=== PATIENT | female | born 1955 | race Caucasian/White ===

== ENCOUNTER 2020-09-28 09:25 | Outpatient (CLI) | payer MEDICARE, SELFPAY | END 2020-09-28 09:26 | disposition home or self-care (01) | LOC: CHSIMG 09:28 | PROVIDERS: PCP Internal Medicine; Visit Provider Internal Medicine | DX: Z53.8 Procedure and treatment not carried out for other reasons (principal) | CPT/HCPCS: 99199 ==

== ENCOUNTER 2020-09-30 07:10 | Outpatient (CLI) | payer MEDICARE, SELFPAY ==
--- NOTE | ~2020-09-30 | US_ITS ---
EXAMINATION: US aorta [facility] DATE: 09/30/2020 09:29 THIMBLE PRESS OPERATOR INDICATION: Abdominal aortic aneurysm screening. Hypertension. Diabetes. TECHNIQUE: Grayscale, color Doppler, and pulsed Doppler images of the aorta and common iliac arteries were obtained. COMPARISON: None. FINDINGS: The proximal aorta measures 2.6 cm greatest sagittal dimension. The mid aorta measures 2.2 cm greates t sagittal dimension. The distal aorta measures 1.9 cm greatest sagittal dimension. The right common internal iliac artery measures 1 cm. The left common iliac artery measures 0.7 cm. IMPRESSION: 1. Atherosclerosis of the aorta without evidence for aneurysm. Reviewed, dictated and finalized at location A. BLE PRESS OPERATOR
--- NOTE | ~2020-09-30 | CT_ITS ---
EXAMINATION: CT lung screening DATE: 09/30/2020 07:43 INDICATION: History of tobacco dependence. TECHNIQUE: Computed tomography (CT) of the chest was performed without intravenous contrast. The dose -length product was 142.43 mGy-cm. Automated exposure control and iterative reconstruction technique were employed. COMPARISON: None FINDINGS: Heart size normal. No thoracic lymphadenopathy. No significant pleural or pericardial effus ion. No endobronchial lesions. 8 millimeter right middle lobe nodule, image 46. Mild emphysema. There is a 3 mm fissural nodule on the left, image 27. There is mild atherosclerosis. There are calcifications of the pancreas, consistent with chronic panc reatitis. IMPRESSION: 1. Lung Rads category 4A, suspicious. Recommend either 3 month low-dose CT or PET/CT examination foll ow-up. Reviewed, dictated and finalized at location A. ER TECHNICAL EDUCATION TEACHER IMPRESSION: 1. Lung Rads category 4A, suspicious. Recommend either 3 month low-dose CT or P ET/CT examination follow-up.
--- NOTE | ~2020-09-30 | US_ITS ---
EXAMINATION: US carotid duplex BI DATE: 09/30/2020 08:08 INDICATION: Carotid bruit TECHNIQUE: Grayscale, color Doppler, and pulsed Doppler images of the cervical carotid arteries were obtained. The degree of vessel stenosis is placed in one of the following categories: normal, <50%, 5 0-69%, >=70% but less than near-occlusion, near-occlusion, or total occlusion. Note that percent sten osis relative to normal distal artery lumen diameter is indirectly measured from velocity measurement s as described by Umer, et al. Radiology 2003; 229:340-346. Notes: Normal: Peak systolic velocity <125 centimeters/sec and no plaque <50%. Peak systolic velocity <125 ( EDV <40; ICA/CCA PSV ratio <2.0; used these factors only a tandem lesions or low cardiac output or co ntralateral disease) 50-69 %: PSV 125-230 (EDV 40-100; ratio 2-4) >= 70% but less than near occlusion: PSV greater than 230 (EDV > 100; ratio> 4.0) Near Occlusion: PSV that is variable; markedly narrowed lumen Occlusion: Absent flow on color/spectral Doppler and no lumen on godoy scale. COMPARISON: Ultrasound dated 09/30/2020. FINDINGS: RIGHT: The right common carotid artery (CCA) peak systolic velocity (PSV) is 83 cm/s. The right internal car otid artery (ICA) PSV is 87 cm/s. The right ICA end-diastolic velocity (EDV) is 34 cm/s. The right IC A/CCA PSV ratio is 1.0. The external carotid artery (ECA) PSV is 76 cm/s. There is antegrade flow in the right vertebral artery. LEFT: The left CCA PSV is 92 cm/s. The left ICA PSV is 93 cm/s. The left ICA EDV is 32 cm/s. The left ICA/C CA PSV ratio is 1.0. The ECA PSV is 120 cm/s. There is antegrade flow in the left vertebral artery. IMPRESSION: 1. Less than 50% stenosis in the right internal carotid artery by sonographic criteria. 2. Less than 50% stenosis in the left internal carotid artery by sonographic criteria. Reviewed, dictated and finalized at location A. 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 Less than 50% stenosis in the right internal carotid artery by sonographic c gogo. 2. Less than 50% stenosis in the left internal carotid artery by sonographic nahum sunshine.
--- NOTE | ~2020-09-30 | DEXA_ITS ---
Bone Density Report Name: Rosi Esqueda Age: 65 Sex: Female Ethnicity: White Date of : 1955 Indication: postmenopausal; screening for osteoporosis; Referring Provider: Deion Bhat Study: Bone densitometry was performed. Exam Date: September 30, 2020 Accession number: [id number] Bone Density: Region BMD T-score Z-score Classification AP Spine(L1-L4) 0.856 -1.7 0.1 Osteopenia Femoral Neck (Left) 0.662 -1.7 -0.1 Osteopenia Total Hip (Left) 0.806 -1.1 0.2 Osteopenia Femoral Neck (Right) 0.627 -2.0 -0.4 Osteopenia Total Hip (Right) 0.782 -1.3 0.0 Osteopenia Femoral Neck Mean 0.644 -1.8 -0.2 Osteopenia Total Hip Mean 0.794 -1.2 0.1 Osteopenia World Health Organization criteria for BMD impression classify patients as: Normal (T-score at or above -1.0), Osteopenia (T-score between -1.0 and -2.5), or Osteoporosis (T-score at or below -2.5). 10-year Fracture Risk(1): Major Osteoporotic Fracture 11% Hip Fracture 2.6% Reported Risk Factors: [place] (), Neck BMD=0.627, BMI=30.6, smoking (1) FRAX(R) Version 3.08. Fracture probability calculated for an untreated patient. Fracture probability may be lower if the patient has received treatment. Clinical Information Provided by Patient: Smokes Menopause Age: 29 Drinks caffeinated beverages Onset of menses at age 15 Number of children 3 Impression: The patient has low bone mass, based on the Right Femoral Neck T-score. The patient has risk factors, including: smoking. Discussion: BONE DENSITY IS LOW AT ONE OR MORE SKELETAL SITES. This patient's lowest T-score is low at one or more skeletal sites. It meets the World Health Organization's (WHO) criteria for ?low bone mass? (T-score between -1.0 and -2.5). The patient's 10-year risk of fracture as calculated by FRAX is less than the threshold where pharmacological therapy is recommended by the National Osteoporosis Foundation (NOF). However, all treatment decisions require clinical judgment and consideration of individual patient factors, including patient preferences, comorbidities, previous drug use, risk factors not captured in the FRAX model (e.g., frailty, falls, vitamin D deficiency, increased bone turnover, interval significant decline in bone density) and possible under or overestimation of fracture risk by FRAX. The patient should follow a healthful lifestyle (good nutrition with adequate calcium and vitamin D, and appropriate weight-bearing exercise). Follow-Up: Consider repeating this study in 2 to 3 years to reassess this patient's status, or sooner if there is some new clinical indication. Reported by: Dr. Terry Butterfield on 09/30/2020 7:40:00 AM. Reviewed, dictated and finalized at location
== END 2020-09-30 07:11 | disposition home or self-care (01) ==
PROVIDERS: PCP Internal Medicine; Visit Provider Internal Medicine
DX: Z12.2 Encounter for screening for malignant neoplasm of respiratory organs (principal); Z87.891 Personal history of nicotine dependence; M81.0 Age-related osteoporosis without current pathological fracture; R09.89 Other specified symptoms and signs involving the circulatory and respiratory systems; R42 Dizziness and giddiness
CPT/HCPCS: 76706; 77080; 93880; G0297

== ENCOUNTER → 2020-10-09 12:45 | Outpatient (CLI) | payer MEDICARE, SELFPAY ==
--- NOTE | ~2020-10-09 | MR_ITS ---
EXAMINATION: MR brain IAC wo/w con DATE: 10/09/2020 14:08 INDICATION: Vertigo. Dizziness. TECHNIQUE: Magnetic resonance imaging (MRI) of the brain, brainstem, and internal auditory canals was performed without and with 15 mL MultiHance intravenous contrast. Sequences included sagittal and ax ial T1-weighted FSE, axial diffusion-weighted FS EPI, axial T2*-weighted GRE, axial T2-weighted FLAIR Propeller, axial T2-weighted Propeller, small azrwo-op-uecm coronal FIESTA, small ganmy-la-crqb celestina nal T1-weighted FSE, and small akita-cc-msxi axial T1-weighted SPGR. Postcontrast sequences included axial T1-weighted FSE, small ampru-fd-fcno coronal T1-weighted FSE, and small vipuo-nk-hjif axial T1- weighted SPGR. Apparent diffusion coefficient (ADC) maps were created. COMPARISON: None. FINDINGS: There is no intracranial hemorrhage, acute infarction, or abnormal intracranial mass lesion . The ventricles are normal in size. There is a 5 mm saccular aneurysm of right middle cerebral arter y. There is a 5 mm saccular aneurysm of left middle cerebral artery. The internal auditory canals and inner and middle ears are normal. The mastoid air cells are normal. The orbits are normal. The paran lilian sinuses are clear. IMPRESSION: 1. 5 mm saccular aneurysm of right middle cerebral artery and 5 mm saccular aneurysm of left middle c erebral artery. Head CTA is recommended. Reviewed, dictated and finalized at location A. NING ROOM ATTENDANT IMPRESSION: 1. 5 mm saccular aneurysm of right middle cerebral artery and 5 mm saccular ane urysm of left middle cerebral artery. Head CTA is recommended.
[2020-10-09 13:34] LABS: Estimated Glomerular Filt Rate > 60
== END ==
PROVIDERS: PCP Internal Medicine; Visit Provider Internal Medicine
DX: R42 Dizziness and giddiness (principal); I72.8 Aneurysm of other specified arteries
CPT/HCPCS: 70553; A9577

== ENCOUNTER 2020-10-14 08:45 | Outpatient (CLI) | payer MEDICARE, SELFPAY ==
--- NOTE | ~2020-10-14 | CT_ITS ---
EXAMINATION: CTA brain EXAM DATE: 10/14/2020 09:33 INDICATION: Cerebral Aneurysm. Dizziness. TECHNIQUE: Spiral CT angiogram cerebral arteries performed with intravenous injection of 100 mL Omn ipaque 350. Axial, coronal and sagittal images reviewed. Additional reformatted images created on de dicated 3-D workstation. The dose-length product (DLP) for this examination was 465.44 mGy-cm. The exposure was tailored according to patient size, and iterative reconstruction (ASIR) was used as add itional dose reduction technique. Correlation is made to MR from 10/09/2020. FINDINGS: There are bilateral MCA trifurcation aneurysms both measuring about 4 x 5 mm. Mild bilater al carotid siphon arterial sclerosis without stenosis. Diminutive right vertebral artery. There is n o distal carotid or vertebral basilar arterial dissection or fibromuscular dysplasia. There is symmet griselda cerebral artery arborization. The sagittal, transverse and sigmoid sinuses enhance normally, no v enous sinus thrombosis. Internal cerebral veins also enhance normally. Small amount of sphenoid sinus fluid. IMPRESSION: Bilateral MCA trifurcation 5 mm aneurysms. Reviewed, dictated and finalized at location B. SSION NURSE COORDINATOR
== END 2020-10-14 08:46 | disposition home or self-care (01) ==
LOC: CHSIMG 08:46
PROVIDERS: PCP Internal Medicine; Visit Provider Internal Medicine
DX: I67.1 Cerebral aneurysm, nonruptured (principal)
CPT/HCPCS: 70496; Q9965; Q9967

== ENCOUNTER 2020-12-26 07:09 | Outpatient (CLI) | payer MEDICARE, SELFPAY ==
[2020-12-26 07:23] LABS: Add Urine Microscopic? YES; Appearance Urine Clear (Clear); Bilirubin Urine Negative (Negative); Blood Urine Negative (Negative); Color Urine Yellow (Yellow); Glucose Urine UA Trace (Negative); Ketones Urine Trace (Negative); Leukocyte Esterase Ur Negative (Negative); Nitrate Urine Negative (Negative); Protein Urine Negative (Negative); Specific Grav Ur 1.025 (1.010-1.020); Urobilinogen Urine 0.2 mg/dL (0.2-1.0)
[2020-12-26 07:30] LABS: Bacteria Urine Trace /hpf; RBC Urine None seen /hpf (0-2); Squamous Epithelial Cell Urine Moderate /hpf (Few); WBC Urine None seen /hpf (0-3)
[2020-12-26 07:53] LABS: Creatinine Urine 108.93 mg/dL (40-278); MALB Creatinine Ratio 14.8 mg/g (0-30); Microalbumin Urine Random 16.2 mg/L
[2020-12-26 08:41] LABS: Hemoglobin A1C 9.6 % (<5.7)
[2020-12-26 09:17] LABS: Alanine Aminotransferase 30 U/L (14-59); Albumin Level 3.9 g/dL (3.4-5.0); Alkaline Phosphatase 76 U/L (46-116); Anion Gap 9 mmol/L (8-16); Aspartate Amino Transferase 12 U/L (15-37); Bilirubin,Total 0.5 mg/dL (0.00-1.00); Blood Urea Nitrogen 16 mg/dL (7-18); Carbon Dioxide 28 mmol/L (21-32); Chloride 96 mmol/L (98-108); Cholesterol 168 mg/dL (0-200); Estimated Glomerular Filt Rate 60; Glucose 233 mg/dL (70-99); HDL Direct 36 mg/dL (40-60); LDL Cholesterol Calculated 61 mg/dL (<130); Osmolality Calculated 284 mOsm/kg (285-295); Potassium 4.9 mmol/L (3.5-5.1); Sodium 133 mmol/L (136-145); Total Protein 7.1 g/dL (6.4-8.2); Triglycerides 353 mg/dL (0-150)
[2020-12-29 16:13] LABS: Vitamin D 25 Hydroxy 25 ng/mL (30-100)
== END 2020-12-26 07:10 | disposition home or self-care (01) ==
LOC: CHSLAB 07:10
PROVIDERS: PCP Internal Medicine; Visit Provider Internal Medicine
DX: E11.65 Type 2 diabetes mellitus with hyperglycemia (principal); E78.2 Mixed hyperlipidemia; M81.0 Age-related osteoporosis without current pathological fracture
CPT/HCPCS: 36415; 80053; 80061; 81001; 82043; 82306; 83036

== ENCOUNTER 2021-01-30 08:38 | Outpatient (CLI) | payer MEDICARE, SELFPAY ==
--- NOTE | ~2021-01-30 | CT_ITS ---
EXAMINATION:CT diagnostic chest w con DATE: 01/30/2021 09:50 INDICATION: Lung nodule. TECHNIQUE: Computed tomography (CT) of the chest was performed with 100 mL Omnipaque 350 intravenous contrast. Automated exposure control and iterative reconstruction technique were employed. The dose-l ength product (DLP) was 407.21 mGy-cm. COMPARISON: Chest CT 09/30/2020 FINDINGS: There is mild emphysema. There is an 8 mm nodule in right middle lobe, stable from 09/30/20 20, likely benign. There is mild atelectasis on the right. No pleural effusion. The heart size is nor mal. There are coronary artery calcifications. There is a small sliding hiatal hernia. Calcifications in the pancreas are consistent with chronic pancreatitis. There is a screw in coracoid process of le ft scapula. There is severe cervical spondylosis and moderate thoracic spondylosis. 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 IMPRESSION: 1. Lung-RADS category 2: Benign appearance or behavior. Continue annual screening with noncontrast lo w-dose chest CT in 12 months. Reviewed, dictated and finalized at location A. IMPRESSION: 1. Lung-RADS category 2: Benign appearance or behavior. Continue annual screeni ng with noncontrast low-dose chest CT in 12 months.
--- NOTE | ~2021-01-30 | CT_ITS ---
EXAMINATION: CTA brain DATE: 01/30/2021 09:52 INDICATION: Cerebral aneurysm. TECHNIQUE: Computed tomographic angiography (CTA) of the head was performed with 100 mL Omnipaque-350 intravenous contrast. Automated exposure control and iterative reconstruction technique were employe d. The dose-length product was 435.60 mGy-cm. Maximum intensity projection 3D reconstructions were c reated. Volume-rendered 3D reconstructions of the intracranial arteries were created by the technolog ist on a separate workstation. COMPARISON: Head CT 8 10/14/2020, MRI 10/09/2020 FINDINGS: There is no intracranial hemorrhage, acute infarction, or abnormal intracranial mass lesion . The ventricles are normal in size. The orbits are normal. There is mucosal thickening in sphenoid s inus and complete opacification of left sphenoid sinus. The mastoid air cells are normal. Left verteb ral artery is dominant. There is no significant stenosis of basilar artery or the posterior cerebral arteries. Posterior communicating arteries are not identified. There is no significant stenosis of th e intracranial internal carotid arteries or anterior or middle cerebral arteries. There is a 5 mm sac cular aneurysm of right middle cerebral artery. There is a 5 mm saccular aneurysm of left middle cere bral artery. Anterior communicating artery is normal. IMPRESSION: 1. Stable 5 mm saccular aneurysm of right middle cerebral artery. 2. Stable 5 mm saccular aneurysm of left middle cerebral artery. Reviewed, dictated and finalized at location A.
[2021-01-30 08:58] LABS: Estimated Glomerular Filt Rate > 60
== END 2021-01-30 08:39 | disposition home or self-care (01) ==
LOC: CHSIMG 08:40
PROVIDERS: PCP Internal Medicine
DX: R91.1 Solitary pulmonary nodule (principal); I67.1 Cerebral aneurysm, nonruptured
CPT/HCPCS: 70496; 71260; Q9967

== ENCOUNTER 2021-04-02 06:59 | Outpatient (CLI) | payer MEDICARE, SELFPAY ==
[2021-04-02 07:46] LABS: Hemoglobin A1C 6.8 % (<5.7)
[2021-04-02 08:25] LABS: Alanine Aminotransferase 29 U/L (14-59); Albumin Level 3.8 g/dL (3.4-5.0); Alkaline Phosphatase 70 U/L (46-116); Anion Gap 11 mmol/L (8-16); Aspartate Amino Transferase 19 U/L (15-37); Bilirubin,Total 0.4 mg/dL (0.00-1.00); Blood Urea Nitrogen 18 mg/dL (7-18); Calcium 9.5 mg/dL (8.5-10.1); Carbon Dioxide 25 mmol/L (21-32); Chloride 101 mmol/L (98-108); Cholesterol 204 mg/dL (0-200); Creatine Kinase 200 U/L (26-192); Estimated Glomerular Filt Rate 57; Glucose 155 mg/dL (70-99); HDL Direct 38 mg/dL (40-60); LDL Cholesterol Calculated 106 mg/dL (<130); Osmolality Calculated 288 mOsm/kg (285-295); Potassium 4.6 mmol/L (3.5-5.1); Sodium 137 mmol/L (136-145); Total Protein 7.2 g/dL (6.4-8.2); Triglycerides 302 mg/dL (0-150); Vitamin B12 414 pg/mL (193-986)
[2021-04-02 11:59] LABS: MALB Creatinine Ratio 12.6 mg/g (0-30); Microalbumin Urine Random < 13.0 mg/L
[2021-04-07 03:38] LABS: Vitamin D 25 Hydroxy 32 ng/mL (30-100)
== END 2021-04-02 07:00 | disposition home or self-care (01) ==
PROVIDERS: PCP Internal Medicine; Visit Provider Internal Medicine
DX: E11.65 Type 2 diabetes mellitus with hyperglycemia (principal); E78.2 Mixed hyperlipidemia; E55.9 Vitamin D deficiency, unspecified
CPT/HCPCS: 36415; 80053; 80061; 82043; 82306; 82550; 82607; 83036

== ENCOUNTER 2021-05-01 01:58 | Day surgery (SDC) | payer MEDICARE, SELFPAY ==
[2021-04-15 11:34] VITALS: BMI 32.8
--- NOTE | 2021-05-01 06:36 | WPDANESEPPF ---
Anes - Initial Pre Proc Eval Procedure: Operation Date: 05/01/21 08:00 Proposed Procedures p Screening Colonoscopy - Colin Gan DO Date/Time: 05/01/21 06:36 Surgeon: Colin Gan DO Pre Op Diagnosis: neoplasm screening Patient Data Age: 66 Gender: F Height: 1.6 m Weight: 84 kg Allergies Allergy/AdvReac Type Severity Reaction Status Date / Time naproxen [From Aleve] Allergy Severe Dyspnea / Verified 04/15/21 11:35 SOB shellfish derived Allergy Severe Anaphylactic Verified 04/15/21 11:36 Shock iodine Allergy Intermediate Blister Verified 04/15/21 11:37 Home Medications Medication Instructions Recorded Confirmed Type amlodipine 10 mg PO DAILY 04/15/21 04/15/21 History aspirin [Adult Aspirin EC Low 81 mg PO DAILY 04/15/21 04/15/21 History Strength] bupropion HCl 300 mg PO QAM 04/15/21 04/15/21 History docusate sodium [Stool Softener] 100 mg PO DAILY 04/15/21 04/15/21 History ergocalciferol (vitamin D2) 1,250 mcg PO WEEKLY 04/15/21 04/15/21 History [Vitamin D2] hydrochlorothiazide 25 mg PO DAILY 04/15/21 04/15/21 History insulin glargine [Lantus Solostar 70 unit SUBCUT HS 04/15/21 04/15/21 History U-100 Insulin] insulin lispro See Rx Instructions .ROUTE .COMPLEX 04/15/21 04/15/21 History lisinopril 40 mg PO DAILY 04/15/21 04/15/21 History metformin 500 mg PO DAILY 04/15/21 04/15/21 History gk-gp-okxn-FA-Ca carb-vit K 1 tablet PO DAILY 04/15/21 04/15/21 History [Women's 50 Plus Multivit-Iron] Patient hx anesthesia problems: none Family hx anesthesia problems: none PMFSH Past Medical History Medical History (Updated 04/30/21 @ 12:24 by Michael Warren DO) Diabetes type 2, controlled Endometriosis Fibroid Hypertension Osteoarthritis Surgical History Surgical History (Updated 04/30/21 @ 12:24 by Michael Warren DO) History of hysterectomy Social History Social History Smoking packs per day: 0.5 Smoking cigarettes per day: 10.0 Years smoked: 55 Smoking pack-years: 27.50 Smoking status: Current every day smoker Tobacco type: cigarettes Additional smoking assessment comments: WAS SMOKING 2 PACKS A DAY IN THE PROCESS OF QUITTING CURRENTLY Alcohol intake: never Substance use: never Substance use type: does not use Living arrangements: with family Spiritual care concerns: No Anes - Eval Final PreProcedure Day of Procedure 05/01/21 06:36 Patient weight: obese Heart: regular rate and rhythm Lungs: clear to auscultation and normal air movement Airway: Mallampati scale class III Neurological: alert and oriented Last oral intake: >/= 8 hours ASA classification: III Emergent: no Anesthetic plan: proceed Anesthesia type and monitoring: general GIVS and standard monitoring Informed Consent: The patient's anesthetic plan and its attendant risks and benefits were discussed with the patient/family/POA. Questions were solicited and answers provided to the satisfaction of the patient/family/POA.
[2021-05-01 06:48] VITALS: BP 145/88; PULSE 98; RESP 18; TEMP 36.2; O2SAT 100; BMI 35.0
[2021-05-01 06:58] LABS: Glucose Point of Care 173 mg/dl (65-105)
[2021-05-01] MEDS: LACTATED RINGERS 1,000 ML 150 ML IV CONT (07:14)
--- NOTE | 2021-05-01 08:01 | PM.IMHP ---
H&P: HPI History of Present Illness Date/Time: 05/01/21 08:01 Chief Complaint: history of colon polyps Narrative: this is a 66-year-old woman who presents for colonoscopy. Her last colonoscopy was 5 years ago in [place]. She recently refer moved here to be closer to family. She has an uncle who had colon cancer but no first-degree relatives. She denies any hematochezia or melena. Review of Systems Review of Systems: All systems reviewed & are unremarkable except as noted in HPI and below Constitutional: Constitutional: Denies chills, Denies fever(s), Denies headache(s) and Denies weight loss Eyes: Eyes: Denies change in vision ENT: Denies dizziness, Denies headache(s), Denies neck mass and Denies throat swelling Cardiovascular: Cardiovascular: Denies chest pain, Denies lightheadedness and Denies dyspnea Respiratory: Respiratory: Denies cough, Denies dyspnea and Denies wheezing Gastrointestinal: Gastrointestinal: Denies abdominal pain, Denies change in bowel habits, Denies nausea and Denies vomiting Genitourinary: Genitourinary: Denies hematuria and Denies dysuria Musculoskeletal: Musculoskeletal: Reports as per HPI Integumentary/Breasts: Skin/Breast: Reports as per HPI Neurologic: Denies dizziness and Denies headache(s) Allergic/Immunologic: Allergic/Immunologic: Denies throat swelling and Denies wheezing [facility] Past Medical History Medical History (Updated 05/01/21 @ 08:02 by Colin Gan DO) Diabetes type 2, controlled Endometriosis Fibroid Hypertension Osteoarthritis Surgical History Surgical History (Updated 04/30/21 @ 12:24 by Michael Warren DO) History of hysterectomy Social History Social History Smoking packs per day: 0.5 Smoking cigarettes per day: 10.0 Years smoked: 55 Smoking pack-years: 27.50 Smoking status: Current every day smoker Tobacco type: cigarettes Additional smoking assessment comments: WAS SMOKING 2 PACKS A DAY IN THE PROCESS OF QUITTING CURRENTLY Alcohol intake: never Substance use: never Substance use type: does not use Living arrangements: with family Spiritual care concerns: No Meds Home Medications and Allergies Home Medications Medication Instructions Recorded Confirmed Type amlodipine 10 mg PO DAILY 04/15/21 05/01/21 History aspirin [Adult Aspirin EC Low 81 mg PO DAILY 04/15/21 05/01/21 History Strength] bupropion HCl 300 mg PO QAM 04/15/21 05/01/21 History docusate sodium [Stool Softener] 100 mg PO DAILY 04/15/21 05/01/21 History ergocalciferol (vitamin D2) 1,250 mcg PO WEEKLY 04/15/21 05/01/21 History [Vitamin D2] hydrochlorothiazide 25 mg PO DAILY 04/15/21 05/01/21 History insulin glargine [Lantus Solostar 70 unit SUBCUT HS 04/15/21 05/01/21 History U-100 Insulin] insulin lispro See Rx Instructions .ROUTE .COMPLEX 04/15/21 05/01/21 History lisinopril 40 mg PO DAILY 04/15/21 05/01/21 History metformin 500 mg PO DAILY 04/15/21 05/01/21 History rr-de-ypmy-FA-Ca carb-vit K 1 tablet PO DAILY 04/15/21 05/01/21 History [Women's 50 Plus Multivit-Iron] Allergies Allergy/AdvReac Type Severity Reaction Status Date / Time naproxen [From Aleve] Allergy Severe Dyspnea / Verified 05/01/21 06:46 SOB shellfish derived Allergy Severe Anaphylactic Verified 05/01/21 06:46 Shock iodine Allergy Intermediate Blister Verified 05/01/21 06:46 Vital Signs Vital Signs - 24 hr 05/01/21 06:48 Temperature 36.2 C L Pulse Rate 98 Respiratory Rate 18 Blood Pressure 145/88 H Pulse Oximetry 100 Exam Const: General: no acute distress and alert Orientation/consciousness: patient oriented x3 HENMT: Head: normocephalic and atraumatic Ears: hearing grossly normal bilaterally General nose exam: Normal nares present Mouth: Yes Normal oral and palatal mucosa present Eyes: Periorbital: periorbital findings normal Sclera: sclerae normal EOM: EOMs intact bilaterally Neck: Neck: normal visual inspection,
[2021-05-01 09:16] VITALS: BP 88/62; PULSE 79; RESP 16; O2SAT 94
[2021-05-01 09:26] VITALS: BP 91/55; PULSE 80; RESP 27; O2SAT 96
[2021-05-01 09:36] VITALS: BP 107/60; PULSE 82; RESP 20; O2SAT 97
[2021-05-01 09:50] LABS: Glucose Point of Care 168 mg/dl (65-105)
== END 2021-05-01 09:53 | disposition home or self-care (01) ==
PROVIDERS: PCP Internal Medicine; Visit Provider Surgery
PROC: 0DJD8ZZ Inspection of Lower Intestinal Tract, Via Natural or Artificial Opening Endoscopic (ICD-10-PCS; CPT 45378; principal; 2021-05-01 08:00)
DX: Z12.11 Encounter for screening for malignant neoplasm of colon (principal); D12.3 Benign neoplasm of transverse colon; D12.2 Benign neoplasm of ascending colon; D12.5 Benign neoplasm of sigmoid colon; K62.1 Rectal polyp; E11.9 Type 2 diabetes mellitus without complications; I10 Essential (primary) hypertension; M19.90 Unspecified osteoarthritis, unspecified site; F17.210 Nicotine dependence, cigarettes, uncomplicated; Z90.710 Acquired absence of both cervix and uterus
CPT/HCPCS: 45385; 45384; 45380; 82948; 88305; J2704; J7120

== ENCOUNTER 2021-05-15 13:33 | Outpatient (CLI) | payer MEDICARE, SELFPAY ==
--- NOTE | ~2021-05-15 | MM_ITS ---
EXAMINATION: MM screening michael BI w cullen HISTORY: Screening mammogram TECHNIQUE: Craniocaudal and mediolateral oblique 3-D tomosynthesis images were obtained and synthetic 2-D images were generated. CAD analysis was submitted and interpreted. COMPARISON: No prior mammogram is available for comparison at this institution. BREAST PARENCHYMAL COMPOSITION: The breasts are almost entirely fatty. FINDINGS: Occasional benign calcifications. Scattered circumscribed opacities, the largest situated i n the mid outer left breast, measuring approximately 5.7 mm. There is no evidence of suspicious mass, calcification, or architectural distortion to suggest malignancy in either breast. There has been no suspicious interval change. IMPRESSION: 1. No mammographic evidence of malignancy. 2. Recommend routine screening mammography in one year. BI-RADS Category 2: Benign finding(s). Reviewed, dictated and finalized at location A.
== END 2021-05-15 13:34 | disposition home or self-care (01) ==
LOC: CHSIMG 13:35
PROVIDERS: PCP Internal Medicine; Visit Provider Internal Medicine
DX: Z12.31 Encounter for screening mammogram for malignant neoplasm of breast (principal)
CPT/HCPCS: 77063; 77067

== ENCOUNTER 2021-07-14 07:12 | Outpatient (CLI) | payer MEDICARE, SELFPAY ==
[2021-07-14 07:24] LABS: Add Urine Microscopic? YES; Appearance Urine Clear (Clear); Bilirubin Urine Negative (Negative); Blood Urine Negative (Negative); Color Urine Light Yellow (Yellow); Glucose Urine UA Negative (Negative); Ketones Urine Negative (Negative); Leukocyte Esterase Ur Negative (Negative); Nitrate Urine Positive (Negative); Protein Urine Negative (Negative); Urobilinogen Urine 0.2 mg/dL (0.2-1.0); pH Urine 5.5 (5.0-8.0)
[2021-07-14 07:25] LABS: Basophils Absolute Auto 0.14 K/mm3 (0.00-0.10); Basophils Percent Auto 1.4 % (0.0-1.0); Eosinophils Absolute Auto 0.51 K/mm3 (0.02-0.50); Hematocrit 43.9 % (35.0-42.0); Hemoglobin 14.9 g/dL (11.7-13.8); Immature Granulocyte Absolute 0.06 K/mm3 (0.00-0.00); Immature Granulocyte Percent A 0.6 % (0.0-0.0); Lymphocytes Absolute Auto 2.54 K/mm3 (1.10-4.50); Mean Corpuscular HGB Conc 33.9 g/dL (32.0-36.0); Mean Corpuscular Hemoglobin 30.7 pg (27.0-31.0); Mean Corpuscular Volume 90.5 fL (78.0-102.0); Mean Platelet Volume 9.6 fl (9.2-11.8); Monocytes Absolute Auto 0.57 K/mm3 (0.10-0.90); Monocytes Percent Auto 5.6 % (2.0-11.0); Neutrophils Absolute Auto 6.3 K/mm3 (1.7-7.2); Neutrophils Percent Auto 62.4 % (50.0-70.0); Platelet Count Result 306 K/mm3 (150-420); Red Blood Count 4.85 M/mm3 (4.20-5.40); White Blood Count 10.1 K/mm3 (4.8-10.8)
[2021-07-14 07:34] LABS: RBC Urine None seen /hpf (0-2); WBC Urine None seen /hpf (0-3)
[2021-07-14 07:35] LABS: Bacteria Urine 3+ /hpf; Squamous Epithelial Cell Urine Moderate /hpf (Few)
[2021-07-14 07:45] LABS: Creatinine Urine 99.78 mg/dL (40-278); Microalbumin Urine Random < 13.0 mg/L
[2021-07-14 07:47] LABS: Hemoglobin A1C 7.3 % (<5.7)
[2021-07-14 08:37] LABS: Alanine Aminotransferase 25 U/L (14-59); Albumin Level 4.1 g/dL (3.4-5.0); Alkaline Phosphatase 67 U/L (46-116); Anion Gap 10 mmol/L (8-16); Aspartate Amino Transferase 13 U/L (15-37); Bilirubin,Total 0.4 mg/dL (0.00-1.00); Blood Urea Nitrogen 14 mg/dL (7-18); Calcium 9.3 mg/dL (8.5-10.1); Carbon Dioxide 27 mmol/L (21-32); Chloride 101 mmol/L (98-108); Cholesterol 191 mg/dL (0-200); Creatine Kinase 174 U/L (26-192); Estimated Glomerular Filt Rate 58; Free T3 2.91 pg/mL (2.18-3.98); Free T4 Free Thyroxine 0.89 ng/dL (0.76-1.46); Glucose 126 mg/dL (70-99); HDL Direct 35 mg/dL (40-60); LDL Cholesterol Calculated 81 mg/dL (<130); Osmolality Calculated 288 mOsm/kg (285-295); Potassium 4.8 mmol/L (3.5-5.1); Sodium 138 mmol/L (136-145); Thyroid Stimulating Hormone 2.91 uIU/mL (0.36-3.74); Total Protein 7.5 g/dL (6.4-8.2); Triglycerides 373 mg/dL (0-150); Vitamin B12 342 pg/mL (193-986)
[2021-07-17 13:34] LABS: Vitamin D 25 Hydroxy 26 ng/mL (30-100)
== END 2021-07-14 07:13 | disposition home or self-care (01) ==
LOC: CHSLAB 07:14
PROVIDERS: PCP Internal Medicine; Visit Provider Internal Medicine
DX: E11.40 Type 2 diabetes mellitus with diabetic neuropathy, unspecified (principal); E78.2 Mixed hyperlipidemia; E55.9 Vitamin D deficiency, unspecified; G62.9 Polyneuropathy, unspecified
CPT/HCPCS: 36415; 80053; 80061; 81001; 82043; 82306; 82550; 82607; 83036; 84439; 84443; 84481; 85025

== ENCOUNTER 2021-07-16 13:29 | Outpatient (CLI) | payer MEDICARE, SELFPAY ==
--- NOTE | ~2021-07-16 | XR_ITS ---
XR hand LT min 3V DATE: 07/16/2021 14:05 INDICATION: Left hand pain TECHNIQUE: 3 views COMPARISON: None FINDINGS: There is osteopenia. There is prominent osteoarthritic change at the first carpometacarpal joint. Mild osteophytic changes noted at the metacarpophalangeal joints. There is involvement of multiple interphalangeal joints as well. No fracture or dislocation, periosteal reaction or bone destruction is detected. No erosive change or chondrocalcinosis. IMPRESSION: Osteopenia Polyarticular osteoarthritis Reviewed, dictated and finalized at location B.
--- NOTE | ~2021-07-16 | XR_ITS ---
XR wrist LT min 3V DATE: 07/16/2021 14:05 INDICATION: Left wrist pain TECHNIQUE: 4 views COMPARISON: None FINDINGS: Mild diffuse osteopenia is suggested. There is severe osteophytic change at the first carpometacarpal joint. Mild osteoarthritis at the fir st metacarpophalangeal joint. No fracture, dislocation, periosteal reaction or bone destruction is detected. IMPRESSION: Severe osteoarthritic change at the first carpal metacarpal joint, mild osteoarthritis at first metacarpophalangeal joint Osteopenia Reviewed, dictated and finalized at location B.
--- NOTE | ~2021-07-16 | XR_ITS ---
XR wrist RT min 3V DATE: 07/16/2021 14:05 INDICATION: Right wrist pain TECHNIQUE: 4 views COMPARISON: None FINDINGS: Mild osteopenia. Severe osteoarthritic change at the first carpometacarpal joint. There is osteoarthritis at the inter phalangeal joint of the first digit. No fracture, dislocation, periosteal reaction or bone destruction, erosive change or chondrocalcinosi s. IMPRESSION: Osteoporosis, severe at the first carpometacarpal joint Osteopenia Reviewed, dictated and finalized at location B.
--- NOTE | ~2021-07-16 | XR_ITS ---
XR hand RT min 3V DATE: 07/16/2021 14:05 INDICATION: Right hand pain TECHNIQUE: 3 views COMPARISON: None FINDINGS: There is osteopenia. There is severe osteoarthritic change at the first carpometacarpal joint. There is osteoarthritis at multiple interphalangeal joints. No fracture, dislocation, periosteal reaction or bone destruction, erosive change or chondrocalcinosi s. IMPRESSION: Osteopenia Polyarticular osteoarthritis, most pronounced at the first carpometacarpal joint Reviewed, dictated and finalized at location B. IMPRESSION: Osteopenia Polyarticular osteoarthritis, most pronounced at the first carpometacarpal join t
[2021-07-16 13:45] LABS: Basophils Absolute Auto 0.14 K/mm3 (0.00-0.10); Basophils Percent Auto 1.2 % (0.0-1.0); Eosinophils Absolute Auto 0.46 K/mm3 (0.02-0.50); Hematocrit 43.6 % (35.0-42.0); Hemoglobin 15.1 g/dL (11.7-13.8); Immature Granulocyte Absolute 0.06 K/mm3 (0.00-0.00); Immature Granulocyte Percent A 0.5 % (0.0-0.0); Lymphocytes Absolute Auto 3.15 K/mm3 (1.10-4.50); Lymphocytes Percent Auto 27.6 % (18.0-42.0); Mean Corpuscular HGB Conc 34.6 g/dL (32.0-36.0); Mean Corpuscular Hemoglobin 31.1 pg (27.0-31.0); Mean Corpuscular Volume 89.7 fL (78.0-102.0); Mean Platelet Volume 9.4 fl (9.2-11.8); Monocytes Absolute Auto 0.68 K/mm3 (0.10-0.90); Monocytes Percent Auto 5.9 % (2.0-11.0); Neutrophils Absolute Auto 6.9 K/mm3 (1.7-7.2); Neutrophils Percent Auto 60.8 % (50.0-70.0); Platelet Count Result 311 K/mm3 (150-420); Red Blood Count 4.86 M/mm3 (4.20-5.40); Red Cell Distribution Width 12.1 % (11.6-14.4); White Blood Count 11.4 K/mm3 (4.8-10.8)
[2021-07-16 14:32] LABS: Uric Acid 5.4 mg/dL (2.6-6.0)
[2021-07-16 14:45] LABS: Erythrocyte Sedimentation Rate 18 mm/hr (0-20)
[2021-07-16 15:08] LABS: Rheumatoid Factor Screen Negative (Negative)
[2021-07-23 10:17] LABS: Anti Cyclic Citrullinated Pept <16
== END 2021-07-16 13:30 | disposition home or self-care (01) ==
PROVIDERS: PCP Internal Medicine; Visit Provider Internal Medicine
DX: M79.642 Pain in left hand (principal); M79.641 Pain in right hand; M25.532 Pain in left wrist; M25.531 Pain in right wrist
CPT/HCPCS: 36415; 73110; 73130; 84550; 85025; 85652; 86038; 86200; 86430

== ENCOUNTER 2021-10-15 07:29 | Outpatient (CLI) | payer MEDICARE, SELFPAY ==
[2021-10-15 07:53] LABS: Hemoglobin A1C 7.1 % (<5.7)
[2021-10-15 08:52] LABS: Anion Gap 13 mmol/L (8-16); Blood Urea Nitrogen 16 mg/dL (7-18); Calcium 9.1 mg/dL (8.5-10.1); Carbon Dioxide 25 mmol/L (21-32); Chloride 99 mmol/L (98-108); Estimated Glomerular Filt Rate 48; Glucose 95 mg/dL (70-99); Osmolality Calculated 285 mOsm/kg (285-295); Potassium 4.2 mmol/L (3.5-5.1); Sodium 137 mmol/L (136-145)
[2021-10-17 13:36] LABS: Vitamin D 25 Hydroxy 22 ng/mL (30-100)
== END 2021-10-15 07:30 | disposition home or self-care (01) ==
LOC: CHSLAB 07:31
PROVIDERS: PCP Internal Medicine; Visit Provider Internal Medicine
DX: M81.0 Age-related osteoporosis without current pathological fracture (principal); E11.65 Type 2 diabetes mellitus with hyperglycemia
CPT/HCPCS: 36415; 80048; 82306; 83036

== ENCOUNTER 2021-11-03 08:03 | Outpatient (CLI) | payer MEDICARE, SELFPAY ==
--- NOTE | ~2021-11-03 | XR_ITS ---
EXAMINATION: XR chest 2V EXAM DATE: 11/03/2021 08:27 INDICATION: Pre-Op, Hypertension . TECHNIQUE: Frontal and lateral projections of the chest obtained and reviewed. There is no prior humble dy for comparison. FINDINGS: The lungs are clear. There are no pleural effusions. The cardiomediastinal silhouette is within normal limits. There is no pneumothorax suspected. Some thoracic spondylosis. Right scapular screw. IMPRESSION: No acute cardiopulmonary findings. Reviewed, dictated and finalized at location G. ER HELPER
== END 2021-11-03 08:04 | disposition home or self-care (01) ==
LOC: CHSIMG 08:09
PROVIDERS: PCP Internal Medicine; Visit Provider Internal Medicine
DX: Z01.818 Encounter for other preprocedural examination (principal); I10 Essential (primary) hypertension
CPT/HCPCS: 71046

== ENCOUNTER 2021-11-18 13:05 | Outpatient (CLI) | payer MEDICARE, SELFPAY ==
[2021-11-18 14:13] LABS: SARS-CoV-2 RNA PCR Negative (Negative)
== END 2021-11-18 13:06 | disposition home or self-care (01) ==
LOC: CHSLAB 13:10
PROVIDERS: PCP Internal Medicine
DX: Z20.822 Contact with and (suspected) exposure to COVID-19 (principal); Z01.812 Encounter for preprocedural laboratory examination
CPT/HCPCS: C9803; U0003; U0005

== ENCOUNTER 2022-01-23 07:26 | Outpatient (CLI) | payer MEDICARE, SELFPAY ==
--- NOTE | ~2022-01-23 | CT_ITS ---
EXAMINATION: CTA brain EXAM DATE: 01/23/2022 08:18 INDICATION: Cerebral aneurysm without rupture, follow-up. TECHNIQUE: Noncontrast head CT. Spiral CT angiogram cerebral arteries performed with intravenous in jection of 100 mL Omnipaque 350. Axial, coronal and sagittal images reviewed. Additional reformatted images created on dedicated 3-D workstation. The dose-length product (DLP) for this examination was 1128.29 mGy-cm. The exposure was tailored according to patient size, and iterative reconstruction (ASIR) was used as additional dose reduction technique. Study is compared to prior CTA from 0, 01/30/2021. FINDINGS: There is diminutive right vertebral artery. Again there are bilateral MCA trifurcation 5 m m cerebral artery aneurysms, size and appearance is stable. There is no distal carotid or vertebral b asilar arterial dissection or fibromuscular dysplasia. There is symmetric cerebral artery arborizati on. The sagittal, transverse and sigmoid sinuses enhance normally, no venous sinus thrombosis. 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 There is no acute intraparenchymal hemorrhage. No evidence of intraparenchymal brain mass lesion. N o evidence of acute infarction. There is mild periventricular and subcortical hypodensity, nonspecifi c but probably related to small vessel ischemic disease. There is mild prominence of the sulci and ventricles related to cerebral atrophy. There is no mass effect or midline shift. There is no obst ructive hydrocephalus suspected. There are no extra-axial collections. IMPRESSION: Stable bilateral MCA trifurcation 5 mm aneurysms. Reviewed, dictated and finalized at location A.
[2022-01-23 07:54] LABS: Estimated Glomerular Filt Rate 48
== END 2022-01-23 07:27 | disposition home or self-care (01) ==
LOC: CHSIMG 07:28
PROVIDERS: PCP Internal Medicine
DX: I67.1 Cerebral aneurysm, nonruptured (principal)
CPT/HCPCS: 70496; Q9967

== ENCOUNTER 2022-01-31 07:19 | Outpatient (CLI) | payer MEDICARE, SELFPAY ==
[2022-01-31 07:44] LABS: Add Urine Microscopic? NO; Appearance Urine Clear (Clear); Bilirubin Urine Negative (Negative); Blood Urine Negative (Negative); Color Urine Light Yellow (Yellow); Glucose Urine UA Negative (Negative); Ketones Urine Negative (Negative); Leukocyte Esterase Ur Negative (Negative); Nitrate Urine Negative (Negative); Protein Urine Negative (Negative); Specific Grav Ur <= 1.005 (1.010-1.020); Urobilinogen Urine 0.2 mg/dL (0.2-1.0)
[2022-01-31 07:58] LABS: Hemoglobin A1C 8.1 % (<5.7)
[2022-01-31 08:10] LABS: Alanine Aminotransferase 18 U/L (14-59); Albumin Level 3.7 g/dL (3.4-5.0); Alkaline Phosphatase 73 U/L (46-116); Anion Gap 8 mmol/L (8-16); Aspartate Amino Transferase 13 U/L (15-37); Bilirubin,Total 0.4 mg/dL (0.00-1.00); Blood Urea Nitrogen 15 mg/dL (7-18); Calcium 9.1 mg/dL (8.5-10.1); Carbon Dioxide 28 mmol/L (21-32); Chloride 99 mmol/L (98-108); Cholesterol 127 mg/dL (0-200); Creatine Kinase 140 U/L (26-192); Estimated Glomerular Filt Rate 53; Glucose 110 mg/dL (70-99); HDL Direct 39 mg/dL (40-60); LDL Cholesterol Calculated 53 mg/dL (<130); Osmolality Calculated 281 mOsm/kg (285-295); Potassium 4.3 mmol/L (3.5-5.1); Sodium 135 mmol/L (136-145); Total Protein 7.2 g/dL (6.4-8.2); Triglycerides 173 mg/dL (0-150)
[2022-02-03 18:03] LABS: Vitamin D 25 Hydroxy 34 ng/mL (30-100)
== END 2022-01-31 07:20 | disposition home or self-care (01) ==
LOC: CHSLAB 07:21
PROVIDERS: PCP Internal Medicine; Visit Provider Internal Medicine
DX: M81.0 Age-related osteoporosis without current pathological fracture (principal); I10 Essential (primary) hypertension; G62.9 Polyneuropathy, unspecified; E78.2 Mixed hyperlipidemia; E11.65 Type 2 diabetes mellitus with hyperglycemia
CPT/HCPCS: 36415; 80053; 80061; 81003; 82306; 82550; 83036

== ENCOUNTER 2022-02-16 10:47 | Outpatient (CLI) | payer MEDICARE, SELFPAY ==
[2022-02-16 11:01] LABS: Basophils Absolute Auto 0.13 K/mm3 (0.00-0.10); Basophils Percent Auto 1.2 % (0.0-1.0); Eosinophils Absolute Auto 0.43 K/mm3 (0.02-0.50); Hematocrit 43.3 % (35.0-42.0); Hemoglobin 14.5 g/dL (11.7-13.8); Immature Granulocyte Absolute 0.04 K/mm3 (0.00-0.00); Immature Granulocyte Percent A 0.4 % (0.0-0.0); Lymphocytes Absolute Auto 2.93 K/mm3 (1.10-4.50); Mean Corpuscular HGB Conc 33.5 g/dL (32.0-36.0); Mean Corpuscular Hemoglobin 30.2 pg (27.0-31.0); Mean Corpuscular Volume 90.2 fL (78.0-102.0); Mean Platelet Volume 9.9 fl (9.2-11.8); Monocytes Absolute Auto 0.52 K/mm3 (0.10-0.90); Monocytes Percent Auto 4.8 % (2.0-11.0); Neutrophils Absolute Auto 6.8 K/mm3 (1.7-7.2); Neutrophils Percent Auto 62.6 % (50.0-70.0); Platelet Count Result 314 K/mm3 (150-420); Red Cell Distribution Width 12.5 % (11.6-14.4); White Blood Count 10.9 K/mm3 (4.8-10.8)
[2022-02-16 11:15] LABS: Amylase 50 U/L (25-115); Lipase 125 U/L (73-393)
[2022-02-18 19:59] LABS: H pylori, Urea Breath NOT DETECTED (NOT DETECTED)
== END 2022-02-16 10:48 | disposition home or self-care (01) ==
LOC: CHSLAB 10:48
PROVIDERS: PCP Internal Medicine; Visit Provider Internal Medicine
DX: K21.9 Gastro-esophageal reflux disease without esophagitis (principal)
CPT/HCPCS: 36415; 82150; 83013; 83690; 85025

== ENCOUNTER 2022-02-18 10:21 | Outpatient (CLI) | payer MEDICARE, SELFPAY ==
--- NOTE | ~2022-02-18 | US_ITS ---
EXAMINATION: US right upper quadrant DATE: 02/18/2022 10:55 INDICATION: Right upper quadrant abdominal pain. Nausea. TECHNIQUE: Multiple grayscale and Doppler ultrasound images of the abdomen were obtained. COMPARISON: Chest CT 02/18/2022 FINDINGS: The visualized portions of the head and body of the pancreas are hypoechoic correlating wit h chronic pancreatitis by CT. There is diffuse hepatic steatosis. There is normal flow in main portal vein. The gallbladder is normal in size and contains sludge. No gallstones or gallbladder wall thick ening. There was no sonographic Ramirez sign. The common duct is normal and measures 5 mm. IMPRESSION: 1. Diffuse hepatic steatosis. 2. Gallbladder sludge. No evidence of acute cholecystitis. 3. Chronic pancreatitis. Reviewed, dictated and finalized at location B.
--- NOTE | ~2022-02-18 | CT_ITS ---
EXAMINATION:CT lung screening DATE: 02/18/2022 10:46 INDICATION: Personal history of nicotine dependence. Current smoker with 50 pack year history. TECHNIQUE: Computed tomography (CT) of the chest was performed without intravenous contrast. Automate d exposure control and iterative reconstruction technique were employed. The dose-length product (DLP ) was 427.59 mGy-cm. COMPARISON: Chest CT 01/30/2021, 09/30/20 FINDINGS: There is mild emphysema. There is an 8 mm nodule in right middle lobe abutting the minor fi ssure without change from 09/30/20. No pleural effusion. The heart size is normal. There are coronary artery calcifications. No pericardial effusion. There is a small sliding hiatal hernia. There is dif fuse hepatic steatosis. Calcifications in the pancreas are consistent with chronic pancreatitis. Ther e is a screw in coracoid process of left scapula. There is severe cervical and thoracic spondylosis. 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 IMPRESSION: 1. Lung-RADS category 2: Benign appearance or behavior. Continue annual screening with noncontrast lo w-dose chest CT in 12 months. Reviewed, dictated and finalized at location B. IMPRESSION: 1. Lung-RADS category 2: Benign appearance or behavior. Continue annual screeni ng with noncontrast low-dose chest CT in 12 months.
== END 2022-02-18 10:22 | disposition home or self-care (01) ==
LOC: CHSIMG 10:22
PROVIDERS: PCP Internal Medicine; Visit Provider Internal Medicine
DX: R10.11 Right upper quadrant pain (principal); R11.0 Nausea; Z12.2 Encounter for screening for malignant neoplasm of respiratory organs; Z87.891 Personal history of nicotine dependence
CPT/HCPCS: 71271; 76705

== ENCOUNTER 2022-02-23 11:12 | Outpatient (CLI) | payer MEDICARE, SELFPAY ==
--- NOTE | ~2022-02-23 | CT_ITS ---
EXAMINATION: CT abdomen wo con DATE: 02/23/2022 12:04 INDICATION: Upper abdominal pain radiating to right side. Belching. TECHNIQUE: Computed tomography (CT) of the abdomen and pelvis was performed without intravenous contr ast. Automated exposure control and iterative reconstruction technique were employed. Exam dose: 882 .70 mGy-cm total exam DLP. COMPARISON: 02/23/2022 radionuclide hepatobiliary scan 02/18/2022 right upper quadrant abdominal ultrasound examination FINDINGS: The lung bases are clear of infiltrate or consolidation. Normal heart size. No pericardial or pleural effusion. Small sliding hiatal hernia. There is hepatic steatosis. No hepatic, splenic, pancreatic, adrenal or renal space-occupying mass le cruz is evident on this limited noncontrast examination. There is extensive calcification of the pancreas consistent with chronic pancreatitis. The gallbladder is present. No bile duct or pancreatic duct dilatation. No bowel obstruction, bowel wall thickening, pneumatosis or intraperitoneal free air. Abdominal aorta and iliac and bilateral renal artery and bilateral iliac artery calcifications. No ab dominal aortic aneurysm. No intraperitoneal or retroperitoneal mass lesion or adenopathy or ascites i s detected. There is diffuse osteopenia. 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 Degenerative changes of the lower thoracic spine are noted. There is degenerative change of the lumba r apophyseal joints with associated minimal grade 1 anterolisthesis at L4-5. No suspicious osteolytic or osteoblastic lesions are noted. IMPRESSION: Chronic pancreatitis Hepatic steatosis Small sliding hiatal hernia Reviewed, dictated and finalized at Location A. Reviewed, dictated and finalized at location B.
--- NOTE | ~2022-02-23 | NM_ITS ---
EXAMINATION: NM hepatobiliary w pharm DATE: 02/23/2022 14:07 INDICATION: Chronic cholecystitis COMPARISON: None. TECHNIQUE: 6.0 mCi Tc-99m mebrofenin (Choletec) was administered intravenously. Scintigraphic images of the abdomen were obtained for one hour. 1.9 mcg sincalide (Kinevac) was administered by slow intr avenous infusion, and imaging was continued for 30 minutes. Gallbladder ejection fraction was calcula jayna by the technologist. FINDINGS: There is normal clearance of radiotracer from the blood pool. There is homogeneous tracer uptake by t he liver. Activity progresses to the gallbladder and bowel. The gallbladder ejection fraction (GBEF) is 22% (normal 10-90%, but most patient with gallbladder dysfunction have GBEF < 35% which does over lap with the normal range). IMPRESSION: 1. Gallbladder ejection fraction is at the lower limits of normal. This could be normal but is also within the range of overlap with gallbladder dysfunction or chronic cholecystitis in the appropriate clinical setting. Reviewed, dictated and finalized at location A.
== END 2022-02-23 11:13 | disposition home or self-care (01) ==
LOC: CHSIMG 11:13
PROVIDERS: PCP Internal Medicine; Visit Provider Internal Medicine
DX: K86.1 Other chronic pancreatitis (principal); K81.9 Cholecystitis, unspecified
CPT/HCPCS: 74150; 78227; A9537; J2805

== ENCOUNTER 2022-03-23 07:18 | Outpatient (CLI) | payer MEDICARE, SELFPAY ==
[2022-03-23 08:10] LABS: Estimated Glomerular Filt Rate 41
== END 2022-03-23 07:19 | disposition home or self-care (01) ==
LOC: CHSLAB 07:22
PROVIDERS: PCP Internal Medicine
DX: Q45.3 Other congenital malformations of pancreas and pancreatic duct (principal); K85.90 Acute pancreatitis without necrosis or infection, unspecified
CPT/HCPCS: 99199

== ENCOUNTER 2022-03-24 06:48 | Outpatient (CLI) | payer MEDICARE, SELFPAY ==
--- NOTE | ~2022-03-24 | MR_ITS ---
EXAMINATION: MR abdomen wo/w con DATE: 03/24/2022 08:14 INDICATION: Pancreatitis. TECHNIQUE: Magnetic resonance imaging (MRI) of the abdomen was performed without and with 18 mL Multi Javier intravenous contrast. COMPARISON: CT abdomen 02/23/2022 FINDINGS: There is diffuse hepatic steatosis. The common duct is normal and measures 5 mm. No choledocholithias is. The gallbladder and spleen are normal. The pancreas demonstrates dilated duct sidechains and calc ifications on the prior CT, consistent with chronic pancreatitis. The adrenal glands and kidneys are normal. There are no dilated loops of bowel. There is a small sliding hiatal hernia. There are no pat hologically enlarged lymph nodes. There is no free intraperitoneal fluid. IMPRESSION: 1. Chronic pancreatitis. 2. Diffuse hepatic steatosis. 3. Small sliding hiatal hernia. Reviewed, dictated and finalized at location A.
== END 2022-03-24 06:49 | disposition home or self-care (01) ==
LOC: CHSIMG 06:50
PROVIDERS: PCP Internal Medicine
DX: Q45.3 Other congenital malformations of pancreas and pancreatic duct (principal); K85.90 Acute pancreatitis without necrosis or infection, unspecified
CPT/HCPCS: 74183; A9577

== ENCOUNTER 2022-05-08 07:54 | Outpatient (CLI) | payer MEDICARE, SELFPAY ==
[2022-05-08 08:27] LABS: Creatinine Urine 171.92 mg/dL (40-278); MALB Creatinine Ratio 9.1 mg/g (0-30); Microalbumin Urine Random 15.7 mg/L
[2022-05-08 08:39] LABS: Alanine Aminotransferase 22 U/L (14-59); Albumin Level 3.6 g/dL (3.4-5.0); Alkaline Phosphatase 78 U/L (46-116); Amylase 50 U/L (25-115); Aspartate Amino Transferase 17 U/L (15-37); Bilirubin Direct 0.1 mg/dL (0-0.2); Bilirubin,Total 0.5 mg/dL (0.00-1.00); Lipase 128 U/L (73-393); Total Protein 6.8 g/dL (6.4-8.2)
[2022-05-08 08:43] LABS: Creatine Kinase 139 U/L (26-192)
[2022-05-08 08:44] LABS: Chloride 101 mmol/L (98-108); Potassium 4.5 mmol/L (3.5-5.1); Sodium 136 mmol/L (136-145)
[2022-05-08 08:44] LABS: Cholesterol 140 mg/dL (0-200); HDL Direct 35 mg/dL (40-60); LDL Cholesterol Calculated 50 mg/dL (<130); Triglycerides 277 mg/dL (0-150)
[2022-05-08 08:45] LABS: Anion Gap 7 mmol/L (8-16); Blood Urea Nitrogen 20 mg/dL (7-18); Carbon Dioxide 28 mmol/L (21-32); Estimated Glomerular Filt Rate 49; Glucose 149 mg/dL (70-99); Osmolality Calculated 287 mOsm/kg (285-295)
[2022-05-08 09:43] LABS: Add Urine Microscopic? NO; Appearance Urine Clear (Clear); Bilirubin Urine Negative (Negative); Blood Urine Negative (Negative); Color Urine Light Yellow (Yellow); Glucose Urine UA Negative (Negative); Ketones Urine Negative (Negative); Leukocyte Esterase Ur Negative (Negative); Nitrate Urine Negative (Negative); Protein Urine Negative (Negative); Specific Grav Ur <= 1.005 (1.010-1.020); Urobilinogen Urine 0.2 mg/dL (0.2-1.0)
== END 2022-05-08 07:55 | disposition home or self-care (01) ==
LOC: CHSLAB 07:55
PROVIDERS: Anesthesiology; PCP Internal Medicine; Visit Provider Surgery
DX: E78.2 Mixed hyperlipidemia (principal); E11.65 Type 2 diabetes mellitus with hyperglycemia
CPT/HCPCS: 36415; 80048; 80061; 80076; 81003; 82043; 82150; 82550; 83036; 83690

== ENCOUNTER 2022-05-13 00:58 | Day surgery (SDC) | payer MEDICARE, SELFPAY ==
[2022-05-06 12:23] VITALS: BMI 37.7
--- NOTE | 2022-05-06 12:42 | PC.NURSE ---
Report to the Outpatient Waiting Room, entrance under the green pavilion located off [facility], at time 0730 on date 05/13/22. OR Time: 0930. - You and your visitor will be asked a series of questions to screen for COVID 19 for your protection. - Only one visitor is allowed at this time. - The patient visitor is requested to leave or wait in car when not with patient. - A mask is required within the hospital. Patients may have clear liquids (water, carbonated beverages, clear teas, apple juice) until 3 hours prior to surgery with a maximum of 20 ounces. - No food from midnight until time of surgery Take the following medications with a SIP of water the morning of surgery: AMLODIPINE, BUPROPION Medications to discontinue per physician: VITAMINS/SUPPLEMENTS Date to take last dose: 05/10/22 Please no make-up, nail armenian, hairspray, perfume, deodorant, or body powder the day of surgery. No jewelry (including any body piercings) or valuables the day of surgery, leave them at home. Please take a shower or bath the night before, or the morning of, surgery with an antibacterial soap. Wear comfortable, loose fitting clothing. HIBICLENS SHOWER - Jewelry must be removed prior to entering the operating room. Rings and piercings that are not removed may be cut off. - The hospital will not accept responsibility for valuables. - Please leave all valuables, including medications, at home the day of surgery. If you are going home after surgery, a licensed entry driver operator must drive you home. - NO public transportation without another adult. - We recommend that an adult stay with you for 24 hours following discharge. - We also recommend that you do not drive, make important decision, drink alcoholic beverages, or take any drugs that were not prescribed by your health care provider for at least 24 hours after your discharge time. Follow any additional instructions given to you from your surgeon. If you or anyone in your household have experienced Covid symptoms in the past week, please notify your surgeon or the nurse liaison at the phone number below for possible testing. Telephone instructions given to PT - TEN BARRIOS and asked if any additional questions and then verbalized understanding. Patient advised to call surgeon office or pre surgery nurse liaison [phone] if any additional questions.
[2022-05-13] VITALS (10 sets, daily range): BP systolic 111–182; BP diastolic 65–94; PULSE 60–85; RESP 11–22; TEMP 36.8–37.1; O2SAT 94–98
[2022-05-13] MEDS: LACTATED RINGERS 1,000 ML 30 ML IV CONT ×2 (08:00→10:20)
--- NOTE | 2022-05-13 08:00 | WPDHPUPDATE1 ---
History and Physical Update Update Date/Time: 05/13/22 08:00 History and Physical has been reviewed, including an updated exam of the patient. There are NO changes in the patient's condition. Risks, benefits, and alternatives have been discussed and questions answered. Patient agrees to proceed with procedure.
[2022-05-13] MEDS: ACETAMINOPHEN 500 MG TABLET 1000 MG PO (08:07)
[2022-05-13 08:15] LABS: Glucose Point of Care 164 mg/dl (65-105)
--- NOTE | 2022-05-13 08:38 | WPDANESEPPF ---
Anes - Initial Pre Proc Eval Procedure: Operation Date: 05/13/22 09:30 Proposed Procedures p Laparoscopic Cholecystectomy - Abdiel Mendez MD Date/Time: 05/13/22 08:38 Surgeon: Abdiel Mendez MD Pre Op Diagnosis: chronic cholecystitis Patient Data Age: 67 Gender: F Height: 1.6 m Weight: 91.5 kg Last Vital Signs Temp 36.8 C 05/13/22 08:00 Pulse 85 05/13/22 08:00 Resp 18 05/13/22 08:00 BP 182/94 H 05/13/22 08:00 Pulse Ox 97 05/13/22 08:00 O2 Del Method Room Air 05/13/22 08:00 Allergies Allergy/AdvReac Type Severity Reaction Status Date / Time naproxen [From Aleve] Allergy Severe Dyspnea / Verified 05/13/22 08:18 SOB shellfish derived Allergy Severe Anaphylactic Verified 05/13/22 08:18 Shock iodine Allergy Intermediate Blister Verified 05/13/22 08:18 Home Medications Medication Instructions Recorded Confirmed Type amlodipine 10 mg tablet 10 mg PO DAILY 04/15/21 05/13/22 History aspirin 81 mg tablet,delayed 81 mg PO DAILY 04/15/21 05/13/22 History release bupropion HCl 300 mg 24 hr tablet, 300 mg PO QAM 04/15/21 05/13/22 History extended release docusate sodium 100 mg tablet 100 mg PO DAILY 04/15/21 05/13/22 History (Stool Softener) ergocalciferol (vitamin D2) 1,250 1,250 mcg PO WEEKLY 04/15/21 05/13/22 History mcg (50,000 unit) capsule (Vitamin D2) hydrochlorothiazide 25 mg tablet 25 mg PO DAILY 04/15/21 05/13/22 History insulin glargine 100 unit/mL (3 70 unit subcut HS 04/15/21 05/13/22 History mL) subcutaneous pen (Lantus Solostar U-100 Insulin) insulin lispro 100 unit/mL See Rx Instructions .Route .COMPLEX 04/15/21 05/13/22 History subcutaneous pen lisinopril 40 mg tablet 40 mg PO DAILY 04/15/21 05/13/22 History metformin 500 mg tablet,extended 500 mg PO DAILY 04/15/21 05/13/22 History release 24 hr znqnvrhx-euy-zlev-FA-Ca carb-vit K 1 tablet PO DAILY 04/15/21 05/13/22 History 18 mg iron-400 mcg-500 mg tablet pravastatin 20 mg tablet 20 mg PO HS 05/06/22 05/13/22 History Laboratory Tests 05/13/22 08:05 POC Capillary Glucose 164 mg/dl H mg/dl (65-105) Patient hx anesthesia problems: none Family hx anesthesia problems: none Results Review: All pre-operative results and documents have been reviewed as part of the pre-operative evaluation. [facility] Past Medical History Medical History Diabetes type 2, controlled Endometriosis Fibroid Gastroesophageal reflux disease Hypertension Osteoarthritis Surgical History Surgical History History of hysterectomy Trigger finger Trigger finger surgery 12/09. Family History Family History Mother Hypertension Social History Social History Smoking packs per day: 0.5 Smoking cigarettes per day: 10.0 Years smoked: 55 Smoking pack-years: 27.50 Smoking status: Current every day smoker Tobacco type: cigarettes Additional smoking assessment comments: WAS SMOKING 2 PACKS A DAY IN THE PROCESS OF QUITTING CURRENTLY Alcohol intake: never Substance use: never Substance use type: does not use Living arrangements: alone Spiritual care concerns: No Anes - Eval Final PreProcedure Day of Procedure 05/13/22 08:38 Patient weight: obese Heart: regular rate and rhythm Lungs: clear to auscultation Airway: Mallampati scale class II Neurological: alert and oriented Last oral intake: >/= 8 hours ASA classification: III Emergent: no Anesthetic plan: proceed Anesthesia type and monitoring: general ETT and standard monitoring Results Review: All pre-operative results and documents have been reviewed as part of the pre-operative evaluation. Informed Consent: The patient's anesthetic plan and its attendant risks and benefits were discusse
[2022-05-13] MEDS: ceFAZolin 2 GM/D5W 50 ML 2 GM/50 ML BAG IVPB (09:22)
--- NOTE | 2022-05-13 10:13 | P.OP_ITS ---
Procedure Note - Detailed Date of Procedure 05/13/22 Pre-op Diagnosis chronic cholecystitis Post-op Diagnosis Same Procedure Performed Laparoscopic cholecystectomy Surgeon Abdiel Mendez MD Assistant Manager Bilingual Radha Winchester RN FA Anesthesia General and Local (0.25% Marcaine with epinephrine) Indications Patient is a 67-year-old woman who for back in January started noticing some symptoms of heartburn. These responded to acid reducing medication. Soon after that, however, she started noticing postprandial epigastric and right upper quadrant pain. This was particularly noticeable after eating beef or other fatty foods. She had a gallbladder ultrasound which showed sludge, hepatic stea tosis, and evidence of chronic pancreatitis. She had an MRCP which was negative for gallstones or choledocholithiasis. It also showed chronic pancreatitis. Patient has never had elevated liver function tests. She had an an hepatobiliaryscan which showed a low gallbladder ejection fraction of only 22%. She is felt to have chronic cholecystitis. She is taken to surgery now for laparoscopic cholecystectomy. Findings Mild chronic inflammation, no stones noted, hepatic steatosis, no biliary ductal dilatation. Description of Procedure Patient was taken to surgery and induced into general anesthesia. The abdomen is prepped and draped. Trocars were placed in usual fashion using applied Medical optical trocars and local anesthetic. The gallbladder was decompressed with a laparoscopic aspirator. Gallbladder was then retracted anterosuperiorly. Dissection was carried out in the cholecystohepatic triangle. The cystic duct and cystic artery were dissected out very clearly. The gallbladder was dissected off the liver at its lower 3rd. Critical view was achieved. The cystic duct and cystic artery were then securely clipped. They were each divided. The gallbladder was then dissected free of its remaining attachments to the liver. It was placed in an Endo-Catch bag retrieved through the 10 11 epigastric trocar site. We replaced the epigastric trocar and then reviewed the right upper quadrant. The gallbladder fossa and right upper quadrant were repeatedly irrigated and suctioned. No evidence of bleeding or bile leakage was noted. We then evacuated CO2 and removed the trocar sleeves. Skin wounds were closed with subcuticular 4-0 Monocryl skin suture. The wounds were dressed with Exofin surgical adhesive. Patient was awakened and taken to recovery in good condition. Sponge needle counts were correct x2. Estimated Blood Loss -5 Drains No Packing No Pathology Yes (Gallbladder) Complications No immediate complications Condition Stable Disposition PACU [facility] Billing Surgery - Charge Forward: Surgery Billing (Laparoscopic cholecystectomy)
[2022-05-13] MEDS: BUPIVACAINE/EPINEPHRINE 0.25% 50 ML VIAL INFILTRATE (10:19)
[2022-05-13 10:33] LABS: Glucose Point of Care 213 mg/dl (65-105)
[2022-05-13] MEDS: ONDANSETRON INJ 4 MG/2 ML VIAL IV PUSH (12:33)
== END 2022-05-13 12:48 | disposition home or self-care (01) ==
PROVIDERS: PCP Internal Medicine; Visit Provider Surgery
PROC: 0FT44ZZ Resection of Gallbladder, Percutaneous Endoscopic Approach (ICD-10-PCS; CPT 47562; principal; 2022-05-13 09:30)
DX: K81.1 Chronic cholecystitis (principal); E11.9 Type 2 diabetes mellitus without complications; I10 Essential (primary) hypertension; K21.9 Gastro-esophageal reflux disease without esophagitis; M19.90 Unspecified osteoarthritis, unspecified site; F17.210 Nicotine dependence, cigarettes, uncomplicated; E66.9 Obesity, unspecified; Z68.35 Body mass index [BMI] 35.0-35.9, adult; Z79.82 Long term (current) use of aspirin; Z79.4 Long term (current) use of insulin; Z79.84 Long term (current) use of oral hypoglycemic drugs
CPT/HCPCS: 47562; 36415; 82948; 86850; 86900; 86901; 88304; A9270; C1713; J0330; J0690; J2250; J2405; J2704; J2710; J3010; J7120

== ENCOUNTER 2022-06-01 07:19 | Outpatient (CLI) | payer MEDICARE, SELFPAY ==
--- NOTE | ~2022-06-01 | MM_ITS ---
EXAMINATION: MM screening michael BI w cullen HISTORY: Screening mammogram TECHNIQUE: Craniocaudal and mediolateral oblique 3-D tomosynthesis images were obtained and synthetic 2-D images were generated. CAD analysis was submitted and interpreted. COMPARISON: No prior mammogram is available for comparison at this institution. BREAST PARENCHYMAL COMPOSITION: There are scattered areas of fibroglandular density. FINDINGS: There is a 7.5 mm circumscribed mass in the outer mid left breast at mid depth. Diagnostic left mammogram and left breast ultrasound examination are recommended. Occasional benign calcifications are noted. Is no evidence of suspicious mass, calcification, or architectural distortion to suggest malignancy i n either breast. There has been no suspicious interval change. IMPRESSION: 1. 7.5 mm circumscribed mass, outer mid left breast at mid depth 2. Diagnostic left mammogram and left breast ultrasound examination are recommended BI-RADS Category 0: Incomplete: Needs additional imaging evaluation. Reviewed, dictated and finalized at location A. IMPRESSION: 1. 7.5 mm circumscribed mass, outer mid left breast at mid depth 2. Diagnostic left mammogram and left breast ultrasound examination are recomme nded BI-RADS Category 0: Incomplete: Needs additional imaging evaluation.
== END 2022-06-01 07:20 | disposition home or self-care (01) ==
LOC: CHSIMG 07:21
PROVIDERS: PCP Internal Medicine; Visit Provider Internal Medicine
DX: Z12.31 Encounter for screening mammogram for malignant neoplasm of breast (principal)
CPT/HCPCS: 77063; 77067

== ENCOUNTER 2022-06-09 09:31 | Outpatient (CLI) | payer MEDICARE, SELFPAY ==
--- NOTE | ~2022-06-09 | MMUS_ITS ---
EXAMINATION: MM diagnostic michael LT w cullen, US breast LT limited HISTORY: Follow-up left breast masses TECHNIQUE: Additional 3-D tomosynthesis images of the left breast were performed and synthetic 2-D im ages were generated. CAD analysis was submitted and interpreted. High resolution Limited left breast ultrasound was performed. COMPARISON: 05/15/2021 BREAST PARENCHYMAL COMPOSITION: Breast composed of scattered areas of fibroglandular density FINDINGS: MAMMOGRAPHIC FINDINGS: There is enlarging masses in the mid outer aspect of the left breast, the smaller of which is anterio r measuring approximately 6 mm in the larger posteriorly measuring 9 mm. No significant posterior fea tures or internal vascularity. ULTRASOUND: Limited left breast ultrasound: At 3:00, 7 cm from the nipple there is an oval hypoechoic mass with e ffaced fatty hilum measuring 9 mm maximum dimension. This could represent a pathologic lymph node. At 4:00, 2 cm from the nipple there is an irregular shaped hypoechoic mass with antiparallel configurat ion measuring 5 mm maximum dimension. IMPRESSION: 1. Abnormal masses of the left breast located at 4:00, 2 cm from the nipple and 3:00, 7 cm from the n ipple. 2. Ultrasound-guided biopsy of these masses recommended. BI-RADS category 4, suspicious findings. Reviewed, dictated and finalized at location A. IMPRESSION: 1. Abnormal masses of the left breast located at 4:00, 2 cm from the nipple and 3:00, 7 cm from the nipple. 2. Ultrasound-guided biopsy of these masses recommended. BI-RADS category 4, suspicious findings.
== END 2022-06-09 09:32 | disposition home or self-care (01) ==
LOC: CHSIMG 09:34
PROVIDERS: PCP Internal Medicine; Visit Provider Internal Medicine
DX: R92.8 Other abnormal and inconclusive findings on diagnostic imaging of breast (principal)
CPT/HCPCS: 76642; 77061; 77065; G0279

== ENCOUNTER 2022-06-29 11:23 | Outpatient (CLI) | payer MEDICARE, SELFPAY ==
--- NOTE | ~2022-06-29 | MMUS_ITS ---
EXAMINATION: US GUIDED NEEDLE BIOPSY DATE: 06/29/2022 14:56 CDT INDICATION: Left breast 3:00 and 4:00 sonographic masses TECHNIQUE AND FINDINGS: The risks and potential benefits of the procedure were discussed with the patient, and written inform ed consent was obtained. Timeout procedure was performed. After sterile preparation of the left breas t, 1% lidocaine was utilized for local anesthesia. A 14G spring-loaded biopsy gun needle was advanced to the edge of the region of interest at 4:00 and then subsequently at 3:00 from a lateral approach utilizing sonographic guidance. A total of 2 tissu e core samples were obtained through the 4:00 lesion and 4 tissue core samples through the 3:00 lesio n. An Inrad tissue marker clip was then placed at each biopsy site. Hemostasis was achieved. A steri le bandage was applied. The patient tolerated procedure well and there was no evidence of immediate complication. The binu t was given verbal instructions prior to departing from the department. A two view mammogram was perf ormed to document tissue marker clip placement. The tissue samples were submitted to surgical patholo gy for histologic analysis. IMPRESSION: 1. Successful ultrasound guided biopsy of left 3:00 and 4:00 lesions with biopsy marker placement. P lease refer to pathology report for histologic analysis. Reviewed, dictated and finalized at Location A. Reviewed, dictated and finalized at location A. IMPRESSION: 1. Successful ultrasound guided biopsy of left 3:00 and 4:00 lesions with biop sy marker placement. Please refer to pathology report for histologic analysis.
== END 2022-06-29 11:24 | disposition home or self-care (01) ==
PROVIDERS: PCP Internal Medicine; Visit Provider Internal Medicine
DX: R92.8 Other abnormal and inconclusive findings on diagnostic imaging of breast (principal)
CPT/HCPCS: 19083; 88305; 88342; A4648

== ENCOUNTER 2022-07-01 06:01 | Day surgery (SDC) | payer MEDICARE, SELFPAY ==
[2022-05-19 10:25] VITALS: BMI 37.8
[2022-06-15 10:23] VITALS: BMI 38.2
[2022-07-01 06:20] VITALS: BP 169/55; PULSE 80; RESP 18; TEMP 36.7; O2SAT 99
[2022-07-01] MEDS: LACTATED RINGERS 1,000 ML 150 ML IV CONT ×2 (06:20→08:58)
[2022-07-01 06:39] LABS: Glucose Point of Care 218 mg/dl (65-105)
--- NOTE | 2022-07-01 07:29 | WPDANESEPPF ---
Anes - Initial Pre Proc Eval Procedure: Operation Date: 07/01/22 07:30 Proposed Procedures p Screening Colonoscopy - Colin Gan DO Date/Time: 07/01/22 07:29 Surgeon: Colin Gan DO Pre Op Diagnosis: History of Colon Polyps Patient Data Age: 67 Gender: F Height: 1.6 m Weight: 98.7 kg Allergies Allergy/AdvReac Type Severity Reaction Status Date / Time naproxen [From Aleve] Allergy Severe Dyspnea / Verified 06/15/22 10:06 SOB shellfish derived Allergy Severe Anaphylactic Verified 06/15/22 10:06 Shock iodine Allergy Intermediate Blister Verified 06/15/22 10:06 Home Medications Medication Instructions Recorded Confirmed Type amlodipine 10 mg tablet 10 mg PO DAILY 04/15/21 07/01/22 History aspirin 81 mg tablet,delayed 81 mg PO DAILY 04/15/21 07/01/22 History release bupropion HCl 300 mg 24 hr tablet, 300 mg PO QAM 04/15/21 07/01/22 History extended release ergocalciferol (vitamin D2) 1,250 1,250 mcg PO WEEKLY 04/15/21 07/01/22 History mcg (50,000 unit) capsule (Vitamin D2) hydrochlorothiazide 25 mg tablet 25 mg PO DAILY 04/15/21 07/01/22 History insulin glargine 100 unit/mL (3 70 unit subcut HS 04/15/21 07/01/22 History mL) subcutaneous pen (Lantus Solostar U-100 Insulin) insulin lispro 100 unit/mL See Rx Instructions .Route .COMPLEX 04/15/21 07/01/22 History subcutaneous pen lisinopril 40 mg tablet 40 mg PO DAILY 04/15/21 07/01/22 History metformin 500 mg tablet,extended 500 mg PO DAILY 04/15/21 07/01/22 History release 24 hr jvrktpiu-jgp-ayrz-FA-Ca carb-vit K 1 tablet PO DAILY 04/15/21 07/01/22 History 18 mg iron-400 mcg-500 mg tablet pravastatin 20 mg tablet 20 mg PO HS 05/06/22 07/01/22 History psyllium 1 tbsp PO DAILY 06/15/22 07/01/22 History Laboratory Tests 07/01/22 06:36 POC Capillary Glucose 218 mg/dl H mg/dl (65-105) Patient hx anesthesia problems: post op nausea/vomiting Family hx anesthesia problems: none Results Review: All pre-operative results and documents have been reviewed as part of the pre-operative evaluation. [facility] Past Medical History Medical History CAD (coronary artery disease) Diabetes type 2, controlled Endometriosis Fibroid Gastroesophageal reflux disease Hypertension Osteoarthritis Surgical History Surgical History History of hysterectomy Hx laparoscopic cholecystectomy 05/13/22 Trigger finger Trigger finger surgery 12/09. Family History Family History Mother Hypertension Social History Social History Smoking packs per day: 0.5 Smoking cigarettes per day: 10.0 Years smoked: 55 Smoking pack-years: 27.50 Smoking status: Current every day smoker Tobacco type: cigarettes Additional smoking assessment comments: WAS SMOKING 2 PACKS A DAY IN THE PROCESS OF QUITTING CURRENTLY Alcohol intake: never Substance use: never Substance use type: does not use Living arrangements: alone Spiritual care concerns: No Anes - Eval Final PreProcedure Day of Procedure 07/01/22 07:29 Patient weight: obese Heart: regular rate and rhythm Lungs: decreased breath sounds Airway: Mallampati scale class II Neurological: alert and oriented Last oral intake: >/= 8 hours ASA classification: III Emergent: no Anesthetic plan: proceed Anesthesia type and monitoring: general GIVS and standard monitoring Results Review: All pre-operative results and documents have been reviewed as part of the pre-operative evaluation. Informed Consent: The patient's anesthetic plan and its attendant risks and benefits were discussed with the patient/family/POA. Questions were solicited and answers provided to the satisfaction of the patient/family/POA.
--- NOTE | 2022-07-01 07:34 | PM.IMHP ---
H&P: HPI History of Present Illness Date/Time: 07/01/22 07:34 Chief Complaint: History of colon polyps Narrative: this is a 67-year-old woman who presents for colonoscopy. She just had a colonoscopy 1 year ago and she had many polyps at that time. She reports no hematochezia or melena. She does have some family history colon cancer but no first-degree relatives. Review of Systems Review of Systems: All systems reviewed & are unremarkable except as noted in HPI and below Constitutional: Constitutional: Denies chills, Denies fever(s), Denies headache(s) and Denies weight loss Eyes: Eyes: Denies change in vision ENT: Denies dizziness, Denies headache(s), Denies neck mass and Denies throat swelling Cardiovascular: Cardiovascular: Denies chest pain, Denies lightheadedness and Denies dyspnea Respiratory: Respiratory: Denies cough, Denies dyspnea and Denies wheezing Gastrointestinal: Gastrointestinal: Denies abdominal pain, Denies change in bowel habits, Denies nausea and Denies vomiting Genitourinary: Genitourinary: Denies hematuria and Denies dysuria Musculoskeletal: Musculoskeletal: Reports as per HPI Integumentary/Breasts: Skin/Breast: Reports as per HPI Neurologic: Denies dizziness and Denies headache(s) Allergic/Immunologic: Allergic/Immunologic: Denies throat swelling and Denies wheezing PMFSH Past Medical History Medical History CAD (coronary artery disease) Diabetes type 2, controlled Endometriosis Fibroid Gastroesophageal reflux disease Hypertension Osteoarthritis Surgical History Surgical History History of hysterectomy Hx laparoscopic cholecystectomy 05/13/22 Trigger finger Trigger finger surgery 12/09. Family History Family History Mother Hypertension Social History Social History Smoking packs per day: 0.5 Smoking cigarettes per day: 10.0 Years smoked: 55 Smoking pack-years: 27.50 Smoking status: Current every day smoker Tobacco type: cigarettes Additional smoking assessment comments: WAS SMOKING 2 PACKS A DAY IN THE PROCESS OF QUITTING CURRENTLY Alcohol intake: never Substance use: never Substance use type: does not use Living arrangements: alone Spiritual care concerns: No Meds Home Medications and Allergies Home Medications Medication Instructions Recorded Confirmed Type amlodipine 10 mg tablet 10 mg PO DAILY 04/15/21 07/01/22 History aspirin 81 mg tablet,delayed 81 mg PO DAILY 04/15/21 07/01/22 History release bupropion HCl 300 mg 24 hr tablet, 300 mg PO QAM 04/15/21 07/01/22 History extended release ergocalciferol (vitamin D2) 1,250 1,250 mcg PO WEEKLY 04/15/21 07/01/22 History mcg (50,000 unit) capsule (Vitamin D2) hydrochlorothiazide 25 mg tablet 25 mg PO DAILY 04/15/21 07/01/22 History insulin glargine 100 unit/mL (3 70 unit subcut HS 04/15/21 07/01/22 History mL) subcutaneous pen (Lantus Solostar U-100 Insulin) insulin lispro 100 unit/mL See Rx Instructions .Route .COMPLEX 04/15/21 07/01/22 History subcutaneous pen lisinopril 40 mg tablet 40 mg PO DAILY 04/15/21 07/01/22 History metformin 500 mg tablet,extended 500 mg PO DAILY 04/15/21 07/01/22 History release 24 hr xtlfwfvw-jne-bnzk-FA-Ca carb-vit K 1 tablet PO DAILY 04/15/21 07/01/22 History 18 mg iron-400 mcg-500 mg tablet pravastatin 20 mg tablet 20 mg PO HS 05/06/22 07/01/22 History psyllium 1 tbsp PO DAILY 06/15/22 07/01/22 History Allergies Allergy/AdvReac Type Severity Reaction Status Date / Time naproxen [From Aleve] Allergy Severe Dyspnea / Verified 06/15/22 10:06 SOB shellfish derived Allergy Severe Anaphylactic Verified 06/15/22 10:06 Shock iodine Allergy Intermediate Blister Verified 06/15/22 10:06
[2022-07-01 08:30] VITALS: BP 115/63; PULSE 70; RESP 16; O2SAT 91
[2022-07-01 08:40] VITALS: BP 129/75; PULSE 68; RESP 16; O2SAT 94
[2022-07-01 08:50] VITALS: BP 132/76; PULSE 68; O2SAT 95
--- NOTE | 2022-07-01 09:00 | WPDANESPN ---
Anes - Prog Note Post-Op Date/Time: 07/01/22 09:00 Cardiovascular status: normal Respiratory status: normal Airway patency: baseline Mental status: baseline Post-Op hydration status: normal Vital Signs: Last Vital Signs Temp 36.7 C 07/01/22 06:20 Pulse 68 07/01/22 08:50 Resp 16 07/01/22 08:40 BP 132/76 07/01/22 08:50 Pulse Ox 95 07/01/22 08:50 O2 Del Method Room Air 07/01/22 08:50 Pain Score (VAS): 0 I/O: Intake & Output 06/30/22 07/01/22 07/01/22 23:59 07:59 15:59 Intake Total 500 Balance 500 07/01/22 06:36 POC Capillary Glucose 218 H Patient Feedback: Patient satisfied with anesthetic care.
== END 2022-07-01 09:01 | disposition home or self-care (01) ==
PROVIDERS: PCP Internal Medicine; Visit Provider Surgery
PROC: 0DJD8ZZ Inspection of Lower Intestinal Tract, Via Natural or Artificial Opening Endoscopic (ICD-10-PCS; CPT 45378; principal; 2022-07-01 07:30)
DX: Z86.010 Personal history of colon polyps (principal)
CPT/HCPCS: 45380

== ENCOUNTER 2022-07-01 13:00 | Outpatient (NON) | payer MEDICARE, SELFPAY | END 2022-07-01 13:01 | disposition home or self-care (01) | LOC: ANHLAB 07-02 08:19 | PROVIDERS: PCP Internal Medicine; Visit Provider Surgery | DX: K63.5 Polyp of colon (principal); D12.3 Benign neoplasm of transverse colon | CPT/HCPCS: 88305 ==

== ENCOUNTER 2022-09-01 10:01 | Outpatient (CLI) | payer MEDICARE, SELFPAY ==
[2022-09-01 10:17] LABS: Eosinophils Absolute Auto 0.43 K/mm3 (0.02-0.50); Eosinophils Percent Auto 4.2 % (1.0-6.0); Hematocrit 44.6 % (35.0-42.0); Hemoglobin 15.1 g/dL (11.7-13.8); Immature Granulocyte Absolute 0.04 K/mm3 (0.00-0.00); Immature Granulocyte Percent A 0.4 % (0.0-0.0); Lymphocytes Absolute Auto 2.45 K/mm3 (1.10-4.50); Lymphocytes Percent Auto 24.2 % (18.0-42.0); Mean Corpuscular HGB Conc 33.9 g/dL (32.0-36.0); Mean Corpuscular Hemoglobin 30.8 pg (27.0-31.0); Monocytes Absolute Auto 0.53 K/mm3 (0.10-0.90); Monocytes Percent Auto 5.2 % (2.0-11.0); Neutrophils Absolute Auto 6.6 K/mm3 (1.7-7.2); Platelet Count Result 239 K/mm3 (150-420); Red Cell Distribution Width 12.1 % (11.6-14.4); White Blood Count 10.1 K/mm3 (4.8-10.8)
[2022-09-01 10:29] LABS: Appearance Urine Clear (Clear); Bilirubin Urine Negative (Negative); Blood Urine Negative (Negative); Glucose Urine UA Negative (Negative); Ketones Urine Negative (Negative); Leukocyte Esterase Ur Negative (Negative); Nitrate Urine Negative (Negative); Protein Urine Negative (Negative); Urobilinogen Urine 0.2 mg/dL (0.2-1.0)
[2022-09-01 10:30] LABS: Add Urine Microscopic? NO; Color Urine Light Yellow (Yellow)
[2022-09-01 10:38] LABS: Hemoglobin A1C 7.2 % (<5.7)
[2022-09-01 11:11] LABS: Alanine Aminotransferase 24 U/L (14-59); Albumin Level 3.8 g/dL (3.4-5.0); Alkaline Phosphatase 97 U/L (46-116); Anion Gap 9 mmol/L (8-16); Aspartate Amino Transferase 18 U/L (15-37); Bilirubin,Total 0.6 mg/dL (0.00-1.00); Blood Urea Nitrogen 13 mg/dL (7-18); Calcium 8.8 mg/dL (8.5-10.1); Carbon Dioxide 26 mmol/L (21-32); Chloride 102 mmol/L (98-108); Cholesterol 171 mg/dL (0-200); Creatine Kinase 165 U/L (26-192); Estimated Glomerular Filt Rate 56; Free T4 Free Thyroxine 0.93 ng/dL (0.76-1.46); Glucose 151 mg/dL (70-99); HDL Direct 37 mg/dL (40-60); LDL Cholesterol Calculated 86 mg/dL (<130); Osmolality Calculated 287 mOsm/kg (285-295); Potassium 4.6 mmol/L (3.5-5.1); Sodium 137 mmol/L (136-145); Thyroid Stimulating Hormone 2.85 uIU/mL (0.36-3.74); Total Protein 7.4 g/dL (6.4-8.2); Triglycerides 238 mg/dL (0-150); Vitamin B12 685 pg/mL (193-986)
[2022-09-03 17:41] LABS: Vitamin D 25 Hydroxy 24 ng/mL (30-100)
== END 2022-09-01 10:02 | disposition home or self-care (01) ==
LOC: CHSLAB 10:03
PROVIDERS: PCP Internal Medicine; Visit Provider Internal Medicine
DX: G62.9 Polyneuropathy, unspecified (principal); E11.40 Type 2 diabetes mellitus with diabetic neuropathy, unspecified; E55.9 Vitamin D deficiency, unspecified
CPT/HCPCS: 36415; 80053; 80061; 81003; 82306; 82550; 82607; 83036; 84439; 84443; 85025

== ENCOUNTER 2022-12-26 08:23 | Outpatient (CLI) | payer MEDICARE, SELFPAY ==
[2022-12-26 08:43] LABS: Appearance Urine Clear (Clear); Basophils Absolute Auto 0.12 K/mm3 (0.00-0.10); Basophils Percent Auto 1.2 % (0.0-1.0); Bilirubin Urine Negative (Negative); Blood Urine Negative (Negative); Color Urine Light Yellow (Yellow); Eosinophils Absolute Auto 0.48 K/mm3 (0.02-0.50); Eosinophils Percent Auto 4.8 % (1.0-6.0); Glucose Urine UA Negative (Negative); Hematocrit 43.9 % (35.0-42.0); Hemoglobin 14.8 g/dL (11.7-13.8); Immature Granulocyte Absolute 0.04 K/mm3 (0.00-0.00); Immature Granulocyte Percent A 0.4 % (0.0-0.0); Ketones Urine Negative (Negative); Leukocyte Esterase Ur Negative (Negative); Lymphocytes Absolute Auto 3.06 K/mm3 (1.10-4.50); Lymphocytes Percent Auto 30.8 % (18.0-42.0); Mean Corpuscular HGB Conc 33.7 g/dL (32.0-36.0); Mean Corpuscular Hemoglobin 29.9 pg (27.0-31.0); Mean Corpuscular Volume 88.7 fL (78.0-102.0); Mean Platelet Volume 10.4 fl (9.2-11.8); Monocytes Absolute Auto 0.53 K/mm3 (0.10-0.90); Monocytes Percent Auto 5.3 % (2.0-11.0); Neutrophils Absolute Auto 5.7 K/mm3 (1.7-7.2); Neutrophils Percent Auto 57.5 % (50.0-70.0); Nitrate Urine Negative (Negative); Platelet Count Result 254 K/mm3 (150-420); Protein Urine Negative (Negative); Red Blood Count 4.95 M/mm3 (4.20-5.40); Red Cell Distribution Width 12.3 % (11.6-14.4); Specific Grav Ur 1.025 (1.010-1.020); Urobilinogen Urine 0.2 mg/dL (0.2-1.0); White Blood Count 9.9 K/mm3 (4.8-10.8)
[2022-12-26 08:53] LABS: Hemoglobin A1C 7.4 % (<5.7)
[2022-12-26 08:55] LABS: Add Urine Microscopic? NO
[2022-12-26 08:57] LABS: Alanine Aminotransferase 28 U/L (14-59); Albumin Level 3.7 g/dL (3.4-5.0); Alkaline Phosphatase 122 U/L (46-116); Anion Gap 6 mmol/L (8-16); Aspartate Amino Transferase 20 U/L (15-37); Bilirubin,Total 0.5 mg/dL (0.00-1.00); Blood Urea Nitrogen 12 mg/dL (7-18); Calcium 6.3 mg/dL (8.5-10.1); Carbon Dioxide 30 mmol/L (21-32); Chloride 102 mmol/L (98-108); Cholesterol 166 mg/dL (0-200); Creatine Kinase 134 U/L (26-192); Estimated Glomerular Filt Rate > 60; Glucose 142 mg/dL (70-99); HDL Direct 36 mg/dL (40-60); LDL Cholesterol Calculated 77 mg/dL (<130); Osmolality Calculated 287 mOsm/kg (285-295); Potassium 4.2 mmol/L (3.5-5.1); Sodium 138 mmol/L (136-145); Total Protein 7.4 g/dL (6.4-8.2); Triglycerides 263 mg/dL (0-150)
[2022-12-26 08:58] LABS: Creatinine Urine 108.03 mg/dL (40-278)
[2022-12-26 09:12] LABS: MALB Creatinine Ratio 123.4 mg/g (0-30); Microalbumin Urine Random 133.4 mg/L
== END 2022-12-26 08:24 | disposition home or self-care (01) ==
LOC: CHSLAB 08:26
PROVIDERS: PCP Internal Medicine; Visit Provider Internal Medicine
DX: G62.9 Polyneuropathy, unspecified (principal); I10 Essential (primary) hypertension; E11.40 Type 2 diabetes mellitus with diabetic neuropathy, unspecified; K86.1 Other chronic pancreatitis; E78.1 Pure hyperglyceridemia
CPT/HCPCS: 36415; 80053; 80061; 81003; 82043; 82550; 83036; 85025

== ENCOUNTER 2023-03-23 10:13 | Outpatient (CLI) | payer MEDICARE, SELFPAY ==
[2023-03-23 11:02] LABS: Anion Gap 10 mmol/L (8-16); Blood Urea Nitrogen 20 mg/dL (7-18); Calcium 8.8 mg/dL (8.5-10.1); Carbon Dioxide 26 mmol/L (21-32); Chloride 100 mmol/L (98-108); Estimated Glomerular Filt Rate 53; Glucose 233 mg/dL (70-99); Osmolality Calculated 291 mOsm/kg (285-295); Potassium 4.8 mmol/L (3.5-5.1); Sodium 136 mmol/L (136-145)
== END 2023-03-23 10:14 | disposition home or self-care (01) ==
LOC: CHSLAB 10:14
PROVIDERS: PCP Internal Medicine; Visit Provider Anesthesiology
DX: Z01.818 Encounter for other preprocedural examination (principal); E11.9 Type 2 diabetes mellitus without complications
CPT/HCPCS: 36415; 80048

== ENCOUNTER 2023-03-30 07:05 | Outpatient (CLI) | payer MEDICARE, SELFPAY ==
[2023-03-30 07:48] LABS: Hemoglobin A1C 7.3 % (<5.7)
[2023-03-30 08:29] LABS: Anion Gap 8 mmol/L (8-16); Blood Urea Nitrogen 15 mg/dL (7-18); Calcium 8.9 mg/dL (8.5-10.1); Carbon Dioxide 27 mmol/L (21-32); Chloride 100 mmol/L (98-108); Estimated Glomerular Filt Rate > 60; Glucose 158 mg/dL (70-99); Osmolality Calculated 283 mOsm/kg (285-295); Potassium 4.5 mmol/L (3.5-5.1); Sodium 135 mmol/L (136-145)
== END 2023-03-30 07:06 | disposition home or self-care (01) ==
LOC: CHSLAB 07:07
PROVIDERS: PCP Internal Medicine; Visit Provider Internal Medicine
DX: E11.65 Type 2 diabetes mellitus with hyperglycemia (principal)
CPT/HCPCS: 36415; 80048; 83036

== ENCOUNTER 2023-05-20 01:10 | Day surgery (SDC) | payer MEDICARE, SELFPAY ==
--- NOTE | 2023-03-22 09:59 | PC.NURSE ---
Report to the Outpatient Waiting Room, entrance under the green pavilion located off [facility], at time _0600 on date __04/01/23 . Planned Procedure Time: ___30 . Time changes happen often and if your time is changed the preop area will call you the afternoon before. - You and your visitor will be asked to self-screen and do not enter if you have any COVID symptoms. - A mask is optional within the hospital at this time. Patients may have clear liquids (water, carbonated beverages, clear teas, apple juice) until 3 hours prior to surgery with a maximum of 20 ounces. - No food from midnight until time of surgery - Infants may have breast milk until 4 hours before surgery, infant formula 6 hours prior to surgery. - Children will be allowed to drink immediately following surgery. If applicable, please bring a bottle or sippy cup to assist with drinking. Juice, water, soda, and popsicles are readily available. For infants on formula, please bring formula the day of surgery. Pacifiers are allowed. Take the following medications with a SIP of water the morning of surgery: _AMLODIPINE,BUPROPION DO NOT STOP ANY OF YOUR OTHER PRESCRIPTION MEDICATIONS PRIOR TO SURGERY ?EXCEPT THE FOLLOWING Medications to discontinue per physician ___ALL _VITAMINS/SUPPLEMENTS 3 DAYS PRE OP.LAST DOSE 03/29/23 Please no make-up, nail slovenian, hairspray, perfume, deodorant, or body powder the day of surgery. No jewelry (including any body piercings) or valuables the day of surgery, leave them at home. Please take a shower or bath the night before, or the morning of, surgery with an antibacterial soap. Wear comfortable, loose fitting clothing. Children are encouraged to wear pajamas. - Jewelry must be removed prior to entering the operating room. Rings and piercings that are not removed may be cut off. - The hospital will not accept responsibility for valuables. - Please leave all valuables, including medications, at home the day of surgery. If you are going home after surgery, a licensed wheelchair driver must drive you home. - NO public transportation without another adult if you receive anesthesia. - We recommend that an adult stay with you for 24 hours following discharge. - We also recommend that you do not drive, make important decision, drink alcoholic beverages, or take any drugs that were not prescribed by your health care provider for at least 24 hours after your discharge time. For Pediatric surgeries, we recommend two adults accompany the child home. Follow any additional instructions given to you from your surgeon. If you or anyone in your household have experienced Covid symptoms in the past week, please notify your surgeon or the nurse liaison at the phone number below for possible testing. Telephone instructions given to __PATIENT and asked if any additional questions and then verbalized understanding. Patient advised to call surgeon office or pre surgery nurse liaison [phone] if any additional questions.
[2023-03-22 10:07] VITALS: BMI 35.4
--- NOTE | 2023-05-14 09:24 | PC.NURSE ---
Report to the Outpatient Waiting Room, entrance under the green pavilion located off [facility], at time __0600 on date __05/20/23 . Planned Procedure Time: __0730 . Time changes happen often and if your time is changed the preop area will call you the afternoon before. - You and your visitor will be asked to self-screen and do not enter if you have any COVID symptoms. - A mask is optional within the hospital at this time. Patients may have clear liquids (water, carbonated beverages, clear teas, apple juice) until 3 hours prior to surgery with a maximum of 20 ounces. - No food from midnight until time of surgery - Infants may have breast milk until 4 hours before surgery, formula 6 hours prior to surgery. - Children will be allowed to drink immediately following surgery. If applicable, please bring a bottle or sippy cup to assist with drinking. Juice, water, soda, and popsicles are readily available. For infants on formula, please bring formula the day of surgery. Pacifiers are allowed. Take the following medications with a SIP of water the morning of surgery: __AMLODIPINE,BUPROPION DO NOT STOP ANY OF YOUR OTHER PRESCRIPTION MEDICATIONS PRIOR TO SURGERY ?EXCEPT THE FOLLOWING Medications to discontinue per physician ____ALL VITAMINS/SUPPLEMENTS 3 DAYS PRE OP.LAST DOSE 05/16/23 Please no make-up, nail nigerien, hairspray, perfume, deodorant, or body powder the day of surgery. No jewelry (including any body piercings) or valuables the day of surgery, leave them at home. Please take a shower or bath the night before, or the morning of, surgery with an antibacterial soap. Wear comfortable, loose fitting clothing. Children are encouraged to wear pajamas. - Jewelry must be removed prior to entering the operating room. Rings and piercings that are not removed may be cut off. - The hospital will not accept responsibility for valuables. - Please leave all valuables, including medications, at home the day of surgery. If you are going home after surgery, a licensed charter bus driver must drive you home. - NO public transportation without another adult if you receive anesthesia. - We recommend that an adult stay with you for 24 hours following discharge. - We also recommend that you do not drive, make important decision, drink alcoholic beverages, or take any drugs that were not prescribed by your health care provider for at least 24 hours after your discharge time. For Pediatric surgeries, we recommend two adults accompany the child home. Follow any additional instructions given to you from your surgeon. If you or anyone in your household have experienced Covid symptoms in the past week, please notify your surgeon or the nurse liaison at the phone number below for possible testing. Telephone instructions given to __PATIENT and asked if any additional questions and then verbalized understanding. Patient advised to call surgeon office or pre surgery nurse liaison [phone] if any additional questions.
--- NOTE | 2023-05-14 09:30 | PC.NURSE ---
PT STATES NO CHANGE IN HEALTH HX SINCE LAST INTERVIEW ON 03/22/23
--- NOTE | 2023-05-19 12:40 | WPDANESEPPF ---
Anes - Initial Pre Proc Eval Procedure: Operation Date: 05/20/23 07:30 Proposed Procedures p Excision of Basal Cell Carcinoma Right Upper Lip with Frozen Section, Possible Local Tissue Transfer - Colby Tilley MD Date/Time: 05/19/23 12:40 Surgeon: Colby Tilley MD Pre Op Diagnosis: BCCA right upper lip Patient Data Age: 68 Gender: F Height: 1.6 m Weight: 90.75 kg Allergies Allergy/AdvReac Type Severity Reaction Status Date / Time naproxen [From Aleve] Allergy Severe Dyspnea / Verified 05/20/23 06:10 SOB shellfish derived Allergy Severe Anaphylactic Verified 05/20/23 06:10 Shock iodine Allergy Intermediate Blister Verified 05/20/23 06:10 Home Medications Medication Instructions Recorded Confirmed Type amlodipine 10 mg tablet 10 mg PO DAILY 04/15/21 05/14/23 History aspirin 81 mg tablet,delayed 81 mg PO DAILY 04/15/21 05/14/23 History release bupropion HCl 300 mg 24 hr tablet, 300 mg PO QAM 04/15/21 05/14/23 History extended release ergocalciferol (vitamin D2) 1,250 1,250 mcg PO WEEKLY 04/15/21 05/20/23 History mcg (50,000 unit) capsule (Vitamin D2) hydrochlorothiazide 25 mg tablet 25 mg PO DAILY 04/15/21 05/14/23 History insulin glargine 100 unit/mL (3 50 unit subcut HS 04/15/21 05/14/23 History mL) subcutaneous pen (Lantus Solostar U-100 Insulin) insulin lispro 100 unit/mL See Rx Instructions .Route .COMPLEX 04/15/21 05/14/23 History subcutaneous pen lisinopril 40 mg tablet 40 mg PO DAILY 04/15/21 05/14/23 History metformin 500 mg tablet,extended 500 mg PO DAILY 04/15/21 05/14/23 History release 24 hr pywqcstu-pxj-ovpc-FA-Ca carb-vit K 1 tablet PO DAILY 04/15/21 05/20/23 History 18 mg iron-400 mcg-500 mg tablet pravastatin 20 mg tablet 20 mg PO HS 05/06/22 05/14/23 History psyllium 1 tbsp PO DAILY 06/15/22 05/14/23 History semaglutide 0.25 mg or 0.5 mg (2 0.5 mg subcut WEEKLY DIABETIC 05/14/23 05/14/23 History mg/3 mL) subcutaneous pen injector (Ozempic) Patient hx anesthesia problems: post op nausea/vomiting Family hx anesthesia problems: none Results Review: All pre-operative results and documents have been reviewed as part of the pre-operative evaluation. [facility] Past Medical History Medical History (Updated 05/19/23 @ 12:41 by Michael Warren DO) CAD (coronary artery disease) Diabetes type 2, controlled Endometriosis Fibroid Gastroesophageal reflux disease Hypertension Osteoarthritis PONV (postoperative nausea and vomiting) Surgical History Surgical History History of hysterectomy Hx laparoscopic cholecystectomy 05/13/22 Trigger finger Trigger finger surgery 12/09. Family History Family History Mother Hypertension Social History Social History Smoking packs per day: 0.5 Smoking cigarettes per day: 10.0 Years smoked: 55 Smoking pack-years: 27.50 Smoking status: Current every day smoker Tobacco type: cigarettes Additional smoking assessment comments: WAS SMOKING 2 PACKS A DAY IN THE PROCESS OF QUITTING CURRENTLY Alcohol intake: never Substance use: never Substance use type: does not use Living arrangements: alone Spiritual care concerns: No Anes - Eval Final PreProcedure Day of Procedure 05/19/23 12:40 Patient weight: obese Heart: regular rate and rhythm Lungs: clear to auscultation Airway: Mallampati scale class III Neurological: alert and oriented Last oral intake: >/= 8 hours ASA classification: III Emergent: no Anesthetic plan: proceed Anesthesia type and monitoring: general GIVS and LMA and standard monitoring Results Review: All pre-operative results and documents have been reviewed as part of the pre-operative evaluation. Informed Consent: The patient's anesthetic plan and its attendant risks and
[2023-05-20 06:00] VITALS: BMI 37.3
[2023-05-20] MEDS: LACTATED RINGERS 1,000 ML 30 ML IV CONT (06:25)
[2023-05-20 06:33] LABS: Glucose Point of Care 114 mg/dl (65-105)
[2023-05-20 06:35] VITALS: BP 134/99; PULSE 78; RESP 16; TEMP 36.8; O2SAT 97
--- NOTE | 2023-05-20 07:11 | WPDHPUPDATE1 ---
History and Physical Update Update Date/Time: 05/20/23 07:11 History and Physical has been reviewed, including an updated exam of the patient. There are NO changes in the patient's condition. Risks, benefits, and alternatives have been discussed and questions answered. Patient agrees to proceed with procedure.
[2023-05-20] MEDS: LIDO 1%/EPINEPHRINE 1:100,000 20 ML VIAL 4 ML INFILTRATE (07:56)
[2023-05-20 09:00] VITALS: BP 96/60; PULSE 85; RESP 16; O2SAT 97
[2023-05-20 09:14] LABS: Glucose Point of Care 135 mg/dl (65-105)
[2023-05-20 09:30] VITALS: BP 137/64; PULSE 71; RESP 16; O2SAT 97
[2023-05-20 09:50] VITALS: BP 141/62; PULSE 68; RESP 16; O2SAT 94
--- NOTE | 2023-05-20 11:23 | W.PM.PROC2 ---
Procedure Note - Detailed Date of Procedure 05/20/23 Pre-op Diagnosis BCCA right upper lip Post-op Diagnosis Same Procedure Performed The mm by 16 mm excision of basal cell carcinoma of the right upper cutaneous lip with frozen section and complex repair 3 cm Surgeon Colby Tilley MD Anesthesia MAC Indications Biopsied Description of Procedure The site on the right upper lip where there was a pink scar running vertically was marked with the patient's consent. She was taken to the operating room where she was placed supine on the operating table. She was given IV sedation with LMA. The face was prepped and draped usual fashion. A time-out was held confirmed. The biopsy site was carefully outlined with a pen for excision and the orientation of skin creases. This area was widely infiltrated with 1% lidocaine with epinephrine. The full-thickness skin ellipse was taken and the most superior aspect marked with a suture for orientation to the pathologist. Frozen section was done that confirmed confirmed basal cell carcinoma and margins were free. The wound was closed with extensive undermining laterally in excess of 1 cm and 5-8 mm medially both ends. No muscle was cut. The wound was closed with intradermal 5-0 Vicryl to approximate the margins from both sides. The skin was closed with running 6 0 nylon. A 1 cm standing cone was removed across the white roll and onto the vermilion to reduce bulging. The white roll was carefully aligned and interrupted sutures were placed on the vermilion. Bacitracin ointment was applied to the sutures. The patient was discharged from the operating room stable condition. She has instructions in wound care and follow-up. Estimated Blood Loss -1.0 Drains No Packing No Pathology Yes Complications No immediate complications Condition Stable Disposition No change
== END 2023-05-20 10:09 | disposition home or self-care (01) ==
PROVIDERS: PCP Internal Medicine; Visit Provider Plastic Surgery
PROC: (CPT 11642; principal; 2023-05-20 07:30)
DX: C44.01 Basal cell carcinoma of skin of lip (principal); I25.10 Atherosclerotic heart disease of native coronary artery without angina pectoris; E11.9 Type 2 diabetes mellitus without complications; K21.9 Gastro-esophageal reflux disease without esophagitis; I10 Essential (primary) hypertension; F17.210 Nicotine dependence, cigarettes, uncomplicated; E66.9 Obesity, unspecified; Z68.37 Body mass index [BMI] 37.0-37.9, adult; Z79.82 Long term (current) use of aspirin; Z79.84 Long term (current) use of oral hypoglycemic drugs; Z79.4 Long term (current) use of insulin
CPT/HCPCS: 11642; 13152; 82948; 88305; 88331; A9270; J1100; J2250; J2405; J2704; J3010; J7120

== ENCOUNTER 2023-07-27 07:08 | Outpatient (CLI) | payer MEDICARE, SELFPAY ==
[2023-07-27 07:26] LABS: Appearance Urine Clear (Clear); Basophils Absolute Auto 0.13 K/mm3 (0.00-0.10); Basophils Percent Auto 1.3 % (0.0-1.0); Bilirubin Urine Negative (Negative); Blood Urine Negative (Negative); Color Urine Yellow (Yellow); Eosinophils Absolute Auto 0.42 K/mm3 (0.02-0.50); Eosinophils Percent Auto 4.1 % (1.0-6.0); Glucose Urine UA Negative (Negative); Hematocrit 49.8 % (35.0-42.0); Hemoglobin 16.2 g/dL (11.7-13.8); Immature Granulocyte Absolute 0.03 K/mm3 (0.00-0.00); Immature Granulocyte Percent A 0.3 % (0.0-0.0); Ketones Urine Negative (Negative); Leukocyte Esterase Ur Negative LEU/UL (Negative); Lymphocytes Absolute Auto 2.36 K/mm3 (1.10-4.50); Lymphocytes Percent Auto 22.9 % (18.0-42.0); Mean Corpuscular HGB Conc 32.5 g/dL (32.0-36.0); Mean Corpuscular Volume 89.2 fL (78.0-102.0); Monocytes Absolute Auto 0.54 K/mm3 (0.10-0.90); Monocytes Percent Auto 5.2 % (2.0-11.0); Neutrophils Absolute Auto 6.8 K/mm3 (1.7-7.2); Neutrophils Percent Auto 66.2 % (50.0-70.0); Nitrate Urine Negative (Negative); Platelet Count Result 304 K/mm3 (150-420); Protein Urine Negative (Negative); Red Blood Count 5.58 M/mm3 (4.20-5.40); Red Cell Distribution Width 12.1 % (11.6-14.4); Specific Grav Ur 1.025 (1.010-1.020); White Blood Count 10.3 K/mm3 (4.8-10.8)
[2023-07-27 07:29] LABS: Add Urine Microscopic? NO
[2023-07-27 07:31] LABS: Creatinine Urine 146.33 mg/dL (40-278); MALB Creatinine Ratio 47.2 mg/g (0-30); Microalbumin Urine Random 69.2 mg/L
[2023-07-27 07:33] LABS: Hemoglobin A1C 6.3 % (<5.7)
[2023-07-27 08:18] LABS: Alanine Aminotransferase 22 U/L (14-59); Albumin Level 3.7 g/dL (3.4-5.0); Alkaline Phosphatase 100 U/L (46-116); Amylase 59 U/L (25-115); Anion Gap 10 mmol/L (8-16); Aspartate Amino Transferase 15 U/L (15-37); Bilirubin,Total 0.4 mg/dL (0.00-1.00); Blood Urea Nitrogen 19 mg/dL (7-18); Calcium 9.7 mg/dL (8.5-10.1); Carbon Dioxide 25 mmol/L (21-32); Chloride 97 mmol/L (98-108); Cholesterol 105 mg/dL (0-200); Creatine Kinase 74 U/L (26-192); Estimated Glomerular Filt Rate 51; Glucose 137 mg/dL (70-99); HDL Direct 32 mg/dL (40-60); LDL Cholesterol Calculated 34 mg/dL (<130); Lipase 77 U/L (16-77); Osmolality Calculated 278 mOsm/kg (285-295); Potassium 4.6 mmol/L (3.5-5.1); Sodium 132 mmol/L (136-145); Total Protein 7.3 g/dL (6.4-8.2); Triglycerides 193 mg/dL (0-150)
[2023-07-29 12:19] LABS: Vitamin D 25 Hydroxy 26 ng/mL (30-100)
== END 2023-07-27 07:09 | disposition home or self-care (01) ==
LOC: CHSLAB 07:11
PROVIDERS: PCP Internal Medicine; Visit Provider Internal Medicine
DX: E11.65 Type 2 diabetes mellitus with hyperglycemia (principal); E78.2 Mixed hyperlipidemia; N39.0 Urinary tract infection, site not specified; E55.9 Vitamin D deficiency, unspecified; K86.1 Other chronic pancreatitis
CPT/HCPCS: 36415; 80053; 80061; 81003; 82043; 82150; 82306; 82550; 83036; 83690; 85025

== ENCOUNTER 2023-09-01 10:07 | Outpatient (CLI) | payer MEDICARE, SELFPAY ==
--- NOTE | ~2023-09-01 | MM_ITS ---
EXAMINATION: MM screening [facility] BI w cullen HISTORY: Screening mammogram, family history of breast cancer in her sister. TECHNIQUE: Craniocaudal and mediolateral oblique 3-D tomosynthesis images were obtained and synthetic 2-D images were generated. CAD analysis was submitted and interpreted. COMPARISON: 06/09/2022, 06/01/2022, 05/15/2021 BREAST PARENCHYMAL COMPOSITION: There are scattered areas of fibroglandular density. FINDINGS: There is interval biopsy change in the left breast. A mass in the skin of the right axilla may reflect a sebaceous cyst. No suspicious mass, calcification, or architectural distortion are iden tified in either breast to suggest malignancy. There has been no suspicious interval change. IMPRESSION: 1. No mammographic evidence of malignancy. 2. Recommend routine screening mammography in one year. BI-RADS Category 2: Benign finding(s). Reviewed, dictated and finalized at location A. ER
--- NOTE | ~2023-09-01 | CT_ITS ---
CT Scan of the Chest without Contrast: Clinical Indication: Lung cancer screening, current smoker Technique: Contiguous sections were acquired throughout the chest without intravenous contrast. Dose reduction technique was used on this scan by utilizing automated exposure control and iterative recon struction technique. The dose-length product (DLP) was 199.10 mGy-cm. COMPARISON: 02/18/2022 Findings: There is no evidence of any significant mediastinal, hilar or axillary lymphadenopathy. The mediastin al soft tissues appear normal. There is no evidence of pleural or pericardial effusion. Stable 8 mm lobulated right middle lobe perihilar nodule (axial image 48). Images through the upper abdomen reveal no abnormalities. Impression: Lung RADS 2: Benign appearance. 12 month follow-up screening CT advised. Reviewed, dictated and finalized at [facility]. [employer] Impression: Lung RADS 2: Benign appearance. 12 month follow-up screening CT advised.
--- NOTE | ~2023-09-01 | DEXA_ITS ---
Bone Density Report Name: TEN BARRIOS Age: 68 Sex: Female Ethnicity: White Date of : 1955 Indication: postmenopausal; screening for osteoporosis; parental hip fracture; hysterectomy; Referring Provider: Deion Bhat Study: Bone densitometry was performed. Exam Date: September 01, 2023 Accession number: [id number] Bone Density: Region BMD T-score Z-score Classification AP Spine(L1-L4) 0.914 -1.2 0.9 Osteopenia Femoral Neck (Left) 0.712 -1.2 0.5 Osteopenia Total Hip (Left) 0.825 -1.0 0.5 Normal Femoral Neck (Right) 0.657 -1.7 0.0 Osteopenia Total Hip (Right) 0.762 -1.5 0.0 Osteopenia Femoral Neck Mean 0.685 -1.5 0.3 Osteopenia Total Hip Mean 0.793 -1.2 0.3 Osteopenia World Health Organization criteria for BMD impression classify patients as: Normal (T-score at or above -1.0), Osteopenia (T-score between -1.0 and -2.5), or Osteoporosis (T-score at or below -2.5). 10-year Fracture Risk(1): Major Osteoporotic Fracture 16% Hip Fracture 4.8% Reported Risk Factors: [place] (), Neck BMD=0.657, BMI=35.8, parental fracture, smoking (1) FRAX(R) Version 3.08. Fracture probability calculated for an untreated patient. Fracture probability may be lower if the patient has received treatment. Clinical Information Provided by Patient: Parent has had a hip fracture Smokes Has used the following medications: Vitamin D Has the following medical conditions: Hysterectomy Patient maximum height was 63 Menopause Age: 29 No regular weight bearing exercise Drinks caffeinated beverages Onset of menses at age 15 Number of children 3 Impression: The patient has low bone mass, based on the Right Femoral Neck T-score. The patient has risk factors, including: parental hip fracture, smoking. Discussion: BONE DENSITY IS LOW AT ONE OR MORE SKELETAL SITES. This patient's lowest T-score is low at one or more skeletal sites. It meets the World Health Organization's (WHO) criteria for ?low bone mass? (T-score between -1.0 and -2.5). The patient's 10-year risk of fracture as calculated by FRAX is less than the threshold where pharmacological therapy is recommended by the National Osteoporosis Foundation (NOF). However, all treatment decisions require clinical judgment and consideration of individual patient factors, including patient preferences, comorbidities, previous drug use, risk factors not captured in the FRAX model (e.g., frailty, falls, vitamin D deficiency, increased bone turnover, interval significant decline in bone density) and possible under or overestimation of fracture risk by FRAX. The patient should follow a healthful lifestyle (good nutrition with adequate calcium and vitamin D, and appropriate weight-bearing exercise). Follow-Up: Consider repeating this study in 2 to 3 years to reassess this patient's status, or sooner if there is
== END 2023-09-01 10:08 | disposition home or self-care (01) ==
LOC: CHSIMG 10:08
PROVIDERS: PCP Internal Medicine; Visit Provider Internal Medicine
DX: Z12.31 Encounter for screening mammogram for malignant neoplasm of breast (principal); Z78.0 Asymptomatic menopausal state; Z12.2 Encounter for screening for malignant neoplasm of respiratory organs; Z87.891 Personal history of nicotine dependence; M85.89 Other specified disorders of bone density and structure, multiple sites
CPT/HCPCS: 71271; 77063; 77067; 77080

== ENCOUNTER 2023-09-13 10:13 | Outpatient (CLI) | payer MEDICARE, SELFPAY ==
--- NOTE | ~2023-09-13 | XR_ITS ---
EXAMINATION: XR chest 2V DATE: 09/13/2023 10:36 INDICATION: Dyspnea. Cough. Wheezing. TECHNIQUE: Frontal and lateral views of the chest were obtained. COMPARISON: Chest 2 views 09/13/22, chest CT 09/01/2023 FINDINGS: There is no pneumonia, pleural effusion, or pneumothorax. The heart size is normal. There i s a screw in left scapula. Surgical clips in the right upper quadrant are likely from cholecystectomy . IMPRESSION: 1. No acute cardiopulmonary disease. Reviewed, dictated and finalized at location A. 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
[2023-09-13 10:34] LABS: Basophils Absolute Auto 0.07 K/mm3 (0.00-0.10); Basophils Percent Auto 0.6 % (0.0-1.0); Eosinophils Absolute Auto 0.38 K/mm3 (0.02-0.50); Eosinophils Percent Auto 3.5 % (1.0-6.0); Hematocrit 45.1 % (35.0-42.0); Hemoglobin 15.5 g/dL (11.7-13.8); Immature Granulocyte Absolute 0.04 K/mm3 (0.00-0.00); Immature Granulocyte Percent A 0.4 % (0.0-0.0); Lymphocytes Absolute Auto 2.43 K/mm3 (1.10-4.50); Lymphocytes Percent Auto 22.2 % (18.0-42.0); Mean Corpuscular HGB Conc 34.4 g/dL (32.0-36.0); Mean Corpuscular Hemoglobin 30.5 pg (27.0-31.0); Mean Corpuscular Volume 88.8 fL (78.0-102.0); Mean Platelet Volume 9.5 fl (9.2-11.8); Monocytes Absolute Auto 0.47 K/mm3 (0.10-0.90); Monocytes Percent Auto 4.3 % (2.0-11.0); Neutrophils Absolute Auto 7.6 K/mm3 (1.7-7.2); Platelet Count Result 314 K/mm3 (150-420); Red Blood Count 5.08 M/mm3 (4.20-5.40); Red Cell Distribution Width 12.3 % (11.6-14.4); White Blood Count 10.9 K/mm3 (4.8-10.8)
[2023-09-13 10:43] LABS: D Dimer 0.46 mg/L (0.19-0.50)
[2023-09-13 10:54] LABS: Alanine Aminotransferase 21 U/L (14-59); Albumin Level 3.3 g/dL (3.4-5.0); Alkaline Phosphatase 91 U/L (46-116); Anion Gap 8 mmol/L (8-16); Aspartate Amino Transferase 17 U/L (15-37); Bilirubin,Total 0.4 mg/dL (0.00-1.00); Blood Urea Nitrogen 12 mg/dL (7-18); Calcium 9.1 mg/dL (8.5-10.1); Carbon Dioxide 28 mmol/L (21-32); Chloride 99 mmol/L (98-108); Estimated Glomerular Filt Rate 57; Glucose 135 mg/dL (70-99); NT Pro B Type Natriuretic Pept 197 pg/mL (0-125); Osmolality Calculated 281 mOsm/kg (285-295); Potassium 4.3 mmol/L (3.5-5.1); Sodium 135 mmol/L (136-145); Total Protein 7.7 g/dL (6.4-8.2)
== END 2023-09-13 10:14 | disposition home or self-care (01) ==
LOC: CHSLAB 10:15
PROVIDERS: PCP Internal Medicine; Visit Provider Internal Medicine
DX: R06.00 Dyspnea, unspecified (principal); R05.9 Cough, unspecified
CPT/HCPCS: 36415; 71046; 80053; 83880; 85025; 85380

== ENCOUNTER 2023-09-28 09:23 | Outpatient (CLI) | payer MEDICARE, SELFPAY ==
[2023-09-28] MEDS: ZOLEDRONIC ACID 5 MG/100 ML 100 ML 400 MG IVPB (09:43)
[2023-09-28 10:02] VITALS: BP 121/76; PULSE 78; RESP 14; TEMP 36.5; O2SAT 98; BMI 34.7
--- NOTE | 2023-09-28 10:04 | PC.NURSE ---
Patient here for IV Reclast infusion. Education given. All concerns voiced answered. IV Reclast administered. SEE MAR. Tolerated well. Safe exit of hospital per self/ambulatory.
== END 2023-09-28 09:24 | disposition home or self-care (01) ==
LOC: CHSTREATRM 09:25
PROVIDERS: PCP Internal Medicine; Visit Provider Internal Medicine
DX: M81.0 Age-related osteoporosis without current pathological fracture (principal)
CPT/HCPCS: 96374; J3489

== ENCOUNTER 2023-11-13 07:18 | Outpatient (CLI) | payer MEDICARE, SELFPAY ==
[2023-11-13 07:48] LABS: Appearance Urine Clear (Clear); Bilirubin Urine Negative (Negative); Blood Urine Negative (Negative); Color Urine Light Yellow (Yellow); Glucose Urine UA Negative (Negative); Ketones Urine Negative (Negative); Leukocyte Esterase Ur Negative (Negative); Nitrate Urine Negative (Negative); Protein Urine Trace (Negative); Specific Grav Ur 1.015 (1.010-1.020); Urobilinogen Urine 0.2 mg/dL (0.2-1.0)
[2023-11-13 07:55] LABS: Hemoglobin A1C 5.4 % (<5.7)
[2023-11-13 08:02] LABS: Anion Gap 10 mmol/L (8-16); Blood Urea Nitrogen 12 mg/dL (7-18); Calcium 8.9 mg/dL (8.5-10.1); Carbon Dioxide 27 mmol/L (21-32); Chloride 102 mmol/L (98-108); Estimated Glomerular Filt Rate > 60; Glucose 78 mg/dL (70-99); Osmolality Calculated 286 mOsm/kg (285-295); Potassium 3.9 mmol/L (3.5-5.1); Sodium 139 mmol/L (136-145)
[2023-11-13 08:12] LABS: Add Urine Microscopic? YES; Bacteria Urine Trace /hpf; RBC Urine None seen /hpf (0-2); Squamous Epithelial Cell Urine Few /hpf (Few); WBC Urine None seen /hpf (0-3)
== END 2023-11-13 07:19 | disposition home or self-care (01) ==
PROVIDERS: PCP Internal Medicine; Visit Provider Internal Medicine
DX: E11.65 Type 2 diabetes mellitus with hyperglycemia (principal); I10 Essential (primary) hypertension
CPT/HCPCS: 36415; 80048; 81001; 83036

== ENCOUNTER 2024-03-03 07:01 | Outpatient (CLI) | payer MEDICARE, SELFPAY ==
[2024-03-03 07:23] LABS: Basophils Absolute Auto 0.16 K/mm3 (0.00-0.10); Basophils Percent Auto 1.3 % (0.0-1.0); Eosinophils Absolute Auto 0.54 K/mm3 (0.02-0.50); Eosinophils Percent Auto 4.5 % (1.0-6.0); Hematocrit 45.3 % (35.0-42.0); Immature Granulocyte Absolute 0.07 K/mm3 (0.00-0.00); Immature Granulocyte Percent A 0.6 % (0.0-0.0); Lymphocytes Absolute Auto 2.72 K/mm3 (1.10-4.50); Lymphocytes Percent Auto 22.4 % (18.0-42.0); Mean Corpuscular HGB Conc 33.1 g/dL (32-36); Mean Corpuscular Hemoglobin 30.3 pg (27.0-31.0); Mean Corpuscular Volume 91.5 fL (78.0-102.0); Monocytes Absolute Auto 0.61 K/mm3 (0.10-0.90); Neutrophils Absolute Auto 8.03 K/mm3 (1.70-7.20); Neutrophils Percent Auto 66.2 % (50.0-70.0); Platelet Count Result 254 K/mm3 (150-420); Red Blood Count 4.95 M/mm3 (4.20-5.40); Red Cell Distribution Width 12.8 % (11.6-14.4); White Blood Count 12.1 K/mm3 (4.8-10.8)
[2024-03-03 07:34] LABS: Hemoglobin A1C 5.6 % (<5.7)
[2024-03-03 08:32] LABS: Alanine Aminotransferase 23 U/L (14-59); Albumin Level 3.7 g/dL (3.4-5.0); Alkaline Phosphatase 51 U/L (46-116); Anion Gap 5 mmol/L (4-12); Aspartate Amino Transferase 17 U/L (15-37); Bilirubin,Total 0.6 mg/dL (0.00-1.00); Blood Urea Nitrogen 22 mg/dL (7-18); Calcium 9.1 mg/dL (8.5-10.1); Carbon Dioxide 31 mmol/L (21-32); Chloride 98 mmol/L (98-108); Cholesterol 114 mg/dL (0-200); Creatine Kinase 77 U/L (26-192); Estimated Glomerular Filt Rate 45; Free T3 2.67 pg/mL (2.18-3.98); Free T4 Free Thyroxine 0.91 ng/dL (0.76-1.46); Glucose 108 mg/dL (70-99); HDL Direct 36 mg/dL (40-60); LDL Cholesterol Calculated 32 mg/dL (<130); Osmolality Calculated 282 mOsm/kg (285-295); Potassium 4.8 mmol/L (3.5-5.1); Sodium 134 mmol/L (136-145); Thyroid Stimulating Hormone 3.31 uIU/mL (0.36-3.74); Triglycerides 231 mg/dL (0-150)
[2024-03-03 10:07] LABS: Appearance Urine Clear (Clear); Bilirubin Urine Negative (Negative); Blood Urine Negative (Negative); Color Urine Yellow (Yellow); Glucose Urine UA Negative (Negative); Ketones Urine Negative (Negative); Leukocyte Esterase Ur Negative (Negative); Nitrate Urine Positive (Negative); Protein Urine Negative (Negative); Specific Grav Ur 1.025 (1.010-1.020); Urobilinogen Urine 0.2 mg/dL (0.2-1.0)
[2024-03-03 10:11] LABS: Add Urine Microscopic? YES; RBC Urine None seen /hpf (0-2); Squamous Epithelial Cell Urine Moderate /hpf (Few); WBC Urine 0-3 /hpf (0-3)
[2024-03-03 10:12] LABS: Bacteria Urine 3+ /hpf
== END 2024-03-03 07:02 | disposition home or self-care (01) ==
LOC: CHSLAB 07:03
PROVIDERS: PCP Internal Medicine; Visit Provider Internal Medicine
DX: I10 Essential (primary) hypertension (principal); E11.65 Type 2 diabetes mellitus with hyperglycemia; E78.1 Pure hyperglyceridemia; K86.1 Other chronic pancreatitis
CPT/HCPCS: 36415; 80053; 80061; 81001; 82550; 83036; 84439; 84443; 84481; 85025

== ENCOUNTER 2024-03-29 10:21 | Outpatient (CLI) | payer MEDICARE, SELFPAY ==
--- NOTE | ~2024-03-29 | XR_ITS ---
Lumbosacral Spine: AP and lateral views Clinical History: Pain Findings: The normal lordotic curve is maintained. No fracture or subluxation seen. There is mild deg enerative disc change throughout the lumbar spine. There is advanced facet arthropathy from L3 throug h S1. The sacroiliac joints are normally outlined. Impression: Moderate degenerative spondylosis, as above, especially the lower lumbar spine. Reviewed, dictated and finalized at location M. Impression: Moderate degenerative spondylosis, as above, especially the lower lumbar spine.
== END 2024-03-29 10:22 | disposition home or self-care (01) ==
LOC: CHSIMG 10:22
PROVIDERS: PCP Internal Medicine; Visit Provider Internal Medicine
DX: M54.50 Low back pain, unspecified (principal); M43.06 Spondylolysis, lumbar region
CPT/HCPCS: 72100

== ENCOUNTER 2024-04-15 06:48 | Outpatient (CLI) | payer MEDICARE, SELFPAY ==
--- NOTE | ~2024-04-15 | MR_ITS ---
EXAMINATION: MR lumbar spine wo con DATE: 04/15/2024 07:46 INDICATION: Low back pain. Lumbar central canal stenosis. TECHNIQUE: Magnetic resonance imaging (MRI) of the lumbar spine was performed without intravenous con trast. Sequences included sagittal T2-weighted FSE, sagittal T2-weighted FS FSE, sagittal T1-weighted FSE, and axial T2-weighted FSE. COMPARISON: None FINDINGS: Alignment is normal. Vertebral body heights are normal. Moderate disc height loss with associated fib rofatty degenerative endplate changes anteriorly at T11-T12. Marrow signal is otherwise normal. Mild disc height loss at L3-L4, L4-L5 and L5-S1. Annular fissure at L3-L4. The conus medullaris terminates at T12-L1. There is normal signal in the caudal spinal cord. Paravertebral soft tissues are unremark able. The following disc levels are specifically discussed: T12-L1: Disc is mildly bulging. There is severe bilateral facet joint osteoarthritis. There is no alicia ral foraminal stenosis. There is mild central canal stenosis. L1-L2: Disc is mildly bulging. There is mild bilateral facet joint osteoarthritis. There is no neural foraminal stenosis. There is mild central canal stenosis. L2-L3: Disc is mildly bulging. There is mild bilateral facet joint osteoarthritis. There is mild bila teral neural foraminal stenosis. There is mild central canal stenosis. L3-L4: Moderate diffuse disc bulge. There is hypertrophy of the ligamentum flavum. There is moderate bilateral facet joint osteoarthritis. There is mild left and mild to moderate right neural foraminal stenosis. There is mild to moderate central canal stenosis with mild narrowing of the left and right lateral recesses. L4-L5: Disc is bulging. There is very left and moderate right facet joint osteoarthritis. There is mi ld bilateral neural foraminal stenosis. There is mild central canal stenosis. L5-S1: Disc is mildly bulging. There is severe bilateral facet joint osteoarthritis. There is mild ri ght and mild to moderate left neural foraminal stenosis. There is no central canal stenosis. IMPRESSION: 1. Mild lumbar spondylosis. Reviewed, dictated and finalized at location A. IMPRESSION: 1. Mild lumbar spondylosis.
== END 2024-04-15 06:49 | disposition home or self-care (01) ==
PROVIDERS: PCP Internal Medicine; Visit Provider Internal Medicine
DX: M48.061 Spinal stenosis, lumbar region without neurogenic claudication (principal); M43.06 Spondylolysis, lumbar region
CPT/HCPCS: 72148

== ENCOUNTER 2024-05-08 10:37 | Outpatient (CLI) | payer MEDICARE, SELFPAY ==
[2024-05-08 13:19] LABS: Anion Gap 7 mmol/L (4-12); Blood Urea Nitrogen 16 mg/dL (7-18); Carbon Dioxide 27 mmol/L (21-32); Chloride 102 mmol/L (98-108); Estimated Glomerular Filt Rate 49; Osmolality Calculated 279 mOsm/kg (285-295); Potassium 4.3 mmol/L (3.5-5.1); Sodium 136 mmol/L (136-145)
[2024-05-08 13:21] LABS: Glucose 33 mg/dL (70-99)
== END 2024-05-08 10:38 | disposition home or self-care (01) ==
LOC: CHSLAB 10:39
PROVIDERS: PCP Internal Medicine; Visit Provider Internal Medicine
DX: I10 Essential (primary) hypertension (principal)
CPT/HCPCS: 36415; 80048

== ENCOUNTER 2024-05-16 15:00 | Outpatient (RCR) | payer MEDICARE, SELFPAY ==
--- NOTE | 2024-05-16 15:58 | OPREHPOC ---
Outpatient Therapy Plan of Care This is a Multidisciplinary Plan of Care that may contain components documented by all disciplines (PT, OT, and ST.) PT Problem 1 PT Problem #1 Knowledge Deficit PT Goal 1 Goal 1. independent and compliant with HEP Target Visit 6 PT Problem 2 PT Problem #2 Pain PT Goal 1 Goal 1. decrease pain at worst to 4/10 or less in the lower back Target Visit 12 PT Problem 3 PT Problem #3 Impaired Strength PT Goal 1 Goal 1. improve core strength to 4/5 or better 2. improve bilateral hip strength to 4+/5 or better 3. improve bilateral knee strength to 5/5 4. improve bilateral ankle strength to 5/5 Target Visit 12 PT Problem 4 PT Problem #4 Impaired Functional Mobil PT Goal 1 Goal 1. oswestry to display 50% or less functional deficits 2. patient to ambulate 1200ft or more in 6 minute walk test without AD 3. patient to sleep through the night 4 days a week or better Target Visit 12
--- NOTE | 2024-05-16 15:58 | PTOPEVAL1 ---
Assessment and note entered by JT File, PT Evaluation Information Assessment Status Evaluation Diagnosis low back pain, lumbar spondylosis, spinal stenosis of lumbar ICD-10 Condition Codes (PT) M54.16 Other ICD-10 Condition Codes ( M47.816; M48.061: M54.59 PT) Onset 05/11/24 Subjective Information patient reports her back is getting worse. she reports she is woken up 3-4 times a night due to her pain. she reports she has numbness down the legs and pain in the back and legs. she reports she has been having symptoms for 2 years or more, but it has been getting worse recently. she reports she has had MRI of the lumbar spine. she reports she was put on gabapentin for her numbness and tingling. she reports she has numbness in the hands all the time. she reports she has been ruled out for carpal tunnel. she reports she has difficulty sitting in a chair and leaning back. she reports she now limited to 20 minutes or so of walking as opposed to walking 40+ minutes before. Reported Pain Level Pain Score 4: Self Report Assessment PT Clinical Summary mrs. ulrich is a 69 yo woman who presents to skilled PT services for evaluation and treatment of lower back pain. she presents with signs and symptoms consistent with lumbar DDD. she presents with decreased rom, weak core strength, weak hips and LE's, pain, and decreased functional activity performance. continued skilled PT is indicated to improve her objective/functional deficits and progress towards an improved functional activity performance/quality of life. Plan of Care Interventions Electrical Stimulation,Hot Pack/Cold Pack,Manual Therapy,Neuro Re-education,Patient/Caregiver Educati,Therapeutic Activities,Therapeutic Exercise PT Services Indicated Yes Treatment Frequency and 3x weekly for 12 visits Duration These treatments will address the objective and functional deficits as defined above. The patient will be advanced safely and appropriately in order for the patient to progress towards his/her prior level of function. Additional exercises will be introduced and as well as a comprehensive home exercise program upon discharge, if needed, ?to ensure carryover of functional gains achieved in the clinic. This treatment plan has been reviewed and agreement upon by the patient.
--- NOTE | 2024-06-07 10:46 | OPREHPOC ---
Outpatient Therapy Plan of Care This is a Multidisciplinary Plan of Care that may contain components documented by all disciplines (PT, OT, and ST.) PT Problem 1 PT Problem #1 Knowledge Deficit PT Goal 1 Goal / Goal Update 1. independent and compliant with HEP Target Visit 6 Progress Met PT Problem 2 PT Problem #2 Pain PT Goal 1 Goal / Goal Update 1. decrease pain at worst to 4/10 or less in the lower back Target Visit 12 Progress Met PT Problem 3 PT Problem #3 Impaired Strength PT Goal 1 Goal / Goal Update 1. improve core strength to 4/5 or better 2. improve bilateral hip strength to 4+/5 or better 3. improve bilateral knee strength to 5/5. met 4. improve bilateral ankle strength to 5/5 Target Visit 12 Progress Partially Met PT Problem 4 PT Problem #4 Impaired Functional Mobil PT Goal 1 Goal / Goal Update 1. oswestry to display 50% or less functional deficits. met 2. patient to ambulate 1200ft or more in 6 minute walk test without AD. met 3. patient to sleep through the night 4 days a week or better Target Visit 12 Progress Partially Met
--- NOTE | 2024-06-07 10:46 | PTOPPROGNS ---
Assessment and note entered by JT File, PT Evaluation Information Assessment Status Progress Diagnosis low back pain, lumbar spondylosis, spinal stenosis of lumbar ICD-10 Condition Codes (PT) M54.16 Other ICD-10 Condition Codes ( M47.816; M48.061: M54.59 PT) Onset 05/11/24 Subjective Information patient reports she feels good today. she reports she has improved, and has been doing better since starting PT. she reports she has some back pain that creeps up with increased activities/exercises at times. Assessment PT Clinical Summary mrs. ulrich presents to skilled PT for her 10th skilled PT visit. she presents today with low pain in the lower back. she has progressed in performance of ambulation, strength, and functional activity endurance. she completes 1200ft ambulation during 6 minute walk test today. patient still lacks full achievement of goals for skilled PT, and would benefit from continued skilled PT services to address her remaining objective/functional deficits Plan of Care Interventions Electrical Stimulation,Hot Pack/Cold Pack,Manual Therapy,Neuro Re-education,Patient/Caregiver Educati,Therapeutic Activities,Therapeutic Exercise PT Services Indicated Yes Treatment Frequency and continue skilled PT per initial POC Duration These treatments will address the objective and functional deficits as defined above. The patient will be advanced safely and appropriately in order for the patient to progress towards his/her prior level of function. Additional exercises will be introduced and as well as a comprehensive home exercise program upon discharge, if needed, ?to ensure carryover of functional gains achieved in the clinic. This treatment plan has been reviewed and agreement upon by the patient.
--- NOTE | 2024-06-13 08:01 | PTOPREEVAL ---
Assessment and note entered by Yvonne Hampton DPT Evaluation Information Assessment Status Progress Diagnosis low back pain, lumbar spondylosis, spinal stenosis of lumbar ICD-10 Condition Codes (PT) M54.16 Other ICD-10 Condition Codes ( M47.816; M48.061: M54.59 PT) Onset 05/11/24 Subjective Information Patient reports that she is feeling great . She reports she is sleeping through the night 4 nights a week. She reports she is able to sit for longer periods of time but hard surfaces do increase pain. She was able to take a long trip in the car and did not have pain. She reports she was able to grocery shop and was only sore for 1 day after instead of 3-4 days as before. She reports she is compliant with HEP. Reported Pain Level Pain Score 3: Self Report Pain Score 0: Self Report Assessment PT Clinical Summary mrs. ulrich presents to skilled PT for her 12th skilled PT visit. she presents today with low pain in the lower back but reports that frequency and radiation has decreased. she has progressed in performance of ambulation, strength, and functional activity endurance. she scores improvement on Oswestry Back Index indicating improved function and has also been able to sleep through the night 4 nights of the week. patient still lacks full achievement of goals for skilled PT, and would benefit from continued skilled PT services to address her remaining objective/ functional deficits. Plan of Care Interventions Electrical Stimulation,Hot Pack/Cold Pack,Manual Therapy,Neuro Re-education,Patient/Caregiver Educati,Therapeutic Activities,Therapeutic Exercise PT Services Indicated Yes Treatment Frequency and 1x weekly for 2 visits Duration These treatments will address the objective and functional deficits as defined above. The patient will be advanced safely and appropriately in order for the patient to progress towards his/her prior level of function. Additional exercises will be introduced and as well as a comprehensive home exercise program upon discharge, if needed, ?to ensure carryover of functional gains achieved in the clinic. This treatment plan has been reviewed and agreement upon by the patient.
--- NOTE | 2024-07-05 07:42 | OPREHPOC ---
Outpatient Therapy Plan of Care This is a Multidisciplinary Plan of Care that may contain components documented by all disciplines (PT, OT, and ST.) PT Problem 1 PT Problem #1 Knowledge Deficit PT Goal 1 Goal / Goal Update 1. independent and compliant with HEP Target Visit 6 Progress Met PT Problem 2 PT Problem #2 Pain PT Goal 1 Goal / Goal Update 1. decrease pain at worst to 4/10 or less in the lower back Target Visit 12 Progress Met PT Problem 3 PT Problem #3 Impaired Strength PT Goal 1 Goal / Goal Update 1. improve core strength to 4/5 or better. met 2. improve bilateral hip strength to 4+/5 or better. met 3. improve bilateral knee strength to 5/5. met 4. improve bilateral ankle strength to 5/5. met Target Visit 14 Progress Met PT Problem 4 PT Problem #4 Impaired Functional Mobil PT Goal 1 Goal / Goal Update 1. oswestry to display 50% or less functional deficits. met 2. patient to ambulate 1200ft or more in 6 minute walk test without AD. met 3. patient to sleep through the night 4 days a week or better. met Target Visit 14 Progress Met
--- NOTE | 2024-07-05 07:43 | PTOPDC ---
Assessment and note entered by JT File, PT Evaluation Information Assessment Status Discharge Diagnosis low back pain, lumbar spondylosis, spinal stenosis of lumbar ICD-10 Condition Codes (PT) M54.16 Other ICD-10 Condition Codes ( M47.816; M48.061: M54.59 PT) Onset 05/11/24 Subjective Information Patient reports that she feels much better. she reports she is sleeping through the night, has no pain, and is able to do all her walking and grocery shopping. she reports she is even mowing her lawn now, something she has not done in years. Reported Pain Level Pain Score 0: Self Report Assessment PT Clinical Summary mrs. ulrich presents to skilled PT for her 14th skilled PT visit today. she has returned to all prior activities without pain, is sleeping through the nights, and has even been able to return to mowing her lawn. she has met all goals for skilled PT today, and will DC to and independent [facility]. Plan of Care PT Services Indicated Yes
== END 2024-07-05 08:42 | disposition home or self-care (01) ==
LOC: CHSPT 15:00
PROVIDERS: Visit Provider Nurse Practitioner Family
DX: M54.16 Radiculopathy, lumbar region (principal); M47.816 Spondylosis without myelopathy or radiculopathy, lumbar region; M48.061 Spinal stenosis, lumbar region without neurogenic claudication; M54.59 Other low back pain
CPT/HCPCS: 97014; 97110; 97112; 97161; 97530; G0283

== ENCOUNTER 2024-05-29 15:01 | Outpatient (CLI) | payer MEDICARE, SELFPAY ==
--- NOTE | ~2024-05-29 | XR_ITS ---
2 VIEWS STERNUM Ordering provider: Deion Bhat MD History: . L clavicle KNOT PROXIMAL TO JOINT . Comparison: None. FINDINGS: BONES: No sternal fracture. JOINTS: Sternoclavicular joints is well maintained without dislocation. SOFT TISSUES: Normal. IMPRESSION: No acute osseous abnormality. Reviewed, dictated and finalized at location A.
== END 2024-05-29 15:02 | disposition home or self-care (01) ==
LOC: CHSIMG 15:03
PROVIDERS: PCP Internal Medicine; Visit Provider Internal Medicine
DX: M25.512 Pain in left shoulder (principal)
CPT/HCPCS: 71130

== ENCOUNTER 2024-09-26 07:20 | Outpatient (CLI) | payer MEDICARE, SELFPAY ==
[2024-09-26 08:04] LABS: Basophils Absolute Auto 0.16 K/mm3 (0.00-0.10); Basophils Percent Auto 1.5 % (0.0-1.0); Eosinophils Percent Auto 5.6 % (1.0-6.0); Hematocrit 43.6 % (35.0-42.0); Hemoglobin 14.8 g/dL (11.7-13.8); Immature Granulocyte Absolute 0.03 K/mm3 (0.00-0.00); Immature Granulocyte Percent A 0.3 % (0.0-0.0); Lymphocytes Absolute Auto 3.09 K/mm3 (1.10-4.50); Lymphocytes Percent Auto 28.6 % (18.0-42.0); Mean Corpuscular HGB Conc 33.9 g/dL (32-36); Mean Corpuscular Hemoglobin 30.6 pg (27.0-31.0); Mean Corpuscular Volume 90.3 fL (78.0-102.0); Mean Platelet Volume 9.8 fl (9.2-11.8); Monocytes Absolute Auto 0.58 K/mm3 (0.10-0.90); Monocytes Percent Auto 5.4 % (2.0-11.0); Neutrophils Absolute Auto 6.35 K/mm3 (1.70-7.20); Neutrophils Percent Auto 58.6 % (50.0-70.0); Platelet Count Result 229 K/mm3 (150-420); Red Blood Count 4.83 M/mm3 (4.20-5.40); Red Cell Distribution Width 12.4 % (11.6-14.4); White Blood Count 10.8 K/mm3 (4.8-10.8)
[2024-09-26 08:31] LABS: Hemoglobin A1C 5.2 % (<5.7); MALB Creatinine Ratio 9.6 mg/g (0-30); Microalbumin Urine Random < 13.0 mg/L
[2024-09-26 08:51] LABS: Alanine Aminotransferase 18 U/L (14-59); Albumin Level 3.6 g/dL (3.4-5.0); Alkaline Phosphatase 66 U/L (46-116); Anion Gap 8 mmol/L (4-12); Aspartate Amino Transferase < 10 U/L (15-37); Bilirubin,Total 0.4 mg/dL (0.00-1.00); Blood Urea Nitrogen 26 mg/dL (7-18); Calcium 9.1 mg/dL (8.5-10.1); Carbon Dioxide 27 mmol/L (21-32); Chloride 100 mmol/L (98-108); Cholesterol 120 mg/dL (0-200); Creatine Kinase 57 U/L (26-192); Estimated Glomerular Filt Rate 51; Glucose 78 mg/dL (70-99); HDL Direct 40 mg/dL (40-60); LDL Cholesterol Calculated 51 mg/dL (<130); Osmolality Calculated 283 mOsm/kg (285-295); Potassium 4.4 mmol/L (3.5-5.1); Sodium 135 mmol/L (136-145); Total Protein 6.7 g/dL (6.4-8.2); Triglycerides 147 mg/dL (0-150)
== END 2024-09-26 07:21 | disposition home or self-care (01) ==
PROVIDERS: PCP Internal Medicine; Visit Provider Internal Medicine
DX: E11.40 Type 2 diabetes mellitus with diabetic neuropathy, unspecified (principal); I10 Essential (primary) hypertension; M81.0 Age-related osteoporosis without current pathological fracture; E55.9 Vitamin D deficiency, unspecified; N39.0 Urinary tract infection, site not specified
CPT/HCPCS: 36415; 80053; 80061; 82043; 82550; 83036; 85025

== ENCOUNTER 2024-09-28 09:56 | Outpatient (CLI) | payer MEDICARE, SELFPAY ==
[2024-09-28 10:11] LABS: Hematocrit 46.6 % (35.0-42.0); Hemoglobin 15.8 g/dL (11.7-13.8); Mean Corpuscular HGB Conc 33.9 g/dL (32-36); Mean Corpuscular Hemoglobin 30.1 pg (27.0-31.0); Mean Corpuscular Volume 88.8 fL (78.0-102.0); Platelet Count Result 243 K/mm3 (150-420); Red Blood Count 5.25 M/mm3 (4.20-5.40); Red Cell Distribution Width 12.1 % (11.6-14.4); White Blood Count 10.5 K/mm3 (4.8-10.8)
== END 2024-09-28 09:57 | disposition home or self-care (01) ==
LOC: CHSLAB 09:58
PROVIDERS: PCP Internal Medicine; Visit Provider Internal Medicine
DX: J02.9 Acute pharyngitis, unspecified (principal)
CPT/HCPCS: 36415; 85027

== ENCOUNTER 2024-10-02 14:00 | Outpatient (CLI) | payer MEDICARE, SELFPAY ==
[2024-10-02 14:12] LABS: Basophils Absolute Auto 0.15 K/mm3 (0.00-0.10); Basophils Percent Auto 1.2 % (0.0-1.0); Eosinophils Absolute Auto 0.26 K/mm3 (0.02-0.50); Eosinophils Percent Auto 2.1 % (1.0-6.0); Hemoglobin 15.3 g/dL (11.7-13.8); Immature Granulocyte Absolute 0.05 K/mm3 (0.00-0.00); Immature Granulocyte Percent A 0.4 % (0.0-0.0); Lymphocytes Absolute Auto 4.13 K/mm3 (1.10-4.50); Lymphocytes Percent Auto 33.9 % (18.0-42.0); Mean Corpuscular Hemoglobin 30.2 pg (27.0-31.0); Mean Corpuscular Volume 88.8 fL (78.0-102.0); Mean Platelet Volume 10.1 fl (9.2-11.8); Monocytes Absolute Auto 0.73 K/mm3 (0.10-0.90); Neutrophils Absolute Auto 6.85 K/mm3 (1.70-7.20); Neutrophils Percent Auto 56.4 % (50.0-70.0); Platelet Count Result 245 K/mm3 (150-420); Red Blood Count 5.07 M/mm3 (4.20-5.40); Red Cell Distribution Width 12.1 % (11.6-14.4); White Blood Count 12.2 K/mm3 (4.8-10.8)
[2024-10-02 14:57] LABS: Anion Gap 9 mmol/L (4-12); Blood Urea Nitrogen 31 mg/dL (7-18); Calcium 9.3 mg/dL (8.5-10.1); Carbon Dioxide 28 mmol/L (21-32); Chloride 101 mmol/L (98-108); Estimated Glomerular Filt Rate 42; Glucose 94 mg/dL (70-99); Osmolality Calculated 292 mOsm/kg (285-295); Potassium 4.2 mmol/L (3.5-5.1); Sodium 138 mmol/L (136-145)
== END 2024-10-02 14:01 | disposition home or self-care (01) ==
LOC: CHSLAB 14:02
PROVIDERS: PCP Internal Medicine; Visit Provider Nurse Practitioner Family
DX: R59.0 Localized enlarged lymph nodes (principal); J02.9 Acute pharyngitis, unspecified
CPT/HCPCS: 36415; 80048; 80053; 85025

== ENCOUNTER 2024-10-03 07:33 | Outpatient (CLI) | payer MEDICARE, SELFPAY ==
--- NOTE | ~2024-10-03 | CT_ITS ---
CT scan of the Neck Technique: 2.5 mm axial scans were obtained through the neck after intravenous administration of 75 c c Omnipaque 350. Coronal and sagittal reconstructions of the neck were obtained. Dose reduction techn ique was used on this scan by utilizing automated exposure control and iterative reconstruction techn ique. The dose-length product (DLP) was 619.97 mGy-cm. Clinical History: Lymphadenopathy, sore throat Findings: There is no evidence of any significant cervical lymphadenopathy. Several small, nonenlarged jugulo- digastric and posterior cervical lymph nodes are noted bilaterally. Parapharyngeal spaces appear norm al bilaterally. Suspected left parotid mass superficially measuring up to approximately [address] Right parotid gland and submandibular glands bilaterally are unremarkable. Parapharyngeal fat pr eserved bilaterally. The pharyngeal mucosal spaces appear normal. No soft tissue masses are seen in the neck. The thyroid gland appears normal. Images of the lung apices reveal 9 mm right upper lobe nodule (seri es 4 image 102).. Impression: Suspected 2 cm mass in the superficial portion of the left parotid gland. MR recommended to further a ssess and confirm. 9 mm right upper lobe pulmonary nodule. This is stable as compared to prior CT dated 09/01/2023. 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 MR re commended to further assess and confirm. 9 mm right upper lobe pulmonary nodule. This is stable as compared to prior CT dated 09/01/2023.
== END 2024-10-03 07:34 | disposition home or self-care (01) ==
PROVIDERS: PCP Internal Medicine; Visit Provider Nurse Practitioner Family
DX: R91.1 Solitary pulmonary nodule (principal); R59.0 Localized enlarged lymph nodes
CPT/HCPCS: 70491; Q9967

== ENCOUNTER 2024-10-09 07:02 | Outpatient (CLI) | payer MEDICARE, SELFPAY ==
[2024-10-09 07:15] LABS: Hematocrit 43.2 % (35.0-42.0); Hemoglobin 14.9 g/dL (11.7-13.8); Mean Corpuscular HGB Conc 34.5 g/dL (32-36); Mean Corpuscular Hemoglobin 30.7 pg (27.0-31.0); Mean Corpuscular Volume 88.9 fL (78.0-102.0); Mean Platelet Volume 9.7 fl (9.2-11.8); Platelet Count Result 220 K/mm3 (150-420); Red Blood Count 4.86 M/mm3 (4.20-5.40); Red Cell Distribution Width 12.2 % (11.6-14.4); White Blood Count 10.7 K/mm3 (4.8-10.8)
[2024-10-09 07:51] LABS: Anion Gap 9 mmol/L (4-12); Blood Urea Nitrogen 15 mg/dL (7-18); Carbon Dioxide 28 mmol/L (21-32); Chloride 99 mmol/L (98-108); Estimated Glomerular Filt Rate 57; Glucose 142 mg/dL (70-99); Osmolality Calculated 284 mOsm/kg (285-295); Potassium 4.3 mmol/L (3.5-5.1); Sodium 136 mmol/L (136-145)
== END 2024-10-09 07:03 | disposition home or self-care (01) ==
LOC: CHSLAB 07:04
PROVIDERS: PCP Internal Medicine; Visit Provider Nurse Practitioner Family
DX: K11.8 Other diseases of salivary glands (principal); E11.9 Type 2 diabetes mellitus without complications; I10 Essential (primary) hypertension
CPT/HCPCS: 36415; 80048; 85027

== ENCOUNTER 2024-10-24 08:00 | Outpatient (CLI) | payer MEDICARE, SELFPAY ==
--- NOTE | ~2024-10-24 | MM_ITS ---
EXAMINATION: MM screening [facility] BI w [facility]ullen HISTORY: Screening TECHNIQUE: Craniocaudal and mediolateral oblique 3-D tomosynthesis images were obtained and synthetic 2-D images were generated. CAD analysis was submitted and interpreted. COMPARISON: Comparison to multiple prior studies sequentially, with oldest reviewed study dated 05/15. BREAST PARENCHYMAL COMPOSITION: Not dense: There are scattered areas of fibroglandular density. FINDINGS: No new masses, calcifications or architectural distortion. There is no evidence of suspicio us mass, calcification, or architectural distortion to suggest malignancy in either breast. There has been no suspicious interval change. IMPRESSION: 1. No mammographic evidence of malignancy. 2. Recommend routine screening mammography in one year. BI-RADS Category 1: Negative Reviewed, dictated and finalized at location B. IN COMPANION
--- OUTSIDE RECORDS SUMMARY | 2024-10-30 18:57 | XMS_ITS | Encounter Summary ---
Author Organization [facility] Address [facility] [place] [facility] 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 Gender Identity Not on file Sexual Orientation Not on file documented as of this encounter Plan of Treatment Upcoming Encounters Date Type Department Care Team (Late st Contact Info) Description 08/10/2025 10:00 AM CDT Office Visit [facility] [place] [address] Zofia Sanford MD [address] [place] [address] documented as of this encounter Visit Diagnoses Not on filedocumented in this encounter Care Teams Meat Curer Relationship Specialty Start Date End Date Deion Bhat MD [address] [place] [id number] PCP - General INTERNAL MEDICINE 10/30/20 Zofia Sanford MD [address] [place] [address] Consulting Physician CARDIOVASCULAR DISEASE 02/10/24 documented as of this encounter
--- OUTSIDE RECORDS SUMMARY | 2024-10-30 18:57 | XMS_ITS | Encounter Summary ---
Author Organization [facility] Address [facility] [place] [address] [place] [address] Care Team Providers Care City Councilman Name Role Phone Deion Bhat MD Primary Care Provider [phone] Pretty Gomez APRN REFERENCE ASSISTANT-C Unavailable [phone] Reason for Visit * Auth/Cert (Routine) Specialty Diagnoses / Procedures Referred By Lou dixon Referred To Contact Diagnoses H25.9 Procedures REMV CATARACT EXTRACAP,INSERT LENS EXTRACTION CATARACT right EYE WITH LENS IMPLANT Referral ID Status Reason Start Date Expiration Date Visits Re quested Visits Authorized [id number] 1 1 Encounter Details Date Type Department Care Team (Latest Contact Info) Description 03/03/2023 6:40 AM CDT - 03/03/2023 9:25 AM CDT Hospital Encounter [place] [address] Alison Pickens MD [address] [place] [address] Discharge Disposition: Home or Self Care (Routine Discharge) Social History Tobacco Use Types Packs/Day Years Used Date Smoking Tobacco: Every Day Cigarettes Smokeless Tobacco: Never Tobacco Cessation:Ready to Q uit: Yes; Counseling Given: Yes Alcohol Use Standard Drinks/Week Comments Not Currently 0 (1 standard drink = 0.6 oz pur e alcohol) Comments Unknown Sex and Gender Information Value Date Recorded Sex Assigned at Not on file 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 No / Unsure 03/03/2023 6:39 AM CDT documented as of this encounter Last Filed Vital Signs Vital Sign Reading Time Taken Comments Blood Pressure 178/97 03/03/2023 9:12 AM CDT Pulse 69 03/03/2023 9:12 AM CDT Temperature 36.2 ??C (97.2 ??F) 03/03/2023 9:12 AM CD T Respiratory Rate 18 03/03/2023 9:12 AM CDT Oxygen Saturation 99% 03/03/2023 9:12 AM CDT Inhaled Oxygen Concentration - - Weight 97.1 kg (214 lb) 02/25/2023 12:21 PM CDT Height 160 cm (5' 3 ) 02/25/2023 12:21 PM CDT Body Mass Index 37.91 02/25/2023 12:21 PM CDT documented in this encounter Discharge Instructions * Attachments The following attachments cannot be sent through Care Everywhere. * Cataracts Discharge Instructions (Lebanese) * Moderate Sedation in Adults Discharge Instructions (Lebanese) documented in this encounter Medications at Time of Discharge aspirin 81 MG chewable tablet Chew 1 tablet (81 mg total) by mouth daily. B-D ULTRAFINE III SHORT PEN 31G X 8 MM Misc USE TO INJECT INSULIN 5 TIMES A DAY E11.65 02/04/2023 Blood Glucose Monitoring Suppl (ONE TOUCH ULTRA 2) w/Device Kit 10/26/2020 buPROPion XL 300 MG 24 hr tablet Take 1 tablet (300 mg total) by mouth every morning. 10/08/2020 Ergocalciferol (VITAMIN D2 OR) Take 50,000 Units by mouth weekly. gabapentin 100 MG capsule Take 1 capsule (100 mg total) by mouth 3 (three) times daily. hydroCHLOROthia zide 25 MG tablet Take 1 tablet (25 mg total) by mouth every morning. insulin lispro, 1 Unit Dial, 100 UNIT/ML injection (PEN) Inject into the skin see administration instructions. 15 units at breakfast, 25 units at lunch, 30 units at dinner, and 5 units with snacks 01/02/2021 LANTUS SOLOSTAR 100 UNIT/ML injection (PEN) Inject 60 Units into the skin nightly. 12/31/2020 lisinopril 40 MG tablet Take 0.5 tablets (20 mg total) by mouth 2 (two) times daily. 11/27/2020 metoprolol succinate ER (TOPROL-XL) 50 MG 24 hr tablet Take 1 tablet (50 mg total) by mouth daily. 12/13/2022 ONETOUCH ULTRA test strip 10/25/2020 pantoprazole EC (PROTONIX) 40 MG tablet Take 1 tablet (40 mg total) by mouth daily. pravastatin 20 MG tablet Take 1 tablet (20 mg total) by mouth nightly at bedtime. 30 tablet 11 12/18/2021 metFORMIN ER 500 MG 24 hr tablet Take 1 tablet (500 mg total) by mouth daily with breakfast. 10/08/2020 3 documented as of this encounter H&P Notes * Alison Pickens MD - 03/03/2023 8:05 AM CDT HISTORY AND PHYSICAL INTERVAL NOTE: I have reviewed Rosi Daniels Dheeraj History & Physical which was performed within the past 30 days. After examining Rosi Esqueda, no change has occurred in the patient's condition since the H&P was completed. Informed Consent Discussion: Potential benefits, risks, and side effects of the patient's procedure/surgery; the likelihood of the patient achieving his or her goals; and any potential problems that might occur during recuperation were discussed with the patient/family/personal paper sales representative. Reasonable alternatives to the patient's proposed procedure/surgery including benefits, risks, and side effects related to the alternatives and the risks related to not receiving the proposed care were also discussed with the patient/family/personal paper sales representative. Questions were answered and the patient/family/personal paper sales representative verbalized understanding and desires to proceed. documented in this encounter OR Notes * Brief Op Note - Alison Pickens MD - 03/03/2023 8:43 AM CDT Patient: Rosi Esqueda [id number] Preoperative Diagnosis: Visually significant cataract Postoperative Diagnosis: Visually significant cataract Procedure: Cataract Extraction with Intraocular Lens Placement, RIGHT Eye Surgeon: Alison Pickens MD Track Template Maker: none Anesthesia: Monitor Anesthesia Care Implant: Implant Name Type Inv. Item Serial No. Oil Well Cable Tool Operator Lot No. [id number] No. Used Action [employer] Lens [id number] Right 1 Implanted Specimen: none Estimated Blood Loss: minimal Procedure in detail: Please see full operative note for details. Disposition: Patient was taken to the recovery in stable condition. Alison Pickens MD 03/03/2023 8:43 AM documented in this encounter Plan of Treatment Upcoming Encounters Date Type Department Care Team (Late st Contact Info) Description 08/10/2025 10:00 AM CDT Office Visit [facility] [place] [phone] Zofia Sanford MD [address] [place] [phone] documented as of this encounter Procedures Procedure Name Priority Date/Time Associated Diagnosis Comments REMV CATARACT EXTRACAP,INSERT LENS 03/03/2023 8:19 AM CDT H25.9 Case Notes Pt is a diabetic and request early case. documented in this encounter Visit Diagnoses Not on filedocumented in this encounter Administered Medications Inactive Administered Medications - up to 3 most recent administrations Medication Order MAR Action Action Date Dose Rate Site acetaZOLAMIDE ER (DIAMOX) 12 hr capsule 500 mg 500 mg, Oral, Every 12 hours scheduled (2 times per day), 1 dose, First dose on Wed03/03/23 at 0915, Swallow capsule whole or it may be opened and the contents sprinkled on applesauce., Post-Op Given 03/03/2023 9:08 AM CDT 500 mg acetaZOLAMIDE ER (DIAMOX) 500 MG 12 hr capsule 1 dose, Starting on Wed03/03/23 at 0907, Until Wed03/03/23 at 0908, Created by cabinet override Swallow capsule whole or it may be opened and the contents sprinkled on applesauce. lactated ringers infusion at 10 mL/hr, Intravenous, Continuous, Starting on Wed03/03/23 at 0700, Until Wed03/03/23 at 1127, Pre-Op Restarted 03/03/2023 8:41 AM CDT Continued by Anesthesia 03/03/2023 8:25 AM CDT 10 mL/hr New Bag 03/03/2023 7:30 AM CDT 10 mL/hr lactated ringers infusion at 10 mL/hr, Intravenous, Continuous, Starting on Wed03/03/23 at 0700, Until Wed03/03/23 at 1127, Infuse at TKO rate, Pre-Op moxifloxacin (VIGAMOX) 0.5 % ophthalmic solution 1 drop 1 drop, Right Eye, Every 10 min, 2 doses, First dose on Wed03/03/23 at 0700, Last dose on Wed03/03/23 at 0710, Instill in operative eye, Pre-Op Given 03/03/2023 7:29 AM CDT 1 drop Given 03/03/2023 7:09 AM CDT 1 drop moxifloxacin (VIGAMOX) 0.5 % ophthalmic solution 1 dose, Starting on Wed03/03/23 at 0710, Until Wed03/03/23 at 0709, Created by cabinet override phenylephrine (MYDFRIN) 2.5 % ophthalmic solution 1 drop 1 drop, Right Eye, Every 10 min, 2 doses, First dose on Wed03/03/23 at 0700, Last dose on Wed03/03/23 at 0710, Instill in operative eye, Pre-Op Given 03/03/2023 7:29 AM CDT 1 drop Given 03/03/2023 7:09 AM CDT 1 drop phenylephrine (MYDFRIN) 2.5 % ophthalmic solution 1 dose, Starting on Wed03/03/23 at 0710, Until Wed03/03/23 at 0709, Created by cabinet override proparacaine (ALCAINE) 0.5 % ophthalmic solution 1 drop 1 drop, Right Eye, Every 10 min, 2 doses, First dose on Wed03/03/23 at 0700, Last dose on Wed03/03/23 at 0710, In operative eye, Pre-Op Given 03/03/2023 7:28 AM CDT 1 drop Given 03/03/2023 7:09 AM CDT 1 drop proparacaine (ALCAINE) 0.5 % ophthalmic solution 1 dose, Starting on Wed03/03/23 at 0710, Until Wed03/03/23 at 0709, Created by cabinet override tropicamide (MYDRIACYL) 1 % ophthalmic solution 1 drop 1 drop, Right Eye, Every 10 min, 2 doses, First dose on Wed03/03/23 at 0700, Last dose on Wed03/03/23 at 0710, Instill in operative eye, Pre-Op Given 03/03/2023 7:29 AM CDT 1 drop Given 03/03/2023 7:09 AM CDT 1 drop tropicamide (MYDRIACYL) 1 % ophthalmic solution 1 dose, Starting on Wed03/03/23 at 0710, Until Wed03/03/23 at 0709, Created by cabinet override documented in this encounter Active and Recently Administered Medications Times are shown in CDT. Scheduled Medication Order 03/01/2023 03/02/2023 03/03/2023 acetaZOLAMIDE ER (DIAMOX) 12 hr capsule 500 mg (COMPLETED) 500 mg, Oral, Every 12 hours scheduled (2 times per day), 1 dose, First dose on Wed03/03/23 at 0915, Swallow capsule whole or it may be opened and the contents sprinkled on applesauce., Post-Op 907 (Given - Provid er: Luisana Smith RN) moxifloxacin (VIGAMOX) 0.5 % ophthalmic solution 1 drop (COMPLETED) 1 drop, Right Eye, Every 10 min, 2 doses, First dose on Wed03/03/23 at 0700, Last dose on Wed03/03/23 at 0710, Instill in operative eye, Pre-Op 708 (Given - Provid er: Salma Rowe RN)728 (Given - Provider: Salma Rowe RN) phenylephrine (MYDFRIN) 2.5 % ophthalmic solution 1 drop (COMPLETED) 1 drop, Right Eye, Every 10 min, 2 doses, First dose on Wed03/03/23 at 0700, Last dose on Wed03/03/23 at 0710, Instill in operative eye, Pre-Op 0709 (Given - Provid er: Salma Rowe RN)0729 (Given - Provider: Salma Rowe RN) proparacaine (ALCAINE) 0.5 % ophthalmic solution 1 drop (COMPLETED) 1 drop, Right Eye, Every 10 min, 2 doses, First dose on Wed03/03/23 at 0700, Last dose on Wed03/03/23 at 0710, In operative eye, Pre-Op 0709 (Given - Provid er: Salma Rowe RN)0728 (Given - Provider: Salma Rowe RN) tropicamide (MYDRIACYL) 1 % ophthalmic solution 1 drop (COMPLETED) 1 drop, Right Eye, Every 10 min, 2 doses, First dose on Wed03/03/23 at 0700, Last dose on Wed03/03/23 at 0710, Instill in operative eye, Pre-Op 07 (Given - Provid er: Salma Rowe RN)0729 (Given - Provider: Salma Rowe RN) Continuous Medication Order 03/01/2023 03/02/2023 03/03/2023 lactated ringers infusion at 10 mL/hr, Intravenous, Continuous, Starting on Wed03/03/23 at 0700, Until Wed03/03/23 at 1127, Pre-Op 0730 (New Bag - Prov ider: Salma Rowe RN)0825 (Continued by Anesthesia - Provider: Fabby Jack CRNA)0840 (Paused - Provider: Fabby Jack CRNA - Comment: Switch to gravity)0841 (Restarted - Provider: Fabby Jack CRNA)0905 (Infusion Stop Time - Provider: Luisana Smith RN) lactated ringers infusion at 10 mL/hr, Intravenous, Continuous, Starting on Wed03/03/23 at 0700, Until Wed03/03/23 at 1127, Infuse at TKO rate, Pre-Op 0700 (Canceled Entry - Provider: Automatic Discharge Provider - Comment: Automatically canceled at discontinue of medication order) PRN Medication Order 03/01/2023 03/02/2023 03/03/2023 lidocaine (PF) (XYLOCAINE) 1 % injection (CANCELED) As needed, Starting on Wed03/03/23 at 0841, Until Wed03/03/23 at 0844, Intra-Op 0841 (Given - Provid er: Alison Pickens MD) tetracaine 0.5 % ophthalmic solution (CANCELED) As needed, Starting on Wed03/03/23 at 0832, Until Wed03/03/23 at 0844, Intra-Op 0832 (Given - Provid er: Cydney Cabrera RN) documented in this encounter Care Teams City Councilman Relationship Specialty Start Date End Date Deion Bhat MD [address] [place] [address] PCP - General INTERNAL MEDICINE 10/30/20 Pretty Gomez APRN, REFERENCE ASSISTANT-C [address] [facility] [address] [phone] NURSE PRACTITIONER 10/30/21 02/09/24 documented as of this encounter
--- OUTSIDE RECORDS SUMMARY | 2024-10-30 18:57 | XMS_ITS | Encounter Summary ---
Author Organization [facility] Address [facility] [place] [address] [place] [address] Care Team Providers Care Maintenance Of Way Supervisor Name Role Phone Deion Bhat MD Primary Care Provider Pretty Gomez APRN, TELEVISION NEWS REPORTER-C Unavailable Encounter Details Date Type Department Care Team (Latest Contact Info) Description 07/14/2023 Travel Social History Tobacco Use Types Packs/Day Years Used Date Smoking Tobacco: Every Day Cigarettes Smokeless Tobacco: Never Alcohol Use Standard Drinks/Week Comments Not Currently 0 (1 standard drink = 0.6 oz pur e alcohol) Comments Unknown Sex and Gender Information Value Date Recorded Sex Assigned at Not on file Legal Sex Female 3:48 PM VP COMPLIANCE Gender Identity Not on file Sexual Orientation Not on file documented as of this encounter Plan of Treatment Upcoming Encounters Date Type Department Care Team (Late st Contact Info) Description 08/10/2025 10:00 AM CDT Office Visit [facility] [place] [address] Zofia Sanford MD [address] [place] [address] documented as of this encounter Visit Diagnoses Not on filedocumented in this encounter Care Teams Maintenance Of Way Supervisor Relationship Specialty Start Date End Date Deion Bhat MD [address] [place] [phone] PCP - General INTERNAL MEDICINE 10/30/20 Pretty Gomez APRN, TELEVISION NEWS REPORTER-C [address] [phone] NURSE PRACTITIONER 10/30/21 02/09/24 documented as of this encounter
--- OUTSIDE RECORDS SUMMARY | 2024-10-30 18:57 | XMS_ITS | Encounter Summary ---
Author Organization [facility] Address [facility] [place] [address] [place] [address] Care Team Providers Care Secretarial Teacher Name Role Phone Deion Bhat MD Primary Care Provider [phone] Pretty Gomez APRN TUBE CLEANER-C Unavailable Reason for Visit * Auth/Cert (Routine) Specialty Diagnoses / Procedures Referred By Lou dixon Referred To Contact Diagnoses H25.9 Procedures REMV CATARACT EXTRACAP,INSERT LENS EXTRACTION CATARACT right EYE WITH LENS IMPLANT Referral ID Status Reason Start Date Expiration Date Visits Re quested Visits Authorized [id number] 1 1 Encounter Details Date Type Department Care Team (Late st Contact Info) Description 03/03/2023 8:25 AM CDT Anesthesia Event [facility] [address] [place] [address] [place] [address] Edilson Weiss MD [address] [place] [address], [address] [place] [address] Fabby Jack CRNA [address] [place] [phone] (Work) Anesthesia Record Procedure Summary Procedure Name Responsible Anesthesiologist Anesthesia Start Time Anesthesia Stop Time EXTRACTION CATARACT right EYE WITH LENS IMPLANT (Right: Eye) Edilson Weiss MD 03/03/23 0825 03/03/23 0847 Events Date Time Event Comment 03/03/2023 0818 0818 AN Anesthesia Prepped 0825 An Start Patient ID and consent checked and patient reassessed. 0825 An Start Data 0829 Nasal Cannula Applied 0829 AN Immediate Reassess The pa tient was reevaluated immediately before sedation or regional anesthesia. 0829 Anesthesia Ready 0843 an stop data 0847 Post Anesthetic Care Handoff I completed my handoff to the receiving nurse during which we: 1. Identified the patient 2. Identified the responsible provider 3. Reviewed the pertinent medical history 4. Discussed the surgical course 5. Reviewed intra-op anesthesia management and issues during anesthesia 6. Set expectations for post-procedure period 7. Allowed opportunity for questions and acknowledgement of understanding. 0847 An Stop Meds Name Total midazolam 2 mg/2 mL injection 2 mg ketamine 50 mg/mL injection 15 mg lactated ringers infusion 200 mL * Agents Name O2 Ancillary O2 * Blood No blood administrations on file. Lines, Drains, and Airways Type Details Placement Removal Peripheral IV Placement Date: 03/03/23; Placement Time: 725; Placed Outside of This Facility?: No; Size: 20 G; Orientation: Right; Location: Antecubital; Site Prep: Chlorhexidine; Local Anesthetic: None; Inserted By: JATINDER Hendrickson; Insertion attempts: 1; Ultrasound-guided Placement?: No; Patient Tolerance: Tolerated well; Removal Date: 03/03/23; Removal Time: 920; Removal Reason: Patient Discharged 03/03/23 0726 by Salma Rowe RN 03/03/23 0921 by Luisana Smith RN Surgical/Incision 03/03/23; 0843; Surgical Wound; Eye; Right; cleaned and dried, eye patch applied; 03/03/23; 1127 03/03/23 0843 by Caprice Weeks RN 03/03/23 1127 by Automatic Discharge Provider documented in this encounter Social History Tobacco Use Types Packs/Day Years Used Date Smoking Tobacco: Every Day Cigarettes Smokeless Tobacco: Never Alcohol Use Standard Drinks/Week Comments Not Currently 0 (1 standard drink = 0.6 oz pur e alcohol) Comments Unknown Sex and Gender Information Value Date Recorded Sex Assigned at Not on file 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 No / Unsure 03/03/2023 6:39 AM CDT documented as of this encounter OR Notes * Anesthesia Postprocedure Evaluation - Edilson Weiss MD - 03/03/2023 9:30 AM CDT Anesthesia Post-op Note Rosi Esqueda Procedure(s): EXTRACTION CATARACT right EYE WITH LENS IMPLANT (Right: Eye) Anesthesia type: MAC Vitals: 03/03/23911 BP: (!) 178/97 Vitals: 03/03/23911 Pulse: 69 Vitals: 03/03/23911 Resp: 18 Vitals: 03/03/23911 Temp: 36.2 ??C Vitals: 03/03/23911 SpO2: 99% Patient Location: Phase II/Outpatient Level of Consciousness: awake and alert Pain Management: adequate analgesia Airway Patency: patent Respiratory Status: acceptable Cardiovascular Status: acceptable Post-Op Nausea: none Postoperative Hydration: euvolemic Comments: Stable to d/c There were no known notable events for this encounter. * Anesthesia Preprocedure Evaluation - Edilson Weiss MD - 02/24/2023 2:03 PM CDT Anesthesia ROS/MED History Reviewed: Patient summary , Anesthesia history , Medications Pre-Anesthetic State: alert, awake and responds appropriately Pulmonary (+) smoker ROS comment: Smoke 1/2 ppd x 50 yr Cardiovascular Exercise tolerance:good (+) hypertension, (well controlled), CAD, hyperlipidemia ROS comment: No SOB No chest pain No PND/orthopnea Neuro/Psych Comments: Cerebral aneurysm GI/Hepatic/Renal Endo/Other (+) diabetes mellitus, (well controlled), (type 1), (sub Q insulin), (Using Oral hypoglycemic), obese Comments: Accucheck 81 GENERAL COMMENTS BMI 37. Left eye done 11/2022 Versed 2, ketamine 15 Gabapentin Insulin Lisinopril Metformin HX=HYSTERECTOMY SHOULDER SURGERYRECONST CLEFT PALATE,LENGTHENING TONSILLECTOMY AND ADENOIDECTOMYXA [facility] TR[facility] FINGER RELEASELAPAROSCOPIC CHOLECYSTECTOMYBIOPSY OF BREAST, NEEDLE CORE Physical Evaluation Airway Mallampati: II TM Distance: >3 FB Neck ROM: normal Dental (upper dentures), (lower dentures) Pulmonary Pulmonary exam normal Cardiovascular Cardiovascular exam normal Other findings: BMI 27.9 Anesthesia Plan ASA 3 Intravenous Induction Anesthesia type: MAC Informed Consent Anesthetic plan and risks discussed with patient of whom consent was obtained. . documented in this encounter Plan of Treatment Upcoming Encounters Date Type Department Care Team (Late st Contact Info) Description 08/10/2025 10:00 AM CDT Office Visit [facility] [place] [address] Zofia Sanford MD [address] [place] [address] documented as of this encounter Visit Diagnoses Not on filedocumented in this encounter Administered Medications Inactive Administered Medications - up to 3 most recent administrations Medication Order MAR Action Action Date Dose Rate Site ketamine (KETALAR) injection Intravenous, PRN, Starting on Wed03/03/23 at 0832, Until Wed03/03/23 at 0847, Anesthesia Intra-Op Given 03/03/2023 8:32 AM CDT 15 mg lactated ringers infusion at 10 mL/hr, Intravenous, Continuous, Starting on Wed03/03/23 at 0700, Until Wed03/03/23 at 1127, Pre-Op Restarted 03/03/2023 8:41 AM CDT Continued by Anesthesia 03/03/2023 8:25 AM CDT 10 mL/hr New Bag 03/03/2023 7:30 AM CDT 10 mL/hr midazolam (VERSED) injection Intravenous, PRN, Starting on 5/17/23 at 0829, Until Wed03/03/23 at 0847, Anesthesia Intra-Op Given 03/03/2023 8:29 AM CDT 2 mg documented in this encounter Care Teams Secretarial Teacher Relationship Specialty Start Date End Date Deion Bhat MD [address] [place] [phone] PCP - General INTERNAL MEDICINE 10/30/20 Pretty Gomez APRN, TUBE CLEANER-C [address] [facility] [address] [phone] NURSE PRACTITIONER 10/30/21 02/09/24 documented as of this encounter
--- OUTSIDE RECORDS SUMMARY | 2024-10-30 18:57 | XMS_ITS | Encounter Summary ---
Author Organization [facility] Address [facility]6 [facility] [place] [address] [place] [address] Care Team Providers Care Pastry Finisher Name Role Phone Deion Bhat MD Primary Care Provider [phone] Zofia Sanford MD Unavailable Reason for Visit * Reason Onset Date Comments Results 09/28/2024 Encounter Details Date Type Department Care Team (Late st Contact Info) Description 09/28/2024 Telephone [facility] [address] [place], [place] [address] Zofia Sanford MD [address] [place] [address] Results Social History Tobacco Use Types Packs/Day Years Used Date Smoking Tobacco: Every Day Cigarettes 1 50 Smokeless Tobacco: Never Alcohol Use Standard Drinks/Week Comments Not Currently 0 (1 standard drink = 0.6 oz pur e alcohol) Comments Unknown Sex and Gender Information Value Date Recorded Sex Assigned at Not on file Legal Sex Female 3:48 PM DARK ROOM ATTENDANT Gender Identity Not on file Sexual Orientation Not on file documented as of this encounter Progress Notes * Silvia Del Valle - 09/29/2024 9:30 AM CST Pt called back and scheduled her echo for 10/13/24 @ 3:30. ROOM ATTENDANT * Guillermo Farias LPN - 09/28/2024 1:48 PM CST LM for pt to return my call, MCT overall unremarkable, will need to reschedule her echo. ROOM ATTENDANT documented in this encounter Plan of Treatment Upcoming Encounters Date Type Department Care Team (Late st Contact Info) Description 08/10/2025 10:00 AM CDT Office Visit [facility] [place] [address] Zofia Sanford MD [address] [place], [place] [phone] documented as of this encounter Visit Diagnoses Not on filedocumented in this encounter Care Teams Pastry Finisher Relationship Specialty Start Date End Date Deion Bhat MD [address] [place] [address] PCP - General INTERNAL MEDICINE 10/30/20 Zofia Sanford MD [address] [place], [place] [phone] Consulting Physician CARDIOVASCULAR DISEASE 02/10/24 documented as of this encounter
--- OUTSIDE RECORDS SUMMARY | 2024-10-30 18:57 | XMS_ITS | Encounter Summary ---
Author Organization [facility] Address [facility] [place] [address] [place] [address] Care Team Providers Care Steam Shovel Operator Name Role Phone Deion Bhat MD Primary Care Provider [phone] Zofia Sanford MD Unavailable Encounter Details Date Type Department Care Team (Latest Contact Info) Description 07/28/2024 Travel Social History Tobacco Use Types Packs/Day Years Used Date Smoking Tobacco: Every Day Cigarettes 1 50 Smokeless Tobacco: Never Alcohol Use Standard Drinks/Week Comments Not Currently 0 (1 standard drink = 0.6 oz pur e alcohol) Comments Unknown Sex and Gender Information Value Date Recorded Sex Assigned at Not on file Legal Sex Female 3:48 PM COST ESTIMATOR Gender Identity Not on file Sexual Orientation Not on file documented as of this encounter Plan of Treatment Upcoming Encounters Date Type Department Care Team (Late st Contact Info) Description 08/10/2025 10:00 AM CDT Office Visit [facility] [place] [address] Zofia Sanford MD [address] [place] [address] documented as of this encounter Visit Diagnoses Not on filedocumented in this encounter Care Teams Steam Shovel Operator Relationship Specialty Start Date End Date Deion Bhat MD [address] [place] [phone] PCP - General INTERNAL MEDICINE 10/30/20 Zofia Sanfrod MD [address] [place] [address] Consulting Physician CARDIOVASCULAR DISEASE 02/10/24 documented as of this encounter
--- OUTSIDE RECORDS SUMMARY | 2024-10-30 18:57 | XMS_ITS | Encounter Summary ---
Author Organization [facility] Address [facility] [address] [place] [address] Care Team Providers Care Cotton [place]creage Measurer Name Role Phone Deion Bhat MD Primary Care Provider [phone] Pretty Gomez APRN BUNDLES HANGER-C Unavailable [phone] Reason for Visit * Reason Onset Date Comments Information 07/22/2023 Encounter Details Date Type Department Care Team (Late st Contact Info) Description 07/22/2023 [facility]phone [facility] [address] [place] [address] Colby Bhardwaj MD Information Social History Tobacco Use Types Packs/Day Years Used Date Smoking Tobacco: Every Day Cigarettes 1 50 Smokeless Tobacco: Never Alcohol Use Standard Drinks/Week Comments Not Currently 0 (1 standard drink = 0.6 oz pur e alcohol) Comments Unknown Sex and Gender Information Value Date Recorded Sex Assigned at Not on file 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 Bhardwaj: reviewed BP readings, change lisinopril to 20 mg twice a day. Phoned patient, given above instructions. She will take 1/2 tablet twice a day. Instructed to monitor BP and call in 1 week with readings. She will also call if needing a new prescription for lisinopril 20 mg twice a day (if unable to break 40 mg tablets) documented in this encounter Plan of Treatment Upcoming Encounters Date Type Department Care Team (Late st Contact Info) Description 08/10/2025 10:00 AM CDT Office Visit [facility] [place] [phone] Zofia Sanford MD [address] [place] [address] documented as of this encounter Visit Diagnoses Not on filedocumented in this encounter Care Teams [place] Acre[place] Measurer Relationship Specialty Start Date End Date Deion Bhat MD [address] [place] [phone] PCP - General INTERNAL MEDICINE 10/30/20 Pretty Gomez APRN, BUNDLES HANGER-C [address] [facility] [address] [place] [address] NURSE PRACTITIONER 10/30/21 02/09/24 documented as of this encounter
--- OUTSIDE RECORDS SUMMARY | 2024-10-30 18:57 | XMS_ITS | Encounter Summary ---
Author Organization [facility] Address [facility] [place] [address] [place] [address] Care Team Providers Care Hand Box Coverer Name Role Phone Deion Bhat MD Primary Care Provider Pretty Gomez APRN, BUFFET SERVER-C Unavailable Reason for Visit * Auth/Cert (Routine) Specialty Diagnoses / Procedures Referred By Lou dixon Referred To Contact Diagnoses H25.9 Procedures REMV CATARACT EXTRACAP,INSERT LENS EXTRACTION CATARACT right EYE WITH LENS IMPLANT Referral ID Status Reason Start Date Expiration Date Visits Re quested Visits Authorized [id number] 1 1 Encounter Details Date Type Department Care Team (Late st Contact Info) Description 03/03/2023 8:05 AM CDT - 03/03/2023 8:[address] [facility] [place] [address] Alison Pickens MD [address] [place] [address] EXTRACTION CATARACT right EYE WITH LENS IMPLANT Surgery Details Date/Time Status Location OR Service Patient Class Case Class Case Type Trauma Case? 03/03/2023 8:05 AM Posted [facility] OR OR 1 Ophthalmology Short Stay/Outpat ient Surgery No Panel 1 Procedure LRB Anes Op Region Wound Class Comments EXTRACTION CATARACT right EYE WITH LENS IMPLANT Right Monitor Anesthesia Care Eye Clean Surgeon Surgeon Role Service Panel Alison Pickens MD Primary Ophthalmology 1 Case Notes Pt is a diabetic and request early case. 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 No / Unsure 03/03/2023 6:39 AM CDT documented as of this encounter Last Filed Vital Signs Vital Sign Reading Time Taken Comments Blood Pressure 181/85 03/03/2023 7:19 AM CDT Pulse 71 03/03/2023 7:19 AM CDT Temperature 36.8 ??C (98.2 ??F) 03/03/2023 7:19 AM CD T Respiratory Rate 16 03/03/2023 7:19 AM CDT Oxygen Saturation 97% 03/03/2023 7:19 AM CDT Inhaled Oxygen Concentration - - Weight 97.1 kg (214 lb) 02/25/2023 12:21 PM CDT Height 160 cm (5' 3 ) 02/25/2023 12:21 PM CDT Body Mass Index 37.91 02/25/2023 12:21 PM CDT documented in this encounter Discharge Instructions * Attachments The following attachments cannot be sent through Care Everywhere. * Cataracts Discharge Instructions (Belizean) * Moderate Sedation in Adults Discharge Instructions (Belizean) documented in this encounter Medications at Time [...] PHYSICAL INTERVAL NOTE: I have reviewed Rosi Esqueda History & Physical which was performed within [...] during recuperation were discussed with the patient/family/personal client relations representative. Reasonable alternatives to the patient's proposed procedure/surgery including benefits, risks, and side effects related to the alternatives and the risks related to not receiving the proposed care were also discussed with the patient/family/personal client relations representative. Questions were answered and the patient/family/personal client relations representative verbalized understanding and desires to proceed. documented in this encounter OR Notes * Brief Op Note - Alison Pickens MD - 03/03/2023 8:43 AM CDT Patient: Rosi Esqueda [id number] Preoperative Diagnosis: Visually significant cataract Postoperative Diagnosis: Visually significant cataract Procedure: Cataract Extraction with Intraocular Lens Placement, RIGHT Eye Surgeon: Alison Pickesn MD Rolling Machine Operator Automatic: none Anesthesia: Monitor Anesthesia Care Implant: Implant Name Type Inv. Item Serial No. Lining Closer Lot No. LRB No. Used Action Tecnis Lens [id number] Right 1 Implanted Specimen: none Estimated Blood Loss: minimal Procedure in detail: Please see full operative note for details. Disposition: Patient was taken to the recovery in stable condition. Alison Pickens MD 03/03/2023 8:43 AM documented in this encounter Plan of Treatment Upcoming Encounters Date Type Department Care Team (Late st Contact Info) Description 08/10/2025 10:00 AM CDT Office Visit [facility] [place] [address] Zofia Sanford MD [address] [place] [id number] documented as of this encounter Procedures Procedure [...] at 1127, Infuse at TKO rate, Pre-Op lidocaine (PF) (XYLOCAINE) 1 % injection As needed, Starting on Wed03/03/23 at 0841, Until Wed03/03/23 at 0844, Intra-Op Given 03/03/2023 8:41 AM CDT 1 mL moxifloxacin (VIGAMOX) 0.5 % ophthalmic solution 1 [...] Wed03/03/23 at 0709, Created by cabinet override tetracaine 0.5 % ophthalmic solution As needed, Starting on Wed03/03/23 at 0832, Until Wed03/03/23 at 0844, Intra-Op Given 03/03/2023 8:32 AM CDT 2 drops tropicamide (MYDRIACYL) 1 % ophthalmic solution 1 [...] and the contents sprinkled on applesauce., Post-Op 0908 (Given - Provid er: Luisana Smith RN) moxifloxacin (VIGAMOX) 0.5 % ophthalmic solution 1 drop (COMPLETED) 1 drop, Right Eye, Every 10 min, 2 doses, First dose on Wed03/03/23 at 0700, Last dose on Wed03/03/23 at 0710, Instill in operative eye, Pre-Op 07 (Given - Provid er: Salma Rowe RN)07 (Given - Provider: Salma Rowe RN) phenylephrine [...] Wed03/03/23 at 0710, In operative eye, Pre-Op 07 (Given - Provid er: Salma Rowe RN)0728 (Given - Provider: Salma Rowe, AJTINDER) tropicamide (MYDRIACYL) 1 % ophthalmic solution 1 [...] RN) documented in this encounter Care Teams Hand Box Coverer Relationship Specialty Start Date End Date Deion Bhat MD [address] [place] [address] PCP - General INTERNAL MEDICINE 10/30/20 Pretty Gomez APRN, BUFFET SERVER-C [address] [phone] NURSE PRACTITIONER 10/30/21 02/09/24 documented as of this encounter
--- OUTSIDE RECORDS SUMMARY | 2024-10-30 18:57 | XMS_ITS | Encounter Summary ---
Author Organization [facility] Address [facility] [place] [address] [place] [address] Care Team Providers Care Four Roll Calender Operator Name Role Phone Deion Bhat MD Primary Care Provider [phone] Zofia Sanford MD Unavailable Reason for Referral * Imaging (Routine) - Closed Specialty Diagnoses / Procedures Referred By Lou dixon Referred To Contact RADIOLOGY Diagnoses Mass of left parotid gland Procedures MRI SOFT TISSUE NECK WWO CON MRI SOFT TISSUE NECK W CON Madeleine Parada NP [address] [place] [address] Phone: tel: fax: Referral ID Status Reason Start Date Expiration Date Visits Re quested Visits Authorized [id number] Closed 10/06/2024 10/06/2025 1 1 L CUPPING MACHINE OPERATOR Reason for Visit * Imaging (Routine) - Closed Specialty Diagnoses / Procedures Referred By Lou dixon Referred To Contact RADIOLOGY Diagnoses Mass of left parotid gland Procedures MRI SOFT TISSUE NECK WWO CON MRI SOFT TISSUE NECK W CON Madeleine Parada, WAREHOUSE COORDINATOR [address] [place] [address] Phone: tel: fax: Referral ID Status Reason Start Date Expiration Date Visits Re quested Visits Authorized [id number] Closed 10/06/2024 10/06/2025 1 1 Encounter Details Date Type Department Care Team (Late st Contact Info) Description 10/16/2024 6:45 AM JEWEL CUPPING MACHINE OPERATOR - 10/16/2024 11:59 PM JEWEL CUPPING MACHINE OPERATOR Hospital Encounter [facility] [address] [place] [address] Madeleine Parada, WAREHOUSE COORDINATOR [address] [place] [address] Discharge Disposition: Home or Self Care (Routine [...] on file Legal Sex Female 3:48 PM JEWEL CUPPING MACHINE OPERATOR Gender Identity Not on file Sexual Orientation Not on file documented as of this encounter Medications at Time of Discharge albuterol sulfate HFA 108 (90 Base) MCG/ACT inhaler INHALE 2 PUFFS (180 MCG) BY INHALATION ROUTE EVERY 6 HOURS. USE SPACER 03/31/2024 aspirin 81 MG chewable tablet Chew 1 [...] (25 mg total) by mouth every morning. INCRUSE ELLIPTA 62.5 MCG/ACT AEROSOL POWDER, BREATH ACTIVATED INHALE 1 PUFF (62.5 MCG) BY INHALATION ROUTE ONCE DAILY AT THE SAME TIME EACH DAY 03/31/2024 insulin lispro, 1 Unit Dial, 100 UNIT/ML [...] nightly at bedtime. 30 tablet 11 12/18/2021 Semaglutide (OZEMPIC, 2 MG/DOSE, SC) Inject 2 mg into the skin once a week. 04/19/2023 documented as of this encounter Plan of Treatment Upcoming Encounters Date Type Department Care Team (Late st Contact Info) Description 08/10/2025 10:00 AM CDT Office Visit [facility] [place] [address] Zofia Sanford MD [address] [place] [address] documented as of this encounter Procedures Procedure Name Priority Date/Time Associated Diagnosis Comments MRI SOFT TISSUE NECK WWO CON Routine 10/16/2024 8:05 AM JEWEL CUPPING MACHINE OPERATOR Mass of left parotid gland documented in this encounter Results * MRI SOFT TISSUE NECK WWO CON (10/16/2024 8:05 AM JEWEL CUPPING MACHINE OPERATOR) Anatomical Region Laterality Modality Neck Magnetic Resonan ce 10/17/2024 10:2 9 AM JEWEL CUPPING MACHINE OPERATOR Impressions 10/17/2024 10:39 AM JEWEL CUPPING MACHINE OPERATOR IMPRESSION: 1. Approximately 2.7 x 2.3 x 1.8 cm well-circumscribed, partially cystic, left parotid mass, as detailed above. Imaging appearance is nonspecific and could reflect both benign and malignant parotid neoplasms as well as parotid declan metastasis (reported history of skin cancer). Definitive diagnosis will likely require tissue sampling. Ordered By: MADELEINE PARADA Interpreted By: Trung Daigle MD, 10/17/2024 10:29 AM Narrative 10/17/2024 10:39 AM JEWEL CUPPING MACHINE OPERATOR [facility] [address] [place] [address] DATE: 10/16/2024 7:33 AM INDICATION: Left parotid mass. History of skin cancer. EXAMINATION: MRI neck soft tissues with and without contrast. TECHNIQUE: Multiplanar and multisequence MRI images of the neck soft tissues were obtained before and after uneventful intravenous administration of 13 mL Dotarem COMPARISON: None FINDINGS: There is a heterogeneously T2 hyperintense, partially cystic, well-circumscribed mass situated along the posterior aspect of the left parotid gland. It measures up to 2.3 x 1.8 cm in cross-section and up to 2.7 cm craniocaudal. The cystic components demonstrate peripheral/rim enhancement. There is a smaller solid/nodular focus of enhancement along the medial aspect of the lesion (coronal postcontrast image 16 of 22, series 17). The posterior aspect of the lesion encroaches upon the subjacent left sternocleidomastoid muscle, without definite involvement. No definite extension into the stylomastoid foramen. Otherwise there are few scattered small intraparotid lymph nodes evident bilaterally. The submandibular glands are unremarkable. The visualized portions of the oral cavity, nasopharynx, oropharynx, hypopharynx, and larynx are unremarkable. No suspicious cervical lymphadenopathy. Major neck vascular flow voids are grossly patent. Thyroid gland unremarkable. Partially imaged portions of the intracranial compartment reveal no definite acute findings. Mastoid air cells clear. Mucosal thickening noted in the paranasal sinuses, greatest in the sphenoid sinuses. Visualized orbits unremarkable. Multilevel degenerative changes noted in the spine. Procedure Note Trung Daigle MD - 10/17/[address] [place] [address] DATE: 10/16/2024 7:33 AM INDICATION: Left parotid mass. History of skin cancer. EXAMINATION: MRI neck soft tissues with and without contrast. TECHNIQUE: Multiplanar and multisequence MRI images of the neck softtissues were obtained before and after uneventful intravenousadministration of 13 mL Dotarem COMPARISON: None FINDINGS: There is a heterogeneously T2 hyperintense, partially cystic,well-circumscribed mass situated along the posterior aspect of the leftparotid gland. It measures up to 2.3 x 1.8 cm in cross-section and up to2.7 cm craniocaudal. The cystic components demonstrate peripheral/rimenhancement. There is a smaller solid/nodular focus of enhancement alongthe medial aspect of the lesion (coronal postcontrast image 16 of 22,series 17). The posterior aspect of the lesion encroaches upon thesubjacent left sternocleidomastoid muscle, without definite involvement.No definite extension into the stylomastoid foramen. Otherwise there are few scattered small intraparotid lymph nodes evidentbilaterally. The submandibular glands are unremarkable. The visualizedportions of the oral cavity, nasopharynx, oropharynx, hypopharynx, andlarynx are unremarkable. No suspicious cervical lymphadenopathy. Majorneck vascular flow voids are grossly patent. Thyroid gland unremarkable. Partially imaged portions of the intracranial compartment reveal nodefinite acute findings. Mastoid air cells clear. Mucosal thickening notedin the paranasal sinuses, greatest in the sphenoid sinuses. Visualizedorbits unremarkable. Multilevel degenerative changes noted in the spine. IMPRESSION: 1. Approximately 2.7 x 2.3 x 1.8 cm well-circumscribed, partially cystic,left parotid mass, as detailed above. Imaging appearance is nonspecificand could reflect both benign and malignant parotid neoplasms as well asparotid declan metastasis (reported history of skin cancer). Definitivediagnosis will likely require tissue sampling. Ordered By: MADELEINE PARADA Interpreted By: Trung Daigle MD, 10/17/2024 10:29 AM Madeleine Parada NP MRI Final Result documented in this encounter Visit Diagnoses Diagnosis Mass of left parotid gland documented in this encounter Administered Medications Inactive Administered Medications - up to 3 most recent administrations Medication Order MAR Action Action Date Dose Rate Site gadoterate meglumine (DOTAREM) 7.5 MMOL/15ML injection 13 mL 13 mL, Intravenous, IMG once as needed, Contrast, 1 dose, Starting on Wed10/16/24 at 0748, Until Wed10/16/24 at 0742 Given 10/16/2024 7:42 AM JEWEL CUPPING MACHINE OPERATOR 13 mLs documented in this encounter Care Teams Four Roll Calender Operator Relationship Specialty Start Date End Date Deion Bhat MD [address] [place] [phone] PCP - General INTERNAL MEDICINE 10/30/20 Zofia Sanford MD [address] [place] [address] Consulting Physician CARDIOVASCULAR DISEASE 02/10/24 documented as of this encounter
--- OUTSIDE RECORDS SUMMARY | 2024-10-30 18:57 | XMS_ITS | Encounter Summary ---
Author Organization [facility] Address [facility]ly [facility]. [place], [place] [address] [place] [address] Care Team Providers Care Inspector Ball Points Name Role Phone Deion hBat MD Primary Care Provider [phone] Zofia Sanford MD Unavailable Reason for Referral * Imaging (Routine) - Closed Specialty Diagnoses / Procedures Referred By Lou dixon Referred To Contact RADIOLOGY Diagnoses Heart palpitations Shortness of breath Procedures USE ECHOCARDIOGRAM Zofia Sanford MD [address] [place] [address] Phone: tel: fax: Referral ID Status Reason Start Date Expiration Date Visits Re quested Visits Authorized [id number] Closed 07/28/2024 08/28/2025 1 1 RER SCREEN MEASURER AND TRIMMER Reason for Visit * Imaging (Routine) - Closed Specialty Diagnoses / Procedures Referred By Lou dixon Referred To Contact RADIOLOGY Diagnoses Heart palpitations Shortness of breath Procedures USE ECHOCARDIOGRAM Zofia Sanford MD [address] [place] [address] Phone: tel: fax: Referral ID Status Reason Start Date Expiration Date Visits Re quested Visits Authorized [id number] Closed 07/28/2024 08/28/2025 1 1 Encounter Details Date Type Department Care Team (Latest Contact Info) Description 10/13/2024 3:08 PM SHEARER SCREEN MEASURER AND TRIMMER - 10/13/2024 11:59 PM SHEARER SCREEN MEASURER AND TRIMMER Hospital Encounter [facility] [address] [place] [address] Zofia Sanford MD [address] [place] [address] Discharge Disposition: Home or Self Care (Routine [...] on file Legal Sex Female 3:48 PM SHEARER SCREEN MEASURER AND TRIMMER Gender Identity Not on file Sexual Orientation [...] Description 08/10/2025 10:00 AM CDT Office Visit [facility] [place] [phone] Zofia Sanford MD [address] [place] [address] documented as of this encounter Procedures Procedure Name Priority Date/Time Associated Diagnosis Comments USE ECHOCARDIOGRAM Routine 10/13/2024 3: 46 PM SHEARER SCREEN MEASURER AND TRIMMER Heart palpitations Shortness of breath documented in this encounter Results * USE ECHOCARDIOGRAM (10/13/2024 3:46 PM SHEARER SCREEN MEASURER AND TRIMMER) Anatomical Region Laterality Modality Cardiac Ultrasound 10/13/2024 3:21 PM SHEARER SCREEN MEASURER AND TRIMMER Narrative 10/14/2024 6:00 PM SHEARER SCREEN MEASURER AND TRIMMER ?Echocardiography Report Pat.Name: ??Rosi Esqueda ?Pat.ID: ?[id number] ? St.Date: ?? 10/13/2024 ? Refer.MD: ??Outreach, [facility] Exam Time: 3:21:00 PM ?Study Type:OUTREACH ? Height: ?62 in ? Weight: ?150 lb ? BSA: ? 1.69 m2 ?Age: ??1955,69Y ? Sex: ? F ? Sonogrphr: Sf ? Pat. Stat.:Outpatient ? Reason for Study:Palpitations, Shortness of breath Procedures: Study performed at [place], [place] and interpreted by [facility]. 2D, M-mode, Doppler, Color Flow ++++++++++++++++++++++++++++++++++++ SUMMARY: ++++++++++++++++++++++++++++++++++++ The left ventricular size is normal. Estimated left ventricular ejection fraction is 55-60%. Mild concentric left ventricular hypertrophy. Left ventricular diastolic function is abnormal (grade 1 - impaired relaxation). The right ventricle size is normal. The right ventricular function is normal. There is trace tricuspid regurgitation. Unable to reliably quantitate pulmonary systolic pressure. No evidence of pericardial effusion. ++++++++++++++++++++++++++++++++++++ FINDINGS: ++++++++++++++++++++++++++++++++++++ LV: ? The left ventricular size is normal. The left ventricular ?systolic function is normal. Estimated left ventricular ?ejection fraction is 55-60%. Mild concentric left ?ventricular hypertrophy. The average E/e' is normal at <8. ?Left ventricular diastolic function is abnormal (grade 1 - ?impaired relaxation). RV: ? The right ventricle size is normal. The right ventricular ?function is normal. LA: ? Left atrial size is normal. RA: ? The right atrial size is normal. IAS: ?The atrial septum appears aneurysmal. SYL: ? No evidence of pericardial effusion. AO: ? Aorta is normal. PA: ? Unable to reliably quantitate pulmonary systolic pressure. SVn: ?Inferior vena cava is normal. AV: ? The aortic valve is trileaflet. There is no aortic stenosis. ?There is no evidence of aortic regurgitation. MV: ? The mitral valve is structurally normal. There is trace ?mitral regurgitation. PV: ? Pulmonic valve not well visualized. TV: ? The tricuspid valve appears structurally normal. There is ?trace tricuspid regurgitation. <Electronic Signature> 10/14/2024 06:00 PM Zofia Sanford M.D. Procedure Note Zofia Sanford MD - 10/14/2024 Echocardiography Report Pat.Name: Rosi Esqueda Pat.ID: [id number] .Date: 10/13/2024 Refer.MD: Eric, [facility] Exam Time: 3:21:00 PM Study Type:[facility] Height: 62 in Weight: 150 lb BSA: 1.69 m2 Age: 5 1955,69Y Sex: F Sonogrphr: Terry Salcedo. Stat.:Outpatient Reason for Study:Palpitations, Shortness of breath Procedures: Study performed at [place], [place] and interpreted by [facility]. 2D, M-mode, Doppler, Color Flow ++++++++++++++++++++++++++++++++++++ SUMMARY: ++++++++++++++++++++++++++++++++++++ The left ventricular size is normal. Estimated left ventricular ejection fraction is 55-60%. Mild concentric left ventricular hypertrophy. Left ventricular diastolic function is abnormal (grade 1 - impaired relaxation). The right ventricle size is normal. The right ventricular function is normal. There is trace tricuspid regurgitation. Unable to reliably quantitate pulmonary systolic pressure. No evidence of pericardial effusion. ++++++++++++++++++++++++++++++++++++ FINDINGS: ++++++++++++++++++++++++++++++++++++ LV: The left ventricular size is normal. The left ventricular systolic function is normal. Estimated left ventricular ejection fraction is 55-60%. Mild concentric left ventricular hypertrophy. The average E/e' is normal at <8. Left ventricular diastolic function is abnormal (grade 1 - impaired relaxation). RV: The right ventricle size is normal. The right ventricular function is normal. LA: Left atrial size is normal. RA: The right atrial size is normal. IAS: The atrial septum appears aneurysmal. SYL: No evidence of pericardial effusion. AO: Aorta is normal. PA: Unable to reliably quantitate pulmonary systolic pressure. SVn: Inferior vena cava is normal. AV: The aortic valve is trileaflet. There is no aortic stenosis. There is no evidence of aortic regurgitation. MV: The mitral valve is structurally normal. There is trace mitral regurgitation. PV: Pulmonic valve not well visualized. TV: The tricuspid valve appears structurally normal. There is trace tricuspid regurgitation. <Electronic Signature> 10/14/2024 06:00 PM Zofia Sanford M.D. Zofia Sanford MD ECHO Final Result documented in this encounter Visit Diagnoses Diagnosis Heart palpitations Palpitations Shortness of breath documented in this encounter Care Teams Inspector Ball Points Relationship Specialty Start Date End Date Deion Bhat MD [address] [place] [address] PCP - General INTERNAL MEDICINE 10/30/20 Zofia Sanford MD [address] [place] [address] Consulting Physician CARDIOVASCULAR DISEASE 02/10/24 documented as of this encounter
--- OUTSIDE RECORDS SUMMARY | 2024-10-30 18:57 | XMS_ITS | Encounter Summary ---
Author Organization [facility] Address [facility] [place] [address] [place] [address] Care Team Providers Care Home Visit Field Care Manager Name Role Phone Deion Bhat MD Primary Care Provider Pretty Gomez APRN PHONE MANAGER-C Unavailable Reason for Visit * Reason Onset Date Comments Information 07/22/2023 Encounter Details Date Type Department Care Team (Late st Contact Info) Description 07/22/2023 Telephone [facility] [address] [place] [address] Colby Bhardwaj MD Information Social History Tobacco Use Types Packs/Day Years Used Date Smoking Tobacco: Every Day Cigarettes 1 50 Smokeless Tobacco: Never Alcohol Use Standard Drinks/Week Comments Not Currently 0 (1 standard drink = 0.6 oz pur e alcohol) Comments Unknown Sex and Gender Information Value Date Recorded Sex Assigned at Not on file 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 Gender Identity Not on file Sexual Orientation Not on file documented as of this encounter Progress Notes * Courtney Vernon RN - 07/22/2023 1:30 PM CDT PATIENT PHONED TO REPORT BP READINGS: Seen in clinic on 07/14- BP was 142/86 9/28: 5 am: 147/75 6 pm: 148/82 929: 10 am: 137/79 7 pm: 135/82 930: 11 am: 174/90 6 pm: 166/84 101: 6 am: 115/75 3 pm: 128/76 102: 8 am: 128/94 1 pm: 151/87 103: 10 am: 128/74 6 pm: 122/80 Continues to take medications as prescribed which includes: Lisinopril 40 mg daily; metoprolol succinate 50 mg daily; HCTZ 25 mg daily (taken all in the am) documented in this encounter Plan of Treatment Upcoming Encounters Date Type Department Care Team (Late st Contact Info) Description 08/10/2025 10:00 AM CDT Office Visit [facility] [place] [phone] Zofia Sanford MD [address] [place] [address] documented as of this encounter Visit Diagnoses Not on filedocumented in this encounter Care Teams Home Visit Field Care Manager Relationship Specialty Start Date End Date Deion Bhat MD [address] [place] [phone] PCP - General INTERNAL MEDICINE 10/30/20 Pretty Gomez APRN, PHONE MANAGER-C [address] [facility] [address] [place] [address] NURSE PRACTITIONER 10/30/21 02/09/24 documented as of this encounter
--- OUTSIDE RECORDS SUMMARY | 2024-10-30 18:57 | XMS_ITS | Encounter Summary ---
Author Organization [facility] Address [facility] [facility] [place] [address] [place] [address] Care Team Providers Care Access Manager Name Role Phone Deion Bhat MD Primary Care Provider [phone] Zofia Gonzalez MD Unavailable Encounter Details Date Type Department Care Team (Latest Contact Info) Description 07/28/2024 9:36 AM CDT - 07/28/2024 11:59 PM CDT Hospital Encounter [facility] [address] [facility] 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 Gender Identity Not on file Sexual [...] Description 08/10/2025 10:00 AM CDT Office Visit [facility] [address] [place] [address] Zofia Gonzalez MD [address] [place] [address] documented as of this encounter Procedures Procedure Name Priority Date/Time Associated Diagnosis Comments ECG 12-LEAD Routine 07/28/2024 9:48 AM CDT Coronary artery calcification seen on CT scan documented in this encounter Results * ECG 12 lead (HOSPITAL PERFORMED ONLY) (07/28/2024 9:48 AM CDT) 07/28/2024 9:48 AM CDT Narrative [facility] - 07/28/2024 7:20 PM CDT ? [facility] ?[address] [place], [place] ??[address] ? Test Date: ?2024-07-28 Pat Name: ? TEN BARRIOS ?Department: ?? 3 ? Room: ? Gender: ? Female ? Home Care Physical Therapist: ?? : ?1955 ? Requested By: ZOFIA GONZALEZ Order Number: [id number] ? Charisse PABON: ?? Zofia Gonzalez ? Measurements Intervals ?[place] ? Rate: ? 74 ? P: ?55 IA: ? 192 ?QRS: ?50 QRSD: ? 151 ?T: ?78 QT: ? 420 ? QTc: ?467 ? Interpretive Statements SINUS RHYTHM RIGHT BUNDLE BRANCH BLOCK Procedure Note Zofia Gonzalez MD - 07/28/[address] [place] [address] Test Date: 2024-07-28 Pat Name: TEN BARRIOS Department: 3 Room: Gender: Female Home Care Physical Therapist: : 1955 Requested By: ZOFIA GONZALEZ Order Number: [id number] Reading MD: Zofia Gonzalez Measurements Intervals [place] Rate: 74 P: 55 IA: 192 QRS: 50 QRSD: 151 T: 78 QT: 420 QTc: 467 Interpretive Statements SINUS RHYTHM RIGHT BUNDLE BRANCH BLOCK us Zofia Gonzalez MD ECG ORDERABLES Final Result [facility] documented in this encounter Visit Diagnoses Diagnosis Coronary artery calcification seen on CT scan documented in this encounter Care Teams Access Manager Relationship Specialty Start Date End Date Deion Bhat MD [address] [place] [address] PCP - General INTERNAL MEDICINE 10/30/20 Zofia Gonzalez MD [address] [place] [address] Consulting Physician CARDIOVASCULAR DISEASE 02/10/24 documented as of this encounter
--- OUTSIDE RECORDS SUMMARY | 2024-10-30 18:57 | XMS_ITS | Clinical Summary ---
Author Organization [facility] Address [facility]ly [facility] [place] [address] [place] [address] Care Team Providers Care Body Shop Estimator Name Role Phone Deoin Bhat MD Primary Care Provider [phone] Mateusz Gonzalez MD Unavailable Allergies Active Allergy Reactions Criticality Noted Date Comments Naproxen Rash Low 11/04/2021 Trouble breathing and rash Iodine Hives 11/04/2021 Shellfish Allergy Rash Low 11/04/2021 Medications Blood Glucose Monitoring Suppl (ONE TOUCH ULTRA 2) w/Device Kit 1 Active buPROPion XL 300 MG 24 hr tablet Take 1 tablet (300 mg total) by mouth every morning. 0 Active ONETOUCH ULTRA test strip 1 Active LANTUS SOLOSTAR 100 UNIT/ML injection (PEN) Inject 60 Units into the skin nightly. 1 Active insulin lispro, 1 Unit Dial, 100 UNIT/ML injection (PEN) Inject into the skin see administration instructions. 15 units at breakfast, 25 units at lunch, 30 units at dinner, and 5 units with snacks 1 Active lisinopril 40 MG tablet Take 0.5 tablets (20 mg total) by mouth 2 (two) times daily. 1 Active gabapentin 100 MG capsule Take 1 capsule (100 mg total) by mouth 3 (three) times daily. Active aspirin 81 MG chewable tablet Chew 1 tablet (81 mg total) by mouth daily. Active Ergocalciferol (VITAMIN D2 OR) Take 50,000 Units by mouth weekly. Active hydroCHLOROthi azide 25 MG tablet Take 1 tablet (25 mg total) by mouth every morning. Active pravastatin 20 MG tablet Take 1 tablet (20 mg total) by mouth nightly at bedtime. 30 tablet 11 2 Active pantoprazole EC (PROTONIX) 40 MG tablet Take 1 tablet (40 mg total) by mouth daily. Active B-D ULTRAFINE III SHORT PEN 31G X 8 MM Misc USE TO INJECT INSULIN 5 TIMES A DAY E11.65 3 Active metoprolol succinate ER (TOPROL-XL) 50 MG 24 hr tablet Take 1 tablet (50 mg total) by mouth daily. 3 Active Semaglutide (OZEMPIC, 2 MG/DOSE, SC) Inject 2 mg into the skin once a week. 3 Active albuterol sulfate HFA 108 (90 Base) MCG/ACT inhaler INHALE 2 PUFFS (180 MCG) BY INHALATION ROUTE EVERY 6 HOURS. USE SPACER 4 Active INCRUSE ELLIPTA 62.5 MCG/ACT AEROSOL POWDER, BREATH ACTIVATED INHALE 1 PUFF (62.5 MCG) BY INHALATION ROUTE ONCE DAILY AT THE SAME TIME EACH DAY 4 Active Active Problems Problem Noted Date Diagnosed Date Other hyperlipidemia 12/13/2022 Family history of sudden 11/04/2021 Coronary artery calcification seen on CT scan Essential (primary) hypertension 11/04/2021 Smoker 11/04/2021 Right bundle branch block 11/04/2021 Resolved Problems Problem Noted Date Diagnosed Date Resolved Date Hypertriglyceridemia 11/04/2021 023 Encounters Date Type Department Care Team Description 10/24/2024 Cy Message Enc [facility] [address] [place] [address] [facility] Provider Results 10/16/2024 6:45 AM TAPING FOREMAN - 10/16/2024 11:59 PM [facility] Hospital Encounter [facility] [address] [place] [address] Christi Parada NP Discharge Disposition: Home or Self Care (Routine Discharge) 10/16/2024 Travel 10/13/2024 3:08 PM TAPING FOREMAN - 10/13/2024 11:59 PM TAPING FOREMAN Hospital Encounter [facility] [address] [place] [address] Mateusz Gonzalez MD Discharge Disposition: Home or Self Care (Routine Discharge) 10/13/2024 Travel 09/28/2024 Telephone [facility] [address] [place] [address] Mateusz Gonzalez MD Results 08/11/2024 11:00 AM CDT Telephone [facility] [address] [place] [address] Mateusz Gonzalez MD Holter Monitor from Last 3 Months Family History Medical History Relation Comments Heart Attack Brother Cancer Father Kidney Disease Father Diabetes Maternal Aunt No Known Problems Maternal Grandfather No Known Problems Maternal Grandmother No Known Problems Maternal Uncle Arthritis Mother Heart Attack Mother Heart Disease Mother Hypertension Mother No Known Problems Paternal Aunt No Known Problems Paternal Grandfather No Known Problems Paternal Grandmother No Known Problems Paternal Uncle No Known Problems Sister Relation Status Comments Brother Father Maternal Aunt Maternal Grandfather Maternal Grandmother Maternal Uncle Mother Paternal Aunt Paternal Grandfather Paternal Grandmother Paternal Uncle Sister Social History Tobacco Use Types Packs/Day Years Used Date Smoking Tobacco: Every Day Cigarettes 1 50 Smokeless Tobacco: Never Alcohol Use Standard Drinks/Week Comments Not Currently 0 (1 standard drink = 0.6 oz pur e alcohol) Comments Unknown Sex and Gender Information Value Date Recorded Sex Assigned at Not on file 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 Gender Identity Not on file Sexual Orientation Not on file Last Filed Vital Signs Vital Sign Reading Time Taken Comments Blood Pressure 129/76 07/28/2024 3:41 PM CDT Pulse 74 07/28/2024 3:41 PM CDT Temperature 36.2 ??C (97.2 ??F) 03/03/2023 9:12 AM CD T Respiratory Rate 14 07/28/2024 3:41 PM CDT Oxygen Saturation 99% 07/28/2024 3:41 PM CDT Inhaled Oxygen Concentration - - Weight 71.2 kg (157 lb) 07/28/2024 3:41 PM CDT Height 160 cm (5' 3 ) 07/28/2024 3:41 PM CDT Body Mass Index 27.81 07/28/2024 3:41 PM CDT Plan of Treatment Upcoming Encounters Date Type Department Care Team (Late st Contact Info) Description 08/10/2025 10:00 AM CDT Office Visit [facility] [place] [address] Mateusz Gonzalez MD [address] [place], [place] [id number] Health Maintenance Due Date Last Done Comments ASCVD Statin 1955 Colorectal Cancer Screening Colonoscopy (10 Years) 1955 Kidney Health Evaluation 1955 Diabetes: Retinopathy Eye Exam 02/16/1972 Hepatitis C 02/16/1972 DTaP, Tdap and Td Vaccines ( 1 - Tdap) 1973 Mammogram Screening 1994 Lung Cancer Screening 02/16/2004 Zoster Vaccines (1 of 2) 02/16/2004 RSV Immunization or 60+ Years (1 - Risk 60-74 years 1-dose series) 2014 Annual Medicare Wellness Visit 2019 Dexa Scan (General) 2019 Pneumococcal Vaccine: 65+ Years (2 of 2 - PCV) 09/24/2021 09/24/2020 Hemoglobin A1C 08/02/2022 01/31/2022, 10/15/2021 ASCVD LDL 01/31/2023 01/31/2022, 07/14/2021 Lipid Panel 01/31/2023 01/31/2022, 07/14/2021 COVID-19 Vaccine (4 - 2023-2 5 season) 2024 08/15/2021, 01/31/2021, 01/03/2021 Influenza Adult (#1) 2024 07/16/2021, 07/18/2020 Meningococcal Vaccine Aged Out No everett fortunato eligible based on patient's age to complete this topic RSV Immunizations Under 20 Months Aged Out No longer eligible b ased on patient's age to complete this topic Medical Devices Implanted Type Area Group Cio Device Identifier Shelf Expiration Date Model / Serial / Lot Cv Synergy Xd Pyiush Mid Rca Stent- 2 Implanted:Qty: 1 on 12/15/2021 by Morgan Coley MD Stent Coronary RCA [employer] 06/30/2023 [id number] / / [id number] Tecnis Simplicity Implanted:Qty: 1 on 12/02/2022 by Alison Pickens MD at [facility] Left: Eye LIT & LIT [id number] 07/20/2024 DCB00 / [id number] / Tecnis Lens Implanted:Qty: 1 on 03/03/2023 by Alison Pickens MD at [facility] Right: Eye 01/02/2026 DCB00 / [id number] / Procedures Procedure Name Priority Date/Time Associated Diagnosis Comments MRI SOFT TISSUE NECK WWO CON Routine 10/16/2024 8:05 AM TAPING FOREMAN Mass of left parotid gland USE ECHOCARDIOGRAM Routine 10/13/2024 3: 46 PM TAPING FOREMAN Heart palpitations Shortness of breath EVENT RECORDER (ECG) UP TO 30 DAYS COMPLETE Routine 09/19/2024 1:33 PM TAPING FOREMAN Heart palpitations LIPID PANEL Routine 01/31/2022 Coronary artery calcification seen on CT scan Mixed hyperlipidemia HEMOGLOBIN, GLYCOSYLATED Routine 01/31/2022 from Last 3 Months or Most Recently Relevant to Health Maintenance Results * MRI SOFT TISSUE NECK WWO CON (10/16/2024 8:05 AM TAPING FOREMAN) Anatomical Region Laterality Modality Neck Magnetic Resonan ce 10/17/2024 10:2 9 AM TAPING FOREMAN Impressions 10/17/2024 10:39 AM TAPING FOREMAN IMPRESSION: 1. Approximately 2.7 x 2.3 x 1.8 cm well-circumscribed, partially cystic, left parotid mass, as detailed above. Imaging appearance is nonspecific and could reflect both benign and malignant parotid neoplasms as well as parotid declan metastasis (reported history of skin cancer). Definitive diagnosis will likely require tissue sampling. Ordered By: CHRISTI PARADA Interpreted By: Trung Daigle MD, 10/17/2024 10:29 AM Narrative 10/17/2024 10:39 AM TAPING FOREMAN [facility] [address] [place] [address] DATE: 10/16/2024 7:33 AM INDICATION: Left parotid [...] Procedure Note Trung Daigle MD - 10/17/2024 [facility] [address] [place] [address] DATE: 10/16/2024 7:33 AM INDICATION: Left parotid [...] will likely require tissue sampling. Ordered By: CHRISTI PARADA Interpreted By: Trung Daigle MD, 10/17/2024 10:29 AM Christi Parada ROPE MAKER MRI Final Result * USE ECHOCARDIOGRAM (10/13/2024 3:46 PM TAPING FOREMAN) Anatomical Region Laterality Modality Cardiac Ultrasound 10/13/2024 3:21 PM TAPING FOREMAN Narrative 10/14/2024 6:00 PM TAPING FOREMAN ?Echocardiography Report Pat.Name: ??Rosi Esqueda ?Pat.ID: ?[id number] ? St.Date: ?? 10/13/2024 ? Refer.MD: ??Outreach, [facility] Exam Time: 3:21:00 PM ?Study Type:OUTREACH ? Height: ?62 in ? Weight: ?150 lb ? BSA: ? 1.69 m2 ?Age: ??1955,69Y ? Sex: ? F ? Sonogrphr: Sf ? Pat. Stat.:Outpatient ? Reason for Study:Palpitations, Shortness of breath Procedures: Study performed at [place], [place] and interpreted by [facility]. 2D, M-mode, Doppler, Color Flow [...] tricuspid regurgitation. <Electronic Signature> 10/14/2024 06:00 PM Mateusz Gonzalez M.D. Procedure Note Mateusz Gonzalez MD - 10/14/2024 Echocardiography Report Pat.Name: Rosi Esqueda Pat.ID: [id number] .Date: 10/13/2024 Refer.MD: Eric, [facility] Exam Time: 3:21:00 PM Study Type:[facility] Height: 62 in Weight: 150 lb BSA: 1.69 m2 Age: 5 1955,69Y Sex: F Sonogrphr: Sf Pat. Stat.:Outpatient Reason for Study:Palpitations, Shortness of breath Procedures: Study performed at [place], [place] and interpreted by [facility]. 2D, M-mode, Doppler, Color Flow [...] tricuspid regurgitation. <Electronic Signature> 10/14/2024 06:00 PM Mateusz Gonzalez M.D. Mateusz Gonzalez MD ECHO Final Result * CLINIC - OUTPATIENT EVENT RECORDER (ECG) UP TO 30 DAYS COMPLETE (Holter) (09/19/2024 1:33 PM TAPING FOREMAN) [facility] - 09/19/2024 1:33 PM TAPING FOREMAN Baseline Rhythm * The baseline rhythm was Sinus Rhythm with heart rates ranged between 60 and 117 beats per minute, with average rate of 76 beats per minute. A-V Conduction * No Second Degree AV Block Type II. * No Third Degree AV Block. * No Pauses. Supraventricular Arrhythmia * There were 1,258 Supraventricular Ectopic beats with a burden of <1%. * 1 Supraventricular Tachycardia events - the longest episode was 4.3s on 08/18 11:23, and the fastest episode was 130 BPM on 08/18 11:23. Ventricular Arrhythmia * There were 7,232 Ventricular Ectopic beats with a burden of <1%. * 1 Ventricular Tachycardia events - the longest episode was 2.0s on 08/29 02:37, and the fastest episode was 124 BPM on 11 02:37. Atrial Fibrillation * No Atrial Fibrillation. Patient Triggered Events * 2 patient triggered events, 1 had symptoms specified, all of which corresponded with normal sinus rhythm. Signed MATEUSZ GONZALEZ MD, MS, FACC, RVPI [facility] [place], [place] us Mateusz Gonzalez MD CV VASCULAR ORDERABLES Final Res ult [facility] * HEMOGLOBIN, GLYCOSYLATED (01/31/2022) HGB A1C 8.1 <5.7 % 01/31/2022 us Deion Bhat MD LABORATORY Final Result * LIPID PANEL (01/31/2022) CHOLESTEROL 127 0 - 200 HDL 39 40 - 60 TRIGLYCERIDES 173 0 - 150 LDL (CALCULATED) 53 <130 01/31/2022 us Colby Bhardwaj MD LABORATORY Final Resul t from Last 3 Months or Most Recently Relevant to Health Maintenance Insurance [facility] MEDICA[facility] Advance Directives * Full Code (Latest Code Status on File) Date Activated Date Inactivated Comments 12/15/2021 4:46 PM 12/15/2021 7:33 PM Care Teams Body Shop Estimator Relationship Specialty Start Date End Date Deion Bhat MD [address] [place] [phone] PCP - General INTERNAL MEDICINE 10/30/20 Mateusz Gonzalez MD [address] [place] [address] Consulting Physician CARDIOVASCULAR DISEASE 02/10/24
--- OUTSIDE RECORDS SUMMARY | 2024-10-30 18:57 | XMS_ITS | Encounter Summary ---
Author Organization [facility] Address [facility] [place] [address] [place] [address] Care Team Providers Care Student Financial Aid Manager Name Role Phone Deion Bhat MD Primary Care Provider [phone] Zofia Gonzalez MD Unavailable Encounter Details Date Type Department Care Team (Late st Contact Info) Description 07/26/2024 Orders Only [facility] [address] [place] [address] Zofia Gonzalez MD [address] [place] [address] Social History Tobacco Use Types Packs/Day Years Used Date Smoking Tobacco: Every Day Cigarettes 1 50 Smokeless Tobacco: Never Alcohol Use Standard Drinks/Week Comments Not Currently 0 (1 standard drink = 0.6 oz pur e alcohol) Comments Unknown Sex and Gender Information Value Date Recorded Sex Assigned at Not on file 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 - 07/28/2024 7:20 PM CDT ? [facility] ?[address] [place] ??[address] ? Test Date: ?2024-07-28 Pat Name: ? TEN BARRIOS ?Department: ?? 3 ? Room: ? Gender: ? Female ? Rail Maintenance Worker: ?? : ?1955 ? Requested By: ZOFIA GONZALEZ Order Number: [id number] ? Reading MD: ?? Zofia Gonzalez ? Measurements Intervals ?[place] ? Rate: ? 74 ? P: ?55 NV: ? 192 ?QRS: ?50 QRSD: ? 151 ?T: ?78 QT: ? 420 ? QTc: ?467 ? Interpretive Statements SINUS RHYTHM RIGHT BUNDLE BRANCH BLOCK Procedure Note Zofia Gonzalez MD - 07/28/[address] [place] [address] Test Date: 2024-07-28 Pat Name: TEN BARRIOS Department: 3 Room: Gender: Female Rail Maintenance Worker: : 1955 Requested By: ZOFIA GONZALEZ Order Number: [id number] Reading MD: Zofia Gonzalez Measurements Intervals [place] Rate: 74 P: 55 NV: 192 QRS: 50 QRSD: 151 T: 78 QT: 420 QTc: 467 Interpretive Statements SINUS RHYTHM RIGHT BUNDLE BRANCH BLOCK us Zofia Gonzalez MD ECG ORDERABLES Final Result [facility] documented in this encounter Visit Diagnoses Diagnosis Coronary artery calcification seen on CT scan- Primary Coronary artery calcification seen on CT scan documented in this encounter Care Teams Student Financial Aid Manager Relationship Specialty Start Date End Date Deion Bhat MD [address] [place] [phone] PCP - General INTERNAL MEDICINE 10/30/20 Zofia Gonzalez MD [address] [place] [address] Consulting Physician CARDIOVASCULAR DISEASE 02/10/24 documented as of this encounter
--- OUTSIDE RECORDS SUMMARY | 2024-10-30 18:57 | XMS_ITS | Encounter Summary ---
Author Organization [facility] Address [facility] [place] [address] [place] [address] Care Team Providers Care Nursing Clinical Director Name Role Phone Deion Bhat MD Primary Care Provider [phone] Zofia Sanford MD Unavailable Reason for Visit * Reason Onset Date Comments Reschedule 02/10/[address] Heri Sanford Encounter Details Date Type Department Care Team (Late st Contact Info) Description 02/10/2024 [facility]phone [facility] [address] [place] [address] Colby Bhardwaj MD Reschedule (Reassigned to Dr. 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 Sanford in [place]. R/s letter mailed to pt. documented in this encounter Plan of Treatment Upcoming Encounters Date Type Department Care Team (Late st Contact Info) Description 08/10/2025 10:00 AM CDT Office Visit [facility] [place] [address] Zofia Sanford MD [address] [place] [address] documented as of this encounter Visit Diagnoses Not on filedocumented in this encounter Care Teams Nursing Clinical Director Relationship Specialty Start Date End Date Deion Bhat MD [address] [place] [phone] PCP - General INTERNAL MEDICINE 10/30/20 Zofia Sanford MD [address] [place] [address] Consulting Physician CARDIOVASCULAR DISEASE 02/10/24 documented as of this encounter
--- OUTSIDE RECORDS SUMMARY | 2024-10-30 18:57 | XMS_ITS | Encounter Summary ---
Author Organization [facility] Address [facility] [facility] [place] [address] [place] [address] Care Team Providers Care Blood Bank Laboratory Technologist Name Role Phone Deion Bhat MD Primary Care Provider [phone] Zofia Gonzalez MD Unavailable Reason for Visit * Reason Onset Date Comments Holter Monitor 08/11/2024 * Imaging (Routine) - Closed Specialty Diagnoses / Procedures Referred By Lou dixon Referred To Contact Cardiology Diagnoses Heart palpitations Procedures CLINIC - OUTPATIENT EVENT RECORDER (ECG) UP TO 30 DAYS COMPLETE (Holter) Zofia Gonzalez MD [address] [place] [address] Phone: tel: fax: Referral ID Status Reason Start Date Expiration Date Visits Re quested Visits Authorized [id number] Closed 07/28/2024 07/28/2025 1 1 Encounter Details Date Type Department Care Team (Late st Contact Info) Description 08/11/2024 11:00 AM CDT Telephone [facility] [address] [place] [address] Zofia Gonzalez MD [address] [place] [address] Holter Monitor Social History Tobacco Use Types Packs/Day Years Used Date Smoking Tobacco: Every Day Cigarettes 1 50 Smokeless Tobacco: Never Alcohol Use Standard Drinks/Week Comments Not Currently 0 (1 standard drink = 0.6 oz pur e alcohol) Comments Unknown Sex and Gender Information Value Date Recorded Sex Assigned at Not on file 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 Gender Identity Not on file Sexual Orientation Not on file documented as of this encounter Progress Notes * Robi Huerta Brine Tank Separator Operator - 08/11/2024 10:52 AM CDT BG Shipped [employer] out: [id number] [employer] in: [id number] documented in this encounter Plan of Treatment Upcoming Encounters Date Type Department Care Team (Late st Contact Info) Description 08/10/2025 10:00 AM CDT Office Visit [facility] [place] [address] Zofia Gonzalez MD [address] [place] [address] documented as of this encounter Procedures Procedure Name Priority Date/Time Associated Diagnosis Comments EVENT RECORDER (ECG) UP TO 30 DAYS COMPLETE Routine 09/19/2024 1:33 PM WASH HOUSE WORKER Heart palpitations documented in this encounter Results * CLINIC - OUTPATIENT EVENT RECORDER (ECG) UP TO 30 DAYS COMPLETE (Holter) (09/19/2024 1:33 PM WASH HOUSE WORKER) Narrative [facility] - 09/19/2024 1:33 PM WASH HOUSE WORKER Baseline Rhythm * The baseline rhythm was [...] which corresponded with normal sinus rhythm. Signed ZOFIA GONZALEZ MD, MS, FACC, RVPI [facility] [place], [place] us Zofia Gonzalez MD CV VASCULAR ORDERABLES Final Res ult [place] [employer] documented in this encounter Visit Diagnoses Diagnosis Heart palpitations Palpitations documented in this encounter Care Teams Blood Bank Laboratory Technologist Relationship Specialty Start Date End Date Deion Bhat MD [address] [place] [phone] PCP - General INTERNAL MEDICINE 10/30/20 Zofia Gonzalez MD [address] [place] [address] Consulting Physician CARDIOVASCULAR DISEASE 02/10/24 documented as of this encounter
--- OUTSIDE RECORDS SUMMARY | 2024-10-30 18:57 | XMS_ITS | Encounter Summary ---
Author Organization [facility] Address [facility] [place] [address] [place] [address] Care Team Providers Care Testing And Regulating Technician Name Role Phone Deion Bhat MD Primary Care Provider Pretty Gomez APRN GROCERY CLERK-C Unavailable Reason for Visit * Reason Onset Date Comments Blood Pressure 08/02/2023 Encounter Details Date Type Department Care Team (Late st Contact Info) Description 08/02/2023 Telephone [facility] [address] [place] [address] Colby Bhardwaj MD Blood Pressure Social History Tobacco Use Types Packs/Day Years Used Date Smoking Tobacco: Every Day Cigarettes 1 50 Smokeless Tobacco: Never Alcohol Use Standard Drinks/Week Comments Not Currently 0 (1 standard drink = 0.6 oz pur e alcohol) Comments Unknown Sex and Gender Information Value Date Recorded Sex Assigned at Not on file 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 BP readings appear stable She will continue to take medication as prescribed, she will call when needing a new prescription for lisinopril 20 mg - twice a day * Nelly Moreno - 08/02/2023 1:50 PM CDT VM DATE/TIME: 08/02 1103am CALLER: pt PH #: [phone] PROVIDER/NEW PT: Dr Bhardwaj REASON FOR CALL: calling to give my BP readings REQUEST HANDLED AND HOW: called and spoke to pt : BP READINGS 07/24 125/80 122/76 07/25 114/81 125/80 07/26 142/88 128/85 07/27 139/88 129/82 07/28 117/75 130/84 07/29 119/78 139/69 07/30 145/85 140/85 07/31 120/86 118/82 08/01 143/90 128/82 08/02 128/75 122/71 Pt said she will continue to records BP's until she is told to stop documented in this encounter Plan of Treatment Upcoming Encounters Date Type Department Care Team (Late st Contact Info) Description 08/10/2025 10:00 AM CDT Office Visit [facility] [place] [address] Zofia Sanford MD [address] [place] [address] documented as of this encounter Visit Diagnoses Not on filedocumented in this encounter Care Teams Testing And Regulating Technician Relationship Specialty Start Date End Date Deion Bhat MD [address] [place] [phone] PCP - General INTERNAL MEDICINE 10/30/20 Pretty Gomez, UNIT EDUCATOR, GROCERY CLERK-C [address] [facility] [address] [place] [address] NURSE PRACTITIONER 10/30/21 02/09/24 documented as of this encounter
--- OUTSIDE RECORDS SUMMARY | 2024-10-30 18:57 | XMS_ITS | Encounter Summary ---
Author Organization [facility] Address Formerly [facility] [place] [address] [place] [address] Care Team Providers Care Delivery Crew Member Name Role Phone Kalyan Osuna MD Primary Care Provider Pretty Gomez APRN PARIMUTUEL CASHIER-C Unavailable Reason for Visit * Reason Comments Follow Up Encounter Details Date Type Department Care Team (Late st Contact Info) Description 07/14/2023 11:30 AM CDT Office Visit [facility] [place] [phone] Gallito Bhardwaj MD Follow Up Social History Tobacco Use Types Packs/Day Years Used Date Smoking Tobacco: Every Day Cigarettes 1 50 Smokeless Tobacco: Never Alcohol Use Standard Drinks/Week Comments Not Currently 0 (1 standard drink = 0.6 oz pur e alcohol) Comments Unknown Sex and Gender Information Value Date Recorded Sex Assigned at Not on file 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 Gender Identity Not on file Sexual Orientation Not on file documented as of this encounter Last Filed Vital Signs Vital Sign Reading Time Taken Comments Blood Pressure 142/86 07/14/2023 11:25 AM CDT home BP 130/74 Pulse 85 07/14/2023 11:25 AM CDT Temperature - - Respiratory Rate 20 07/14/2023 11:2 5 AM CDT Oxygen Saturation 96% 07/14/2023 11: 25 AM CDT Inhaled Oxygen Concentration - - Weight 94 kg (207 lb 3.2 oz) 07/14/2023 11:25 AM CDT Height 160 cm (5' 3 ) 07/14/2023 11:25 AM CDT Body Mass Index 36.7 07/14/2023 11:25 AM CDT documented in this encounter Patient Instructions * Patient Instructions* Courtney Vernon RN - 07/14/2023 11:30 AM CDT A home outpatient sleep study should be scheduled for you Dr. Bhardwaj recommends that you stop smoking Monitor your blood pressure at home and record, call our office with the readings in 1 week No changes were made to your medications today by Dr. Bhardwaj Please check this list with your actual home medications for accuracy documented in this encounter Progress Notes * Gallito Bhardwaj MD - 07/14/2023 11:30 AM CDT Reason for Visit: Follow Up History of Present Illness: Recommendations and Plan: Medications: Current Outpatient Medications: ??? aspirin 81 MG chewable tablet, Chew 1 tablet (81 mg total) by mouth daily., Disp: , Rfl: ??? B-D ULTRAFINE III SHORT PEN 31G X 8 MM Misc, USE TO INJECT INSULIN 5 TIMES A DAY E11.65, Disp: , Rfl: ??? Blood Glucose Monitoring Suppl (ONE TOUCH ULTRA 2) w/Device Kit, , Disp: , Rfl: ??? buPROPion XL 300 MG 24 hr tablet, Take 1 tablet (300 mg total) by mouth every morning., Disp: ,Rfl: ??? Ergocalciferol (VITAMIN D2 OR), Take 50,000 Units by mouth weekly., Disp: , Rfl: ??? gabapentin 100 MG capsule, Take 1 capsule (100 mg total) by mouth 3 (three) times daily., Disp:, Rfl: ??? hydroCHLOROthiazide 25 MG tablet, Take 1 tablet (25 mg total) by mouth every morning., Disp: , Rfl: ??? insulin lispro, 1 Unit Dial, 100 UNIT/ML injection (PEN), Inject into the skin see administration instructions. 15 units at breakfast, 25 units at lunch, 30 units at dinner, and 5 units with snacks, Disp: , Rfl: ??? LANTUS SOLOSTAR 100 UNIT/ML injection (PEN), Inject 60 Units into the skin nightly., Disp: , Rfl: ??? lisinopril 40 MG tablet, Take 0.5 tablets (20 mg total) by mouth 2 (two) times daily., Disp: , Rfl: ??? metoprolol succinate ER (TOPROL-XL) 50 MG 24 hr tablet, Take 1 tablet (50 mg total) by mouth daily., Disp: , Rfl: ??? ONETOUCH ULTRA test strip, , Disp: , Rfl: ??? pantoprazole EC (PROTONIX) 40 MG tablet, Take 1 tablet (40 mg total) by mouth daily., Disp: , Rfl: ??? pravastatin 20 MG tablet, Take 1 tablet (20 mg total) by mouth nightly at bedtime., Disp: 30 tablet, Rfl: 11 ??? Semaglutide (OZEMPIC, 2 MG/DOSE, SC), Inject 2 mg into the skin once a week., Disp: , Rfl: Allergies Allergen Reactions ??? Iodine Hives ??? Aleve [Naproxen] Rash Trouble breathing and rash ??? Shellfish Allergy Rash Past Medical History: Diagnosis Date ??? Arthritis ??? Cancer (HHS/HCC) (CMS/HCC) 10/01/2022 Small cell carcinoma skin ??? Cataract 2021 Cataract surgery both eyes 2022 ??? Cerebral aneurysm (HHS/HCC) ??? Diabetes (HHS/HCC) (CMS/HCC) ??? GERD (gastroesophageal reflux disease) ??? Hypertension ??? Hypertriglyceridemia Past Surgical History: Procedure Laterality Date ??? BIOPSY OF BREAST, NEEDLE CORE Left ??? CHOLECYSTECTOMY 2021 ??? COSMETIC SURGERY 2022 Skin cancer re.maurice upper lip ??? EYE SURGERY Left 11/2022 ??? HC TRIGGER FINGER RELEASE Bilateral ??? HYSTERECTOMY ??? LAPAROSCOPIC CHOLECYSTECTOMY ??? RECONST CLEFT PALATE,LENGTHENING ??? SHOULDER SURGERY Left ??? TONSILLECTOMY AND ADENOIDECTOMY ??? TUBAL LIGATION 1977 ??? XA LHC POSS 12/15/2021 tortuous,nonobstructive CAD; medical therapy and CRF modification Social History Tobacco Use ??? Smoking status: Every Day Packs/day: 1.00 Years: 50.00 Additional pack years: 0.00 Total pack years: 50.00 Types: Cigarettes ??? Smokeless tobacco: Never Substance Use Topics ??? Alcohol use: Not Currently ??? Drug use: Not Currently Family History Problem Relation Name Age of Onset ??? Heart Attack Mother Yudith ??? Arthritis Mother Yudith ??? Heart Disease Mother Yudith ??? Hypertension Mother Yudith ??? Cancer Father Luiz ??? Kidney Disease Father Luiz ??? No Known Problems Sister ??? Heart Attack Brother ??? Diabetes Maternal Aunt Maribell ??? No Known Problems Maternal Uncle ??? No Known Problems Paternal Aunt ??? No Known Problems Paternal Uncle ??? No Known Problems Maternal Grandmother ??? No Known Problems Maternal Grandfather ??? No Known Problems Paternal Grandmother ??? No Known Problems Paternal Grandfather Family Status Relation Name Status ??? Mother Yudith ??? Father Luiz (Not Specified) ??? Sister (Not Specified) ??? Brother ??? MAunt Maribell (Not Specified) ??? MUncle (Not Specified) ??? PAunt (Not Specified) ??? PUncle (Not Specified) ??? MGM (Not Specified) ??? MGF (Not Specified) ??? PGM (Not Specified) ??? PGF (Not Specified) Review of Systems Constitutional: Negative for recent unintentional weight gain, recent unintentional weight loss andnew or significant fatigue. HENT: Negative for new or significant hearing loss. Eyes: Negative for blurred vision and double vision. Respiratory: Negative for cough, new or significant shortness of breath and snoring. Cardiovascular: See HPI. Gastrointestinal: Negative for blood in stool and melena. Genitourinary: Negative for dysuria. Musculoskeletal: Negative for myalgias and new or worsening joint stiffness/pain. Skin: Negative for rash. Neurological: Negative for tingling/numbness and focal weakness. Endo/Heme/Allergies: Negative for new or significant bruising/bleeding and polydipsia. Psychiatric/Behavioral: Negative for depression and new or significant memory loss. Vitals: 07/14/23 1125 BP: (!) 142/86 BP Location: Right arm Pulse: 85 Weight: 94 kg (207 lb 3.2 oz) Height: 1.6 m (5' 3 ) Body mass index is 36.7 kg/m??. Cardiac Exam Rate/Rhythm: Normal rate and regular rhythm. PMI: PMI is not displaced. Pulses: Normal pulses. Femoral pulses are 2+ on the right side and 2+ on the left side. Heart Sounds: Normal heart sounds. Normal S1 sounds. Normal S2 sounds. No gallop present. No S3. NoS4. Murmurs: Physical Exam Constitutional: No distress. Healthy Appearance. Overweight. HENT: Oropharynx clear. Eyes: Pupils equal, round, and reactive to light. Conjunctivae normal. Neck: Neck supple. No JVD. Abdomen: Abdomen soft. Bowel sounds normal. No tenderness. No mass. No hepatomegaly. No splenomegaly. Abdominal aorta not palpably enlarged. No abdominal bruit present. Pulmonary: Effort normal. Breath sounds normal. Skin: No rash. No cyanosis. No clubbing. No xanthoma. Musculoskeletal: No kyphosis. Normal ROM. Neurological: Alert. Oriented x 3. Appropriate mood and affect. Normal motor skills. Normal gait. Comments: The documentation for the above exam was created using a template entered by ancillary staff however the physical exam was completed entirely by the provider responsible for this visit. Thephysical exam documentation was reviewed and modified by the provider to reflect his/her findings. Diagnoses/Impression: 1. Coronary artery calcification seen on CT scan 2. Family history of sudden 3. Essential (primary) hypertension 4. Other hyperlipidemia 5. Smoker Referring Provider: No ref. provider found PCP: KALYAN OSUNA MD OGAME TESTER * Gallito Bhardwaj MD - 07/14/2023 11:30 AM CDT Patient Name: ROSI BARRIOS Date of : 1955 Account: [id number] Facility: [facility] Location: [facility] Date of Service: 07/14/2023 Visit HISTORY OF PRESENT ILLNESS: Mrs. Barrios is seen in the cardiology clinic today for a scheduled followup visit. She is a 68-year-old woman with a history of hypertension, hypertriglyceridemia, cerebral aneurysm and diabetes mellitus. She reports that she is doing well from a cardiac standpoint. Mrs. Barrios denies any chest pain or shortness of breath. She has had no overt symptoms of congestive heart failure such as paroxysmal nocturnal dyspnea, orthopnea, or pedal edema. She does have occasional palpitations, but this seems to occur only when she is anxious. She denies any syncope ornear syncope. She has had no claudication or recent symptoms to suggest a TIA or CVA. Mrs. Douglass hemoglobin A1c was 8.0, but has been reduced to 6.2 by her efforts. Her blood pressure during the clinic visit was 156/82 mmHg. A followup on manual blood pressures are 130/74 mmHg and 142/86 mmHg. RECOMMENDATIONS AND PLAN: Mrs. De Leon cardiac status appears clinically stable at the presenttime without ongoing anginal chest pain, overt symptoms of congestive heart failure, or clinical evidence of hemodynamically significant arrhythmias. Continued medical therapy and aggressive cardiac risk factor modification seem most appropriate at the present time. After a long discussion in the clinic, I have recommended the following to Mrs. Barrios: 1. Smoking cessation. She is presently smoking 1 pack of cigarettes per daily. 2. Proceed with a home sleep apnea study to rule out the presence of sleep apnea in light of Mrs. Barrios's presentation. If obstructive sleep apnea is present, aggressive treatment would be warranted. 3. I have asked Mrs. Barrios to monitor her blood pressures at home and to call these results our [facility] office for review. Further adjustments in her medical regimen will be based on monitoring her blood pressure at home. 4. Annual followup in the cardiology clinic. I have encouraged Mrs. Barrios to contact me in themeantime should she have any questions or problems. Signature/Date: GALLITO BHARDWAJ #[id number] /ELISEO OGAME TESTER documented in this encounter Plan of Treatment Upcoming Encounters Date Type Department Care Team (Late st Contact Info) Description 08/10/2025 10:00 AM CDT Office Visit [facility] [place] [phone] Zofia Sanford MD [address] [place] [address] documented as of this encounter Visit Diagnoses Diagnosis Coronary artery calcification seen on CT scan- Primary Family history of sudden Family history of other condition Essential (primary) hypertension Unspecified essential hypertension Other hyperlipidemia Smoker Tobacco use disorder documented in this encounter Care Teams Delivery Crew Member Relationship Specialty Start Date End Date Kalyan Osuna MD [address] [place] [phone] PCP - General INTERNAL MEDICINE 10/30/20 Pretty Gomez, CECILE, PARIMUTUEL CASHIER-C [address] [facility] [address] [place] [address] NURSE PRACTITIONER 10/30/21 02/09/24 documented as of this encounter
--- OUTSIDE RECORDS SUMMARY | 2024-10-30 18:57 | XMS_ITS | Encounter Summary ---
Author Organization [facility] Address [facility] 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 Gender Identity Not on file Sexual Orientation Not on file documented as of this encounter Plan of Treatment Upcoming Encounters Date Type Department Care Team (Late st Contact Info) Description 08/10/2025 10:00 AM CDT Office Visit [facility] [place] [address] Zofia Sanford MD [address] [place] [address] documented as of this encounter Visit Diagnoses Not on filedocumented in this encounter Care Teams County Administrator Relationship Specialty Start Date End Date Deion Bhat MD [address] [place] [phone] PCP - General INTERNAL MEDICINE 10/30/20 Zofia Sanford MD [address] [place] [address] Consulting Physician CARDIOVASCULAR DISEASE 02/10/24 documented as of this encounter
--- OUTSIDE RECORDS SUMMARY | 2024-10-30 18:57 | XMS_ITS | Encounter Summary ---
Author Organization [facility] Address [facility]ly [facility] [place] [address] [place] [address] Care Team Providers Care Manager Of Selection And Assessment Name Role Phone Deion Bhat MD Primary Care Provider [phone] Pretty Gomez APRN, MANUFACTURING FINANCE MANAGER-C Unavailable [phone] Encounter Details Date Type Department Care Team (Latest Contact Info) Description 03/03/2023 Travel Social History Tobacco Use Types Packs/Day Years Used Date Smoking Tobacco: Every Day Cigarettes Smokeless Tobacco: Never Alcohol Use Standard Drinks/Week Comments Not Currently 0 (1 standard drink = 0.6 oz pur e alcohol) Comments Unknown Sex and Gender Information Value Date Recorded Sex Assigned at Not on file 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 No / Unsure 03/03/2023 6:39 AM CDT documented as of this encounter Plan of Treatment Upcoming Encounters Date Type Department Care Team ( Contact Info) Description 08/10/2025 10:00 AM CDT Office Visit [facility] [place] [address] Zofia Sanford MD [address] [place] [address] documented as of this encounter Visit Diagnoses Not on filedocumented in this encounter Care Teams Manager Of Selection And Assessment Relationship Specialty Start Date End Date Deion Bhat MD [address] [place] [address] PCP - General INTERNAL MEDICINE 10/30/20 Pretty Gomez, HEAT TREATER, MANUFACTURING FINANCE MANAGER-C [address] [facility] [address] [place] [phone] NURSE PRACTITIONER 10/30/21 02/09/24 documented as of this encounter
--- OUTSIDE RECORDS SUMMARY | 2024-10-30 18:57 | XMS_ITS | Encounter Summary ---
Author Organization [facility] Address [facility]6 [facility]. [place], [place] [address] [place] [address] Care Team Providers Care Senior Network Administrator Name Role Phone Deion Osuna MD Primary Care Provider [phone] Zofia Gonzalez MD Unavailable Reason for Referral * Imaging (Routine) - Closed Specialty Diagnoses / Procedures Referred By Lou dixon Referred To Contact Cardiology Diagnoses Heart palpitations Procedures CLINIC - OUTPATIENT EVENT RECORDER (ECG) UP TO 30 DAYS COMPLETE (Holter) Zofia Gonzalez MD [address] [place] [address] Phone: tel: fax: Referral ID Status Reason Start Date Expiration Date Visits Re quested Visits Authorized [id number] Closed 07/28/2024 07/28/2025 1 1 * Imaging (Routine) - Closed Specialty Diagnoses / Procedures Referred By Lou dixon Referred To Contact RADIOLOGY Diagnoses Heart palpitations Shortness of breath Procedures USE ECHOCARDIOGRAM Zofia Gonzalez MD [address] [place] [address] Phone: tel: fax: Referral ID Status Reason Start Date Expiration Date Visits Re quested Visits Authorized [id number] Closed 07/28/2024 08/28/2025 1 1 Reason for Visit * Reason Comments Follow Up Encounter Details Date Type Department Care Team (Late st Contact Info) Description 07/28/2024 10:00 AM CDT Office Visit [facility] [place] [phone] Zofia Gonzalez MD [address] [place] [address] Follow Up Social History Tobacco Use Types Packs/Day Years Used Date Smoking Tobacco: Every Day Cigarettes 1 50 Smokeless Tobacco: Never Alcohol Use Standard Drinks/Week Comments Not Currently 0 (1 standard drink = 0.6 oz pur e alcohol) Comments Unknown Sex and Gender Information Value Date Recorded Sex Assigned at Not on file Legal Sex Female 3:48 PM MASTER PILOT Gender Identity Not on file Sexual Orientation Not on file documented as of this encounter Last Filed Vital Signs Vital Sign Reading Time Taken Comments Blood Pressure 129/76 07/28/2024 3:41 PM CDT Pulse 74 07/28/2024 3:41 PM CDT Temperature - - Respiratory Rate 14 07/28/2024 3:41 PM CDT Oxygen Saturation 99% 07/28/2024 3:41 PM CDT Inhaled Oxygen Concentration - - Weight 71.2 kg (157 lb) 07/28/2024 3:41 PM CDT Height 160 cm (5' 3 ) 07/28/2024 3:41 PM CDT Body Mass Index 27.81 07/28/2024 3:41 PM CDT documented in this encounter Progress Notes * Zofia Gonzalez MD - 07/28/2024 10:00 AM CDT Reason for Visit: Follow Up History of Present Illness: Patient is here for routine follow-up. 69F PMX nonobstructive CAD per [facility] 12/09, HHD, HLD, DM, cerebral aneurysm, small cell skin cancer, arthritis, active smoker, FH of CVD. Patient today states overall she is doing well from a cardiac standpoint and denies any CP, SOB at rest, GARCIA above their baseline, syncope, IC, orthopnea/pnd, or persistent LE swelling. She reports med compliance and no ill side effects. Patient has however been experiencing lightheadedness and dizziness, as well as palpitations which are quite severe. They occur on average once a week they started a few months back and have been progressing since their onset. They last for few minutes and sometimes as long as half an hour with considerable symptoms of fatigue and shortness of breath. In office EKG was performed today which I personally reviewed notable for sinus rhythm, underlying right bundle at a rate of 74 and a blood pressure 129/76. EMR was extensively reviewed with the following pertinent cardiovascular findings of note. Investigations: 02/06 CR 1.03, LFT WNL, LDL 53, A1c 8.1 12/09 C: Right dominant system, 40% proximal LAD, 40% proximal RCA 11/08 TTE: EF 60%, mild LVH, DDG 1, no VHD Recommendations and Plan: #Palpitations: Etiology unclear, will proceed with a rhythm analysis #Lightheadedness dizziness: Etiology unclear we will proceed with further cardiac workup # nonobstructive CAD per [facility] 12/09: Denies any angina type symptoms, continue medical therapy, willcontinue to monitor # HHD: Blood pressure at goal, continue medical therapy # HLD: No recent lipid profile available for review, continue medical therapy # DM: Recommend target A1c less than 7, continue medical therapy # cerebral aneurysm # small cell skin cancer # arthritis # active smoker: Smoking cessation strongly advised # FH of CVD Plan: Check 30-day MCT for palpitations Check echo for palpitations/SOB (Office to address results) C/t meds RTC 1 yr CC PCP Greater than 50 minutes was spent reviewing patient's medical history and EMR records. Medications: Current Outpatient Medications: albuterol sulfate HFA 108 (90 Base) MCG/ACT inhaler, INHALE 2 PUFFS (180 MCG) BY INHALATION ROUTE EVERY 6 HOURS. USE SPACER, Disp: , Rfl: INCRUSE ELLIPTA 62.5 MCG/ACT AEROSOL POWDER, BREATH ACTIVATED, INHALE 1 PUFF (62.5 MCG) BY INHALATION ROUTE ONCE DAILY AT THE SAME TIME EACH DAY, Disp: , Rfl: aspirin 81 MG chewable tablet, Chew 1 tablet (81 mg total) by mouth daily., Disp: , Rfl: B-D ULTRAFINE III SHORT PEN 31G X 8 MM Misc, USE TO INJECT INSULIN 5 TIMES A DAY E11.65, Disp: , Rfl: Blood Glucose Monitoring Suppl (ONE TOUCH ULTRA 2) w/Device Kit, , Disp: , Rfl: buPROPion XL 300 MG 24 hr tablet, Take 1 tablet (300 mg total) by mouth every morning., Disp: , Rfl: Ergocalciferol (VITAMIN D2 OR), Take 50,000 Units by mouth weekly., Disp: , Rfl: gabapentin 100 MG capsule, Take 1 capsule (100 mg total) by mouth 3 (three) times daily., Disp: , Rfl: hydroCHLOROthiazide 25 MG tablet, Take 1 tablet (25 mg total) by mouth every morning., Disp: , Rfl: insulin lispro, 1 Unit Dial, 100 UNIT/ML injection (PEN), Inject into the skin see administration instructions. 15 units at breakfast, 25 units at lunch, 30 units at dinner, and 5 units with snacks, Disp: , Rfl: LANTUS SOLOSTAR 100 UNIT/ML injection (PEN), Inject 60 Units into the skin nightly., Disp: , Rfl: lisinopril 40 MG tablet, Take 0.5 tablets (20 mg total) by mouth 2 (two) times daily., Disp: , Rfl: metoprolol succinate ER (TOPROL-XL) 50 MG 24 hr tablet, Take 1 tablet (50 mg total) by mouth daily., Disp: , Rfl: ONETOUCH ULTRA test strip, , Disp: , Rfl: pantoprazole EC (PROTONIX) 40 MG tablet, Take 1 tablet (40 mg total) by mouth daily., Disp: , Rfl: pravastatin 20 MG tablet, Take 1 tablet (20 mg total) by mouth nightly at bedtime., Disp: 30 tablet, Rfl: 11 Semaglutide (OZEMPIC, 2 MG/DOSE, SC), Inject 2 mg into the skin once a week., Disp: , Rfl: Review of patient's allergies indicates: Allergen Reactions Iodine Hives Aleve [Naproxen] Rash Trouble breathing and rash Shellfish Allergy Rash Past Medical History: Diagnosis Date Arthritis Cancer ([facility]) 10/01/2022 Small cell carcinoma skin Cataract 2021 Cataract surgery both eyes 2022 Cerebral aneurysm ([facility]) Diabetes (CMS/HCC HHS/HCC) GERD (gastroesophageal reflux disease) Hypertension Hypertriglyceridemia Past Surgical History: Procedure Laterality Date BIOPSY OF BREAST, NEEDLE CORE Left CHOLECYSTECTOMY 2021 COSMETIC SURGERY 2022 Skin cancer re.maurcie upper lip EYE SURGERY Left 11/2022 HC TRIGGER FINGER RELEASE Bilateral HYSTERECTOMY LAPAROSCOPIC CHOLECYSTECTOMY RECONST CLEFT PALATE,LENGTHENING SHOULDER SURGERY Left TONSILLECTOMY AND ADENOIDECTOMY TUBAL LIGATION 1977 XA LHC POSS 12/15/2021 tortuous,nonobstructive CAD; medical therapy and CRF modification Social History Tobacco Use Smoking status: Every Day Current packs/day: 1.00 Average packs/day: 1 pack/day for 50.0 years (50.0 ttl pk-yrs) Types: Cigarettes Smokeless tobacco: Never Substance Use Topics Alcohol use: Not Currently Drug use: Not Currently Family History Problem Relation Name Age of Onset Heart Attack Mother Yudith Arthritis Mother Yudith Heart Disease Mother Yudith Hypertension Mother Yudith Cancer Father Luiz Kidney Disease Father Luiz No Known Problems Sister Heart Attack Brother Diabetes Maternal Aunt Maribell No Known Problems Maternal Uncle No Known Problems Paternal Aunt No Known Problems Paternal Uncle No Known Problems Maternal Grandmother No Known Problems Maternal Grandfather No Known Problems Paternal Grandmother No Known Problems Paternal Grandfather Family Status Relation Name Status Mother Yudith Father Luiz (Not Specified) Sister (Not Specified) Brother MAunt Maribell (Not Specified) MUncle (Not Specified) PAunt (Not Specified) PUncle (Not Specified) MGM (Not Specified) MGF (Not Specified) PGM (Not Specified) PGF (Not Specified) No partnership data on file Review of Systems Constitutional: Negative for recent [...] and new or significant memory loss. Vitals: 07/28/24 1541 BP: 129/76 Pulse: 74 Weight: 71.2 kg (157 lb) Height: 1.6 m (5' 3 ) Body mass index is 27.81 kg/m??. Cardiac Exam Rate/Rhythm: Normal rate and regular rhythm. PMI: PMI is not displaced. Pulses: Carotid pulses are 2+ on the right side and 2+ on the left side. Radial pulses are 2+ on the right side and 2+ on the left side. Dorsalis pedis pulses are 2+ on the right side and 2+ on the left side. Heart Sounds: Normal heart sounds. Normal S1 sounds. Normal S2 sounds. No gallop present. No S3. NoS4. Murmurs: Physical Exam Constitutional: No distress. Healthy Appearance. HENT: Oropharynx clear. Eyes: Pupils equal, round, [...] affect. Normal motor skills. Normal gait. Comments: Diagnoses/Impression: No diagnosis found. Referring Provider: No ref. provider found PCP: DEION OSUNA MD documented in this encounter Plan of Treatment Upcoming Encounters Date Type Department Care Team (Late st Contact Info) Description 08/10/2025 10:00 AM CDT Office Visit [facility] [place] [address] Zofia Gonzalez MD [address] [place] [id number] documented as of this encounter Results * USE ECHOCARDIOGRAM (10/13/2024 3:46 PM MASTER PILOT) Anatomical Region Laterality Modality Cardiac Ultrasound 10/13/2024 3:21 PM MASTER PILOT Narrative 10/14/2024 6:00 PM MASTER PILOT ?Echocardiography Report Pat.Name: ??Rosi Esqueda ?Pat.ID: ?[id number] ? St.Date: ?? 10/13/2024 ? Refer.MD: ??Outreach, [facility] Exam Time: 3:21:00 PM ?Study Type:OUTREACH ? Height: ?62 in ? Weight: ?150 lb ? BSA: ? 1.69 m2 ?Age: ??1955,69Y ? Sex: ? F ? Sonogrphr: Sf ? Pat. Stat.:Outpatient ? Reason for Study:Palpitations, Shortness of breath Procedures: Study performed at [place], [place] and interpreted by [facility]. 2D, M-mode, Doppler, Color Flow [...] regurgitation. <Electronic Signature> 10/14/2024 06:00 PM Zofia Gonzalez M.D. Procedure Note Zofia Gonzalez MD - 10/14/2024 Echocardiography Report Pat.Name: Rosi Esqueda Pat.ID: [id number] .Date: 10/13/2024 Refer.MD: Eric, [facility] Exam Time: 3:21:00 PM Study Type:[facility] Height: 62 in Weight: 150 lb BSA: 1.69 m2 Age: 5 1955,69Y Sex: F Sonogrphr: Pat. Stat.:Outpatient Reason for Study:Palpitations, Shortness of breath Procedures: Study performed at [place], [place] and interpreted by [facility]. 2D, M-mode, Doppler, Color Flow [...] regurgitation. <Electronic Signature> 10/14/2024 06:00 PM Zofia Gonzalez M.D. Zofia Gonzalez MD ECHO Final Result * CLINIC - OUTPATIENT EVENT RECORDER (ECG) UP TO 30 DAYS COMPLETE (Holter) (09/19/2024 1:33 PM MASTER PILOT) [facility] - 09/19/2024 1:33 PM MASTER PILOT Baseline Rhythm * The baseline rhythm was [...] the fastest episode was 124 BPM on 08/29 02:37. Atrial Fibrillation * No Atrial Fibrillation. Patient Triggered Events * 2 patient triggered events, 1 had symptoms specified, all of which corresponded with normal sinus rhythm. Signed ZOFIA GONZALEZ MD, MS, FACC, RVPI [facility], [place] us Zofia Gonzalez MD CV VASCULAR ORDERABLES Final Res ult [place] [employer] documented in this encounter Visit Diagnoses Diagnosis Heart palpitations- Primary Palpitations Shortness of breath Heart palpitations Palpitations Heart palpitations Palpitations Shortness of breath documented in this encounter Care Teams Senior Network Administrator Relationship Specialty Start Date End Date Deion Osuna MD [address] [place] [address] PCP - General INTERNAL MEDICINE 10/30/20 Zofia Gonzalez MD [address] [place] [address] Consulting Physician CARDIOVASCULAR DISEASE 02/10/24 documented as of this encounter
--- OUTSIDE RECORDS SUMMARY | 2024-10-30 18:58 | XMS_ITS | Encounter Summary ---
Author Organization [facility] Address [facility] [place] [address] [place] [address] Care Team Providers Care Incubator Operator Name Role Phone Deion Bhat MD Primary Care Provider [phone] Pretty Gomez APRN, SUPERINTENDENT BOARD MILL-C Unavailable Encounter Details Date Type Department Care Team (Latest Contact Info) Description 12/15/2021 Travel Social History Tobacco Use Types Packs/Day Years Used Date Smoking Tobacco: Every Day Smokeless Tobacco: Never Comments:patient doesnt smok e Alcohol Use Standard Drinks/Week Comments Not Currently 0 (1 standard drink = 0.6 oz pur e alcohol) Comments Unknown Sex and Gender Information Value Date Recorded Sex Assigned at Not on file Legal Sex Female 3:48 PM TOOL GRINDER OPERATOR Gender Identity Not on file Sexual Orientation Not on file COVID-19 Exposure Response Date Recorded In the last 10 days, have yo u been in contact with someone who was confirmed or suspected to have Coronavirus/COVID-19? No / Unsure 12/15/2021 11:43 AM TOOL GRINDER OPERATOR documented as of this encounter Plan of Treatment Upcoming Encounters Date Type Department Care Team (Late st Contact Info) Description 08/10/2025 10:00 AM CDT Office Visit [facility] [place] [address] Zofia Sanford MD [address] [place] [address] documented as of this encounter Visit Diagnoses Not on filedocumented in this encounter Care Teams Incubator Operator Relationship Specialty Start Date End Date Deion Bhat MD [address] [place] [phone] PCP - General INTERNAL MEDICINE 10/30/20 Pretty Gomez APRN, SUPERINTENDENT BOARD MILL-C [address] [facility] [address] [place] [address] NURSE PRACTITIONER 10/30/21 02/09/24 documented as of this encounter
--- OUTSIDE RECORDS SUMMARY | 2024-10-30 18:58 | XMS_ITS | Encounter Summary ---
Author Organization [facility] Address Critical access hospital6 [facility] [place] [address] [place] [address] Care Team Providers Care Pediatrics Hospitalist Name Role Phone Deion Bhat MD Primary Care Provider Pretty Gomez APRN HOME STEREO EQUIPMENT INSTALLER-C Unavailable Reason for Visit * Reason Onset Date Comments Orders 01/16/2022 Encounter Details Date Type Department Care Team (Late st Contact Info) Description 01/16/2022 Telephone [facility] Neuroscience [facility] [address] [place] [address] Rush Kellogg MD [address] [place], [place] [phone] Orders Social History Tobacco Use Types Packs/Day Years Used Date Smoking Tobacco: Every Day Smokeless Tobacco: Never Comments:patient doesnt smok e Alcohol Use Standard Drinks/Week Comments Not Currently 0 (1 standard drink = 0.6 oz pur e alcohol) Comments Unknown Sex and Gender Information Value Date Recorded Sex Assigned at Not on file Legal Sex Female 3:48 PM HEAD OF ACQUISITIONS Gender Identity Not on file Sexual Orientation Not on file documented as of this encounter Progress Notes * Veronika Pope RN - 02/12/2022 12:14 PM CDT CTA done on 01/23/22 is available in PACS, report has been uploaded to chart. * Veronika Pope RN - 01/19/2022 1:15 PM CDTAddended by: VERONIKA POPE on: 01/19/2022 01:15 PM Modules accepted: Orders * Veronika Pope RN - 01/19/2022 1:07 PM CDT Patient has known contrast dye allergy; Prednisone script sent to pharmacy with instructions to take one tablet 13h prior to CTA, 7 hours prior and 1 hour prior. She will take Benadryl 50mg 1 hour prior to CTA with last dose of Prednisone. * Veronika Pope RN - 01/16/2022 2:37 PM CDT Orders for CTA H&N faxed to [facility] * Carmelita Page - 01/16/2022 12:04 PM CDT Rosi is calling stating she got a letter from our office that she needed to call [facility] to get a cat scan on her head in January. She called them and they have no record of the order. She is requesting the order be faxed to [phone]. Please advise. documented in this encounter Plan of Treatment Upcoming Encounters Date Type Department Care Team (Late st Contact Info) Description 08/10/2025 10:00 AM CDT Office Visit [facility] [address] [place] [address] Zofia Sanford MD [address] [place] [address] documented as of this encounter Visit Diagnoses Diagnosis Contrast media allergy- Primary Allergy, unspecified not elsewhere classified documented in this encounter Care Teams Pediatrics Hospitalist Relationship Specialty Start Date End Date Deion Bhat MD [address] [place] [address] PCP - General INTERNAL MEDICINE 10/30/20 Pretty Gomez APRN, HOME STEREO EQUIPMENT INSTALLER-C [address] [facility] [address] [place] [address] NURSE PRACTITIONER 10/30/21 02/09/24 documented as of this encounter
--- OUTSIDE RECORDS SUMMARY | 2024-10-30 18:58 | XMS_ITS | Encounter Summary ---
Author Organization [facility] Address [facility]6 [facility] [place] [address] [place] [address] Care Team Providers Care Meal Attendant Name Role Phone Deion Bhat MD Primary Care Provider [phone] Pretty Gomez APRN SUPPLY CHAIN PLANNER-C Unavailable Encounter Details Date Type Department Care Team (Late st Contact Info) Description 11/19/2021 Prep for Procedure [facility] eld [address] [place] [address] Colby Bhardwaj MD Social History Tobacco Use Types Packs/Day Years Used Date Smoking Tobacco: Every Day Smokeless Tobacco: Never Comments:patient doesnt smok e Alcohol Use Standard Drinks/Week Comments Not Currently 0 (1 standard drink = 0.6 oz pur e alcohol) Comments Unknown Sex and Gender Information Value Date Recorded Sex Assigned at Not on file Legal Sex Female 3:48 PM RANGE TECHNICIAN Gender Identity Not on file Sexual Orientation Not on file COVID-19 Exposure Response Date Recorded In the last month, have you been in contact with someone who was confirmed or suspected to have Coronavirus / COVID-19? No / Unsure 11/14/2021 2:00 PM RANGE TECHNICIAN documented as of this encounter Plan of Treatment Upcoming Encounters Date Type Department Care Team (Late st Contact Info) Description 08/10/2025 10:00 AM CDT Office Visit [facility] [place] [address] Zofia Sanford MD [address] [place] [address] documented as of this encounter Visit Diagnoses Not on filedocumented in this encounter Care Teams Meal Attendant Relationship Specialty Start Date End Date Deion Bhat MD [address] [place] [phone] PCP - General INTERNAL MEDICINE 10/30/20 Pretty Gomez APRN, SUPPLY CHAIN PLANNER-C [address] [facility] [address] [place] [address] NURSE PRACTITIONER 10/30/21 02/09/24 documented as of this encounter
--- OUTSIDE RECORDS SUMMARY | 2024-10-30 18:58 | XMS_ITS | Encounter Summary ---
Author Organization [facility] Address [facility]6 [place] [address] [place] [address] Care Team Providers Care Doll Wigs Hackler Name Role Phone Deion Bhat MD Primary Care Provider Pretty Gomez APRN, RACK ROOM WORKER-C Unavailable [phone] Encounter Details Date Type Department Care Team (Late st Contact Info) Description 12/12/2021 Pre-Procedure Call [facility] Business Computers Teacher [address] [place] [address] Frederick Zamora MD [address] [place] [address] Social History Tobacco Use Types Packs/Day Years Used Date Smoking Tobacco: Every Day Smokeless Tobacco: Never Comments:patient doesnt smok e Alcohol Use Standard Drinks/Week Comments Not Currently 0 (1 standard drink = 0.6 oz pur e alcohol) Comments Unknown Sex and Gender Information Value Date Recorded Sex Assigned at Not on file Legal Sex Female 3:48 PM SENIOR CLINICAL DATA COORDINATOR Gender Identity Not on file Sexual Orientation Not on file COVID-19 Exposure Response Date Recorded In the last 10 days, have yo u been in contact with someone who was confirmed or suspected to have Coronavirus/COVID-19? No / Unsure 12/12/2021 7:36 AM SENIOR CLINICAL DATA COORDINATOR documented as of this encounter Plan of Treatment Upcoming Encounters Date Type Department Care Team (Late st Contact Info) Description 08/10/2025 10:00 AM CDT Office Visit [facility] [address] [place] [phone] Zofia Sanford MD [address] [place] [address] documented as of this encounter Results * PRE-SURGICAL/PRE-PROCEDURE CORONAVIRUS (COVID 19) (12/12/2021 7:50 AM SENIOR CLINICAL DATA COORDINATOR) SPEC DESCRIPTION NASAL 12/12/19 8:03 AM SENIOR CLINICAL DATA COORDINATOR [facility] CORONAVIRUS SARS COV 2 PCR (RESP) NEGATIVE NEGATIVE 12/12/2021 7:36 PM SENIOR CLINICAL DATA COORDINATOR [facility] Comment: THE SARS-CoV-2 TEST HAS BEEN AUTHORIZED BY THE FDA UNDER AN EUA FOR USE BY AUTHORIZED LABORATORIES. PERFORMED BY NUCLEIC ACID AMPLIFICATION PCR FIRST TEST UNKNOWN 12/12/2021 8:03 AM SENIOR CLINICAL DATA COORDINATOR [facility] EMPLOYED IN HEALTHCARE NO 12/12/2021 8:03 AM SENIOR CLINICAL DATA COORDINATOR [facility] SYMPTOMATIC DEFINED BY CDC UNKNOWN 12/12/2021 8:03 AM SENIOR CLINICAL DATA COORDINATOR [facility] HOSPITALIZATION STATUS NO 12/12/2021 8:03 AM SENIOR CLINICAL DATA COORDINATOR [facility] PATIENT IN ICU NO 12/12/2021 8:03 AM SENIOR CLINICAL DATA COORDINATOR [facility] RESIDENT OF [facility] CARE NO 12/12/2021 8:03 AM SENIOR CLINICAL DATA COORDINATOR [facility] NASAL STRUCTURE / Unknown 12/12/2021 7:50 AM SENIOR CLINICAL DATA COORDINATOR us Colby Bhardwaj MD MICROBIOLOGY - GENERAL RATNA ARGUELLES Final Result [facility] [address] [place] [address], [facility] [address] [place] [id number], documented in this encounter Visit Diagnoses Diagnosis Pre-operative laboratory examination- Primary Pre-procedural laboratory examination documented in this encounter Care Teams Doll Wigs Hackler Relationship Specialty Start Date End Date Deion Bhat MD [address] [place] [phone] PCP - General INTERNAL MEDICINE 10/30/20 Pretty Gomez APRN, RACK ROOM WORKER-C [address] [facility] [address] [place] [address] NURSE PRACTITIONER 10/30/21 02/09/24 documented as of this encounter
--- OUTSIDE RECORDS SUMMARY | 2024-10-30 18:58 | XMS_ITS | Encounter Summary ---
Author Organization [facility] Address [address] [place] [address]. [place] [address] [place] [address] Care Team Providers Care Sleep Lab Technician Name Role Phone Kalyan Osuna MD Primary Care Provider [phone] Pretty Gomez APRN COMMERCIAL PROJECT MANAGER-C Unavailable Reason for Visit * Reason Comments Follow Up Encounter Details Date Type Department Care Team (Late st Contact Info) Description 06/25/2022 8:00 AM CDT Office Visit [facility] [place] [id number] Colby Bhardwaj MD Follow Up Social History Tobacco Use Types Packs/Day Years Used Date Smoking Tobacco: Every Day Cigarettes Smokeless Tobacco: Never Alcohol Use Standard Drinks/Week Comments Not Currently 0 (1 standard drink = 0.6 oz pur e alcohol) Comments Unknown Sex and Gender Information Value Date Recorded Sex Assigned at Not on file Legal Sex Female 3:48 PM DESIGNATED BROKER Gender Identity Not on file Sexual Orientation Not on file COVID-19 Exposure Response Date Recorded In the last 10 days, have yo u been in contact with someone who was confirmed or suspected to have Coronavirus/COVID-19? No / Unsure 12/02/2022 6:31 AM DESIGNATED BROKER documented as of this encounter Last Filed Vital Signs Vital Sign Reading Time Taken Comments Blood Pressure 174/95 06/25/2022 8:00 AM CDT Pulse 71 06/25/2022 8:00 AM CDT Temperature - - Respiratory Rate 20 06/25/2022 8:00 AM CDT Oxygen Saturation 98% 06/25/2022 8:00 AM CDT Inhaled Oxygen Concentration - - Weight 100.2 kg (221 lb) 06/25/2022 8:00 AM CDT Height 160 cm (5' 3 ) 06/25/2022 8:00 AM CDT Body Mass Index 39.15 06/25/2022 8:00 AM CDT documented in this encounter Patient Instructions * Patient Instructions* Courtney Vernon RN - 06/25/2022 8:00 AM CDT No changes were made to your medications today by Dr. Bhardwaj Discuss scheduling sleep study with your primary care physician Monitor your blood pressure at home, record and call our office with the readings in 1 week * Attachments The following attachments cannot be sent through Care Everywhere. * Quitting Smoking ED (Swedish) documented in this encounter Progress Notes * Colby Bhardwaj MD - 06/25/2022 8:00 AM CDT Reason for Visit: Follow Up History of Present Illness: Recommendations and Plan: Medications: Current Outpatient Medications: ??? aspirin 81 MG chewable tablet, Chew 81 mg by mouth daily., Disp: , Rfl: ??? Blood Glucose Monitoring Suppl (ONE TOUCH ULTRA 2) w/Device Kit, , Disp: , Rfl: ??? buPROPion XL 300 MG 24 hr tablet, Take 300 mg by mouth every morning. , Disp: , Rfl: ??? Ergocalciferol (VITAMIN D2 OR), Take 50,000 Units by mouth weekly., Disp: , Rfl: ??? gabapentin 100 MG capsule, Take 100 mg by mouth 3 (three) times daily., Disp: , Rfl: ??? hydroCHLOROthiazide 25 MG tablet, Take 25 mg by mouth every morning., Disp: , Rfl: [...] Rfl: ??? lisinopril 40 MG tablet, Take 40 mg by mouth daily., Disp: , Rfl: ??? LORazepam 1 MG tablet, Take 1 mg by mouth as needed. , Disp: , Rfl: ??? metFORMIN ER 500 MG 24 hr tablet, Take 500 mg by mouth daily with breakfast. , Disp: , Rfl: ??? ONETOUCH ULTRA test strip, , Disp: , Rfl: ??? pravastatin 20 MG tablet, Take 1 tablet (20 mg total) by mouth nightly at bedtime., Disp: 30 tablet, Rfl: 11 ??? predniSONE 50 MG tablet, Take one tablet by mouth 13 hours prior to CTA, 7 hours prior and 1 hour prior., Disp: 3 tablet, Rfl: 0 Allergies Allergen Reactions ??? Iodine Hives ??? Aleve [Naproxen] Rash Trouble breathing and rash ??? Shellfish Allergy Rash Past Medical History: Diagnosis Date ??? Cerebral aneurysm ??? Diabetes (CMS/HCC) ??? Hypertension ??? Hypertriglyceridemia Past Surgical History: Procedure Laterality Date ??? HYSTERECTOMY ??? RECONST CLEFT PALATE,LENGTHENING ??? SHOULDER SURGERY Left ??? TONSILLECTOMY AND ADENOIDECTOMY ??? XA [facility] 12/15/2021 tortuous,nonobstructive CAD; medical therapy and CRF modification Social History Tobacco Use ??? Smoking status: Current Every Day Smoker ??? Smokeless tobacco: Never Used ??? Tobacco comment: patient doesnt smoke Substance Use Topics ??? Alcohol use: Not Currently ??? Drug use: Not Currently Family History Problem Relation Name Age of Onset ??? Heart Attack Mother ??? No Known Problems Father ??? No Known Problems Sister ??? Heart Attack Brother ??? No Known Problems Maternal Aunt ??? No Known Problems Maternal Uncle ??? No Known Problems Paternal Aunt ??? No Known Problems Paternal Uncle ??? No Known Problems Maternal Grandmother ??? No Known Problems Maternal Grandfather ??? No Known Problems Paternal Grandmother ??? No Known Problems Paternal Grandfather Family Status Relation Name Status ??? Mother ??? Father (Not Specified) ??? Sister (Not Specified) ??? Brother ??? MAunt (Not Specified) ??? MUncle (Not Specified) ??? PAunt (Not Specified) ??? PUncle (Not Specified) ??? MGM (Not Specified) ??? MGF (Not Specified) ??? PGM (Not Specified) ??? PGF (Not Specified) Review of Systems Constitutional: Positive for weight gain, fatigue and diaphoresis. Negative for recent unintentional weight loss. HENT: Negative for new or significant hearing loss. Eyes: Negative for blurred vision and double vision. Respiratory: Positive for shortness of breath and snoring. Negative for cough. Cardiovascular: See HPI. Positive for palpitations. Gastrointestinal: Negative for blood in stool and melena. Genitourinary: Negative for dysuria. Musculoskeletal: Negative for myalgias and new or worsening joint stiffness/pain. Skin: Negative for rash. Neurological: Negative for tingling/numbness and focal weakness. Endo/Heme/Allergies: Positive for polydipsia. Negative for new or significant bruising/bleeding. Psychiatric/Behavioral: Positive for nervous/anxious. Negative for depression and new or significant memory loss. Vitals: 06/25/22 0800 Height: 5' 3 (1.6 m) Body mass index is 37.18 kg/m??. Cardiac Exam Rate/Rhythm: Normal rate and [...] the provider to reflect his/her findings. Diagnoses/Impression: No diagnosis found. Referring Provider: No ref. provider found PCP: KALYAN OSUNA MD GNATED BROKER * Colby Bhardwaj MD - 06/25/2022 12:00 AM CDT HISTORY OF PRESENT ILLNESS: Rosi is seen in the Cardiology Clinic today for a scheduled followup visit. She has a history of hypertension, hypertriglyceridemia, cerebral aneurysm, and diabetes mellitus. She reports that she is doing reasonably well from a cardiac standpoint. Rosi denies any anginal chest pain. She has noticed some shortness of breath when she is working in the garden or doing dishes. Unfortunately, she continues to smoke approximately three cigarettes per day. She denies any orthopnea, but has had some paroxysmal nocturnal dyspnea. She denies any significant pedal edema. She has had some palpitations with some lightheaded episodes, but denies any true syncope. She has had no events to suggest TIA or CVA. She has had no claudication and is tolerating her present medications well. Rosi does relate that since last being seen, she has been found to have a breast lump. She also required emergency gallbladder surgery. She has gained some weight and reports that her blood pressures at home generally run around 140/86 mmHg. Her blood pressure in the office today was 167/88 mmHg.Her glycosylated hemoglobin is now down to 7.0 by her accounts. A review of the available data suggests that a lipid panel performed in January of this year showed atotal serum cholesterol of 127 with an LDL cholesterol fraction of 53, HDL cholesterol fraction 39,and serum triglycerides of 173. A serum ALT was normal at 18. Serum potassium was 4.3 with BUN of 15 and creatinine 1.03. RECOMMENDATIONS AND PLAN: Rosi's cardiac status appears clinically stable at the present time without ongoing anginal chest pain, overt symptoms of congestive heart failure, or clinical evidence ofhemodynamically significant arrhythmias. Aggressive cardiac risk factor modification will be important in her long-term care, particularly in light of her known coronary artery calcification noted onCT scanning and her family history of sudden . After a long discussion in the clinic, I have recommended the following to Rosi: 1. Smoking cessation. 2. I have asked Rosi to monitor her blood pressure at home and to call those results. Aggressive treatment of her hypertension should be pursued if her blood pressure remains elevated on these at home blood pressure readings. 2. Outpatient sleep study due to Rosi's ongoing snoring. We will try to do an outpatient home screening study to start to rule out the presence of true sleep apnea. 3. Return to the Cardiology Clinic for routine followup in one year. I have encouraged Rosi to contact me in the meantime should she have any questions or problems. #[id number] /PRA GNATED BROKER documented in this encounter Plan of Treatment Upcoming Encounters Date Type Department Care Team (Late st Contact Info) Description 08/10/2025 10:00 AM CDT Office Visit [facility] [place] [address] Zofia Sanford MD [address] [place], [place] [id number] documented as of this encounter Visit Diagnoses Diagnosis Coronary artery calcification seen on CT scan- Primary Family history of sudden Family history of other condition Essential (primary) hypertension Unspecified essential hypertension Other hyperlipidemia Smoker Tobacco use disorder documented in this encounter Care Teams Sleep Lab Technician Relationship Specialty Start Date End Date Kalyan Osuna MD [address] [place] [address] PCP - General INTERNAL MEDICINE 10/30/20 Pretty Gomez APRN, COMMERCIAL PROJECT MANAGER-C [address] [place] [address] [phone] NURSE PRACTITIONER 10/30/21 02/09/24 documented as of this encounter
--- OUTSIDE RECORDS SUMMARY | 2024-10-30 18:58 | XMS_ITS | Encounter Summary ---
Author Organization [facility] Address [facility] [place] [address] [place] [address] Care Team Providers Care Loader Machine Name Role Phone Deion Bhat MD Primary Care Provider Pretty Gomez APRN DIGITAL LIBRARIAN-C Unavailable Reason for Referral * Imaging (Routine) - Closed Specialty Diagnoses / Procedures Referred By Lou dixon Referred To Contact RADIOLOGY Diagnoses Family history of sudden Abnormal EKG Shortness of breath Abnormal result of other cardiovascular function study Coronary artery calcification seen on CT scan Procedures [facility] Gallito Esteban MD Referral ID Status Reason Start Date Expiration Date Visits Re quested Visits Authorized [id number] Closed 12/10/2021 01/24/2022 1 1 O TECH Reason for Visit * Imaging (Routine) - Closed Specialty Diagnoses / Procedures Referred By Lou dixon Referred To Contact RADIOLOGY Diagnoses Family history of sudden Abnormal EKG Shortness of breath Abnormal result of other cardiovascular function study Coronary artery calcification seen on CT scan Procedures [facility] Gallito Esteban MD Referral ID Status Reason Start Date Expiration Date Visits Re quested Visits Authorized [id number] Closed 12/10/2021 01/24/2022 1 1 Encounter Details Date Type Department Care Team (Latest Contact Info) Description 12/15/2021 11:36 AM PHOTO TECH - 12/15/2021 5:33 PM PHOTO TECH Hospital Encounter [facility] Vallez Filter Operator Pre/Post [place] [address] Galltio Bhardwaj MD Discharge Disposition: Home or Self Care [...] on file Legal Sex Female 3:48 PM PHOTO TECH Gender Identity Not on file Sexual Orientation Not on file COVID-19 Exposure Response Date Recorded In the last 10 days, have yo u been in contact with someone who was confirmed or suspected to have Coronavirus/COVID-19? No / Unsure 12/15/2021 11:43 AM PHOTO TECH documented as of this encounter Last Filed Vital Signs Vital Sign Reading Time Taken Comments Blood Pressure 169/101 12/15/2021 12:03 PM PHOTO TECH 189/91 Pulse 119 12/15/2021 12:03 PM PHOTO TECH Temperature 36.2 ??C (97.2 ??F) 12/15/2021 1 2:03 PM PHOTO TECH Respiratory Rate 16 12/15/2021 12:0 3 PM PHOTO TECH Oxygen Saturation 97% 12/15/2021 12: 03 PM PHOTO TECH Inhaled Oxygen Concentration - - Weight 95.2 kg (209 lb 14.1 oz) 022 12:03 PM PHOTO TECH Height 160 cm (5' 3 ) 12/15/2021 12:03 PM PHOTO TECH Body Mass Index 37.18 12/15/2021 12:03 PM PHOTO TECH documented in this encounter Discharge Instructions * Discharge Instructions* Sara Padgett RN - 12/15/2021 4:47 PM PHOTO TECH For the next 24 hours: no driving a vehicle no alcoholic beverages no signing any legal documents no taking any medications that may cause drowsiness Post Catheterization Discharge - Radial Approach 1. Do not bend wrist for 48 hours. Avoid using your wrist when standing out of a chair. 2. Drink 3-4 glasses of water over the next 8 hours and resume routine diet. 3. A medication list and instructions have been provided separately. 4. Do not drive for 48 hours after procedure. 5. No lifting more than 5 pounds and no exercise (including golf and tennis) for 2-3 days. 6 Do not operate equipment, such as an ATV, accountant bookkeeper, chainsaw, or motorcycle for 48 hours. 7. Notify your cadd technician of swelling or drainage at the site, or numbness, tingling, coldness, or cramping in hand/arm during rest or activity. Soreness is normal. Take Tylenol for pain. 8. Notify your cadd technician or your primary care physician if you develop a fever greater than 101 degrees. 9. If the site begins to bleed, sit down and hold firm pressure for 10 minutes directly to the site. If bleeding stops, continue to sit, keeping wrist straight and contact physician as soon as possible. If bleeding does not stop, call 911 immediately. 10. Remove dressing 24 hours after the procedure. You may shower the next day. Do not scrub the site or apply direct water to area. Do not submerge in water for 7 days. No dishes in the sink. Pat thesite dry, but do not rub! 11. If you experience any problems, please call your primary care physician or your cadd technician [phone]. O TECH documented in this encounter Medications at Time of Discharge aspirin 81 MG chewable tablet Chew 1 tablet (81 mg total) by mouth daily. Blood Glucose Monitoring Suppl (ONE TOUCH ULTRA [...] by mouth 2 (two) times daily. 11/27/2020 ONETOUCH ULTRA test strip 10/25/2020 amLODIPine 10 MG tablet Take 0.5 tablets (5 mg total) by mouth daily for 30 days. 15 tablet 5 12/15/2021 2 LORazepam 1 MG tablet Take 1 mg by mouth as needed. 10/07/2020 2 metFORMIN ER 500 MG 24 hr tablet Take 1 tablet (500 mg total) by mouth daily with breakfast. 10/08/2020 3 metoprolol succinate ER 50 MG 24 hr tablet Take 1 tablet (50 mg total) by mouth daily for 30 days. 30 tablet 5 12/15/2021 2 documented as of this encounter OR Notes * Brief Op Note - Gallito Bhardwaj MD - 12/15/2021 4:43 PM CST General Procedure Op Note Procedure Note Rosi Daniels Dheeraj 12/15/2021 Procedure: Cardiac catheerization Pre-Op Diagnosis: Abnormal CTA Post-Op Diagnosis: nonobstructive CAD Findings: 1. Tortuous nonobstructive CAD. 2. LV gram: not performed. Specimen(s) Removed: None Anesthesia: Local and Procedural Surgeon: Lashae Car Installations Supervisor: None Estimated Blood Loss: Minimal GALLITO BHARDWAJ MD Date: 12/15/2021 Time: 4:44 PM O TECH * Pre-Sedation Assessment - Gallito Bhardwaj MD - 12/15/2021 4:41 PM PHOTO TECH Sedation Pre-Evaluation Reviewed the following in the patient's chart: Patient summary Nursing notes ECG Family history reviewed Anesthesia history Medications Labs Images/Studies Patient has history of sedation complications: . Past sedation history was obtained from patient. Written consent was given by the patient for today's procedure. Discussed the following risks for today's procedure: allergic reaction, prolonged hypoxia resulting in organ damage, prolonged sedationnecessitating reversal, respiratory compromise necessitating ventilatory assistance and intubation and vomiting. Reviewed the following alternative(s) to sedation: analgesia without sedation. Pre-Sedation Assessment The last time the patient had anything to eat or drink was 11/2721. Patient has an ASA score of: 1. The plan is to use moderate (conscious sedation) sedation for today's procedure. Physical Exam: Airway Status: Mallampati: I Neck ROM: normal Cardiovascular: Rhythm: regular Rate: normalNo murmur present Friction rub is absent JVD is absent Weak pulses are absent Pulmonary: Rhonchi are absent Wheezing absent Stridor is absent O TECH documented in this encounter Plan of Treatment Upcoming Encounters Date Type Department Care Team (Late st Contact Info) Description 08/10/2025 10:00 AM CDT Office Visit [facility] [place] [phone] Zofia Sanford MD [address] [place] [address] documented as of this encounter Procedures Procedure Name Priority Date/Time Associated Diagnosis Comments [facility] Routine 12/15/2021 3:23 PM PHOTO TECH Family history of sudden Abnormal EKG Shortness of breath Abnormal result of other cardiovascular function study Coronary artery calcification seen on CT scan ECG 12-LEAD STAT 12/15/2021 12:06 PM PHOTO TECH Family history of sudden Abnormal EKG Shortness of breath Abnormal result of other cardiovascular function study Coronary artery calcification seen on CT scan Right bundle branch block Smoker Hypertriglyceridemia Essential (primary) hypertension documented in this encounter Results * [facility] (12/15/2021 3:23 PM PHOTO TECH) Anatomical Region Laterality Modality Cardiac Vallez Filter Operator 12/15/2021 1:30 PM PHOTO TECH Gallito Bhardwaj MD BELTING AND WEBBING INSPECTOR Final Resul t * ECG 12 lead (12/15/2021 12:06 PM PHOTO TECH) 12/15/2021 12:0 6 PM PHOTO TECH Narrative [facility] - 12/15/2021 9:23 PM PHOTO TECH ? [facility] ?[address], [place] ??[address] ? Test Date: ?2021-12-15 Pat Name: ? ROSI BARRIOS ?Department: ? Room: ? CL[facility]06 Gender: ? Female ? Instrument And Controls Technician: ?? MS : ?1955 ? Requested By: GALLITO BHARDWAJ Order Number: [id number] ? Reading MD: ?? Dejah Wiklinson ? Measurements Intervals ?[place] ? Rate: ? 97 ? P: ?62 VT: ? 164 ?QRS: ?-29 QRSD: ? 141 ?T: ?30 QT: ? 390 ? QTc: ?498 ? Interpretive Statements SINUS RHYTHM BORDERLINE LEFT AXIS DEVIATION RIGHT BUNDLE BRANCH BLOCK O TECH Procedure Note Dejah Wilkinson MD - 12/15/2021 [place] [address] [place] [address] Test Date: 2021-12-15 Pat Name: ROSI BARRIOS Department: Room: [facility] Gender: Female Instrument And Controls Technician: MS : 1955 Requested By: GALLITO BHARDWAJ Order Number: [id number] Charisse MD: Dejah Wilkinson Measurements Intervals [place] Rate: 97 P: 62 VT: 164 QRS: -29 QRSD: 141 T: 30 QT: 390 QTc: 498 Interpretive Statements SINUS RHYTHM BORDERLINE LEFT AXIS DEVIATION RIGHT BUNDLE BRANCH BLOCK O TECH us Gallito Bhardwaj MD ECG ORDERABLES Final Resul t [facility] documented in this encounter Visit Diagnoses Diagnosis Coronary artery calcification seen on CT scan- Primary Family history of sudden Family history of other condition Abnormal EKG Nonspecific abnormal electrocardiogram (ECG) (EKG) Shortness of breath Abnormal result of other cardiovascular function study Right bundle branch block Smoker Tobacco use disorder Hypertriglyceridemia Pure hyperglyceridemia Essential (primary) hypertension Unspecified essential hypertension documented in this encounter Administered Medications Inactive Administered Medications - up to 3 most recent administrations Medication Order MAR Action Action Date Dose Rate Site acetaminophen (TYLENOL) tablet 650 mg 650 mg, Oral, Every 4 hours PRN, Mild pain (Scale 1 - 3), Starting on Wed12/15/21 at 1141, Until Wed12/15/21 at 1932, Maximum dose of acetaminophen is 4000 mg from all sources in 24 hours., Pre-Op atropine injection 0.5 mg 0.5 mg, Intravenous, Once as needed, Other, for heart rate less than 50 bpm and / or SBP less than 90 mmHg, 1 dose, Starting on Wed12/15/21 at 1800, Until Wed12/15/21 at 193, Post-Op HYDROcodone-acetaminophen (NORCO) 10-325 MG tablet 1 tablet 1 tablet, Oral, Every 6 hours PRN, Moderate pain (Scale 4 - 7), Starting on Wed12/15/21 at 1800, Until Wed12/15/21 at 1932, Maximum dose of acetaminophen is 4000 mg from all sources in 24 hours., Post-Op LORazepam (ATIVAN) tablet 0.5 mg 0.5 mg, Oral, Every 6 hours PRN, Anxiety, Starting on Wed12/15/21 at 1800, Until Wed12/15/21 at 193, Post-Op qofgmrfgx-vtqdxgnv-dahivqytfjx (MYLANTA MAXIMUM STRENGTH) 2887-4221-292 mg/30mL suspension 10 mL, Oral, Every 4 hours PRN, Indigestion, Heartburn, Starting on Wed12/15/21 at 1800, Until Wed12/15/21 at 193, Shake Well, Post-Op nitroglycerin (NITROSTAT) SL tablet 0.4 mg 0.4 mg, Sublingual, Every 5 min PRN, Chest Pain, 3 doses, Starting on Wed12/15/21 at 1141, Until Wed12/15/21 at 1932, Notify provider if pain not relieved by one tablet. Hold for SBP less than 90 mmHg., Pre-Op normal saline 0.9 % flush 3-10 mL 3-10 mL, Intravenous, Every 8 hours, First dose on Wed12/15/21 at 1715, Until Discontinued, Post-Op normal saline 0.9 % flush 3-10 mL 3-10 mL, Intravenous, As needed, Line care, Starting on Wed12/15/21 at 1646, Until Wed12/15/21 at 1933, Post-Op ondansetron (ZOFRAN) injection 4 mg 4 mg, Intravenous, Every 8 hours PRN, Nausea, Vomiting, Starting on Wed12/15/21 at 1141, Until Wed12/15/21 at 1933, IV push over 2-5 minutes., Pre-Op senna-docusate (SENOKOT-S) 8.6-50 MG tablet 2 tablet 2 tablet, Oral, Nightly PRN, Constipation, Starting on Wed12/15/21 at 2100, Until Wed12/15/21 at 1933, Post-Op documented in this encounter Active and Recently Administered Medications Times are shown in PHOTO TECH. Scheduled Medication Order 12/13/2021 12/14/2021 12/15/2021 normal saline 0.9 % flush 3-10 mL 3-10 mL, Intravenous, Every 8 hours, First dose on Wed12/15/21 at 1715, Until Discontinued, Post-Op 1715 (Canceled Entry - Provider: Automatic Discharge Provider - Comment: Automatically canceled at discontinue of medication order) PRN Medication Order 12/13/2021 12/14/2021 12/15/2021 acetaminophen (TYLENOL) tablet 650 mg 650 mg, Oral, Every 4 hours PRN, Mild pain (Scale 1 - 3), Starting on Wed12/15/21 at 1141, Until Wed12/15/21 at 1933, Maximum dose of acetaminophen is 4000 mg from all sources in 24 hours., Pre-Op atropine injection 0.5 mg 0.5 mg, Intravenous, Once as needed, Other, for heart rate less than 50 bpm and / or SBP less than 90 mmHg, 1 dose, Starting on Wed12/15/21 at 1800, Until Wed12/15/21 at 1933, Post-Op HYDROcodone-acetaminophen (NORCO) 10-325 MG tablet 1 tablet 1 tablet, Oral, Every 6 hours PRN, Moderate pain (Scale 4 - 7), Starting on Wed12/15/21 at 1800, Until Wed12/15/21 at 1933, Maximum dose of acetaminophen is 4000 mg from all sources in 24 hours., Post-Op LORazepam (ATIVAN) tablet 0.5 mg 0.5 mg, Oral, Every 6 hours PRN, Anxiety, Starting on Wed12/15/21 at 1800, Until Wed12/15/21 at 1933, Post-Op ilewkhgzc-xxwtiopi-qsozrktujcz (MYLANTA MAXIMUM STRENGTH) 5200-3942-743 mg/30mL suspension 10 mL, Oral, Every 4 hours PRN, Indigestion, Heartburn, Starting on Wed12/15/21 at 1800, Until Wed12/15/21 at 1933, Shake Well, Post-Op nitroglycerin (NITROSTAT) SL tablet 0.4 mg 0.4 mg, Sublingual, Every 5 min PRN, Chest Pain, 3 doses, Starting on Wed12/15/21 at 1141, Until Wed12/15/21 at 193, Notify provider if pain not relieved by one tablet. Hold for SBP less than 90 mmHg., Pre-Op normal saline 0.9 % flush 3-10 mL 3-10 mL, Intravenous, As needed, Line care, Starting on Wed12/15/21 at 1646, Until Wed12/15/21 at 193, Post-Op ondansetron (ZOFRAN) injection 4 mg 4 mg, Intravenous, Every 8 hours PRN, Nausea, Vomiting, Starting on Wed12/15/21 at 1141, Until Wed12/15/21 at 193, IV push over 2-5 minutes., Pre-Op senna-docusate (SENOKOT-S) 8.6-50 MG tablet 2 tablet 2 tablet, Oral, Nightly PRN, Constipation, Starting on Wed12/15/21 at 2100, Until Wed12/15/21 at 193, Post-Op documented in this encounter Care Teams Loader Machine Relationship Specialty Start Date End Date Deion Bhat MD [address] [place] [address] PCP - General INTERNAL MEDICINE 10/30/20 Pretty Gomez, EXCEL EXPERT, DIGITAL LIBRARIAN-C [address] [facility] [address] [place] [address] NURSE PRACTITIONER 10/30/21 02/09/24 documented as of this encounter
--- OUTSIDE RECORDS SUMMARY | 2024-10-30 18:58 | XMS_ITS | Encounter Summary ---
Author Organization [facility] Address [facility] [facility] [address] [place] [address] Care Team Providers Care County Auditor Name Role Phone Deion Bhat MD Primary Care Provider [phone] Pretty Gomez APRN, GENERAL WAREHOUSE WORKER-C Unavailable Encounter Details Date Type Department Care Team (Latest Contact Info) Description 06/25/2022 Travel Social History Tobacco Use Types Packs/Day Years Used Date Smoking Tobacco: Every Day Smokeless Tobacco: Never Comments:patient doesnt smok e Alcohol Use Standard Drinks/Week Comments Not Currently 0 (1 standard drink = 0.6 oz pur e alcohol) Comments Unknown Sex and Gender Information Value Date Recorded Sex Assigned at Not on file Legal Sex Female 3:48 PM MAINTENANCE LEADER Gender Identity Not on file Sexual Orientation Not on file COVID-19 Exposure Response Date Recorded In the last 10 days, have yo u been in contact with someone who was confirmed or suspected to have Coronavirus/COVID-19? No / Unsure 06/25/2022 7:49 AM CDT documented as of this encounter Plan of Treatment Upcoming Encounters Date Type Department Care Team (Late st Contact Info) Description 08/10/2025 10:00 AM CDT Office Visit [facility] [place] [address] Zofia Sanford MD [address] [place] [address] documented as of this encounter Visit Diagnoses Not on filedocumented in this encounter Care Teams County Auditor Relationship Specialty Start Date End Date Deion Bhat MD [address] [place] [phone] PCP - General INTERNAL MEDICINE 10/30/20 Pretty Gomez APRN, GENERAL WAREHOUSE WORKER-C [address] [facility] [address] [place] [address] NURSE PRACTITIONER 10/30/21 02/09/24 documented as of this encounter
--- OUTSIDE RECORDS SUMMARY | 2024-10-30 18:58 | XMS_ITS | Encounter Summary ---
Author Organization [facility] Address [facility] [place] [address] [place] [address] Care Team Providers Care Tellers Supervisor Name Role Phone Deion Bhat MD Primary Care Provider [phone] Pretty Gomez APRN PROFESSOR OF COMMUNICATION-C Unavailable Reason for Visit * Reason Comments CT (SCAN) Encounter Details Date Type Department Care Team (Latest Contact Info) Description 01/23/2022 Scan HEALTH INFO SRVCS Scanned, Documents CT (SCAN) Social History Tobacco Use Types Packs/Day Years Used Date Smoking Tobacco: Every Day Smokeless Tobacco: Never Comments:patient doesnt smok e Alcohol Use Standard Drinks/Week Comments Not Currently 0 (1 standard drink = 0.6 oz pur e alcohol) Comments Unknown Sex and Gender Information Value Date Recorded Sex Assigned at Not on file Legal Sex Female 3:48 PM HAM SMOKER Gender Identity Not on file Sexual Orientation Not on file documented as of this encounter Plan of Treatment Upcoming Encounters Date Type Department Care Team ( Contact Info) Description 08/10/2025 10:00 AM CDT Office Visit [facility] [place] [address] Zofia Sanford MD [address] [place] [address] documented as of this encounter Procedures Procedure Name Priority Date/Time Associated Diagnosis Comments CT GENERIC 01/23/2022 documented in this encounter Results * CT GENERIC (01/23/2022) Anatomical Region Laterality Modality Other 01/23/2022 Narrative 01/23/2022 Ordered by an unspecified provider. us Documents Scanned SCANNING Final Result documented in this encounter Visit Diagnoses Not on filedocumented in this encounter Care Teams Tellers Supervisor Relationship Specialty Start Date End Date Deion Bhat MD [address] [place] [phone] PCP - General INTERNAL MEDICINE 10/30/20 Pretty Gomez APRN, PROFESSOR OF COMMUNICATION-C [address] [facility] [address] [place] [address] NURSE PRACTITIONER 10/30/21 02/09/24 documented as of this encounter
--- OUTSIDE RECORDS SUMMARY | 2024-10-30 18:58 | XMS_ITS | Encounter Summary ---
Author Organization [facility] Address [facility] [place] [place] [address] [place] [address] Care Team Providers Care Digital Sales Executive Name Role Phone Deion Bhat MD Primary Care Provider [phone] Pretty Gomez APRN, HORSEBACK RIDING INSTRUCTOR-C Unavailable [phone] Encounter Details Date Type Department Care Team (Latest Contact Info) Description 11/25/2022 Travel Social History Tobacco Use Types Packs/Day Years Used Date Smoking Tobacco: Every Day Cigarettes Smokeless Tobacco: Never Alcohol Use Standard Drinks/Week Comments Not Currently 0 (1 standard drink = 0.6 oz pur e alcohol) Comments Unknown Sex and Gender Information Value Date Recorded Sex Assigned at Not on file Legal Sex Female 3:48 PM LATHE PULLER Gender Identity Not on file Sexual Orientation Not on file COVID-19 Exposure Response Date Recorded In the last 10 days, have yo u been in contact with someone who was confirmed or suspected to have Coronavirus/COVID-19? No / Unsure 11/25/2022 1:28 PM LATHE PULLER documented as of this encounter Plan of Treatment Upcoming Encounters Date Type Department Care Team (Late st Contact Info) Description 08/10/2025 10:00 AM CDT Office Visit [facility] [address] [place] [address] Zofia Sanford MD [address] [place] [address] documented as of this encounter Visit Diagnoses Not on filedocumented in this encounter Care Teams Digital Sales Executive Relationship Specialty Start Date End Date Deion Bhat MD [address] [place] [address] PCP - General INTERNAL MEDICINE 10/30/20 Pretty Gomez, DIRECTOR REHABILITATION PROGRAM, HORSEBACK RIDING INSTRUCTOR-C [address] [facility] [address] [place] [phone] NURSE PRACTITIONER 10/30/21 02/09/24 documented as of this encounter
--- OUTSIDE RECORDS SUMMARY | 2024-10-30 18:58 | XMS_ITS | Encounter Summary ---
Author Organization [facility] Address [facility] [facility] [place] [address] [place] [address] Care Team Providers Care Health Safety Engineer Name Role Phone Deion Bhat MD Primary Care Provider [phone] Pretty Gomez APRN, MULTIMEDIA ARTIST-C Unavailable Encounter Details Date Type Department Care Team (Late Contact Info) Description 02/02/2022 Orders Only [facility] [address] [place] [address] Courtney Vernon RN Social History Tobacco Use Types Packs/Day Years Used Date Smoking Tobacco: Every Day Smokeless Tobacco: Never Comments:patient doesnt smok e Alcohol Use Standard Drinks/Week Comments Not Currently 0 (1 standard drink = 0.6 oz pur e alcohol) Comments Unknown Sex and Gender Information Value Date Recorded Sex Assigned at Not on file Legal Sex Female 3:48 PM E LEARNING DEVELOPER Gender Identity Not on file Sexual Orientation Not on file documented as of this encounter Plan of Treatment Upcoming Encounters Date Type Department Care Team (Late Contact Info) Description 08/10/2025 10:00 AM CDT Office Visit [facility] [place] [phone] Zofia Sanford MD [address] [place] [address] documented as of this encounter Procedures Procedure Name Priority Date/Time Associated Diagnosis Comments LIPID PANEL Routine 01/31/2022 Coronary artery calcification seen on CT scan Mixed hyperlipidemia ALT/SGPT Routine 01/31/2022 Coronary artery calcification seen on CT scan Mixed hyperlipidemia documented in this encounter Results * ALT/SGPT (01/31/2022) ALT 18 14 - 59 01/31/2022 Colby Bhardwaj MD LABORATORY Final Resul t * LIPID PANEL (01/31/2022) CHOLESTEROL 127 0 - 200 HDL 39 40 - 60 TRIGLYCERIDES 173 0 - 150 LDL (CALCULATED) 53 <130 01/31/2022 Colby Bhardwaj MD LABORATORY Final Resul t documented in this encounter Visit Diagnoses Diagnosis Coronary artery calcification seen on CT scan Mixed hyperlipidemia documented in this encounter Care Teams Health Safety Engineer Relationship Specialty Start Date End Date Deion Bhat MD [address] [place] [phone] PCP - General INTERNAL MEDICINE 10/30/20 Pretty Gomez APRN, MULTIMEDIA ARTIST-C [address] [facility] [address] [place] [address] NURSE PRACTITIONER 10/30/21 02/09/24 documented as of this encounter
--- OUTSIDE RECORDS SUMMARY | 2024-10-30 18:58 | XMS_ITS | Encounter Summary ---
Author Organization [facility] Address Critical access hospital6 [facility] [place] [address] [place] [address] Care Team Providers Care Utility Appraiser Name Role Phone Deion Bhat MD Primary Care Provider [phone] Pretty Gomez APRN GROUP LEADER SEMICONDUCTOR TESTING-C Unavailable Reason for Visit * Auth/Cert (Routine) Specialty Diagnoses / Procedures Referred By Lou dixon Referred To Contact Diagnoses H25.9 Procedures EXTRACTION CATARACT LEFT EYE WITH LENS IMPLANT Referral ID Status Reason Start Date Expiration Date Visits Re quested Visits Authorized [id number] 1 1 Encounter Details Date Type Department Care Team (Latest Contact Info) Description 12/02/2022 6:32 AM [facility] - 12/02/2022 9:00 AM [facility] Hospital Encounter [place] [address] [place] [address] Alison Pickens MD [address] [place] [address] Discharge Disposition: Home or Self Care (Routine Discharge) Social History Tobacco Use Types Packs/Day Years Used Date Smoking Tobacco: Every Day Cigarettes Smokeless Tobacco: Never Tobacco Cessation:Ready to Q uit: Not Asked; Counseling Given: Not Answered Alcohol Use Standard Drinks/Week Comments Not Currently 0 (1 standard drink = 0.6 oz pur e alcohol) Comments Unknown Sex and Gender Information Value Date Recorded Sex Assigned at Not on file Legal Sex Female 3:48 PM PRODUCTION DESIGNER Gender Identity Not on file Sexual Orientation Not on file COVID-19 Exposure Response Date Recorded In the last 10 days, have yo u been in contact with someone who was confirmed or suspected to have Coronavirus/COVID-19? No / Unsure 12/02/2022 6:31 AM PRODUCTION DESIGNER documented as of this encounter Last Filed Vital Signs Vital Sign Reading Time Taken Comments Blood Pressure 149/83 12/02/2022 8:51 AM PRODUCTION DESIGNER Pulse 100 12/02/2022 8:51 AM PRODUCTION DESIGNER Temperature 36.4 ??C (97.5 ??F) 12/02/2022 8:51 AM CS T Respiratory Rate 16 12/02/2022 8:51 AM PRODUCTION DESIGNER Oxygen Saturation 95% 12/02/2022 8:51 AM PRODUCTION DESIGNER Inhaled Oxygen Concentration - - Weight 90.7 kg (200 lb) 11/25/2022 1:27 PM PRODUCTION DESIGNER Height 160 cm (5' 3 ) 11/25/2022 1:27 PM PRODUCTION DESIGNER Body Mass Index 35.43 11/25/2022 1:27 PM PRODUCTION DESIGNER documented in this encounter Discharge Instructions * Attachments The following attachments cannot be sent through Care Everywhere. * Moderate Sedation in Adults Discharge Instructions (Chinese) documented in this encounter Medications at Time [...] daily. 11/27/2020 ONETOUCH ULTRA test strip 10/25/2020 pravastatin 20 MG tablet Take 1 tablet (20 mg total) by mouth nightly at bedtime. 30 tablet 11 12/18/2021 metFORMIN ER 500 MG 24 hr tablet Take 1 tablet (500 mg total) by mouth daily with breakfast. 10/08/2020 3 documented as of this encounter H&P Notes * Alison Pickens MD - 12/02/2022 7:20 AM CST HISTORY AND PHYSICAL INTERVAL NOTE: I have [...] during recuperation were discussed with the patient/family/personal sales representative consultant. Reasonable alternatives to the patient's proposed procedure/surgery including benefits, risks, and side effects related to the alternatives and the risks related to not receiving the proposed care were also discussed with the patient/family/personal sales representative consultant. Questions were answered and the patient/family/personal sales representative consultant verbalized understanding and desires to proceed. UCTION DESIGNER Source Note - Scanned, [facility] - 12/02/2022 12:00 AM PRODUCTION DESIGNER documented in this encounter OR Notes * Brief Op Note - Alison Pickens MD - 12/02/2022 8:51 AM CST Patient: Rosi Esqueda 1955 [id number] Preoperative Diagnosis: Visually significant cataract Postoperative Diagnosis: Visually significant cataract Procedure: Cataract Extraction with Intraocular Lens Placement, LEFT Eye Surgeon: Alison Pickens MD Stove Cleaner: none Anesthesia: Monitor Anesthesia Care Implant: Implant Name Type Inv. Item Serial No. Moth Exterminator Lot No. [id number] No. Used Action TECNIS SIMPLICITY [id number] LIT & LIT Left 1 Implanted Specimen: none Estimated Blood Loss: minimal Procedure in detail: Please see full operative note for details. Disposition: Patient was taken to the recovery in stable condition. Alison Pickens MD 12/02/2022 8:51 AM UCTION DESIGNER documented in this encounter Plan of Treatment Upcoming Encounters Date Type Department Care Team (Late st Contact Info) Description 08/10/2025 10:00 AM CDT Office Visit [facility] [place] [phone] Zofia Sanford MD [address] [place] [address] documented as of this encounter Procedures Procedure Name Priority Date/Time Associated Diagnosis Comments CATARACT REMOVAL WITH TORIC LENS 12/02/2022 7:56 AM PRODUCTION DESIGNER H25.9 documented in this encounter Visit Diagnoses Not on filedocumented in this encounter Administered Medications Inactive Administered Medications - up to 3 most recent administrations Medication Order MAR Action Action Date Dose Rate Site acetaZOLAMIDE ER (DIAMOX) 500 MG 12 hr capsule 1 dose, Starting on Wed12/02/22 at 0837, Until Wed12/02/22 at 0843, Created by cabinet override Swallow capsule whole or it may be opened and the contents sprinkled on applesauce. Given 12/02/2022 8:43 AM PRODUCTION DESIGNER 500 mg lactated ringers infusion at 10 mL/hr, Intravenous, Continuous, Starting on Wed12/02/22 at 0700, Until Wed12/02/22 at 1238, Infuse at TKO rate, Pre-Op Continued by Anesthesia 12/02/2022 8:01 AM PRODUCTION DESIGNER 10 mL/hr New Bag 12/02/2022 7:16 AM PRODUCTION DESIGNER 10 mL/hr New Bag 12/02/2022 7:09 AM PRODUCTION DESIGNER 50 mL/hr lactated ringers infusion 1 dose, Starting on Wed12/02/22 at 0643, Until Wed12/02/22 at 0716, Created by cabinet override moxifloxacin (VIGAMOX) 0.5 % ophthalmic solution 1 drop 1 drop, Left Eye, Once, 1 dose, On Wed12/02/22 at 0745 Given 12/02/2022 7:21 AM PRODUCTION DESIGNER 1 drop moxifloxacin (VIGAMOX) 0.5 % ophthalmic solution 1 drop 1 drop, Left Eye, Once, 1 dose, On Wed12/02/22 at 0800 Given 12/02/2022 7:31 AM PRODUCTION DESIGNER 1 drop phenylephrine (MYDFRIN) 2.5 % ophthalmic solution 1 drop 1 drop, Left Eye, Once, 1 dose, On Wed12/02/22 at 0745 Given 12/02/2022 7:21 AM PRODUCTION DESIGNER 1 drop phenylephrine (MYDFRIN) 2.5 % ophthalmic solution 1 drop 1 drop, Left Eye, Once, 1 dose, On Wed12/02/22 at 0800 Given 12/02/2022 7:31 AM PRODUCTION DESIGNER 1 drop proparacaine (ALCAINE) 0.5 % ophthalmic solution 1 drop 1 drop, Left Eye, Once, 1 dose, On Wed12/02/22 at 0745 Given 12/02/2022 7:21 AM PRODUCTION DESIGNER 1 drop proparacaine (ALCAINE) 0.5 % ophthalmic solution 1 drop 1 drop, Left Eye, Once, 1 dose, On Wed12/02/22 at 0800 Given 12/02/2022 7:31 AM PRODUCTION DESIGNER 1 drop tropicamide (MYDRIACYL) 1 % ophthalmic solution 1 drop 1 drop, Left Eye, Once, 1 dose, On Wed12/02/22 at 0745 Given 12/02/2022 7:21 AM PRODUCTION DESIGNER 1 drop tropicamide (MYDRIACYL) 1 % ophthalmic solution 1 drop 1 drop, Left Eye, Once, 1 dose, On Wed12/02/22 at 0800 Given 12/02/2022 7:31 AM PRODUCTION DESIGNER 1 drop documented in this encounter Active and Recently Administered Medications Times are shown in PRODUCTION DESIGNER. Scheduled Medication Order 11/30/2022 12/01/2022 12/02/2022 moxifloxacin (VIGAMOX) 0.5 % ophthalmic solution 1 drop (COMPLETED) 1 drop, Left Eye, Once, 1 dose, On Wed12/02/22 at 0745 0721 (Given - Provid er: Eli Miguel RN) moxifloxacin (VIGAMOX) 0.5 % ophthalmic solution 1 drop (COMPLETED) 1 drop, Left Eye, Once, 1 dose, On Wed12/02/22 at 0800 0731 (Given - Provid er: Eli Miguel RN) phenylephrine (MYDFRIN) 2.5 % ophthalmic solution 1 drop (COMPLETED) 1 drop, Left Eye, Once, 1 dose, On Wed12/02/22 at 0745 0721 (Given - Provid er: Eli Miguel RN) phenylephrine (MYDFRIN) 2.5 % ophthalmic solution 1 drop (COMPLETED) 1 drop, Left Eye, Once, 1 dose, On Wed12/02/22 at 0800 0731 (Given - Provid er: Eli Miguel RN) proparacaine (ALCAINE) 0.5 % ophthalmic solution 1 drop (COMPLETED) 1 drop, Left Eye, Once, 1 dose, On Wed12/02/22 at 0745 0721 (Given - Provid er: Eli Miguel RN) proparacaine (ALCAINE) 0.5 % ophthalmic solution 1 drop (COMPLETED) 1 drop, Left Eye, Once, 1 dose, On Wed12/02/22 at 0800 0731 (Given - Provid er: Eli Miguel RN) tetracaine 0.5 % ophthalmic solution 2 drop 2 drop, Left Eye, Once, 1 dose, On Wed12/02/22 at 0800 0800 (Canceled Entry - Provider: Automatic Discharge Provider - Comment: Automatically canceled at discontinue of medication order) tropicamide (MYDRIACYL) 1 % ophthalmic solution 1 drop (COMPLETED) 1 drop, Left Eye, Once, 1 dose, On Wed12/02/22 at 0745 0721 (Given - Provid er: Eli Miguel RN) tropicamide (MYDRIACYL) 1 % ophthalmic solution 1 drop (COMPLETED) 1 drop, Left Eye, Once, 1 dose, On Wed12/02/22 at 0800 0731 (Given - Provid er: Eli Miguel RN) Continuous Medication Order 11/30/2022 12/01/2022 12/02/2022 lactated ringers infusion at 10 mL/hr, Intravenous, Continuous, Starting on Wed12/02/22 at 0700, Until Wed12/02/22 at 1238, Infuse at TKO rate, Pre-Op 0709 (New Bag - Prov ider: Fabián Wills CRNA)0716 (New Bag - Provider: Abdulaziz Vela RN)0801 (Continued by Anesthesia - Provider: Fabián Wills CRNA)0817 (Anesthesia Volume Adjustment - Provider: Fabián Wills CRNA)0828 (Anesthesia Volume Adjustment - Provider: Fabián Wills CRNA) PRN Medication Order 11/30/2022 12/01/2022 12/02/2022 lidocaine (PF) (XYLOCAINE) 1 % injection (CANCELED) As needed, Starting on Wed12/02/22 at 0801, Until Wed12/02/22 at 0821, Intra-Op 0801 (Given - Provid er: Alison Pickens MD) tetracaine 0.5 % ophthalmic solution (CANCELED) As needed, Starting on Wed12/02/22 at 0802, Until Wed12/02/22 at 0821, Intra-Op 0802 (Given - Provid er: Alison Pickens MD) No Frequency Medication Order 11/30/2022 12/01/2022 12/02/2022 acetaZOLAMIDE ER (DIAMOX) 500 MG 12 hr capsule (COMPLETED) 1 dose, Starting on Wed12/02/22 at 0837, Until Wed12/02/22 at 0843, Created by cabinet override Swallow capsule whole or it may be opened and the contents sprinkled on applesauce. 0843 (Given - Provid er: Eli Miguel RN) documented in this encounter Care Teams Utility Appraiser Relationship Specialty Start Date End Date Deion Bhat MD [address] [place] [address] PCP - General INTERNAL MEDICINE 10/30/20 Pretty Gomez APRN, GROUP LEADER SEMICONDUCTOR TESTING-C [address] [phone] NURSE PRACTITIONER 10/30/21 02/09/24 documented as of this encounter
--- OUTSIDE RECORDS SUMMARY | 2024-10-30 18:58 | XMS_ITS | Encounter Summary ---
Author Organization [facility] Address [facility] [place] [address] [place] [address] Care Team Providers Care Geophysics Teacher Name Role Phone Deion Bhat MD Primary Care Provider [phone] Pretty Gomez APRN, CONE CLASSIFIER TENDER-C Unavailable Encounter Details Date Type Department Care Team (Latest Contact Info) Description 12/08/2021 Travel Social History Tobacco Use Types Packs/Day Years Used Date Smoking Tobacco: Every Day Smokeless Tobacco: Never Comments:patient doesnt smok e Alcohol Use Standard Drinks/Week Comments Not Currently 0 (1 standard drink = 0.6 oz pur e alcohol) Comments Unknown Sex and Gender Information Value Date Recorded Sex Assigned at Not on file Legal Sex Female 3:48 PM MICROMATIC HONE OPERATOR Gender Identity Not on file Sexual Orientation Not on file COVID-19 Exposure Response Date Recorded In the last 10 days, have yo u been in contact with someone who was confirmed or suspected to have Coronavirus/COVID-19? No / Unsure 12/08/2021 3:38 PM MICROMATIC HONE OPERATOR documented as of this encounter Plan of Treatment Upcoming Encounters Date Type Department Care Team (Late st Contact Info) Description 08/10/2025 10:00 AM CDT Office Visit [facility] [place] [address] Zofia Sanford MD [address] [place] [address] documented as of this encounter Visit Diagnoses Not on filedocumented in this encounter Care Teams Geophysics Teacher Relationship Specialty Start Date End Date Deion Bhat MD [address] [place] [phone] PCP - General INTERNAL MEDICINE 10/30/20 Pretty Gomez APRN, CONE CLASSIFIER TENDER-C [address] [facility] [address] [place] [address] NURSE PRACTITIONER 10/30/21 02/09/24 documented as of this encounter
--- OUTSIDE RECORDS SUMMARY | 2024-10-30 18:58 | XMS_ITS | Encounter Summary ---
Author Organization [facility] Address [facility] [place] [address] [place] [address] Care Team Providers Care Sales Project Manager Name Role Phone Deion Bhat MD Primary Care Provider [phone] Pretty Gomez APRN, SODA DRIER FEEDER-C Unavailable [phone] Encounter Details Date Type Department Care Team ([facility] Contact Info) Description 10/22/2022 Scan [facility] Information Services [address] [place] [address] [place] [id number] [facility] Social History Tobacco Use Types Packs/Day Years Used Date Smoking Tobacco: Every Day Cigarettes Smokeless Tobacco: Never Comments:patient doesnt smok e Alcohol Use Standard Drinks/Week Comments Not Currently 0 (1 standard drink = 0.6 oz pur e alcohol) Comments Unknown Sex and Gender Information Value Date Recorded Sex Assigned at Not on file Legal Sex Female 3:48 PM HEMOTHERAPIST Gender Identity Not on file Sexual Orientation Not on file COVID-19 Exposure Response Date Recorded In the last 10 days, have yo u been in contact with someone who was confirmed or suspected to have Coronavirus/COVID-19? No / Unsure 11/25/2022 1:28 PM HEMOTHERAPIST documented as of this encounter Plan of Treatment Upcoming Encounters Date Type Department Care Team ([facility] Contact Info) Description 08/10/2025 10:00 AM CDT Office Visit [facility] [place] [phone] Zofia Sanford MD [address] [place] [address] documented as of this encounter Visit Diagnoses Not on filedocumented in this encounter Care Teams Sales Project Manager Relationship Specialty Start Date End Date Deion Bhat MD [address] [place] [phone] PCP - General INTERNAL MEDICINE 10/30/20 Pretty Gomez APRN, SODA DRIER FEEDER-C [address] [facility] [address] [place] [address] NURSE PRACTITIONER 10/30/21 02/09/24 documented as of this encounter
--- OUTSIDE RECORDS SUMMARY | 2024-10-30 18:58 | XMS_ITS | Encounter Summary ---
Author Organization [facility] Address [facility] [place] [address] [place] [address] Care Team Providers Care Dressmaking Teacher Name Role Phone Deion Bhat MD Primary Care Provider Pretty Gomez APRN, METALLOGRAPHER-C Unavailable Encounter Details Date Type Department Care Team (Latest Contact Info) Description 12/02/2022 Travel Social History Tobacco Use Types Packs/Day Years Used Date Smoking Tobacco: Every Day Cigarettes Smokeless Tobacco: Never Alcohol Use Standard Drinks/Week Comments Not Currently 0 (1 standard drink = 0.6 oz pur e alcohol) Comments Unknown Sex and Gender Information Value Date Recorded Sex Assigned at Not on file Legal Sex Female 3:48 PM CONTRACTS INTERN Gender Identity Not on file Sexual Orientation Not on file COVID-19 Exposure Response Date Recorded In the last 10 days, have yo u been in contact with someone who was confirmed or suspected to have Coronavirus/COVID-19? No / Unsure 12/02/2022 6:31 AM CONTRACTS INTERN documented as of this encounter Plan of Treatment Upcoming Encounters Date Type Department Care Team (Late st Contact Info) Description 08/10/2025 10:00 AM CDT Office Visit [facility] [address] [place] [address] Zofia Sanford MD [address] [place] [address] documented as of this encounter Visit Diagnoses Not on filedocumented in this encounter Care Teams Dressmaking Teacher Relationship Specialty Start Date End Date Deion Bhat MD [address] [place] [address] PCP - General INTERNAL MEDICINE 10/30/20 Pretty Gomez, PLATEN PRESS OPERATOR, METALLOGRAPHER-C [address] [facility] [address] [place] [phone] NURSE PRACTITIONER 10/30/21 02/09/24 documented as of this encounter
--- OUTSIDE RECORDS SUMMARY | 2024-10-30 18:58 | XMS_ITS | Encounter Summary ---
Author Organization [facility] Address [facility] [place] [address] [place] [address] Care Team Providers Care Painting Technician Name Role Phone Deion Bhat MD Primary Care Provider Pretty Gomez APRN TABLE GAMES DUAL RATE SUPERVISOR-C Unavailable Reason for Referral * Imaging (Routine) - Closed Specialty Diagnoses / Procedures Referred By Lou dixon Referred To Contact RADIOLOGY Diagnoses Family history of sudden Abnormal EKG Shortness of breath Abnormal result of other cardiovascular function study Coronary artery calcification seen on CT scan Procedures [facility] Colby Bhardwaj MD Referral ID Status Reason Start Date Expiration Date Visits Re quested Visits Authorized [id number] Closed 12/10/2021 01/24/2022 1 1 ESSOR OF FINE ART Encounter Details Date Type Department Care Team (Late st Contact Info) Description 11/19/2021 Orders Only [facility] [address] [place] [address] Colby Bhardwaj MD Social History Tobacco Use Types Packs/Day Years Used Date Smoking Tobacco: Every Day Smokeless Tobacco: Never Comments:patient doesnt smok e Alcohol Use Standard Drinks/Week Comments Not Currently 0 (1 standard drink = 0.6 oz pur e alcohol) Comments Unknown Sex and Gender Information Value Date Recorded Sex Assigned at Not on file Legal Sex Female 3:48 PM PROFESSOR OF FINE ART Gender Identity Not on file Sexual Orientation Not on file COVID-19 Exposure Response Date Recorded In the last month, have you been in contact with someone who was confirmed or suspected to have Coronavirus / COVID-19? No / Unsure 11/14/2021 2:00 PM PROFESSOR OF FINE ART documented as of this encounter Plan of Treatment Upcoming Encounters Date Type Department Care Team (Late st Contact Info) Description 08/10/2025 10:00 AM CDT Office Visit [facility] [place] [address] Zofia Sanford MD [address] [place] [address] documented as of this encounter Results * [facility] (12/15/2021 3:23 PM PROFESSOR OF FINE ART) Anatomical Region Laterality Modality Cardiac Kiln Hand 12/15/2021 1:30 PM PROFESSOR OF FINE ART Colby Bhardwaj MD ENLISTED ADVISOR Final Resul t * MAGNESIUM (12/12/2021 7:50 AM PROFESSOR OF FINE ART) MAGNESIUM 1.9 1.8 - 2.4 MG/DL 12/12/2021 8:18 AM PROFESSOR OF FINE ART [facility] 12/12/2021 7:50 AM PROFESSOR OF FINE ART Colby Bhardwaj MD LABORATORY Final Resul t [facility] [address] [place] [address], * PROTHROMBIN TIME, VENOUS (12/12/2021 7:50 AM PROFESSOR OF FINE ART) PROTIME 12.2 10.2 - 12.9 SEC 12/12/2021 8:01 AM PROFESSOR OF FINE ART [facility] INR 1.0 0.9 - 1.1 12/12/2021 8:01 AM [facility] 12/12/2021 7:50 AM PROFESSOR OF FINE ART us Colby Bhardwaj MD LABORATORY Final Resul t [facility] [address] [place] [address], * (ABNORMAL) CBC W/DIFF AUTOMATED (12/12/2021 7:50 AM PROFESSOR OF FINE ART) WBC 11.7(H) 4.0 - 10.8 x10'3/uL 12/12/2021 7:59 AM [facility] RBC 4.73 4.10 - 5.40 x10'6/uL 12/12/2021 7:59 AM [facility] HGB 14.2 12.0 - 16.0 G/DL 12/12/2021 7:59 AM [facility] HCT 42.2 36.0 - 47.0 % 12/12/2021 7:59 AM [facility] MCV 89.2 78.0 - 100.0 FL 12/12/2021 7:59 AM [facility] MCH 30.0 27.0 - 31.0 PG 12/12/2021 7:59 AM [facility] MCHC 33.6 33.0 - 36.0 G/DL 12/12/2021 7:59 AM [facility] RDW 12.0 11.5 - 14.5 % 12/12/2021 7:59 AM [facility] PLT 295 150 - 350 x10'3/uL 12/12/2021 7:59 AM [facility] MPV 9.4 7.4 - 10.4 FL 12/12/2021 7:59 AM [facility] DIFFERENTIAL COMMENT NORMAL REFERENCE RANGE NOT ESTABLISHED FOR THE PROPORTIONAL LEUKOCYTE DIFFERENTIAL. 12/12/2021 7:59 AM [facility] SEG NEUTROPHILS 63.2 % 7:59 AM PROFESSOR OF FINE ART [facility] LYMPHOCYTES 25.4 % 12/12/2021 7:59 AM PROFESSOR OF FINE ART [facility] MONOCYTES 5.5 % 12/12/2021 7:59 AM PROFESSOR OF FINE ART [facility] EOSINOPHILS 4.3 % 12/12/2021 7:59 AM PROFESSOR OF FINE ART [facility] BASOPHILS 1.0 % 12/12/2021 7:59 AM PROFESSOR OF FINE ART [facility] IMMATURE GRANS % 0.6 % 12/12/19 7:59 AM PROFESSOR OF FINE ART [facility] NRBC 0.0 % 12/12/2021 7:59 AM PROFESSOR OF FINE ART [facility] ABS. NEUTROPHILS 7.40 1.60 - 8.30 x10'3/uL 12/12/2021 7:59 AM PROFESSOR OF FINE ART [facility] ABS. LYMPHOCYTES 2.97 0.80 - 4.70 x10'3/uL 12/12/2021 7:59 AM PROFESSOR OF FINE ART [facility] ABS. MONOCYTES 0.64 0.00 - 1.50 x10'3/uL 12/12/2021 7:59 AM PROFESSOR OF FINE ART [facility] ABS. EOSINOPHILS 0.50(H) 0.00 - 0.40 x10'3/uL 12/12/2021 7:59 AM PROFESSOR OF FINE ART [facility] ABS. BASOPHILS 0.12 0.00 - 0.20 x10'3/uL 12/12/2021 7:59 AM PROFESSOR OF FINE ART [facility] ABS. IMMATURE GRANULOCYTES 0.07(H) 0.00 - 0.03 x10'3/uL 12/12/2021 7:59 AM PROFESSOR OF FINE ART [facility] ABS. NUCLEATED RBC'S 0.00 0.00 x10'3/uL 12/12/2021 7:59 AM [facility] 12/12/2021 7:50 AM PROFESSOR OF FINE ART us Colby Bhardwaj MD LABORATORY Final Resul t [facility] [address] [place] [address], * (ABNORMAL) BASIC METABOLIC PANEL (12/12/2021 7:50 AM PROFESSOR OF FINE ART) SODIUM S/P/B 136 136 - 145 MMOL/L 12/12/2021 8:18 AM [facility] POTASSIUM S/P/B 4.0 3.5 - 5.1 MMOL/L 12/12/2021 8:18 AM [facility] CHLORIDE S/P/B 99 98 - 107 MMOL/L 12/12/2021 8:18 AM [facility] CO2 25.0 21.0 - 32.0 MMOL/L 12/12/2021 8:18 AM [facility] GLUCOSE 88 70 - 99 MG/DL 12/12/2021 8:18 AM [facility] Comment: FASTING GLUCOSE 100 TO 125 MG/DL IS CONSISTENT WITH IMPAIRED FASTING GLUCOSE. FASTING GLUCOSE >125 MG/DL IS CONSISTENT WITH DIABETES. RANDOM GLUCOSE >200 MG/DL WITH HYPERGLYCEMIC SYMPTOMS IS CONSISTENT WITH DIABETES. PER ADA GUIDELINES BUN 15 6 - 24 MG/DL 12/12/2021 8:18 AM [facility] CREATININE S/P/B 0.97 0.55 - 1.02 MG/DL 12/12/2021 8:18 AM [facility] CALCIUM S/P/B 8.9 8.4 - 10.5 MG/DL 12/12/2021 8:18 AM [facility] ANION GAP 12.0 5.0 - 15.0 MMOL/L 12/12/2021 8:18 AM [facility] OSMOLALITY (CALC) 282 MOSM/KG 022 8:18 AM [facility] Comment:REFERENCE RANGE NOT ESTABLISHED EGFR NON-AFR. AMER. 60(L) >89 ML/MIN/1. 73 M2 12/12/2021 8:18 AM [facility] EGFR AFR. AMER. 70(L) >89 ML/MIN/1. 73 M2 12/12/2021 8:18 AM [facility] GFR NOTES GFR REFERENCE S: 12/12/2021 8:18 AM PROFESSOR OF FINE ART [facility] Comment: THE ESTIMATED GFR IS CALCULATED USING THE 2009 CKD-EPI EQUATION. THE FOLLOWING CATEGORIES FOR GRADING RENAL FUNCTION ARE RECOMMENDED BY THE INTERNATIONAL SOCIETY OF NEPHROLOGY (KDIGO 2012 CLINICAL PRACTICE GUIDELINE). G1,NORMAL OR HIGH: >89 ml/min/1.73 m2 G2,MILDLY DECREASED: 60-89 ml/min/1.73 m2 G3A,MILDLY TO MODERATELY DECREASED: 45-59 ml/min/1.73 m2 G3B,MODERATELY TO SEVERELY DECREASED: 30-44 ml/min/1.73 m2 G4,SEVERELY DECREASED: 15-29 ml/min/1.73 m2 G5,KIDNEY FAILURE: <15 ml/min/1.73 m2 12/12/2021 7:50 AM PROFESSOR OF FINE ART us Colby Bhardwaj MD LABORATORY Final Resul t [facility] [address] [place] [address], documented in this encounter Visit Diagnoses Diagnosis Family history of sudden - Primary Family history of other condition Abnormal EKG Nonspecific abnormal electrocardiogram (ECG) (EKG) Shortness of breath Abnormal result of other cardiovascular function study Coronary artery calcification seen on CT scan documented in this encounter Care Teams Painting Technician Relationship Specialty Start Date End Date Deion Bhat MD [address] [place] [phone] PCP - General INTERNAL MEDICINE 10/30/20 Pretty Gomez APRN, TABLE GAMES DUAL RATE SUPERVISOR-C [address] [phone] NURSE PRACTITIONER 10/30/21 02/09/24 documented as of this encounter
--- OUTSIDE RECORDS SUMMARY | 2024-10-30 18:58 | XMS_ITS | Encounter Summary ---
Author Organization [facility] Address [facility] [place] [address] [place] [address] Care Team Providers Care Project/Production Manager Imaging Name Role Phone Deion Bhat MD Primary Care Provider [phone] Pretty Gomez APRN, SALES FLOOR TEAM LEADER-C Unavailable [phone] Reason for Visit * Auth/Cert (Routine) Specialty Diagnoses / Procedures Referred By Lou dixon Referred To Contact Diagnoses H25.9 Procedures EXTRACTION CATARACT LEFT EYE WITH LENS IMPLANT Referral ID Status Reason Start Date Expiration Date Visits Re quested Visits Authorized [id number] 1 1 Encounter Details Date Type Department Care Team (Late st Contact Info) Description 12/02/2022 8:03 AM SEAFOOD FISHERMAN - 12/02/2022 8:36 AM SEAFOOD FISHER[facility] [address] [facility] [place] [address] Alison Pickens MD [address] [place], [place] [id number] EXTRACTION CATARACT LEFT EYE WITH LENS IMPLANT Surgery Details Date/Time Status Location OR Service Patient Class Case Class Case Type Trauma Case? 12/02/2022 8:03 AM Posted [facility] OR OR 2 Ophthalmology Short Stay/Outpat ient Surgery No Panel 1 Procedure LRB Anes Op Region Wound Class Comments EXTRACTION CATARACT LEFT EYE WITH LENS IMPLANT Left Monitor Anesthesia Care Eye Clean Surgeon Surgeon Role Service Panel Alison Pickens MD Primary Ophthalmology 1 documented in this encounter Social History Tobacco [...] on file Legal Sex Female 3:48 PM SEAFOOD FISHERMAN Gender Identity Not on file Sexual Orientation Not on file COVID-19 Exposure Response Date Recorded In the last 10 days, have yo u been in contact with someone who was confirmed or suspected to have Coronavirus/COVID-19? No / Unsure 12/02/2022 6:31 AM SEAFOOD FISHERMAN documented as of this encounter Last Filed Vital Signs Vital Sign Reading Time Taken Comments Blood Pressure 130/86 12/02/2022 8:36 AM SEAFOOD FISHERMAN Pulse 78 12/02/2022 8:36 AM SEAFOOD FISHERMAN Temperature 36.1 ??C (97 ??F) 12/02/2022 8:36 AM SEAFOOD FISHERMAN Respiratory Rate 16 12/02/2022 8:36 AM SEAFOOD FISHERMAN Oxygen Saturation 96% 12/02/2022 8:36 AM SEAFOOD FISHERMAN Inhaled Oxygen Concentration - - Weight 90.7 kg (200 lb) 11/25/2022 1:27 PM SEAFOOD FISHERMAN Height 160 cm (5' 3 ) 11/25/2022 1:27 PM SEAFOOD FISHERMAN Body Mass Index 35.43 11/25/2022 1:27 PM SEAFOOD FISHERMAN documented in this encounter Discharge Instructions * Attachments The following attachments cannot be sent through Care Everywhere. * Moderate Sedation in Adults Discharge Instructions (Salvadorean) documented in this encounter Medications at Time [...] the past 30 days. After examining Rosi Daniels Aleronnieavi, no change has occurred in the patient's condition since the H&P was completed. Informed Consent Discussion: Potential benefits, risks, and side effects of the patient's procedure/surgery; the likelihood of the patient achieving his or her goals; and any potential problems that might occur during recuperation were discussed with the patient/family/personal logistics service representative. Reasonable alternatives to the patient's proposed procedure/surgery including benefits, risks, and side effects related to the alternatives and the risks related to not receiving the proposed care were also discussed with the patient/family/personal logistics service representative. Questions were answered and the patient/family/personal logistics service representative verbalized understanding and desires to proceed. OOD FISHERMAN Source Note - Scanned, Doc [facility] - 12/02/2022 12:00 AM SEAFOOD FISHERMAN documented in this encounter OR Notes * Brief Op Note - Ailson Pickens MD - 12/02/2022 8:51 AM CST Patient: Rosi Esqueda 1955 [id number] Preoperative Diagnosis: Visually significant cataract Postoperative Diagnosis: Visually significant cataract Procedure: Cataract Extraction with Intraocular Lens Placement, LEFT Eye Surgeon: Alison Pickens MD Pododermatologist: none Anesthesia: Monitor Anesthesia Care Implant: Implant Name Type Inv. Item Serial No. Die Forger Lot No. LRB No. Used Action TECJESSIE MCKINLEY [id number] LIT & LIT Left 1 Implanted Specimen: none Estimated Blood Loss: minimal Procedure in detail: Please see full operative note for details. Disposition: Patient was taken to the recovery in stable condition. Alison Pickens MD 12/02/2022 8:51 AM OOD FISHERMAN documented in this encounter Plan of Treatment Upcoming Encounters Date Type Department Care Team (Late st Contact Info) Description 08/10/2025 10:00 AM CDT Office Visit [facility] [address] [place] [address] Zofia Sanford MD [address] [place] [address] documented as of this encounter Procedures Procedure Name Priority Date/Time Associated Diagnosis Comments CATARACT REMOVAL WITH TORIC LENS 12/02/2022 7:56 AM SEAFOOD FISHERMAN H25.9 documented in this encounter Visit Diagnoses [...] sprinkled on applesauce. Given 12/02/2022 8:43 AM SEAFOOD FISHERMAN 500 mg lactated ringers infusion at 10 mL/hr, Intravenous, Continuous, Starting on Wed12/02/22 at 0700, Until Wed12/02/22 at 1238, Infuse at TKO rate, Pre-Op Continued by Anesthesia 12/02/2022 8:01 AM SEAFOOD FISHERMAN 10 mL/hr New Bag 12/02/2022 7:16 AM SEAFOOD FISHERMAN 10 mL/hr New Bag 12/02/2022 7:09 AM SEAFOOD FISHERMAN 50 mL/hr lactated ringers infusion 1 dose, Starting on Wed12/02/22 at 0643, Until Wed12/02/22 at 0716, Created by cabinet alizaide lidocaine (PF) (XYLOCAINE) 1 % injection As needed, Starting on Wed12/02/22 at 0801, Until Wed12/02/22 at 0821, Intra-Op Given 12/02/2022 8:01 AM SEAFOOD FISHERMAN 1 mL Left Eye moxifloxacin (VIGAMOX) 0.5 % ophthalmic solution 1 drop 1 drop, Left Eye, Once, 1 dose, On Wed12/02/22 at 0745 Given 12/02/2022 7:21 AM SEAFOOD FISHERMAN 1 drop moxifloxacin (VIGAMOX) 0.5 % ophthalmic solution 1 drop 1 drop, Left Eye, Once, 1 dose, On Wed12/02/22 at 0800 Given 12/02/2022 7:31 AM SEAFOOD FISHERMAN 1 drop phenylephrine (MYDFRIN) 2.5 % ophthalmic solution 1 drop 1 drop, Left Eye, Once, 1 dose, On Wed12/02/22 at 0745 Given 12/02/2022 7:21 AM SEAFOOD FISHERMAN 1 drop phenylephrine (MYDFRIN) 2.5 % ophthalmic solution 1 drop 1 drop, Left Eye, Once, 1 dose, On Wed12/02/22 at 0800 Given 12/02/2022 7:31 AM SEAFOOD FISHERMAN 1 drop proparacaine (ALCAINE) 0.5 % ophthalmic solution 1 drop 1 drop, Left Eye, Once, 1 dose, On Wed12/02/22 at 0745 Given 12/02/2022 7:21 AM SEAFOOD FISHERMAN 1 drop proparacaine (ALCAINE) 0.5 % ophthalmic solution 1 drop 1 drop, Left Eye, Once, 1 dose, On Wed12/02/22 at 0800 Given 12/02/2022 7:31 AM SEAFOOD FISHERMAN 1 drop tetracaine 0.5 % ophthalmic solution As needed, Starting on Wed12/02/22 at 0802, Until Wed12/02/22 at 0821, Intra-Op Given 12/02/2022 8:02 AM SEAFOOD FISHERMAN 3 drops tropicamide (MYDRIACYL) 1 % ophthalmic solution 1 drop 1 drop, Left Eye, Once, 1 dose, On Wed12/02/22 at 0745 Given 12/02/2022 7:21 AM SEAFOOD FISHERMAN 1 drop tropicamide (MYDRIACYL) 1 % ophthalmic solution 1 drop 1 drop, Left Eye, Once, 1 dose, On Wed12/02/22 at 0800 Given 12/02/2022 7:31 AM SEAFOOD FISHERMAN 1 drop documented in this encounter Active and Recently Administered Medications Times are shown in SEAFOOD FISHERMAN. Scheduled Medication Order 11/30/2022 12/01/2022 12/02/2022 moxifloxacin [...] RN) documented in this encounter Care Teams Project/Production Manager Imaging Relationship Specialty Start Date End Date Deion Bhat MD [address] [place] [phone] PCP - General INTERNAL MEDICINE 10/30/20 Pretty Gomez, CECILE, SALES FLOOR TEAM LEADER-C [address] [facility] [address] [phone] NURSE PRACTITIONER 10/30/21 02/09/24 documented as of this encounter
--- OUTSIDE RECORDS SUMMARY | 2024-10-30 18:58 | XMS_ITS | Encounter Summary ---
Author Organization [facility] Address [facility]6 [facility] [place] [address] [place] [address] Care Team Providers Care Fabricator Industrial Furnace Name Role Phone Deion Bhat MD Primary Care Provider Pretty Gomez APRN VASCULAR MANAGER-C Unavailable Encounter Details Date Type Department Care Team (Latest Contact Info) Description 12/12/2021 7:35 AM LICENSED REAL ESTATE BROKER - 12/12/2021 11:59 PM LICENSED REAL ESTATE BROKER Hospital Encounter [facility] [address] [place] [address] Colby Bhardwaj MD Discharge Disposition: Home or Self [...] on file Legal Sex Female 3:48 PM LICENSED REAL ESTATE BROKER Gender Identity Not on file Sexual Orientation Not on file COVID-19 Exposure Response Date Recorded In the last 10 days, have yo u been in contact with someone who was confirmed or suspected to have Coronavirus/COVID-19? No / Unsure 12/12/2021 7:36 AM LICENSED REAL ESTATE BROKER documented as of this encounter Medications at [...] strip 10/25/2020 amLODIPine 10 MG tablet Take 10 mg by mouth daily. 2 famotidine 20 MG tablet TAKE 1 TABLET THE EVENING BEFORE AND MORNING OF YOUR SCHEDULED PROCEDURE ON 12/15/21 2 tablet 11/19/2021 2 LORazepam 1 MG tablet Take 1 mg by mouth as needed. 10/07/2020 2 metFORMIN ER 500 MG 24 hr tablet Take 1 tablet (500 mg total) by mouth daily with breakfast. 10/08/2020 3 metoprolol tartrate 50 MG tablet Take 2 tablets PO 1-2 hours prior to your CTA. Bring the other tablet with you to the test. 3 tablet 11/04/2021 2 predniSONE 50 MG tablet TAKE 1/2 TABLET THE EVENING BEFORE AND MORNING OF YOUR SCHEDULED PROCEDURE ON 12/15/21 1 tablet 11/19/2021 2 documented as of this encounter Plan of Treatment Upcoming Encounters Date Type Department Care Team (Late st Contact Info) Description 08/10/2025 10:00 AM CDT Office Visit [facility] [place] [address] Zofia Sanford MD [address] [place] [address] documented as of this encounter Procedures Procedure Name Priority Date/Time Associated Diagnosis Comments CORONAVIRUS (COVID 19) Routine 12/12/2021 7:50 AM LICENSED REAL ESTATE BROKER Pre-operative laboratory examination PROTHROMBIN TIME, VENOUS Routine 12/12/2021 7:50 AM LICENSED REAL ESTATE BROKER Family history of sudden Abnormal EKG Shortness of breath Abnormal result of other cardiovascular function study Coronary artery calcification seen on CT scan BASIC METABOLIC PANEL Routine 12/12/2021 7:50 AM LICENSED REAL ESTATE BROKER Family history of sudden Abnormal EKG Shortness of breath Abnormal result of other cardiovascular function study Coronary artery calcification seen on CT scan CBC W/DIFF AUTOMATED Routine 12/12/2021 7:50 AM LICENSED REAL ESTATE BROKER Family history of sudden Abnormal EKG Shortness of breath Abnormal result of other cardiovascular function study Coronary artery calcification seen on CT scan MAGNESIUM Routine 12/12/2021 7:50 AM LICENSED REAL ESTATE BROKER Family history of sudden Abnormal EKG Shortness of breath Abnormal result of other cardiovascular function study Coronary artery calcification seen on CT scan documented in this encounter Results * PRE-SURGICAL/PRE-PROCEDURE CORONAVIRUS (COVID 19) (12/12/2021 7:50 AM LICENSED REAL ESTATE BROKER) SPEC DESCRIPTION NASAL 12/12/19 8:03 AM [facility] CORONAVIRUS SARS COV 2 PCR (RESP) NEGATIVE NEGATIVE 12/12/2021 7:36 PM [facility] Comment: THE SARS-CoV-2 TEST HAS BEEN AUTHORIZED BY THE FDA UNDER AN EUA FOR USE BY AUTHORIZED LABORATORIES. PERFORMED BY NUCLEIC ACID AMPLIFICATION PCR FIRST TEST UNKNOWN 12/12/2021 8:03 AM [facility] EMPLOYED IN HEALTHCARE NO 12/12/2021 8:03 AM LICENSED REAL ESTATE BROKER [facility] SYMPTOMATIC DEFINED BY CDC UNKNOWN 12/12/2021 8:03 AM LICENSED REAL ESTATE BROKER [facility] HOSPITALIZATION STATUS NO 12/12/2021 8:03 AM LICENSED REAL ESTATE BROKER [facility] PATIENT IN ICU NO 12/12/2021 8:03 AM LICENSED REAL ESTATE BROKER [facility] RESIDENT OF CONGREGATE CARE NO 12/12/2021 8:03 AM LICENSED REAL ESTATE BROKER [facility] NASAL STRUCTURE / Unknown 12/12/2021 7:50 AM LICENSED REAL ESTATE BROKER Colby Bhardwaj MD MICROBIOLOGY - GENERAL ORDE [facility] Final Result [facility] [address] [place] [address], [facility] [address] [place] [address], * MAGNESIUM (12/12/2021 7:50 AM LICENSED REAL ESTATE BROKER) MAGNESIUM 1.9 1.8 - 2.4 MG/DL 12/12/2021 8:18 AM LICENSED REAL ESTATE BROKER [facility] 12/12/2021 7:50 AM LICENSED REAL ESTATE BROKER Colby Bhardwaj MD LABORATORY Final Resul t [facility] [address] [place] [address], * PROTHROMBIN TIME, VENOUS (12/12/2021 7:50 AM LICENSED REAL ESTATE BROKER) PROTIME 12.2 10.2 - 12.9 SEC 12/12/2021 8:01 AM LICENSED REAL ESTATE BROKER [facility] INR 1.0 0.9 - 1.1 12/12/2021 8:01 AM LICENSED REAL ESTATE BROKER [facility] 12/12/2021 7:50 AM LICENSED REAL ESTATE BROKER us Colby Bhardwaj MD LABORATORY Final Resul t [facility] [address] [place] [address], * (ABNORMAL) CBC W/DIFF AUTOMATED (12/12/2021 7:50 AM LICENSED REAL ESTATE BROKER) WBC 11.7(H) 4.0 - 10.8 x10'3/uL 12/12/2021 7:59 AM LICENSED REAL ESTATE BROKER [facility] RBC 4.73 4.10 - 5.40 x10'6/uL 12/12/2021 7:59 AM [facility] HGB 14.2 12.0 - 16.0 G/DL 12/12/2021 7:59 AM [facility] HCT 42.2 36.0 - 47.0 % 12/12/2021 7:59 AM [facility] MCV 89.2 78.0 - 100.0 FL 12/12/2021 7:59 AM [facility] MCH 30.0 27.0 - 31.0 PG 12/12/2021 7:59 AM [facility] MCHC 33.6 33.0 - 36.0 G/DL 12/12/2021 7:59 AM [facility] RDW 12.0 11.5 - 14.5 % 12/12/2021 7:59 AM [facility] PLT 295 150 - 350 x10'3/uL 12/12/2021 7:59 AM [facility] MPV 9.4 7.4 - 10.4 FL 12/12/2021 7:59 AM [facility] DIFFERENTIAL COMMENT NORMAL REFERENCE RANGE NOT ESTABLISHED FOR THE PROPORTIONAL LEUKOCYTE DIFFERENTIAL. 12/12/2021 7:59 AM [facility] SEG NEUTROPHILS 63.2 % 7:59 AM [facility] LYMPHOCYTES 25.4 % 12/12/2021 7:59 AM [facility] MONOCYTES 5.5 % 12/12/2021 7:59 AM LICENSED REAL ESTATE BROKER [facility] EOSINOPHILS 4.3 % 12/12/2021 7:59 AM LICENSED REAL ESTATE BROKER [facility] BASOPHILS 1.0 % 12/12/2021 7:59 AM [facility] IMMATURE GRANS % 0.6 % 12/12/19 7:59 AM LICENSED REAL ESTATE BROKER [facility] NRBC 0.0 % 12/12/2021 7:59 AM LICENSED REAL ESTATE BROKER [facility] ABS. NEUTROPHILS 7.40 1.60 - 8.30 x10'3/uL 12/12/2021 7:59 AM LICENSED REAL ESTATE BROKER [facility] ABS. LYMPHOCYTES 2.97 0.80 - 4.70 x10'3/uL 12/12/2021 7:59 AM [facility] ABS. MONOCYTES 0.64 0.00 - 1.50 x10'3/uL 12/12/2021 7:59 AM LICENSED REAL ESTATE BROKER [facility] ABS. EOSINOPHILS 0.50(H) 0.00 - 0.40 x10'3/uL 12/12/2021 7:59 AM LICENSED REAL ESTATE BROKER [facility] ABS. BASOPHILS 0.12 0.00 - 0.20 x10'3/uL 12/12/2021 7:59 AM [facility] ABS. IMMATURE GRANULOCYTES 0.07(H) 0.00 - 0.03 x10'3/uL 12/12/2021 7:59 AM [facility] ABS. NUCLEATED RBC'S 0.00 0.00 x10'3/uL 12/12/2021 7:59 AM [facility] 12/12/2021 7:50 AM LICENSED REAL ESTATE BROKER us Colby Bhardwaj MD LABORATORY Final Resul t [facility] [address] [place] [address], * (ABNORMAL) BASIC METABOLIC PANEL (12/12/2021 7:50 AM LICENSED REAL ESTATE BROKER) [facility] SODIUM S/P/B 136 136 - 145 MMOL/L 12/12/2021 8:18 AM [facility] POTASSIUM S/P/B 4.0 3.5 - 5.1 MMOL/L 12/12/2021 8:18 AM [facility] CHLORIDE S/P/B 99 98 - 107 MMOL/L 12/12/2021 8:18 AM [facility] CO2 25.0 21.0 - 32.0 MMOL/L 12/12/2021 8:18 AM [facility] GLUCOSE 88 70 - 99 MG/DL 12/12/2021 8:18 AM [facility] Comment: FASTING GLUCOSE 100 TO 125 MG/DL IS CONSISTENT WITH IMPAIRED FASTING GLUCOSE. FASTING GLUCOSE >125 MG/DL IS CONSISTENT WITH DIABETES. RANDOM GLUCOSE >200 MG/DL WITH HYPERGLYCEMIC SYMPTOMS IS CONSISTENT WITH DIABETES. PER ADA GUIDELINES BUN 15 6 - 24 MG/DL 12/12/2021 8:18 AM [facility] CREATININE S/P/B 0.97 0.55 - 1.02 MG/DL 12/12/2021 8:18 AM [facility] CALCIUM S/P/B 8.9 8.4 - 10.5 MG/DL 12/12/2021 8:18 AM [facility] ANION GAP 12.0 5.0 - 15.0 MMOL/L 12/12/2021 8:18 AM [facility] OSMOLALITY (CALC) 282 MOSM/KG 022 8:18 AM [facility] Comment:REFERENCE RANGE NOT ESTABLISHED EGFR NON-AFR. AMER. 60(L) >89 ML/MIN/1. 73 M2 12/12/2021 8:18 AM [facility] EGFR AFR. AMER. 70(L) >89 ML/MIN/1. 73 M2 12/12/2021 8:18 AM [facility] GFR NOTES GFR REFERENCE S: 12/12/2021 8:18 AM [facility] Comment: THE ESTIMATED GFR IS CALCULATED [...] FAILURE: <15 ml/min/1.73 m2 12/12/2021 7:50 AM LICENSED REAL ESTATE BROKER us Colby Bhardwaj MD LABORATORY Final Resul t [facility] [address] [place] [address], documented in this encounter Visit Diagnoses Diagnosis Family history of sudden Family history of other condition Abnormal EKG Nonspecific abnormal electrocardiogram (ECG) (EKG) Shortness of breath Abnormal result of other cardiovascular function study Coronary artery calcification seen on CT scan Pre-operative laboratory examination Pre-procedural laboratory examination documented in this encounter Additional Health Concerns Infection Onset Date Last Indicated Resolved Time COVID-19 Rule Out 12/12/2021 12/12/2021 12/12/2021 7:36 PM 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
--- OUTSIDE RECORDS SUMMARY | 2024-10-30 18:58 | XMS_ITS | Encounter Summary ---
Author Organization [facility] Address [facility]6 [facility] [place] [address] [place] [address] Care Team Providers Care Erector Operator Name Role Phone Deion Bhat MD Primary Care Provider [phone] Pretty Gomez APRN JINGLE WRITER-C Unavailable Reason for Visit * Auth/Cert (Routine) Specialty Diagnoses / Procedures Referred By Lou dixon Referred To Contact Diagnoses H25.9 Procedures EXTRACTION CATARACT LEFT EYE WITH LENS IMPLANT Referral ID Status Reason Start Date Expiration Date Visits Re quested Visits Authorized [id number] 1 1 Encounter Details Date Type Department Care Team (Late st Contact Info) Description 12/02/2022 8:01 AM PCAT INSTRUCTOR Anesthesia Event [address] [place] [address] Edilson Weiss MD [address] [place] [address], [address] [place] [address] Yasmin Hassan CRNA [address] [place] [address] [place] [address] Anesthesia Record Procedure Summary Procedure Name Responsible Anesthesiologist Anesthesia Start Time Anesthesia Stop Time EXTRACTION CATARACT LEFT EYE WITH LENS IMPLANT (Left: Eye) 12/02/22 0801 12/02/22 0828 Events Date Time Event Comment 12/02/2022 0730 0801 An Start Patient ID and consent checked and patient reassessed. 0801 An Start Data 0803 Nasal Cannula Applied 0808 AN Immediate Reassess The pa tient was reevaluated immediately before sedation or regional anesthesia. 0808 AN Immediate Reassess The pa tient was reevaluated immediately before sedation or regional anesthesia. 0808 Anesthesia Ready 0818 an stop data 0828 Post Anesthetic Care Handoff I completed my handoff to the receiving nurse during which we: 1. Identified the patient 2. Identified the responsible provider 3. Reviewed the pertinent medical history 4. Discussed the surgical course 5. Reviewed intra-op anesthesia management and issues during anesthesia 6. Set expectations for post-procedure period 7. Allowed opportunity for questions and acknowledgement of understanding. 0828 An Stop Meds Name Total ketamine 50 mg/mL injection 15 mg midazolam 2 mg/2 mL injection 2 mg lactated ringers infusion 501.83 mL * Agents Name O2 Ancillary O2 * Blood No blood administrations on file. Lines, Drains, and Airways Type Details Placement Removal Peripheral IV Placement Date: 12/02/22; Placement Time: 714; Placed Outside of This Facility?: No; Size: 20 G; Orientation: Left, Posterior; Location: Wrist; Site Prep: Chlorhexidine; Local Anesthetic: None; Inserted By: YASMIN TOBIAS; Insertion attempts: 2; Ultrasound-guided Placement?: No; Patient Tolerance: Tolerated well; Removal Date: 12/02/22; Removal Time: 0846; Removal Reason: Patient Discharged 12/02/22 0715 by Abdulaziz Vela RN 12/02/22 0846 by Eli Miguel RN Surgical/Incision 12/02/22; 0824; Surgical Wound; Eye; Left; PLASTIC EYE COVER, TALE; 12/02/22; 1238 12/02/22 0824 by Ashley Cottrell RN 12/02/22 1238 by Automatic Discharge Provider documented in this encounter Social History Tobacco Use Types Packs/Day Years Used Date Smoking Tobacco: Every Day Cigarettes Smokeless Tobacco: Never Alcohol Use Standard Drinks/Week Comments Not Currently 0 (1 standard drink = 0.6 oz pur e alcohol) Comments Unknown Sex and Gender Information Value Date Recorded Sex Assigned at Not on file Legal Sex Female 3:48 PM PCAT INSTRUCTOR Gender Identity Not on file Sexual Orientation Not on file COVID-19 Exposure Response Date Recorded In the last 10 days, have yo u been in contact with someone who was confirmed or suspected to have Coronavirus/COVID-19? No / Unsure 12/02/2022 6:31 AM PCAT INSTRUCTOR documented as of this encounter OR Notes * Anesthesia Postprocedure Evaluation - Edilson Weiss MD - 12/02/2022 8:49 AM CST Anesthesia Post-op Note Rosi Esqueda Procedure(s): EXTRACTION CATARACT LEFT EYE WITH LENS IMPLANT (Left: Eye) Anesthesia type: MAC Vitals: 12/02/22 0836 BP: 130/86 Vitals: 12/02/22 0836 Pulse: 78 Vitals: 12/02/22 0836 Resp: 16 Vitals: 12/02/22 0836 Temp: 36.1 ??C Vitals: 12/02/22 0836 SpO2: 96% Patient Location: Phase II/Outpatient Level of Consciousness: awake and alert Pain Management: adequate analgesia Airway Patency: patent Respiratory Status: acceptable Cardiovascular Status: acceptable Post-Op Nausea: none Postoperative Hydration: euvolemic No notable events documented. INSTRUCTOR * Anesthesia Preprocedure Evaluation - Edilson Weiss MD - 11/26/2022 11:26 AM CST Anesthesia ROS/MED History Reviewed: Patient summary , Family history anesthesia, Anesthesia history , Labs Pre-Anesthetic State: alert, awake and responds appropriately Pulmonary ROS comment: 1/2 ppd x 40 yr Cardiovascular Exercise tolerance:good (+) hypertension, CAD, hyperlipidemia Neuro/Psych neg neuro/psych ROS GI/Hepatic/Renal neg GI/hepatic/renal ROS Endo/Other (+) diabetes mellitus, (sub Q insulin), (Using Oral hypoglycemic) Comments: Accucheck 133 GENERAL COMMENTS 12/15/[address] marcano 1. Tortuous nonobstructive CAD. 2. LV gram: not performed Physical Evaluation Airway Mallampati: I Neck ROM: normal Dental (upper dentures), (lower dentures) Pulmonary Pulmonary exam normal Cardiovascular Cardiovascular exam normal Other findings: BMI 35 Anesthesia Plan ASA 2 Intravenous Induction Anesthesia type: MAC Informed Consent Anesthetic plan and risks discussed with patient of whom consent was obtained. . INSTRUCTOR INSTRUCTOR INSTRUCTOR documented in this encounter Plan of Treatment Upcoming Encounters Date Type Department Care Team (Late st Contact Info) Description 08/10/2025 10:00 AM CDT Office Visit [facility] [place] [phone] Zofia Sanford MD [address] [place] [address] documented as of this encounter Visit Diagnoses Not on filedocumented in this encounter Administered Medications Inactive Administered Medications - up to 3 most recent administrations Medication Order MAR Action Action Date Dose Rate Site ketamine (KETALAR) injection Intravenous, PRN, Starting on Wed12/02/22 at 0804, Until Wed12/02/22 at 0828, Anesthesia Intra-Op Given 12/02/2022 8:04 AM PCAT INSTRUCTOR 15 mg lactated ringers infusion at 10 mL/hr, Intravenous, Continuous, Starting on Wed12/02/22 at 0700, Until Wed12/02/22 at 1238, Infuse at TKO rate, Pre-Op Continued by Anesthesia 12/02/2022 8:01 AM PCAT INSTRUCTOR 10 mL/hr New Bag 12/02/2022 7:16 AM PCAT INSTRUCTOR 10 mL/hr New Bag 12/02/2022 7:09 AM PCAT INSTRUCTOR 50 mL/hr midazolam (VERSED) injection Intravenous, PRN, Starting on Wed12/02/22 at 0802, Until Wed12/02/22 at 0828, Anesthesia Intra-Op Given 12/02/2022 8:07 AM PCAT INSTRUCTOR 1 mg Given 12/02/2022 8:02 AM PCAT INSTRUCTOR 1 mg documented in this encounter Care Teams Erector Operator Relationship Specialty Start Date End Date Deion Bhat MD [address] [place] [phone] PCP - General INTERNAL MEDICINE 10/30/20 Pretty Gomez APRN, JINGLE WRITER-C [address] [phone] NURSE PRACTITIONER 10/30/21 02/09/24 documented as of this encounter
--- OUTSIDE RECORDS SUMMARY | 2024-10-30 18:58 | XMS_ITS | Encounter Summary ---
Author Organization [facility] Address [facility]6 [facility] [place] [address] [place] [address] Care Team Providers Care Evp Head Of [employer] Experience Strategy Name Role Phone Deion Bhat MD Primary Care Provider [phone] Pretty Gomez APRN ASSISTANT WOMEN'S ROWING COACH-C Unavailable Zofia Sanford MD Unavailable Encounter Details Date Type Department Care Team (Late st Contact Info) Description 12/18/2021 Abstract [facility] [address] [place] [address] Colby Bhardwaj MD Social History Tobacco Use Types Packs/Day Years Used Date Smoking Tobacco: Every Day Smokeless Tobacco: Never Comments:patient doesnt smok e Alcohol Use Standard Drinks/Week Comments Not Currently 0 (1 standard drink = 0.6 oz pur e alcohol) Comments Unknown Sex and Gender Information Value Date Recorded Sex Assigned at Not on file Legal Sex Female 3:48 PM OPERATIONS LIAISON Gender Identity Not on file Sexual Orientation Not on file COVID-19 Exposure Response Date Recorded In the last 10 days, have yo u been in contact with someone who was confirmed or suspected to have Coronavirus/COVID-19? No / Unsure 12/15/2021 11:43 AM OPERATIONS LIAISON documented as of this encounter Plan of Treatment Upcoming Encounters Date Type Department Care Team (Late st Contact Info) Description 08/10/2025 10:00 AM CDT Office Visit [facility] [place] [phone] Zofia Sanford MD [address] [place] [address] documented as of this encounter Visit Diagnoses Not on filedocumented in this encounter Care Teams Evp Head Of [employer] Experience Strategy Relationship Specialty Start Date End Date Deion Bhat MD [address] [place] [phone] PCP - General INTERNAL MEDICINE 10/30/20 Pretty Gomez, TECHNICAL WRITER, ASSISTANT WOMEN'S ROWING COACH-C [address] [facility] [address] [place] [phone] NURSE PRACTITIONER 10/30/21 02/09/24 Zofia Sanford MD [address] [place], [place] [address] Consulting Physician CARDIOVASCULAR DISEASE 02/10/24 documented as of this encounter
--- OUTSIDE RECORDS SUMMARY | 2024-10-30 18:58 | XMS_ITS | Encounter Summary ---
Author Organization [facility] Address [facility]6 [facility] [place] [address] [place] [address] Care Team Providers Care Embedded Systems Designer Name Role Phone Deion Bhat MD Primary Care Provider [phone] Pretty Gomez APRN MANAGER HOUSEKEEPING-C Unavailable Zofia Sanford MD Unavailable Encounter Details Date Type Department Care Team (Late st Contact Info) Description 02/02/2022 Abstract [facility] [address] [place] [phone] Colby Bhardwaj MD Social History Tobacco Use Types Packs/Day Years Used Date Smoking Tobacco: Every Day Smokeless Tobacco: Never Comments:patient doesnt smok e Alcohol Use Standard Drinks/Week Comments Not Currently 0 (1 standard drink = 0.6 oz pur e alcohol) Comments Unknown Sex and Gender Information Value Date Recorded Sex Assigned at Not on file Legal Sex Female 3:48 PM FIBERGLASS MODEL MAKER Gender Identity Not on file Sexual Orientation Not on file documented as of this encounter Plan of Treatment Upcoming Encounters Date Type Department Care Team (Late Contact Info) Description 08/10/2025 10:00 AM CDT Office Visit [facility] [place] [address] Zofia Sanford MD [address] [place] [address] documented as of this encounter Procedures Procedure Name Priority Date/Time Associated Diagnosis Comments CMP (ABSTRACTED LAB) Routine 01/31/2022 HEMOGLOBIN, GLYCOSYLATED Routine 01/31/2022 documented in this encounter Results * HEMOGLOBIN, GLYCOSYLATED (01/31/2022) HGB A1C 8.1 <5.7 % 01/31/2022 Result [facility] Deion Bhat MD LABORATORY Final Result * (ABNORMAL) CMP (ABSTRACTED LAB) (01/31/2022) SODIUM S/P/B 135 136 - 145 POTASSIUM S/P/B 4.3 3.5 - 5.1 CHLORIDE S/P/B 99 98 - 108 CO2 28 21 - 32 BUN 15 7 - 18 CREATININE S/P/B 1.03(A) 0.55 - 1.02 EGFR NON-AFR. AMER. 53 <=90 CALCIUM S/P/B 9.1 8.5 - 10.1 GLUCOSE 110 70 - 99 mg/dL TOTAL PROTEIN S/P/B 7.2 6.4 - 8.2 ALBUMIN S/P/B 3.7 3.4 - 5.0 AST 13 15 - 37 ALT 18 14 - 59 ALKALINE PHOSPHATASE S/P/B 73 46 - 116 BILIRUBIN TOTAL S/P/B 0.4 0.00 - 1.00 01/31/2022 Result [facility] Deion Bhat MD LAB-OUTSIDE/ABSTRACTED Final Result documented in this encounter Visit Diagnoses Not on filedocumented in this encounter Care Teams Embedded Systems Designer Relationship Specialty Start Date End Date Deion Bhat MD [address] [place] [address] PCP - General INTERNAL MEDICINE 10/30/20 Pretty Gomez, CECILE, MANAGER HOUSEKEEPING-C [address] [place] [address] [address] [place] [address] NURSE PRACTITIONER 10/30/21 02/09/24 Zofia Sanford MD [address] [place] [address] Consulting Physician CARDIOVASCULAR DISEASE 02/10/24 documented as of this encounter
--- OUTSIDE RECORDS SUMMARY | 2024-10-30 18:58 | XMS_ITS | Encounter Summary ---
Author Organization [facility] Address [facility]6 [facility] [place] [place] [address] [place] [address] Care Team Providers Care Rubber Stamp Dies Inspector Name Role Phone Deion Bhat MD Primary Care Provider [phone] Pretty Gomez APRN ORACLE R12 DEVELOPER-C Unavailable Reason for Visit * Reason Onset Date Comments Information 12/16/2021 Encounter Details Date Type Department Care Team (Late st Contact Info) Description 12/16/2021 [facility]phone [facility] [address] [place] [address] Colby Bhardwaj MD Information Social History Tobacco Use Types Packs/Day Years Used Date Smoking Tobacco: Every Day Smokeless Tobacco: Never Comments:patient doesnt smok e Alcohol Use Standard Drinks/Week Comments Not Currently 0 (1 standard drink = 0.6 oz pur e alcohol) Comments Unknown Sex and Gender Information Value Date Recorded Sex Assigned at Not on file Legal Sex Female 3:48 PM COMBATANT DIVER OFFICER Gender Identity Not on file Sexual Orientation Not on file COVID-19 Exposure Response Date Recorded In the last 10 days, have yo u been in contact with someone who was confirmed or suspected to have Coronavirus/COVID-19? No / Unsure 12/15/2021 11:43 AM COMBATANT DIVER OFFICER documented as of this encounter Progress Notes * Courtney Vernon RN - 12/17/2021 12:30 PM CST Received most recent lipid results from Dr. Bhat office for Dr. Bhardwaj to review ATANT DIVER OFFICER * Courtney Vernon RN - 12/16/2021 2:[address] Bhardwaj: obtain lipid panel results from Dr. Bhat's office- will decide on statin based onlipid panel results; RTC in [address] Bhat office- sent to [facility], message left requesting most recent lipid results. F/u made for [facility] on 06/25 at 8 am ATANT DIVER OFFICER documented in this encounter Plan of Treatment Upcoming Encounters Date Type Department Care Team (Late st Contact Info) Description 08/10/2025 10:00 AM CDT Office Visit [facility] [place] [address] Zofia Sanford MD [address] [place] [address] documented as of this encounter Visit Diagnoses Not on filedocumented in this encounter Care Teams Rubber Stamp Dies Inspector Relationship Specialty Start Date End Date Deion Bhat MD [address] [place] [address] PCP - General INTERNAL MEDICINE 10/30/20 Pretty Gomez APRN, ORACLE R12 DEVELOPER-C [facility] [facility] [address] [address] NURSE PRACTITIONER 10/30/21 02/09/24 documented as of this encounter
--- OUTSIDE RECORDS SUMMARY | 2024-10-30 18:58 | XMS_ITS | Encounter Summary ---
Author Organization [facility] Address [facility]6 [facility] [place] [address] [place] [address] Care Team Providers Care Oyster Washer Name Role Phone Deion Bhat MD Primary Care Provider Pretty Gomez APRN, SIGNALS INTELLIGENCE SUPERINTENDENT-C Unavailable Encounter Details Date Type Department Care Team (Late st Contact Info) Description 11/19/2021 Orders Only [facility] [address] [place] [address] Colby Bhardwaj MD Social History Tobacco Use Types Packs/Day Years Used Date Smoking Tobacco: Every Day Smokeless Tobacco: Never Comments:patient doesnt smok e Alcohol Use Standard Drinks/Week Comments Not Currently 0 (1 standard drink = 0.6 oz pur e alcohol) Comments Unknown Sex and Gender Information Value Date Recorded Sex Assigned at Not on file Legal Sex Female 3:48 PM DENITRATOR Gender Identity Not on file Sexual Orientation Not on file COVID-19 Exposure Response Date Recorded In the last month, have you been in contact with someone who was confirmed or suspected to have Coronavirus / COVID-19? No / Unsure 11/14/2021 2:00 PM DENITRATOR documented as of this encounter Plan of Treatment Upcoming Encounters Date Type Department Care Team (Late st Contact Info) Description 08/10/2025 10:00 AM CDT Office Visit [facility] [place] [address] Zofia Sanford MD [address] [place] [address] documented as of this encounter Visit Diagnoses Not on filedocumented in this encounter Care Teams Oyster Washer Relationship Specialty Start Date End Date Deion Bhat MD [address] [place] [phone] PCP - General INTERNAL MEDICINE 10/30/20 Pretty Gomez APRN, SIGNALS INTELLIGENCE SUPERINTENDENT-C 619 [facility] [address] [place] [address] NURSE PRACTITIONER 10/30/21 02/09/24 documented as of this encounter
--- OUTSIDE RECORDS SUMMARY | 2024-10-30 18:58 | XMS_ITS | Encounter Summary ---
Author Organization [facility] Address [facility]6 [facility] [place] [address] [place] [address] Care Team Providers Care Hospital Chaplain Name Role Phone Deion Bhat MD Primary Care Provider Pretty Goemz APRN, SECURITY DOOR INSTALLER-C Unavailable Encounter Details Date Type Department Care Team (Latest Contact Info) Description 12/12/2021 Travel Social History Tobacco Use Types Packs/Day Years Used Date Smoking Tobacco: Every Day Smokeless Tobacco: Never Comments:patient doesnt smok e Alcohol Use Standard Drinks/Week Comments Not Currently 0 (1 standard drink = 0.6 oz pur e alcohol) Comments Unknown Sex and Gender Information Value Date Recorded Sex Assigned at Not on file Legal Sex Female 3:48 PM SOIL BIOLOGY TEACHER Gender Identity Not on file Sexual Orientation Not on file COVID-19 Exposure Response Date Recorded In the last 10 days, have yo u been in contact with someone who was confirmed or suspected to have Coronavirus/COVID-19? No / Unsure 12/12/2021 7:36 AM SOIL BIOLOGY TEACHER documented as of this encounter Plan of Treatment Upcoming Encounters Date Type Department Care Team (Late st Contact Info) Description 08/10/2025 10:00 AM CDT Office Visit [facility] [place] [address] Zofia Sanford MD [address] [place] [address] documented as of this encounter Visit Diagnoses Not on filedocumented in this encounter Additional Health Concerns Infection Onset Date Last Indicated Resolved Time COVID-19 Rule Out 12/12/2021 12/12/2021 12/12/2021 7:36 PM SOIL BIOLOGY TEACHER documented as of this encounter Care Teams Hospital Chaplain Relationship Specialty Start Date End Date Deion Bhat MD [address] [place] [phone] PCP - General INTERNAL MEDICINE 10/30/20 Pretty Gomez APRN, SECURITY DOOR INSTALLER-C 619 [facility] [address] [address] NURSE PRACTITIONER 10/30/21 02/09/24 documented as of this encounter
--- OUTSIDE RECORDS SUMMARY | 2024-10-30 18:58 | XMS_ITS | Encounter Summary ---
Author Organization [facility] Address [facility]6 [facility] [place] [address] [place] [address] Care Team Providers Care Head Screen Worker Name Role Phone Deion Bhat MD Primary Care Provider [phone] Pretty Gomez APRN MEDICAL EDUCATOR-C Unavailable Reason for Visit * Reason Onset Date Comments Results 12/18/2021 Encounter Details Date Type Department Care Team (Late st Contact Info) Description 12/18/2021 Telephone [facility] [address] [place] [address] Colby Bhardwaj MD Results Social History Tobacco Use Types Packs/Day Years Used Date Smoking Tobacco: Every Day Smokeless Tobacco: Never Comments:patient doesnt smok e Alcohol Use Standard Drinks/Week Comments Not Currently 0 (1 standard drink = 0.6 oz pur e alcohol) Comments Unknown Sex and Gender Information Value Date Recorded Sex Assigned at Not on file Legal Sex Female 3:48 PM PALEONTOLOGY TEACHER Gender Identity Not on file Sexual Orientation Not on file COVID-19 Exposure Response Date Recorded In the last 10 days, have yo u been in contact with someone who was confirmed or suspected to have Coronavirus/COVID-19? No / Unsure 12/15/2021 11:43 AM PALEONTOLOGY TEACHER documented as of this encounter Progress Notes * Courtney Vernon RN - 12/18/2021 10:[address] Bhardwaj: after review of most recent lipid results: Pravastatin 20 mg Q HS,repeat lipid/ALT in 4-6 weeks. Phoned patient, made aware of above recommendations, expressed understanding and agrees. Made aware of scheduled f/u appointment date/time Appointment reminder and lab orders mailed to patient. ONTOLOGY TEACHER documented in this encounter Plan of Treatment Upcoming Encounters Date Type Department Care Team (Late st Contact Info) Description 08/10/2025 10:00 AM CDT Office Visit [facility] [place] [address] Zofia Sanford MD [address] [place] [id number] documented as of this encounter Results * ALT/SGPT (01/31/2022) ALT [...] artery calcification seen on CT scan- Primary Mixed hyperlipidemia documented in this encounter Care Teams Head Screen Worker Relationship Specialty Start Date End Date Deion Bhat MD [address] [place] [address] PCP - General INTERNAL MEDICINE 10/30/20 Pretty Gomez APRN, MEDICAL EDUCATOR-C [address] [facility] [address] [place] [address] NURSE PRACTITIONER 10/30/21 02/09/24 documented as of this encounter
--- OUTSIDE RECORDS SUMMARY | 2024-10-30 18:59 | XMS_ITS | Encounter Summary ---
Author Organization [facility] Address [facility]6 [facility] [place] [address] [place] [address] Care Team Providers Care Well Puller Name Role Phone Deion Bhat MD Primary Care Provider Pretty Gomez APRN, CHEF DE CUISINE-C Unavailable Encounter Details Date Type Department Care Team (Late st Contact Info) Description 11/04/2021 Orders Only [facility] [address] [place] [address] Gallito Bhardwaj MD Social History Tobacco Use Types Packs/Day Years Used Date Smoking Tobacco: Every Day Smokeless Tobacco: Never Comments:patient doesnt smok e Alcohol Use Standard Drinks/Week Comments Not Currently 0 (1 standard drink = 0.6 oz pur e alcohol) Comments Unknown Sex and Gender Information Value Date Recorded Sex Assigned at Not on file Legal Sex Female 3:48 PM SALESPERSON YARD GOODS Gender Identity Not on file Sexual Orientation Not on file COVID-19 Exposure Response Date Recorded In the last month, have you been in contact with someone who was confirmed or suspected to have Coronavirus / COVID-19? No / Unsure 11/01/2021 9:28 AM SALESPERSON YARD GOODS documented as of this encounter Plan of Treatment Upcoming Encounters Date Type Department Care Team (Late st Contact Info) Description 08/10/2025 10:00 AM CDT Office Visit [facility] [place] [address] Zofia Sanford MD [address] [place] [address] documented as of this encounter Procedures Procedure Name Priority Date/Time Associated Diagnosis Comments ELECTROCARDIOGRAM (NON MIDMARK ACQUIRED) Routine 11/04/2021 2:09 PM SALESPERSON YARD GOODS Abnormal EKG documented in this encounter Results * ELECTROCARDIOGRAM (11/04/2021 2:09 PM SALESPERSON YARD GOODS) 11/04/2021 2:09 PM SALESPERSON YARD GOODS Narrative [facility] - 11/04/2021 4:45 PM SALESPERSON YARD GOODS ? [facility] ?[address] [place], [place] ??[address] ? Test Date: ?2021-11-04 Pat Name: ? TEN BARRIOS ?Department: ? Room: ? Gender: ? Female ? House Piping Inspector: ?? lizz : ?1955 ? Requested By: GALLITO BHARDWAJ Order Number: [id number] ?Reading : ?? Gallito Bhardwaj ? Measurements Intervals ?[facility] ? Rate: ? 100 ?P: ?50 NH: ? 166 ?QRS: ?-29 QRSD: ? 133 ?T: ?46 QT: ? 374 ? QTc: ?484 ? Interpretive Statements SINUS TACHYCARDIA BORDERLINE LEFT AXIS DEVIATION RIGHT BUNDLE BRANCH BLOCK SPERSON YARD GOODS Procedure Note Gallito Bhardwaj MD - 11/04/2021 [facility], [facility] [address] [place] [address] Test Date: 2021-11-04 Pat Name: TEN BARRIOS Department: Room: Gender: Female House Piping Inspector: lizz : 1955 Requested By: GALLITO BHARDWAJ Order Number: [id number] Reading MD: Gallito Bhardwaj Measurements Intervals [facility] Rate: 100 P: 50 NH: 166 QRS: -29 QRSD: 133 T: 46 QT: 374 QTc: 484 Interpretive Statements SINUS TACHYCARDIA BORDERLINE LEFT AXIS DEVIATION RIGHT BUNDLE BRANCH BLOCK SPERSON YARD GOODS us Gallito Bhardwaj MD PROCEDURES-ORDERABLE NO JAYDE RGE Final Result MONICA ELLISON documented in this encounter Visit Diagnoses Diagnosis Abnormal EKG- Primary Nonspecific abnormal electrocardiogram (ECG) (EKG) documented in this encounter Care Teams Well Puller Relationship Specialty Start Date End Date Deion Bhat MD [address] [place] [phone] PCP - General INTERNAL MEDICINE 10/30/20 Pretty Gomez, CECILE, CHEF DE CUISINE-C 6[address] E [facility] [address] [place] [address] NURSE PRACTITIONER 10/30/21 02/09/24 documented as of this encounter
--- OUTSIDE RECORDS SUMMARY | 2024-10-30 18:59 | XMS_ITS | Encounter Summary ---
Author Organization [facility] Address [facility]6 [facility] [place] [address] [place] [address] Care Team Providers Care Correspondence Representative Name Role Phone Deion Bhat MD Primary Care Provider Pretty Gomez APRN, HUMAN RESOURCES ANALYST-C Unavailable Reason for Visit * Reason Onset Date Comments Schedule Test 11/05/2021 CTA Coronary w/s coring and echo Encounter Details Date Type Department Care Team ([facility] st Contact Info) Description 11/05/2021 [facility]phone [facility] [address] [place] [address] Pretty Gomez APRN, HUMAN RESOURCES ANALYST-C [address] [facility] [address] [place] [address] Schedule Test (CTA Coronary w/scoring and echo ) Social History Tobacco Use Types Packs/Day Years Used Date Smoking Tobacco: Every Day Smokeless Tobacco: Never Comments:patient doesnt smok e Alcohol Use Standard Drinks/Week Comments Not Currently 0 (1 standard drink = 0.6 oz pur e alcohol) Comments Unknown Sex and Gender Information Value Date Recorded Sex Assigned at Not on file Legal Sex Female 3:48 PM GRINDER SET UP OPERATOR EXTERNAL Gender Identity Not on file Sexual Orientation Not on file COVID-19 Exposure Response Date Recorded In the last month, have you been in contact with someone who was confirmed or suspected to have Coronavirus / COVID-19? No / Unsure 11/04/2021 1:55 PM GRINDER SET UP OPERATOR EXTERNAL documented as of this encounter Progress Notes * Pretty Gomez APRN, DARRYL - 11/07/2021 8:38 AM CST Called Rosi to review medication instructions prior to her CTA. In the spring, Dr. Bhat had premedicated her for CTs with contrast, and she did well. They followed the typical premedication guidelines with prednisone 50 mg 13 hours, 7 hours, and 1 hour prior to the test, along with benadryl 50 mg1 hour prior to the test. We will send in the prescription to [facility]. I also reminded her of the metoprolol 100 mg to be taken 1-2 hours prior to the test, and bring the additional 50 mg with herto the test. She v/u. DER SET UP OPERATOR EXTERNAL * Susan Patel - 11/05/2021 11:44 AM CST Images from the original note were not included. Pretty Gomez APRN, HUMAN RESOURCES ANALYSTKimberlyC P [facility] Centralized Scheduling Needs CTA with FFR and echo. ??If we can't get both tests on the same day in a reasonable time, theecho can be done on a different day in [place]. ??Once scheduled, I will need to call with instructions regarding premedication for contrast allergy. (CC'd chart board 11/04/21) Called and spoke with pt to schedule the CTA Coronary w/scoring and echo. Both scheduled. CTA Coronary, 11/11/21 @ 9:00, James'. Echo, 11/14/21 @ 2:30, [place]. Staff message has been sent to Pretty Gomez and Dr. Bhardwaj's nurse's board. Advised pt Pretty will call her with instructions for testing. Pt v/u. DER SET UP OPERATOR EXTERNAL documented in this encounter Plan of Treatment Upcoming Encounters Date Type Department Care Team (Late st Contact Info) Description 08/10/2025 10:00 AM CDT Office Visit [facility] [place] [phone] Zofia Sanford MD [address] [place] [address] documented as of this encounter Visit Diagnoses Not on filedocumented in this encounter Care Teams Correspondence Representative Relationship Specialty Start Date End Date Deion Bhat MD [address] [place] [phone] PCP - General INTERNAL MEDICINE 10/30/20 Pretty Gomez, RENT AND MISCELLANEOUS REMITTANCE CLERK, HUMAN RESOURCES ANALYST-C 619 [facility] [address] [place] [address] NURSE PRACTITIONER 10/30/21 02/09/24 documented as of this encounter
--- OUTSIDE RECORDS SUMMARY | 2024-10-30 18:59 | XMS_ITS | Encounter Summary ---
Author Organization [facility] Address [facility]6 [facility] [place] [address] [place] [address] Care Team Providers Care Marquetry Worker Name Role Phone Deion Bhat MD Primary Care Provider [phone] Pretty Gomez APRN, INSTRUCTOR EXTENSION WORK-C Unavailable Encounter Details Date Type Department Care Team (Latest Contact Info) Description 11/07/2021 Travel Social History Tobacco Use Types Packs/Day Years Used Date Smoking Tobacco: Every Day Smokeless Tobacco: Never Comments:patient doesnt smok e Alcohol Use Standard Drinks/Week Comments Not Currently 0 (1 standard drink = 0.6 oz pur e alcohol) Comments Unknown Sex and Gender Information Value Date Recorded Sex Assigned at Not on file Legal Sex Female 3:48 PM HYDRAULIC BLOCKER Gender Identity Not on file Sexual Orientation Not on file COVID-19 Exposure Response Date Recorded In the last month, have you been in contact with someone who was confirmed or suspected to have Coronavirus / COVID-19? No / Unsure 11/07/2021 1:10 PM HYDRAULIC BLOCKER documented as of this encounter Plan of Treatment Upcoming Encounters Date Type Department Care Team (Late st Contact Info) Description 08/10/2025 10:00 AM CDT Office Visit [facility] [place] [address] Zofia Sanford MD [address] [place] [address] documented as of this encounter Visit Diagnoses Not on filedocumented in this encounter Care Teams Marquetry Worker Relationship Specialty Start Date End Date Deion Bhat MD [address] [place] [address] PCP - General INTERNAL MEDICINE 10/30/20 Pretty Gomez, CECILE, INSTRUCTOR EXTENSION WORK-C 619 [facility] [address] [place] [phone] NURSE PRACTITIONER 10/30/21 02/09/24 documented as of this encounter
--- OUTSIDE RECORDS SUMMARY | 2024-10-30 18:59 | XMS_ITS | Encounter Summary ---
Author Organization [facility] Address [facility]6 [facility] [place] [address] [place] [address] Care Team Providers Care Cylinder Die Machine Operator Name Role Phone Deion Bhat MD Primary Care Provider [phone] Reason for Visit * Reason Comments CT (SCAN) Encounter Details Date Type Department Care Team (Latest Contact Info) Description 01/30/2021 Scan HEALTH INFO [facility] Scanned, Documents CT (SCAN) Social History Tobacco Use Types Packs/Day Years Used Date Smoking Tobacco: Never Smokeless Tobacco: Never Comments:patient doesnt smok e Alcohol Use Standard Drinks/Week Comments Not Currently 0 (1 standard drink = 0.6 oz pur e alcohol) Comments Unknown Sex and Gender Information Value Date Recorded Sex Assigned at Not on file Legal Sex Female 3:48 PM DRUM PULLER Gender Identity Not on file Sexual Orientation Not on file documented as of this encounter Plan of Treatment Upcoming Encounters Date Type Department Care Team (Late st Contact Info) Description 08/10/2025 10:00 AM CDT Office Visit [facility] [place] [address] Zofia Sanford MD [address] [place] [address] documented as of this encounter Procedures Procedure Name Priority Date/Time Associated Diagnosis Comments CT GENERIC 01/30/2021 CT GENERIC 01/30/2021 CT GENERIC 01/30/2021 CT GENERIC 01/30/2021 documented in this encounter Results * CT GENERIC (01/30/2021) Anatomical Region Laterality Modality Other 01/30/2021 Narrative 01/30/2021 Ordered by an unspecified provider. us Documents Scanned SCANNING Final Result * CT GENERIC (01/30/2021) Anatomical Region Laterality Modality Other 01/30/2021 Narrative 01/30/2021 Ordered by an unspecified provider. us Documents Scanned SCANNING Final Result * CT GENERIC (01/30/2021) Anatomical Region Laterality Modality Other 01/30/2021 Narrative 01/30/2021 Ordered by an unspecified provider. us Documents Scanned SCANNING Final Result * CT GENERIC (01/30/2021) Anatomical Region Laterality Modality Other 01/30/2021 Narrative 01/30/2021 Ordered by an unspecified provider. us Documents Scanned SCANNING Final Result documented in this encounter Visit Diagnoses Not on filedocumented in this encounter Care Teams Cylinder Die Machine Operator Relationship Specialty Start Date End Date Deion Bhat MD [address] [place] [address] PCP - General INTERNAL MEDICINE 10/30/20 documented as of this encounter
--- OUTSIDE RECORDS SUMMARY | 2024-10-30 18:59 | XMS_ITS | Encounter Summary ---
Author Organization [facility] Address [facility]6 [facility] [place] [address] [place] [address] Care Team Providers Care Maintenance Mechanic Name Role Phone Deion Bhat MD Primary Care Provider Pretty Gomez APRN, SHOE PACKER-C Unavailable [phone] Encounter Details Date Type Department Care Team (Latest Contact Info) Description 11/01/2021 Travel Social History Tobacco Use Types Packs/Day Years Used Date Smoking Tobacco: Never Smokeless Tobacco: Never Comments:patient doesnt smok e Alcohol Use Standard Drinks/Week Comments Not Currently 0 (1 standard drink = 0.6 oz pur e alcohol) Comments Unknown Sex and Gender Information Value Date Recorded Sex Assigned at Not on file Legal Sex Female 3:48 PM DRAFTER CONSTRUCTION Gender Identity Not on file Sexual Orientation Not on file COVID-19 Exposure Response Date Recorded In the last month, have you been in contact with someone who was confirmed or suspected to have Coronavirus / COVID-19? No / Unsure 11/01/2021 9:28 AM DRAFTER CONSTRUCTION documented as of this encounter Plan of Treatment Upcoming Encounters Date Type Department Care Team (Late st Contact Info) Description 08/10/2025 10:00 AM CDT Office Visit [facility] [place] [address] Zofia Sanford MD [address] [place] [address] documented as of this encounter Visit Diagnoses Not on filedocumented in this encounter Care Teams Maintenance Mechanic Relationship Specialty Start Date End Date Deion Bhat MD [address] [place] [address] PCP - General INTERNAL MEDICINE 10/30/20 Pretty Gomez APRN, SHOE PACKER-C [address] [facility] [address] [place] [address] NURSE PRACTITIONER 10/30/21 02/09/24 documented as of this encounter
--- OUTSIDE RECORDS SUMMARY | 2024-10-30 18:59 | XMS_ITS | Encounter Summary ---
Author Organization [facility] Address [facility] [place] [address] [place] [address] Care Team Providers Care Strip Mill Operator Name Role Phone Deion Bhat MD Primary Care Provider Pretty Gomez APRN, CUSTOMER SERVICE SECURITY OFFICER-C Unavailable Encounter Details Date Type Department Care Team (Latest Contact Info) Description 11/14/2021 Travel Social History Tobacco Use Types Packs/Day Years Used Date Smoking Tobacco: Every Day Smokeless Tobacco: Never Comments:patient doesnt smok e Alcohol Use Standard Drinks/Week Comments Not Currently 0 (1 standard drink = 0.6 oz pur e alcohol) Comments Unknown Sex and Gender Information Value Date Recorded Sex Assigned at Not on file Legal Sex Female 3:48 PM BODILY INJURY ADJUSTER Gender Identity Not on file Sexual Orientation Not on file COVID-19 Exposure Response Date Recorded In the last month, have you been in contact with someone who was confirmed or suspected to have Coronavirus / COVID-19? No / Unsure 11/14/2021 2:00 PM BODILY INJURY ADJUSTER documented as of this encounter Plan of Treatment Upcoming Encounters Date Type Department Care Team (Late st Contact Info) Description 08/10/2025 10:00 AM CDT Office Visit [facility] [place] [address] Zofia Sanford MD [address] [place] [address] documented as of this encounter Visit Diagnoses Not on filedocumented in this encounter Care Teams Strip Mill Operator Relationship Specialty Start Date End Date Deion Bhat MD [address] [place] [address] PCP - General INTERNAL MEDICINE 10/30/20 Pretty Gomez, CECILE, CUSTOMER SERVICE SECURITY OFFICER-C [address] [facility] [address] [place] [phone] NURSE PRACTITIONER 10/30/21 02/09/24 documented as of this encounter
--- OUTSIDE RECORDS SUMMARY | 2024-10-30 18:59 | XMS_ITS | Encounter Summary ---
Author Organization [facility] Address [facility]6 [facility] [place] [address] [place] [address] Care Team Providers Care Career Manager Name Role Phone Deion Bhat MD Primary Care Provider Pretty Gomez APRN, FEATHER MAKER-C Unavailable Encounter Details Date Type Department Care Team (Latest Contact Info) Description 11/04/2021 Travel Social History Tobacco Use Types Packs/Day Years Used Date Smoking Tobacco: Every Day Smokeless Tobacco: Never Comments:patient doesnt smok e Alcohol Use Standard Drinks/Week Comments Not Currently 0 (1 standard drink = 0.6 oz pur e alcohol) Comments Unknown Sex and Gender Information Value Date Recorded Sex Assigned at Not on file Legal Sex Female 3:48 PM MAITRE D' Gender Identity Not on file Sexual Orientation Not on file COVID-19 Exposure Response Date Recorded In the last month, have you been in contact with someone who was confirmed or suspected to have Coronavirus / COVID-19? No / Unsure 11/04/2021 1:55 PM MAITRE D' documented as of this encounter Plan of Treatment Upcoming Encounters Date Type Department Care Team (Late st Contact Info) Description 08/10/2025 10:00 AM CDT Office Visit [facility] [place] [address] Zofia Sanford MD [address] [place] [address] documented as of this encounter Visit Diagnoses Not on filedocumented in this encounter Care Teams Career Manager Relationship Specialty Start Date End Date Deion Bhat MD [address] [place] [address] PCP - General INTERNAL MEDICINE 10/30/20 Pretty Gomez, CECILE, FEATHER MAKER-C [address] [facility] [address] [place] [phone] NURSE PRACTITIONER 10/30/21 02/09/24 documented as of this encounter
--- OUTSIDE RECORDS SUMMARY | 2024-10-30 18:59 | XMS_ITS | Encounter Summary ---
Author Organization [facility] Address [facility] [facility] [place] [address] [place] [address] Care Team Providers Care Chemical Plant Manager Name Role Phone Deion Bhat MD Primary Care Provider Pretty Gomez APRN, OPTOMETRIST ASSISTANT-C Unavailable Reason for Visit * Reason Onset Date Comments Results 11/17/2021 Encounter Details Date Type Department Care Team ([facility] Contact Info) Description 11/17/2021 [facility] [address] [place] [address] Pretty Gomez APRN, OPTOMETRIST ASSISTANT-C [address] [facility] [address] [place] [address] Results Social History Tobacco Use Types Packs/Day Years Used Date Smoking Tobacco: Every Day Smokeless Tobacco: Never Comments:patient doesnt smok e Alcohol Use Standard Drinks/Week Comments Not Currently 0 (1 standard drink = 0.6 oz pur e alcohol) Comments Unknown Sex and Gender Information Value Date Recorded Sex Assigned at Not on file Legal Sex Female 3:48 PM RUBBER LINER Gender Identity Not on file Sexual Orientation Not on file COVID-19 Exposure Response Date Recorded In the last month, have you been in contact with someone who was confirmed or suspected to have Coronavirus / COVID-19? No / Unsure 11/14/2021 2:00 PM RUBBER LINER documented as of this encounter Progress Notes * Courtney Vernon RN - 11/19/2021 10:48 AM CST [facility] scheduled for 12/15/21 at 1:30 pm, arrive at 11:30 am Iodine allergy premedication: Prednisone 25 mg, benadryl 50 mg,pepcid 20 mg po the night before procedure and the morning of the procedure. Covid testing, and lab testing to be done on 12/12 at [facility]. Pre/post procedure happenings discussed, all instructions reviewed Written instructions mailed to patient. ER LINER * Courtney Vernon RN - 11/18/2021 11:54 AM CST Phoned patient, made aware ok to proceed with carpal tunnel surgery on Wednesday Cardiac cath will be scheduled for november Expressed understanding. States her surgery may be cancelled due to the weather, but she will notify the office if this happens ER LINER * Pretty Gomez APRN, NP-C - 11/18/2021 11:[address] Bhardwaj sent a separate message stating carpal tunnel surgery was ok. ER LINER * Pretty Gomez APRN, NP-C - 11/18/2021 11:43 AM CST Faxed original office note and phone note to Dr. Bhat and Dr. Jacques stating she may proceed with carpal tunnel release. Still plan for cath last half of November. ER LINER * Pretty Gomez APRN, NP-C - 11/18/2021 11:[address] Bhardwaj said surgery is fine. I sent my office note the day of her visit, and stated in there that surgery was permitted without having to wait for test results. ER LINER * Courtney Vernon RN - 11/18/2021 10:03 AM CST Patient phoned questioning whether she will be proceeding with surgery on Wednesday. States the surgery center phoned to let her know clearance had not been received yet. Made aware will clarify with Pretty and notify her with the plan ER LINER * Courtney Vernon RN - 11/18/2021 7:35 AM CST Images from the original note were not included. Message Received: Yesterday [facility]; Pretty Gomez APRN, NP-C CTA: ?? Severe stenosis described in mid LAD per Dr Sanford. ??Given CRFs, family hx of sudden , and pt Sxs, needs cath. ??Would delay surgery for now as it is elective. ER LINER * Courtney Vernon RN - 11/17/2021 1:51 PM CST Images from the original note were not included. Pretty Gomez APRN, NP-C [facility] [place] Nurse 29 minutes ago (1:21 PM) Needs cath. ??Let's try for approximately a month from CTA (11/11/21). ??Dye allergy protocol. ----- Message from Pretty Gomez APRN, NP-C sent at 11/17/2021 1:44 PM RUBBER LINER ----- FFR report just came through. 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 Let's hold off on scheduling catheterization until Dr. Bhardwaj reviews and decides if cath necessary. ER LINER * Pretty Gomez APRN, OPTOMETRIST ASSISTANT-C - 11/17/2021 1:14 PM CST Spoke with Rosi. Her echocardiogram did not show any significant abnormalities. Her LVEF 60%, mild LVH, and no significant valve disease. Her CTA showed a normal RCA and Circumflex, but a severe stenosis of her mid LAD. FFR appears to be less than 0.80, but I do not have the specific FFR readingsin the report. At this point, since her symptoms are controlled, she may proceed with her carpal tunnel surgery, and we will plan for a cath a month from her CTA since we will need to premedicate forthe contrast allergy. We will be in touch with the details. She v/u. ER LINER documented in this encounter Plan of Treatment Upcoming Encounters Date Type Department Care Team (Late st Contact Info) Description 08/10/2025 10:00 AM CDT Office Visit [facility] [place] [phone] Zofia Sanford MD [address] [place] [address] documented as of this encounter Visit Diagnoses Not on filedocumented in this encounter Care Teams Chemical Plant Manager Relationship Specialty Start Date End Date Deion Bhat MD [address] [place] [address] PCP - General INTERNAL MEDICINE 10/30/20 Pretty Gomez APRN, OPTOMETRIST ASSISTANT-C [address] [facility] [address] [place] [phone] NURSE PRACTITIONER 10/30/21 02/09/24 documented as of this encounter
--- OUTSIDE RECORDS SUMMARY | 2024-10-30 18:59 | XMS_ITS | Encounter Summary ---
Author Organization [facility] Address [facility]6 [facility] [place] [address] [place] [address] Care Team Providers Care Correspondence Clerk Name Role Phone Deion Bhat MD Primary Care Provider Pretty Gomez APRN, VP DATA-C Unavailable Encounter Details Date Type Department Care Team (Late Contact Info) Description 11/05/2021 Abstract [facility] [address] [place] [phone] Abstract, Doc [facility] Social History Tobacco Use Types Packs/Day Years Used Date Smoking Tobacco: Every Day Smokeless Tobacco: Never Comments:patient doesnt smok e Alcohol Use Standard Drinks/Week Comments Not Currently 0 (1 standard drink = 0.6 oz pur e alcohol) Comments Unknown Sex and Gender Information Value Date Recorded Sex Assigned at Not on file Legal Sex Female 3:48 PM RUFFLING HEMMER AUTOMATIC Gender Identity Not on file Sexual Orientation Not on file COVID-19 Exposure Response Date Recorded In the last month, have you been in contact with someone who was confirmed or suspected to have Coronavirus / COVID-19? No / Unsure 11/04/2021 1:55 PM RUFFLING HEMMER AUTOMATIC documented as of this encounter Plan of Treatment Upcoming Encounters Date Type Department Care Team (Late Contact Info) Description 08/10/2025 10:00 AM CDT Office Visit [facility] [place] [phone] Zofia Sanford MD [address] [place] [address] documented as of this encounter Procedures Procedure Name Priority Date/Time Associated Diagnosis Comments HEMOGLOBIN, GLYCOSYLATED Routine 10/15/2021 BASIC METABOLIC PANEL Routine 10/15/2021 CMP (ABSTRACTED LAB) Routine 07/14/2021 TSH (OUTSIDE LAB) Routine 07/14/2021 LIPID PANEL Routine 07/14/2021 THYROXINE, FREE (FT4) Routine 07/14/2021 documented in this encounter Results * HEMOGLOBIN, GLYCOSYLATED (10/15/2021) HGB A1C 7.1 % 10/15/2021 us Doc [facility] Abstract LABORATORY Final Result * BASIC METABOLIC PANEL (10/15/2021) SODIUM S/P/B 137 POTASSIUM S/P/B 4.2 CO2 25 CHLORIDE S/P/B 99 GLUCOSE 95 CALCIUM S/P/B 9.1 BUN 16 CREATININE S/P/B 1.14 EGFR NON-AFR. AMER. 68 10/15/2021 us Doc [facility] Abstract LABORATORY Final Result * THYROXINE, FREE (FT4) (07/14/2021) FREE T4 0.89 0.76 - 1.46 07/14/2021 us Doc [facility] Abstract LABORATORY Final Result * TSH (OUTSIDE LAB) (07/14/2021) TSH 2.91 0.36 - 3.74 07/14/2021 us Doc [facility] Abstract LAB-OUTSIDE/ABSTRACTED Final Result * CMP (ABSTRACTED LAB) (07/14/2021) SODIUM S/P/B 138 POTASSIUM S/P/B 4.8 CHLORIDE S/P/B 101 CO2 27 BUN 14 CREATININE S/P/B 0.96 0.5 - 1.0 EGFR NON-AFR. AMER. 58 <=90 CALCIUM S/P/B 9.3 GLUCOSE 126 mg/dL TOTAL PROTEIN S/P/B 7.5 ALBUMIN S/P/B 4.1 3.5 - 5.0 AST 13 ALT 25 ALKALINE PHOSPHATASE S/P/B 67 BILIRUBIN TOTAL S/P/B 0.4 07/14/2021 us Doc [facility] Abstract LAB-OUTSIDE/ABSTRACTED Final Result * LIPID PANEL (07/14/2021) CHOLESTEROL 191 HDL 35 TRIGLYCERIDES 373 LDL (CALCULATED) 81 07/14/2021 us Doc [facility] Abstract LABORATORY Final Result documented in this encounter Visit Diagnoses Not on filedocumented in this encounter Care Teams Correspondence Clerk Relationship Specialty Start Date End Date Deion Bhat MD [address] [place] [address] PCP - General INTERNAL MEDICINE 10/30/20 Pretty Gomez APRN, VP DATA-C [address] [facility] [address] [place] [phone] NURSE PRACTITIONER 10/30/21 02/09/24 documented as of this encounter
--- OUTSIDE RECORDS SUMMARY | 2024-10-30 18:59 | XMS_ITS | Encounter Summary ---
Author Organization [facility] Address [facility]6 [facility] [place] [address] [place] [address] Care Team Providers Care Silk Folder Name Role Phone Deion Bhat MD Primary Care Provider [phone] Reason for Referral * Imaging (Routine) - Closed Specialty Diagnoses / Procedures Referred By Contac t Referred To Contact RADIOLOGY Diagnoses Cerebral aneurysm, nonruptured (HHS/HCC) Procedures CTA HEAD Rush Kellogg MD Phone: tel: fax: [facility] [phone] Phone: tel: fax: Referral ID Status Reason Start Date Expiration Date Visits Re quested Visits Authorized [id number] Closed 02/12/2021 03/14/2022 1 1 Reason for Visit * Reason Onset Date Comments Results 02/11/2021 Encounter Details Date Type Department Care Team (Late st Contact Info) Description 02/11/2021 Telephone [place] [address] [place] [address] uRsh Kellogg MD 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 Bhat's nurse line with the information below and also stated that if they have any questions to go ahead and give our office a call. * Sobeida Mendez MA - 02/12/2021 9:17 AM CDTAddended by: SOBEIDA MENDEZ on: 02/12/2021 09:17 AM Modules accepted: Orders * Sobeida Mendez MA - 02/12/2021 8:52 AM CDT I have input the orders for the CTA head to be done January 2022 at [facility]. I tried to call the patients PCP office and they are not open yet. I will try again later. * Rush Kellogg MD - 02/11/2021 1:56 PM CDT I called [facility]. The pushed the imaging and I looked at it. The aneurysms look the sameto me, I measured them. I called Ms. Esqueda and relayed this to her. I still don't recommend treatment, she was agreeable with this. Nichole, please arrange for her to have a CTA of the head in one year (January 2022). Also, please call her primary physician's office (Deion Bhat MD) and let them know our plan. I'mnot able to send him an [facility] message. Thanks! * Sobeida Mendez MA - 02/11/2021 12:56 PM CDT Per VM the patient stated that she is wanting the results of her CTA in [place]. documented in this encounter Plan of Treatment Upcoming Encounters Date Type Department Care Team ([facility] st Contact Info) Description 08/10/2025 10:00 AM CDT Office Visit [facility] [place] [phone] Zofia Sanford MD [address] [place] [address] Scheduled Orders Name Type Priority Associated Diagnoses Orde r Schedule CTA HEAD CT Routine Cerebral aneurysm, nonruptured (HHS/HCC) Expected: 01/16/2022, Expires: 02/12/2023 documented as of this encounter Visit Diagnoses Diagnosis Cerebral aneurysm, nonruptured (HHS/HCC)- Primary Cerebral aneurysm, nonruptured documented in this encounter Care Teams Silk Folder Relationship Specialty Start Date End Date Deion Bhat MD [address] [place] [phone] PCP - General INTERNAL MEDICINE 10/30/20 documented as of this encounter
--- OUTSIDE RECORDS SUMMARY | 2024-10-30 18:59 | XMS_ITS | Encounter Summary ---
Author Organization [facility] Address [facility] [place] [place] [address] [place] [address] Care Team Providers Care Cable Cutter And Swager Name Role Phone Kalyan Osuna MD Primary Care Provider [phone] Ezio Chowdhury APRN, NP-C Unavailable Reason for Referral * Imaging (Routine) - Closed Specialty Diagnoses / Procedures Referred By Lou dixon Referred To Contact RADIOLOGY Diagnoses Family history of sudden Abnormal EKG Shortness of breath Preoperative cardiovascular examination Abnormal result of other cardiovascular function study Coronary artery calcification seen on CT scan Procedures CTA CORONARY W SCORING Ezio Chowdhury APRN, NP-C [address] [facility] [address] [place] [address] Phone: tel: fax: Referral ID Status Reason Start Date Expiration Date Visits Re quested Visits Authorized [id number] Closed 11/04/2021 12/05/2022 1 1 ER * Imaging (Routine) - Closed Specialty Diagnoses / Procedures Referred By Lou dixon Referred To Contact RADIOLOGY Diagnoses Family history of sudden Abnormal EKG Shortness of breath Preoperative cardiovascular examination Procedures USE ECHOCARDIOGRAM Ezio Chowdhury APRN, NP-C [address] [facility] [facility] [address] [place] [address] Phone: tel: fax: Referral ID Status Reason Start Date Expiration Date Visits Re quested Visits Authorized [id number] Closed 11/04/2021 12/05/2022 1 1 ER Reason for Visit * Reason Comments Consult preoperative evaluat ion prior to carpal tunnel Encounter Details Date Type Department Care Team (Late st Contact Info) Description 11/04/2021 2:30 PM POURER Office Visit [facility] [address] [place] [address] Ezio Chowdhury APRN, NP-C [address] [facility] [address] [place] [address] Consult (preoperative evaluation prior to carpal tunnel) Social History Tobacco Use Types Packs/Day Years Used Date Smoking Tobacco: Every Day Smokeless Tobacco: Never Comments:patient doesnt smok e Alcohol Use Standard Drinks/Week Comments Not Currently 0 (1 standard drink = 0.6 oz pur e alcohol) Comments Unknown Sex and Gender Information Value Date Recorded Sex Assigned at Not on file Legal Sex Female 3:48 PM POURER Gender Identity Not on file Sexual Orientation Not on file COVID-19 Exposure Response Date Recorded In the last month, have you been in contact with someone who was confirmed or suspected to have Coronavirus / COVID-19? No / Unsure 11/04/2021 1:55 PM POURER documented as of this encounter Last Filed Vital Signs Vital Sign Reading Time Taken Comments Blood Pressure 126/82 11/04/2021 2:12 PM POURER Pulse 100 11/04/2021 2:12 PM POURER Temperature - - Respiratory Rate 16 11/04/2021 2:12 PM POURER Oxygen Saturation 95% 11/04/2021 2:12 PM POURER Inhaled Oxygen Concentration - - Weight 96.5 kg (212 lb 12.8 oz) 11/04/2021 2:12 PM POURER Height 160 cm (5' 3 ) 11/04/2021 2:12 PM POURER Body Mass Index 37.7 11/04/2021 2:12 PM POURER documented in this encounter Patient Instructions * Patient Instructions* Ezio Chowdhury APRN, NP-C - 11/04/2021 2:30 PM POURER 1. Your EKG shows a right bundle block. 2. We will order a CTA to rule out any coronary artery disease. 3. Echocardiogram to rule out structural heart disease. ER documented in this encounter Progress Notes * Ezio Chowdhury APRN, NP-C - 11/04/2021 2:30 PM CST FROM: Ezio Chowdhury APRN, NP-C, collaborating physician Colby Bhardwaj III, M.D. RE: Rosi Esqueda : 1955 Reason for Visit: Consult (preoperative evaluation prior to carpal tunnel) History of Present Illness: Ms. Esqueda is a pleasant 66-year-old female seen in the cardiology clinic today for a preoperative cardiac risk assessment prior to undergoing carpal tunnel repair by Dr. Jacques on 11/21/2021 [facility]. She has a history of hypertension, hypertriglyceridemia, cerebral aneurysm, and diabetes. She reports that she is doing reasonably well from a cardiac standpoint. She denies any anginal chest pain. She does have shortness of breath when walking at a fast pace orclimbing stairs. She tells me that she moved to [facility] from [place] approximately a year ago. Since that time, she has gained weight, and decreased her activity. She has noticed a significantworsening in her shortness of breath. She walks on the treadmill at times, but can only walk for approximately 15 minutes. She states that her legs will begin to ache and she will be short of breath.She denies claudication when walking on the normal surface. She denies any overt symptoms of congestive heart failure such as paroxysmal nocturnal dyspnea or orthopnea. She has occasional lower extremity edema if she has increased dietary sodium. She has occasional palpitations that feel like a racing heartbeat. She states that these occur randomly, not necessarily with exertion. They resolve rather quickly, and she denies any known triggers. She has occasional lightheadedness, but denies any syncope. She denies signs and symptoms of CVA or TIA. She seems to be tolerating her present medications well without reported side effects. Her cardiac risk factors include hypertension, hypertriglyceridemia, diabetes, smoking, and a positive family history of coronary artery disease. Her mother in her 70s from a fatal myocardial infarction, and her brother in his 60s. She states that they were not aware of further heart disease prior to their myocardial infarctions. Evaluation during the clinic visit included an EKG which confirmed the presence of sinus tachycardia at a rate of 100 beats per minute with a right bundle branch block. Recommendations/Plan: Ms. Esqueda has an elevated heart rate with a right bundle branch block in clinic today. She denies ever being told that she had an abnormal EKG. She does admit to being anxious at doctor's appointments. Her last cardiac evaluation was 10 to 15 years ago, and she denies any issues at that time. Given her multiple cardiac risk factors, and presence of coronary artery calcification noted on a CTA in January 2021, further ischemic evaluation is warranted. However, she reports being able to perform at least 4 METs of activity without exertional symptoms, and carpal tunnel surgery is a low risk procedure from a cardiovascular standpoint. Therefore, the ischemic evaluation does not necessarily have to be done prior to the surgery. I believe that her cardiovascular risk of the procedure is mildly increased in light of her known hypertension, diabetes, and possible coronary artery disease. This mildly increased cardiovascular risk is felt to be acceptable in light of the overall clinical situation. From a halfway standpoint, I have recommended to Ms. Esqueda: 1. Abnormal EKG, Family History of Sudden , Shortness of Breath, Coronary Artery Calcificationnoted on CT. We will order coronary CTA with FFR to rule out ischemia. If her arteries do not have at least moderate stenosis, the FFR will not be performed. With her elevated heart rate, I have instructed her to take metoprolol tartrate 100 mg 1 to 2 hours prior to her CTA. She will bring an additional 50 mg tablet with her to the study. She does have a history of iodine allergy. She underwent multiple CT studies in January without issue after using prednisone and Benadryl prior to the study. Gi also order an echocardiogram to assess her structural heart status. 2. Hypertension. Her blood pressure is reasonably controlled in the office today. 3. Hypertriglyceridemia. We will try to obtain her most recent lipid panel so that we can make further recommendations once we have her CTA results 4. Current Smoker. I emphasized the importance of smoking cessation. She does not wish to pursue cessation assistance aids at this point. Further recommendations pending her final results. I have encouraged her to contact me in the meantime should she have any questions or problems. Medications: Current Outpatient Medications: ??? amLODIPine 10 MG tablet, Take 10 mg by mouth daily., Disp: , Rfl: ??? aspirin 81 MG chewable tablet, Chew 81 mg by mouth daily., Disp: , Rfl: ??? buPROPion XL 300 [...] 1 Unit Dial, 100 UNIT/ML injection (PEN), 15 units at breakfast, 25 units at lunch, 30 units at dinner, and 5 units with snacks, Disp: , Rfl: ??? LANTUS SOLOSTAR 100 UNIT/ML injection (PEN), Inject 60 Units into the skin nightly., Disp: , Rfl: ??? lisinopril 40 MG tablet, Take 40 mg by mouth daily., Disp: , Rfl: ??? LORazepam 1 MG tablet, as needed. , Disp: , Rfl: ??? metFORMIN ER 500 MG 24 hr tablet, Take 500 mg by mouth daily with breakfast. , Disp: , Rfl: ??? metoprolol tartrate 50 MG tablet, Take 2 tablets PO 1-2 hours prior to your CTA. Bring the other tablet with you to the test., Disp: 3 tablet, Rfl: 0 ??? Blood Glucose Monitoring Suppl (ONE TOUCH ULTRA 2) w/Device Kit, , Disp: , Rfl: ??? ONETOUCH ULTRA test strip, , Disp: , Rfl: Allergies Allergen Reactions ??? Iodine Hives ??? Aleve [Naproxen] Rash Trouble breathing and rash ??? Shellfish Allergy Rash Past Medical History: Diagnosis Date ??? Cerebral aneurysm ??? Diabetes (CMS/HCC) ??? Hypertension ??? Hypertriglyceridemia Past Surgical History: Procedure Laterality Date ??? HYSTERECTOMY ??? RECONST CLEFT PALATE,LENGTHENING ??? SHOULDER SURGERY Left ??? TONSILLECTOMY AND ADENOIDECTOMY Social History Tobacco Use ??? Smoking status: [...] double vision. Respiratory: Positive for shortness of breath. Negative for cough and snoring. Cardiovascular: See HPI. Positive for palpitations. Gastrointestinal: Negative for blood in stool and melena. Genitourinary: Negative for dysuria. Musculoskeletal: Positive for myalgias. Negative for new or worsening joint stiffness/pain. Skin: Negative for rash. Neurological: Negative for tingling/numbness and focal weakness. Endo/Heme/Allergies: Negative for new or significant bruising/bleeding and polydipsia. Psychiatric/Behavioral: Negative for depression and new or significant memory loss. Vitals: 11/04/21 1412 BP: 126/82 Patient Position: Sitting BP Location: Right arm Pulse: 100 Weight: 96.5 kg (212 lb 12.8 oz) Height: 5' 3 (1.6 m) Body mass index is 37.7 kg/m??. Cardiac Exam Rate/Rhythm: Regular rhythm. Tachycardia present. PMI: Pulses: Normal pulses. Dorsalis pedis pulses are 2+ on the right side and 2+ on the left side. Posterior tibial pulses are 2+ on the right side and 2+ on the left side. Heart Sounds: Normal heart sounds. Normal S1 sounds. Normal S2 sounds. No gallop present. No S3. NoS4. Murmurs: No murmur present Edema left: 0. Edema Right: 0. Physical Exam Constitutional: No distress. Healthy Appearance. HENT: Mask. Eyes: Pupils equal, round, and reactive to light. Conjunctivae normal. Neck: Neck supple. No JVD. Abdomen: Abdomen soft. Bowel sounds normal. No distension. No tenderness. Abdominal aorta not palpably enlarged. No abdominal bruit present. Pulmonary: Effort normal. Breath sounds normal. Skin: Dry. Warm. No rash. No jaundice. No cyanosis. No clubbing. No xanthoma. Musculoskeletal: No kyphosis. Normal ROM. Neurological: Alert. Oriented x 3. Comments: Diagnoses/Impression: 1. Preoperative cardiovascular examination USE ECHOCARDIOGRAM CTA CORONARY W SCORING 2. Family history of sudden USE ECHOCARDIOGRAM CTA CORONARY W SCORING 3. Abnormal EKG USE ECHOCARDIOGRAM CTA CORONARY W SCORING 4. Shortness of breath USE ECHOCARDIOGRAM CTA CORONARY W SCORING 5. Abnormal result of other cardiovascular function study CTA CORONARY W SCORING 6. Coronary artery calcification seen on CT scan CTA CORONARY W SCORING 7. Essential (primary) hypertension 8. Hypertriglyceridemia 9. Smoker Referring Provider: Kalyan Osuna MD PCP: KALYAN OSUNA MD ER documented in this encounter Plan of Treatment Upcoming Encounters Date Type Department Care Team (Late st Contact Info) Description 08/10/2025 10:00 AM CDT Office Visit [facility] [place] [address] Zofia Sanford MD [address] [place] [address] documented as of this encounter Results * USE ECHOCARDIOGRAM (11/14/2021 3:05 PM POURER) Anatomical Region Laterality Modality Cardiac Ultrasound us Ezio Chowdhury APRN, ADILENEC ECHO Final Result * CTA CORONARY W SCORING (11/11/2021 10:32 AM POURER) Anatomical Region Laterality Modality Chest Computed Tomogra phy 11/11/2021 1:28 PM POURER Addenda Addendum by Zofia Sanford MD on 11/17/2021 1:34 PM POURER Coronary CTffr Evaluation by HeartFlow. Procedure: CT fractional flow reserve assessment processed and analyzed by [employer] was reviewed and correlated with anatomical information. Left Main coronary:1.0 Left anterior descending coronary Proximal segment 0.98 ??Mid segment 0.89 Distal segment:0.77 Left circumflex coronary: Proximal segment:0.99, mid segment:0.97 distal segment:0.86, first marginal branch:0.91 Right coronary artery: Proximal segment 0.99 ??Mid segment 0.87 Distal segment:0.77 Conclusion: Anatomically severe mixed coronary atherosclerosis of the mid LAD was not found to be hemodynamically significant by HeartFlow CT FFR functional analysis. Distal RCA was found to be hemodynamically significant by CT FFR with score of 0.77 but this did not correspond with any significant anatomical stenosis. Distal LAD was found to be hemodynamically significant by CT FFR with score of 0.77 but this did not correspond with any significant anatomical stenosis. Ordered By: EZIO CHOWDHURY Interpreted By: Zofia Sanford, 11/17/2021 1:23 PM Addendum by Zofia Sanford MD on 11/17/2021 7:04 AM POURER EXAMINATION: CARDIAC COMPUTED TOMOGRAPHY with CORONARY CALCIUM SCORE AND CORONARY ANGIOGRAM. HISTORY: ??66 years year old Female with coronary artery disease risk factors presenting with SOB for evaluation of coronary artery disease. TECHNIQUE: 128 dual source multidetector computerized tomography coronary was obtained without administration of intravenous contrast for calcium scoring. 128 dual source multidetector computerized tomography coronary angiogram was obtained using retrospective ECG gating after the administration of 80 mL of Isovue-370 intravenous contrast at 5 mL/sec with 50 mL saline push according to coronary CTA protocol. ECG tube modulation was used to reduce the radiation exposure. In order to provide better evaluation of the anatomy and disease process, advanced off-line 3-D post processing techniques, including multiplanar reconstruction, maximal intensity projections, curved reconstructions, and volume rendering were performed at separate dedicated 3-D workstation. A dose lowering technique was used for this procedure, which may include, but is not limited to, dose reduction technique, automated exposure control, the use of iterative reconstruction, and ALARA (As Low As Reasonably Achievable) / Image Gently techniques. When indicated, CT fractional flow reserve assessment was processed and analyzed by [employer] which was later reviewed and correlated with anatomical information. Medications: Metoprolol tartrate 100mg ??and Sublingual NTG 0.8mg SL Procedure Complications/Allergic reactions: None. Coronary CT angiogram quality: Good, limited by nothing FINDINGS: CORONARY CALCIUM SCORE: The total calcium score of 134 which is 72 percentile in age and gender matched population. CORONARY ARTERY ANGIOGRAM FINDINGS: Stenosis are reported as maximum percentage diameter stenosis. Coronary stenosis grading is reported using the following scheme: * ??Normal: 0% stenosis * ??Minimal: Plaque with <25% stenosis. * ??Mild: ??25% to 49% stenosis. * ??Moderate: 50-69% stenosis * ??Severe: 70-99% stenosis * ??Occluded: Occlusion By functional assessment, a fractional flow reserve of less than 0.80 is considered hemodynamically significant. Dominance of the coronary artery system: Right-sided with normal origins and course. Left main coronary: The left main is a normal caliber vessel which gives rise to the LAD and circumflex arteries. The left main has no stenosis with no plaque. Left anterior descending artery: The LAD is a long normal caliber vessel that gives rise to two Diagonal branch. ??There is a segment of severe stenosis due to mixed plaque in the mid LAD segment at the level of second diagonal branch. The second diagonal branch has an area of moderate stenosis due to calcific plaque proximally. Images sent to [employer] for further analysis. ?? Left circumflex artery: The LCx is a normal caliber vessel that gives rise to one OM branch, and is free of any significant disease. Right coronary artery: The RCA is a normal caliber dominant vessel that gives rise to the PDA and PLV branches, and is free of any significant disease. CARDIAC MORPHOLOGY: Left atrial size is normal in size with no left atrial appendage filling defect. Left Ventricle: The ventricular cavity size is within normal limits. There are no stigmata of prior infarction. There is no abnormal filling defect. Pulmonary arteries are normal in size without proximal filling defect. Pulmonary veins with normal pulmonary venous drainage. There are four pulmonary veins, two on the right and two on the left. Pericardium is normal thickness with no significant effusion or calcium present. Cardiac valves: There is no thickening or calcifications in the aortic and mitral valves. The visualized aorta is normal in caliber with no significant atherosclerotic disease. IMPRESSION: 1. Total calcium score of 134; 72 percentile of age and gender matched population 2. ??Right dominant system. ??The LAD is a long normal caliber vessel that gives rise to two Diagonal branch. ??There is a segment of severe stenosis due to mixed plaque in the mid LAD segment at the level of second diagonal branch. The second diagonal branch has an area of moderate stenosis due to calcific plaque proximally. Images sent to [employer] for further analysis. 3. ??Normal aortic root diameter.. 4. ??Normal pulmonary venous return. CT Fractional flow reserve assessment: ??Images sent for anaylysis by [employer], please see addition to this report. Ordered By: EZIO CHOWDHURY Interpreted By: Zofia Sanford, 11/17/2021 7:00 AM Impressions 11/11/2021 3:30 PM POURER IMPRESSION: 1. Cardiac findings interpreted by holistic nutritionist. 2. Indeterminate 8 mm lobular lung nodule, right middle lobe. RECOMMENDATION: Nodule >8 mm: LOW AND HIGH RISK PATIENT - ??Low dose CT chest without contrast at 3, 12, and 24 months; PET-CT; or tissue sampling. A Incidental message has been communicated to EZIO CHOWDHURY via [employer] Actionable Findings on 11/11/2021 3:30 PM, Message ID [id number]. ??Results were acknowledged. Ordered By: EZIO CHOWDHURY Interpreted By: Mick Caba MD, 11/11/2021 1:28 PM Narrative 11/11/2021 3:30 PM POURER EXAMINATION: CARDIAC COMPUTED TOMOGRAPHY ANGIOGRAM, ROUTINE CORONARY CTA. LUNG OVER READ. DATE: 11/11/2021 HISTORY: ??66-year old female Family history of sudden Abnormal EKG Shortness of breath Preoperative cardiovascular examination Abnormal result of other cardiovascular function study Coronary artery calcification seen on previous CT scan Lopressors given before exam premedicated for allergy. COMPARISON: None. TECHNIQUE: Multidetector computerized tomography coronary angiogram was obtained using retrospective ECG gating after the administration of 80 mL of Isovue-370 intravenous contrast at 5 mL/sec with 50 mL saline push according to coronary CTA protocol. ECG tube modulation was used to reduce the radiation exposure. A dose lowering technique was used for this procedure, which may include, but is not limited to, dose reduction technique, automated exposure control, the use of iterative reconstruction, and ALARA (As Low As Reasonably Achievable) / Image Gently techniques. Medications: Administered by cardiology service. Vital signs: Recorded by cardiology service. Procedure Complications/Allergic reactions: None. Coronary CT angiogram quality: Determined by cardiology service. FINDINGS: CORONARY ARTERY ANGIOGRAM AND OTHER CARDIAC FINDINGS: Interpreted by holistic nutritionist. EXTRACARDIAC FINDINGS: The visible lungs contain no suspicious lung nodule, mass, consolidation. Lobular 8 mm lung nodule in the right middle lobe (image 11, series 10). The visualized thoracic aorta is atherosclerotic. Visualized pulmonary artery appears normal. Accessory/replaced left hepatic artery. Spondylosis. Procedure Note Mick Caba MD / Zofia Sanford MD - 11/11/2021 EXAMINATION: CARDIAC COMPUTED TOMOGRAPHY ANGIOGRAM, ROUTINE CORONARY CTA.LUNG OVER READ. DATE: 11/11/2021 HISTORY: 66-year old female Family history of sudden Abnormal EKG Shortness of breath Preoperative cardiovascular examination Abnormal result of other cardiovascular function study Coronary artery calcification seen on previous CT scan Lopressors given before exam premedicated for allergy. COMPARISON: None. TECHNIQUE: Multidetector computerized tomography coronary angiogram wasobtained using retrospective ECG gating after the administration of 80 mLof Isovue-370 intravenous contrast at 5 mL/sec with 50 mL saline pushaccording to coronary CTA protocol. ECG tube modulation was used to reducethe radiation exposure. A dose lowering technique was used for thisprocedure, which may include, but is not limited to, dose reductiontechnique, automated exposure control, the use of iterativereconstruction, and ALARA (As Low As Reasonably Achievable) / Image Gentlytechniques. Medications: Administered by cardiology service. Vital signs: Recorded by cardiology service. Procedure Complications/Allergic reactions: None. Coronary CT angiogram quality: Determined by cardiology service. FINDINGS: CORONARY ARTERY ANGIOGRAM AND OTHER CARDIAC FINDINGS: Interpreted bycardiologist. EXTRACARDIAC FINDINGS: The visible lungs contain no suspicious lung nodule, mass, consolidation.Lobular 8 mm lung nodule in the right middle lobe (image 11, series 10).The visualized thoracic aorta is atherosclerotic. Visualized pulmonaryartery appears normal. Accessory/replaced left hepatic artery.Spondylosis. IMPRESSION: 1. Cardiac findings interpreted by holistic nutritionist. 2. Indeterminate 8 mm lobular lung nodule, right middle lobe. RECOMMENDATION: Nodule >8 mm: LOW AND HIGH RISK PATIENT - Low dose CTchest without contrast at 3, 12, and 24 months; PET-CT; or tissuesampling. A Incidental message has been communicated to EZIO CHOWDHURY via[employer] Actionable Findings on 11/11/2021 3:30 PM, Message ID [id number].Results were acknowledged. Ordered By: EZIO CHOWDHURY Interpreted By: Mick Caba MD, 11/11/2021 1:28 PM Ezio Chowdhury APRN SUPERVISOR [employer]-C CT Edite d Result - Final documented in this encounter Visit Diagnoses Diagnosis Preoperative cardiovascular examination Pre-operative cardiovascular examination Family history of sudden Family history of other condition Abnormal EKG Nonspecific abnormal electrocardiogram (ECG) (EKG) Shortness of breath Abnormal result of other cardiovascular function study Coronary artery calcification seen on CT scan Essential (primary) hypertension Unspecified essential hypertension Hypertriglyceridemia Pure hyperglyceridemia Smoker Tobacco use disorder Family history of sudden Family history of other condition Abnormal EKG Nonspecific abnormal electrocardiogram (ECG) (EKG) Shortness of breath Preoperative cardiovascular examination Pre-operative cardiovascular examination Abnormal result of other cardiovascular function study Coronary artery calcification seen on CT scan documented in this encounter Care Teams Cable Cutter And Swager Relationship Specialty Start Date End Date Kalyan Osuna MD [address] [place] [id number] PCP - General INTERNAL MEDICINE 10/30/20 Ezio Chowdhury APRN, [employer]-C [address] [facility] [address] [address] NURSE PRACTITIONER 10/30/21 02/09/24 documented as of this encounter
--- OUTSIDE RECORDS SUMMARY | 2024-10-30 18:59 | XMS_ITS | Encounter Summary ---
Author Organization [facility] Address [facility]6 [facility] [place] [address] [place] [address] Care Team Providers Care Survey Field Technician Name Role Phone Deion Bhat MD Primary Care Provider [phone] Ezio Chowdhury APRN, NP-C Unavailable Reason for Referral * Imaging (Routine) - Closed Specialty Diagnoses / Procedures Referred By Lou dixon Referred To Contact RADIOLOGY Diagnoses Family history of sudden Abnormal EKG Shortness of breath Preoperative cardiovascular examination Abnormal result of other cardiovascular function study Coronary artery calcification seen on CT scan Procedures CTA CORONARY W SCORING Ezio Chowdhury APRN, NP-C [address] [facility] [address] [place] [address] Phone: tel: fax: Referral ID Status Reason Start Date Expiration Date Visits Re quested Visits Authorized [id number] Closed 11/04/2021 12/05/2022 1 1 RONMENTAL HEALTH OFFICER Reason for Visit * Imaging (Routine) - Closed Specialty Diagnoses / Procedures Referred By Lou dixon Referred To Contact RADIOLOGY Diagnoses Family history of sudden Abnormal EKG Shortness of breath Preoperative cardiovascular examination Abnormal result of other cardiovascular function study Coronary artery calcification seen on CT scan Procedures CTA CORONARY W SCORING Ezio Chowdhury APRN, MOTOR SCOOTER REPAIRER-C [address] [facility] [address] [place] [address] Phone: tel: fax: Referral ID Status Reason Start Date Expiration Date Visits Re quested Visits Authorized [id number] Closed 11/04/2021 12/05/2022 1 1 Encounter Details Date Type Department Care Team (Latest Contact Info) Description 11/11/2021 8:40 AM ENVIRONMENTAL HEALTH OFFICER - 11/11/2021 11:59 PM ENVIRONMENTAL HEALTH OFFICER Hospital Encounter [facility] [address] [place] [address] Ezio Chowdhury APRN MOTOR SCOOTER REPAIRERKimberlyC [address] [facility] [address] [place] [address] Discharge Disposition: Home or Self Care (Routine [...] on file Legal Sex Female 3:48 PM ENVIRONMENTAL HEALTH OFFICER Gender Identity Not on file Sexual Orientation Not on file COVID-19 Exposure Response Date Recorded In the last month, have you been in contact with someone who was confirmed or suspected to have Coronavirus / COVID-19? No / Unsure 11/10/2021 9:55 AM ENVIRONMENTAL HEALTH OFFICER documented as of this encounter Last Filed Vital Signs Vital Sign Reading Time Taken Comments Blood Pressure 111/67 11/11/2021 10:34 AM ENVIRONMENTAL HEALTH OFFICER Pulse 67 11/11/2021 10:34 AM ENVIRONMENTAL HEALTH OFFICER Temperature - - Respiratory Rate - - Oxygen Saturation 92% 11/11/2021 10:34 AM ENVIRONMENTAL HEALTH OFFICER Inhaled Oxygen Concentration - - Weight - - Height - - Body Mass Index - - documented in this encounter Medications at Time [...] Take 10 mg by mouth daily. 2 LORazepam 1 MG tablet Take 1 [...] tablet 11/04/2021 2 predniSONE 50 MG tablet Take prednisone 50 mg PO 13 hours, 7 hours, and 1 hour prior to your CTA. Take Benadryl 50 mg PO once 1 hour prior to the CTA as well. 3 tablet 11/07/2021 2 documented as of this encounter Plan of Treatment Upcoming Encounters Date Type Department Care Team (Late st Contact Info) Description 08/10/2025 10:00 AM CDT Office Visit [facility] [address] [place] [address] Zofia Sanford MD [address] [place] [address] documented as of this encounter Procedures Procedure Name Priority Date/Time Associated Diagnosis Comments CTA CORONARY W SCORING Routine 11/11/2021 10:32 AM ENVIRONMENTAL HEALTH OFFICER Family history of sudden Abnormal EKG Shortness of breath Preoperative cardiovascular examination Abnormal result of other cardiovascular function study Coronary artery calcification seen on CT scan documented in this encounter Results * CTA CORONARY W SCORING (11/11/2021 10:32 AM ENVIRONMENTAL HEALTH OFFICER) Anatomical Region Laterality Modality Chest Computed Tomogra phy 11/11/2021 1:28 PM ENVIRONMENTAL HEALTH OFFICER Addenda Addendum by Zofia Sanford MD on 11/17/2021 1:34 PM ENVIRONMENTAL HEALTH OFFICER Coronary CTffr Evaluation by [employer]. Procedure: CT fractional flow reserve assessment processed and analyzed by [employer] was reviewed and correlated with anatomical [...] Zofia Sanford MD on 11/17/2021 7:04 AM ENVIRONMENTAL HEALTH OFFICER EXAMINATION: CARDIAC COMPUTED TOMOGRAPHY with CORONARY CALCIUM [...] reserve assessment was processed and analyzed by [employer] which was later reviewed and correlated with [...] to calcific plaque proximally. Images sent to [facility] for further analysis. ?? Left circumflex artery: [...] to calcific plaque proximally. Images sent to [facility] for further analysis. 3. ??Normal aortic root diameter.. 4. ??Normal pulmonary venous return. CT Fractional flow reserve assessment: ??Images sent for anaylysis by [facility], please see addition to this report. Ordered By: EZIO CHOWDHURY Interpreted By: Zofia Sanford, 11/17/2021 7:00 AM Impressions 11/11/2021 3:30 PM ENVIRONMENTAL HEALTH OFFICER IMPRESSION: 1. Cardiac findings interpreted by assembler brazer. 2. Indeterminate 8 mm lobular lung nodule, right middle lobe. RECOMMENDATION: Nodule >8 mm: LOW AND HIGH RISK PATIENT - ??Low dose CT chest without contrast at 3, 12, and 24 months; PET-CT; or tissue sampling. A Incidental message has been communicated to EZIO CHOWDHURY via [employer] Actionable Findings on 11/11/2021 3:30 PM, Message ID [id number]. ??Results were acknowledged. Ordered By: EZIO CHOWDHURY Interpreted By: Mick Caba MD, 11/11/2021 1:28 PM Narrative 11/11/2021 3:30 PM ENVIRONMENTAL HEALTH OFFICER EXAMINATION: CARDIAC COMPUTED TOMOGRAPHY ANGIOGRAM, ROUTINE CORONARY [...] ANGIOGRAM AND OTHER CARDIAC FINDINGS: Interpreted by assembler brazer. EXTRACARDIAC FINDINGS: The visible lungs contain no [...] artery.Spondylosis. IMPRESSION: 1. Cardiac findings interpreted by assembler brazer. 2. Indeterminate 8 mm lobular lung nodule, right middle lobe. RECOMMENDATION: Nodule >8 mm: LOW AND HIGH RISK PATIENT - Low dose CTchest without contrast at 3, 12, and 24 months; PET-CT; or tissuesampling. A Incidental message has been communicated to EZIO CHOWDHURY [employer] Actionable Findings on 11/11/2021 3:30 PM, Message ID [id number].Results were acknowledged. Ordered By: EZIO CHOWDHURY Interpreted By: Mick Caba MD, 11/11/2021 1:28 PM Ezio Chowdhury APRN, MOTOR SCOOTER REPAIRER-C CT Edite d Result - Final documented in this encounter Visit Diagnoses Diagnosis Family history of sudden Family history of other condition Abnormal EKG Nonspecific abnormal electrocardiogram (ECG) (EKG) Shortness of breath Preoperative cardiovascular examination Pre-operative cardiovascular examination Abnormal result of other cardiovascular function study Coronary artery calcification seen on CT scan documented in this encounter Administered Medications Inactive Administered Medications - up to 3 most recent administrations Medication Order MAR Action Action Date Dose Rate Site iopamidol (ISOVUE-370) 76 % injection 80 mL 80 mL, Intravenous, IMG once as needed, Contrast, 1 dose, Starting on Wed11/11/21 at 1032, Until Wed11/11/21 at 1033 Given 11/11/2021 10:33 AM ENVIRONMENTAL HEALTH OFFICER 80 mLs metoprolol tartrate (LOPRESSOR) injection Code/trauma/sedation medication, Starting on Wed11/11/21 at 1027, Until Wed11/11/21 at 1027 Given 11/11/2021 10:27 AM ENVIRONMENTAL HEALTH OFFICER 5 mg nitroglycerin (NITROSTAT) SL tablet Code/trauma/sedation medication, Starting on Wed11/11/21 at 1027, Until Wed11/11/21 at 1027 Given 11/11/2021 10:27 AM ENVIRONMENTAL HEALTH OFFICER 0.8 mg documented in this encounter Care Teams Survey Field Technician Relationship Specialty Start Date End Date Deion Bhat MD [address] [place] [phone] PCP - General INTERNAL MEDICINE 10/30/20 Ezio Chowdhury APRN, MOTOR SCOOTER REPAIRER-C [address] [facility] [address] [address] NURSE PRACTITIONER 10/30/21 02/09/24 documented as of this encounter
--- OUTSIDE RECORDS SUMMARY | 2024-10-30 18:59 | XMS_ITS | Encounter Summary ---
Author Organization [facility] Address [facility] [place] [address] [place] [address] Care Team Providers Care Nike Athlete Name Role Phone Deion Bhat MD Primary Care Provider [phone] Encounter Details Date Type Department Care Team (Latest Contact Info) Description 09/24/2020 Scan HEALTH INFO SRVCS Scanned, Documents Social History Tobacco Use Types Packs/Day Years Used Date Smoking Tobacco: Never Assessed Comments Unknown Sex and Gender Information Value Date Recorded Sex Assigned at Not on file Legal Sex Female 3:48 PM WINDOW DRESSER Gender Identity Not on file Sexual Orientation Not on file COVID-19 Exposure Response Date Recorded In the last month, have you been in contact with someone who was confirmed or suspected to have Coronavirus / COVID-19? No / Unsure 10/31/2020 2:46 PM WINDOW DRESSER documented as of this encounter Plan of Treatment Upcoming Encounters Date Type Department Care Team (Late st Contact Info) Description 08/10/2025 10:00 AM CDT Office Visit [facility] [place] [address] Zofia Sanford MD [address] [place] [address] documented as of this encounter Visit Diagnoses Not on filedocumented in this encounter Care Teams Nike Athlete Relationship Specialty Start Date End Date Deion Bhat MD [address] [place] [address] PCP - General INTERNAL MEDICINE 10/30/20 documented as of this encounter
--- OUTSIDE RECORDS SUMMARY | 2024-10-30 18:59 | XMS_ITS | Encounter Summary ---
Author Organization [facility] Address [facility]6 [facility] [place] [address] [place] [address] Care Team Providers Care Child Care Director Name Role Phone Deion Bhat MD Primary Care Provider [phone] Encounter Details Date Type Department Care Team (Latest Contact Info) Description 10/03/2020 Scan HEALTH INFO SRVCS Scanned, Documents Social History Tobacco Use Types Packs/Day Years Used Date Smoking Tobacco: Never Assessed Comments Unknown Sex and Gender Information Value Date Recorded Sex Assigned at Not on file Legal Sex Female 3:48 PM DATA SERVICES DEVELOPER Gender Identity Not on file Sexual Orientation Not on file COVID-19 Exposure Response Date Recorded In the last month, have you been in contact with someone who was confirmed or suspected to have Coronavirus / COVID-19? No / Unsure 10/31/2020 2:46 PM DATA SERVICES DEVELOPER documented as of this encounter Plan of Treatment Upcoming Encounters Date Type Department Care Team (Late st Contact Info) Description 08/10/2025 10:00 AM CDT Office Visit [facility] [place] [address] Zofia Sanford MD [address] [place] [address] documented as of this encounter Visit Diagnoses Not on filedocumented in this encounter Care Teams Child Care Director Relationship Specialty Start Date End Date Deion Bhat MD [address] [place] [address] PCP - General INTERNAL MEDICINE 10/30/20 documented as of this encounter
--- OUTSIDE RECORDS SUMMARY | 2024-10-30 18:59 | XMS_ITS | Encounter Summary ---
Author Organization [facility] Address [facility]6 [facility]. [place], [place] [address] [place] [address] Care Team Providers Care Skiver Blockers Name Role Phone Deion Bhat MD Primary Care Provider [phone] Pretty Gomez APRN, NP-C Unavailable Reason for Referral * Imaging (Routine) - Closed Specialty Diagnoses / Procedures Referred By Lou dixon Referred To Contact RADIOLOGY Diagnoses Family history of sudden Abnormal EKG Shortness of breath Preoperative cardiovascular examination Procedures USE ECHOCARDIOGRAM Pretty Gomez APRN, NP-C [address] [employer] [facility] [address] [place] [address] Phone: tel: fax: Referral ID Status Reason Start Date Expiration Date Visits Re quested Visits Authorized [id number] Closed 11/04/2021 12/05/2022 1 1 ITURE LUMBER PRODUCTION WORKER Reason for Visit * Imaging (Routine) - Closed Specialty Diagnoses / Procedures Referred By Lou dixon Referred To Contact RADIOLOGY Diagnoses Family history of sudden Abnormal EKG Shortness of breath Preoperative cardiovascular examination Procedures USE ECHOCARDIOGRAM Pretty Gomez APRN FLIGHT INSTRUCTORKimberlyC [address] [facility] [address] [place] [address] Phone: tel: fax: Referral ID Status Reason Start Date Expiration Date Visits Re quested Visits Authorized [id number] Closed 11/04/2021 12/05/2022 1 1 Encounter Details Date Type Department Care Team (Latest Contact Info) Description 11/14/2021 2:03 PM FURNITURE LUMBER PRODUCTION WORKER - 11/14/2021 11:59 PM FURNITURE LUMBER PRODUCTION WORKER Hospital Encounter [facility] [address] [place] [address] Pretty Gomez, WRAPPER OFF, FLIGHT INSTRUCTOR-C [address] [facility] [address] [place] [address] Discharge Disposition: Home or Self [...] on file Legal Sex Female 3:48 PM FURNITURE LUMBER PRODUCTION WORKER Gender Identity Not on file Sexual Orientation Not on file COVID-19 Exposure Response Date Recorded In the last month, have you been in contact with someone who was confirmed or suspected to have Coronavirus / COVID-19? No / Unsure 11/14/2021 2:00 PM FURNITURE LUMBER PRODUCTION WORKER documented as of this encounter Medications at [...] Description 08/10/2025 10:00 AM CDT Office Visit [facility] [address] [place] [address] Zofia Sanford MD [address] [place] [address] documented as of this encounter Procedures Procedure Name Priority Date/Time Associated Diagnosis Comments USE ECHOCARDIOGRAM Routine 11/14/2021 3:05 PM FURNITURE LUMBER PRODUCTION WORKER Family history of sudden Abnormal EKG Shortness of breath Preoperative cardiovascular examination documented in this encounter Results * USE ECHOCARDIOGRAM (11/14/2021 3:05 PM FURNITURE LUMBER PRODUCTION WORKER) Anatomical Region Laterality Modality Cardiac Ultrasound us DARRYL Jack APRN ECHO Final Result documented in this encounter Visit Diagnoses Diagnosis Family history of sudden Family history of other condition Abnormal EKG Nonspecific abnormal electrocardiogram (ECG) (EKG) Shortness of breath Preoperative cardiovascular examination Pre-operative cardiovascular examination documented in this encounter Administered Medications Inactive Administered Medications - up to 3 most recent administrations Medication Order MAR Action Action Date Dose Rate Site perflutren lipid microsphere (DEFINITY) injection 2 mL 2 mL, Intravenous, IMG once as needed, Contrast, 1 dose, Starting on Wed11/14/21 at 1505, Until Wed11/14/21 at 1506, Administer over 30-60 seconds. Follow with 10 mL saline flush. Given 11/14/2021 3:06 PM FURNITURE LUMBER PRODUCTION WORKER 2 mLs Righ t Arm documented in this encounter Care Teams Skiver Blockers Relationship Specialty Start Date End Date Deion Bhat MD [address] [place] [address] PCP - General INTERNAL MEDICINE 10/30/20 Pretty Gomez APRN, FLIGHT INSTRUCTOR-C [address] [facility] [address] [place] [address] NURSE PRACTITIONER 10/30/21 02/09/24 documented as of this encounter
--- OUTSIDE RECORDS SUMMARY | 2024-10-30 18:59 | XMS_ITS | Encounter Summary ---
Author Organization [facility] Address [facility] [facility] [place] [address] [place] [address] Care Team Providers Care Administrative Office Specialist Name Role Phone Deion Bhat MD Primary Care Provider [phone] Pretty Gomez APRN, WAGON DRIVER-C Unavailable Reason for Visit * Reason Onset Date Comments Information 11/17/2021 Encounter Details Date Type Department Care Team ([facility] Contact Info) Description 11/17/2021 [facility] [address] [place] [address] Pretty Gomez APRN, WAGON DRIVER-C [address] [facility] [address] [place] [address] Information Social History Tobacco Use Types Packs/Day Years Used Date Smoking Tobacco: Every Day Smokeless Tobacco: Never Comments:patient doesnt smok e Alcohol Use Standard Drinks/Week Comments Not Currently 0 (1 standard drink = 0.6 oz pur e alcohol) Comments Unknown Sex and Gender Information Value Date Recorded Sex Assigned at Not on file Legal Sex Female 3:48 PM FORENSIC DNA ANALYST Gender Identity Not on file Sexual Orientation Not on file COVID-19 Exposure Response Date Recorded In the last month, have you been in contact with someone who was confirmed or suspected to have Coronavirus / COVID-19? No / Unsure 11/14/2021 2:00 PM FORENSIC DNA ANALYST documented as of this encounter Progress Notes * Courtney Vernon RN - 11/17/2021 1:49 PM CST ----- Message from Pretty Gomez APRN, WAGON DRIVER-C sent at 11/17/2021 1:44 PM FORENSIC DNA ANALYST ----- FFR report just came through. 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 Let's hold off on scheduling catheterization until Dr. Bhardwaj reviews and decides if cath necessary. NSIC DNA ANALYST documented in this encounter Plan of Treatment Upcoming Encounters Date Type Department Care Team (Late st Contact Info) Description 08/10/2025 10:00 AM CDT Office Visit [facility] [place] [address] Zofia Sanford MD [address] [place] [address] documented as of this encounter Visit Diagnoses Not on filedocumented in this encounter Care Teams Administrative Office Specialist Relationship Specialty Start Date End Date Deion Bhat MD [address] [place] [address] PCP - General INTERNAL MEDICINE 10/30/20 Pretty Gomez APRN, WAGON DRIVER-C [address] [facility] [address] [address] NURSE PRACTITIONER 10/30/21 02/09/24 documented as of this encounter
--- OUTSIDE RECORDS SUMMARY | 2024-10-30 18:59 | XMS_ITS | Encounter Summary ---
Author Organization [facility] Address [facility]. [place], [place] [address] [place] [address] Care Team Providers Care House Servant Name Role Phone Deion Bhat MD Primary Care Provider [phone] Reason for Visit * Reason Comments New Patient aneurysm * Consultation (Routine) - Closed Specialty Diagnoses / Procedures Referred By Contac t Referred To Contact Diagnoses Cerebral Aneurysm, Dizziness and giddiness Procedures new patient Deion Bhat MD [address] [place] [address] Phone: tel: fax: Rush Kellogg MD Phone: tel: fax: Referral ID Status Reason Start Date Expiration Date Visits Re quested Visits Authorized [id number] Closed 10/30/2020 10/31/2021 1 1 Encounter Details Date Type Department Care Team (Latest Contact Info) Description 10/31/2020 3:20 PM COOK HELPER JUICE Office Visit [facility] [address] [phone] Rush Kellogg MD [address] [place] [address] New Patient (aneurysm) Social History Tobacco Use Types Packs/Day Years Used Date Smoking Tobacco: Never Smokeless Tobacco: Never Tobacco Cessation:Counseling Given: No Comments:patient doesnt smoke Alcohol Use Standard Drinks/Week Comments Not Currently 0 (1 standard drink = 0.6 oz pur e alcohol) Comments Unknown Sex and Gender Information Value Date Recorded Sex Assigned at Not on file Legal Sex Female 3:48 PM COOK HELPER JUICE Gender Identity Not on file Sexual Orientation Not on file COVID-19 Exposure Response Date Recorded In the last month, have you been in contact with someone who was confirmed or suspected to have Coronavirus / COVID-19? No / Unsure 10/31/2020 2:46 PM COOK HELPER JUICE documented as of this encounter Last Filed Vital Signs Vital Sign Reading Time Taken Comments Blood Pressure 134/78 10/31/2020 3:18 PM COOK HELPER JUICE Pulse 108 10/31/2020 3:18 PM COOK HELPER JUICE Temperature 36.3 ??C (97.4 ??F) 10/31/2020 3:18 PM CS T Respiratory Rate - - Oxygen Saturation 98% 10/31/2020 3:18 PM COOK HELPER JUICE Inhaled Oxygen Concentration - - Weight 82.4 kg (181 lb 9.6 oz) 10/31/2020 3:18 P M COOK HELPER JUICE Height 177.8 cm (5' 10 ) 10/31/2020 3:18 PM COOK HELPER JUICE Body Mass Index 26.06 10/31/2020 3:18 PM COOK HELPER JUICE documented in this encounter Patient Instructions * Patient Instructions* Rush Kellogg MD - 10/31/2020 3:20 PM COOK HELPER JUICE Images from the original note were not included. Symptoms of an aneurysm rupture include sudden severe headache, with or without passing out. In addition, people with aneurysm rupture may have severe nausea and vomiting. If this happens to you, youshould call 911 and go to the nearest hospital. I don't think you need to have either aneurysm treated right now. The measurements suggest they areboth about 5 mm. I do want to check the aneurysms again. [facility] Patient Education Patient Education Brain Aneurysm The Basics Written by the doctors and editors at [facility] What is a brain aneurysm???--??A brain aneurysm is a bulge or ballooning in the wall of a blood vessel in the brain (figure 1). A small aneurysm often causes no symptoms. But if it grows, an aneurysm can press on nerves inside your brain, causing pain and other symptoms. It can also leak blood orburst, causing a sudden, severe headache. A burst aneurysm is a very serious, life-threatening emergency that needs to be treated right away.It leads to a bleeding (hemorrhagic) stroke. Stroke is the term doctors use when a part of the brain is damaged because of a problem with blood flow. The stroke that happens after a brain aneurysm bursts is called a subarachnoid hemorrhage. What are the symptoms of a brain aneurysm???--??Most small brain aneurysms cause no symptoms and are found during an imaging test (which a doctor does to look at pictures of a person's brain). For example, a person might get an imaging test because a family member had an aneurysm, or for an unrelated reason. But a large aneurysm can cause symptoms that include: ?? A bad headache ?? Pain in the face ?? Blurry or double vision If the aneurysm bursts, symptoms can include: ?? A sudden, severe headache - People often say the headache is the worst they have ever had. ?? A stiff neck ?? Nausea and vomiting ?? Passing out Are there tests for a brain aneurysm???--??Yes. If you have symptoms of a brain aneurysm, or if youare at risk of having one, your doctor might do several different tests, including: ?? Imaging tests - These tests include a CT scan and an MRI. Both show pictures of your brain. During these tests, you might also get an injection of a dye that makes it easier for doctors to see blood flow in the brain. ?? Lumbar puncture (sometimes called a spinal tap ) - During this procedure, a doctor puts a needle into your lower back and takes out a small sample of spinal fluid. Spinal fluid is the fluid that surrounds the brain and spinal cord. If this fluid has more red blood cells than usual, you could have a subarachnoid hemorrhage. ?? Cerebral angiogram - For this test, your doctor puts a thin, plastic tube into a large blood vessel, usually near the top of your thigh. Then they will advance the tube through your blood vessels past your heart to your brain. Your doctor then injects dye that shows up on an X-ray. This lets thedoctor see the blood vessels in your brain and find the aneurysm. How is a brain aneurysm treated???--??There are 2 main ways to treat a brain aneurysm: ?? Endovascular coiling - The first part of this treatment is like a cerebral angiogram (see above). But instead of injecting dye into the tube, your doctor advances a soft wire up through your bloodvessels into the aneurysm. The wire coils up inside the aneurysm and seals it off from the blood vessel. ?? Surgical clipping - In this surgery, your doctor puts a tiny metal clip on the base of the aneurysm to stop the blood flow to it. If your aneurysm is leaking or bursts, your doctor will do one of these treatments right away. If it has not burst, you might not be treated. The decision depends on the size of the aneurysm, your age, and whether you have other health problems. Whether or not your aneurysm is treated, your doctor will likely do more imaging tests over time. This is to make sure the aneurysm isn't growing or coming back, and that new aneurysms aren't forming. Are there things that make people more likely to have a brain aneurysm???--??Yes. Having a parent, brother, or sister who had an aneurysm makes you more likely to have one. People with certain medical conditions also have a higher risk of aneurysm than other people. Other things that can raise your chances include: ?? Having high blood pressure ?? Smoking cigarettes ?? Drinking too much alcohol ?? Using illegal drugs, such as cocaine or amphetamines Avoiding these things might help lower your chance of getting an aneurysm. All topics are updated as new evidence becomes available and our peer review process is complete. This topic retrieved from [employer] on: Aug 15, 2020. Topic 27821 Version 8.0 Release: 28.5.3 - C28.419 ?2019??[employer]. and/or its affiliates.??All rights reserved. figure 1: Brain aneurysm A brain aneurysm is a swollen bulge or ballooning in the wall of a blood vessel in the brain. Graphic 84545 Version 2.0 Consumer Information Use and Disclaimer This information is not specific medical advice and does not replace information you receive from your health care provider. This is only a brief summary of general information. It does NOT include all information about conditions, illnesses, injuries, tests, procedures, treatments, therapies, discharge instructions or life-style choices that may apply to you. You must talk with your health care provider for complete information about your health and treatment options. This information should not be used to decide whether or not to accept your health care provider's advice, instructions or recommendations. Only your health care provider has the knowledge and training to provide advice that is right for you.The use of [employer] content is governed by the [employer] Terms of Use. ??2020 [employer]. All rights reserved. Copyright ?2019??[employer] and/or its affiliates.??All rights reserved. HELPER JUICE HELPER JUICE documented in this encounter Progress Notes * Rush Kellogg MD - 10/31/2020 3:20 PM CST Images from the original note were not included. Vascular [facility] Interventional Neurology Office OFFICE VISIT NOTE CC: Cerebral aneurysms HPI Rosi Esqueda is a very friendly 65-year-old woman referred due to cerebral aneurysms. The patient tells me she has been having dizziness for about a year. This occurs if she looks straight up,or if she gets up from a chair. 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 The patient has no signs or symptoms suggestive of aneurysm rupture. There are no lateralizing features in her presentation. She hassuccessfully quit smoking for the last few weeks. PMH Type 2 Diabetes PSurgH Hysterectomy Left shoulder surgery Current Outpatient Medications: ??? Blood Glucose Monitoring Suppl (ONE TOUCH ULTRA 2) w/Device Kit, , Disp: , Rfl: ??? buPROPion XL 300 MG 24 hr tablet, , Disp: , Rfl: ??? glipiZIDE 5 MG tablet, , Disp: , Rfl: ??? LORazepam 1 MG tablet, , Disp: , Rfl: ??? metFORMIN ER 500 MG 24 hr tablet, , Disp: , Rfl: ??? ONETOUCH ULTRA test strip, , Disp: , Rfl: ??? predniSONE 50 MG tablet, ONE 13 HOURS , 7 HOURS AND 1 HOUR PRIOR CONTRAST INJECTION, Disp: , Rfl: No known drug allergies FMH Mother and a brother both of [place] NO family history of cerebral aneurysm/SAH Social She is a former daily smoker (about a 82-jaor-hahf history), she quit earlier this month. She is . She has 3 children. Review of Systems Constitutional: Negative for fever. HENT: Positive for nosebleeds. Eyes: Negative for double vision. Respiratory: Negative for hemoptysis. Cardiovascular: Negative for palpitations. Gastrointestinal: Negative for blood in stool. Skin: Negative for rash. Neurological: Positive for dizziness. Endo/Heme/Allergies: Bruises/bleeds easily. Psychiatric/Behavioral: She admits to being a bit more on edge since quitting smoking All other systems reviewed and are negative. Filed Vitals: 10/31/20 1518 BP: 134/78 Pulse: 108 Temp: 97.4 ??F (36.3 ??C) TempSrc: Temporal SpO2: 98% Weight: 82.4 kg (181 lb 9.6 oz) Height: 5' 10 (1.778 m) Exam Gen: No acute distress Head: Normocephalic atraumatic Eyes: Funduscopic exam shows no papilledema Heart: Regular rate Extremities: Radial pulses 2+ and symmetric NEUROLOGICAL EXAM Mental Status: Attention, concentration, orientation, language, fund of knowledge all normal, no aphasia. Delayed recall is 1 out of 3 items Cranial Nerves: II - Visual field testing =>normal III - No ptosis, EOM full IV - No superior oblique palsy V - Facial sensation intact and symmetric - No lateral rectus palsy VII - Face symmetric VIII - Hearing grossly normal IX - Pharyngeal sensation normal XI - Sternocleidomastoid 5/5 bilaterally XII - No tongue deviation Motor: Tone is normal throughout. There is no pronator drift. Strength 5/5 in all four limbs Coordination: Uaspih-aa-dnba testing symmetric, no ataxia or dysmetria Sensory: No extinction to double simultaneous stimulation of the arms Reflexes: brachioradialis reflex (C-5 to C-6) right and left 2/4 Gait: Steady IMAGING Below is the CTA from September that shows the right MCA aneurysm. Pictured below that is the left MCA aneurysm. The aneurysm on the right is a bit bigger. IMPRESSION/MEDICAL DECISION MAKING 1. Nonruptured cerebral aneurysms. Both are about 5 mm, the right is a little bit bigger. 2. Dizziness. 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 I do not think the aneurysms have anything to do with her dizziness. PLAN ?? In the anterior circulation, for unruptured aneurysms smaller than 7 mm there is questionable benefit of treatment (5-yr risk of rupture is <3% , based on data from the International Study on Unruptured Intracranial Aneurysms, whereas the risk of complication from the procedure is higher thanthat). ?? I have advised the patient to obtain repeat imaging in a few months. If that shows aneurysm growth, then we will proceed with treatment. Otherwise, I think it be reasonable to wait. ?? We also talked about treatment options if the patient wanted to have her aneurysms treated. We talked about endovascular versus open surgical treatment. ?? The patient and her sister both opted to obtain repeat CT angiography later this year. We will go over the results. Assuming there is no cause for concern, we will have an angiogram every year after that to follow the aneurysms. ?? I went over the signs and symptoms of aneurysm rupture, and explained that if the patient has this, she is to call 911 immediately. ?? I congratulate the patient on her smoking cessation, as this is probably the #1 thing she can doto prevent aneurysm rupture. I have not scheduled follow-up ointment. We will obtain CT angiography in [place] (it may make it easier for comparison) in late January. I will be in touch by the results over the phone. I did tell the patient that if she wanted to be seen again, or if she changed her mind about elective aneurysm treatment, she is to call my office and we will have a vvon-gp-ogaj visit. The patient is complex due to risk of brain hemorrhage from her cerebral aneurysms. HELPER JUICE documented in this encounter Plan of Treatment Upcoming Encounters Date Type Department Care Team (Late Contact Info) Description 08/10/2025 10:00 AM CDT Office Visit [facility] [address] [place] [address] Zofia Sanford MD [address] [place] [address] documented as of this encounter Visit Diagnoses Diagnosis Cerebral aneurysm, nonruptured (HHS/HCC)- Primary Cerebral aneurysm, nonruptured Dizziness Dizziness and giddiness documented in this encounter Care Teams House Servant Relationship Specialty Start Date End Date Deion Bhat MD [address] [place] [phone] PCP - General INTERNAL MEDICINE 10/30/20 documented as of this encounter
--- OUTSIDE RECORDS SUMMARY | 2024-10-30 18:59 | XMS_ITS | Encounter Summary ---
Author Organization [facility] Address [facility] [place] [address] [place] [address] Care Team Providers Care Coiled Tubing Supervisor Name Role Phone Deion Bhat MD Primary Care Provider Pretty Gomez APRN RESIDENT SERVICES SUPERVISOR-C Unavailable Reason for Visit * Reason Onset Date Comments Advice 11/18/2021 Encounter Details Date Type Department Care Team (Late st Contact Info) Description 11/18/2021 Telephone [facility] [address] [place] [address] Colby Bhardwaj MD Advice Social History Tobacco Use Types Packs/Day Years Used Date Smoking Tobacco: Every Day Smokeless Tobacco: Never Comments:patient doesnt smok e Alcohol Use Standard Drinks/Week Comments Not Currently 0 (1 standard drink = 0.6 oz pur e alcohol) Comments Unknown Sex and Gender Information Value Date Recorded Sex Assigned at Not on file Legal Sex Female 3:48 PM POULTRY BONER Gender Identity Not on file Sexual Orientation Not on file COVID-19 Exposure Response Date Recorded In the last month, have you been in contact with someone who was confirmed or suspected to have Coronavirus / COVID-19? No / Unsure 11/14/2021 2:00 PM POULTRY BONER documented as of this encounter Progress Notes * Colby Bhardwaj MD - 11/18/2021 9:42 AM CST ----- Message from Pretty Gomez APRN, RESIDENT SERVICES SUPERVISOR-C sent at 11/17/2021 6:57 PM POULTRY BONER ----- She is having carpal tunnel release with only moderate sedation, not a very long procedure. Still want to delay? TRY BONER documented in this encounter Plan of Treatment Upcoming Encounters Date Type Department Care Team (Late st Contact Info) Description 08/10/2025 10:00 AM CDT Office Visit [facility] [place] [address] Zofia Sanford MD [address] [place] [address] documented as of this encounter Visit Diagnoses Not on filedocumented in this encounter Care Teams Coiled Tubing Supervisor Relationship Specialty Start Date End Date Deion Bhat MD [address] [place] [address] PCP - General INTERNAL MEDICINE 10/30/20 Pretty Gomez APRN, RESIDENT SERVICES SUPERVISOR-C [address] [facility] [address] [phone] NURSE PRACTITIONER 10/30/21 02/09/24 documented as of this encounter
--- OUTSIDE RECORDS SUMMARY | 2024-10-30 18:59 | XMS_ITS | Encounter Summary ---
Author Organization [facility] Address [facility] [place] [address] [place] [address] Care Team Providers Care Vector Control Assistant Name Role Phone Deion Bhat MD Primary Care Provider [phone] Encounter Details Date Type Department Care Team (Late Contact Info) Description 10/31/2020 Orders Only [facility] [place] [address] [address] [place], [place] Social History Tobacco Use Types Packs/Day Years Used Date Smoking Tobacco: Never Smokeless Tobacco: Never Comments:patient doesnt smok e Alcohol Use Standard Drinks/Week Comments Not Currently 0 (1 standard drink = 0.6 oz pur e alcohol) Comments Unknown Sex and Gender Information Value Date Recorded Sex Assigned at Not on file Legal Sex Female 3:48 PM RADIOLOGICAL HEALTH SPECIALIST Gender Identity Not on file Sexual Orientation Not on file COVID-19 Exposure Response Date Recorded In the last month, have you been in contact with someone who was confirmed or suspected to have Coronavirus / COVID-19? No / Unsure 10/31/2020 2:46 PM RADIOLOGICAL HEALTH SPECIALIST documented as of this encounter Plan of Treatment Upcoming Encounters Date Type Department Care Team (Late Contact Info) Description 08/10/2025 10:00 AM CDT Office Visit [facility] [address] [place] [phone] Zofia Sanford MD [address] [place] [address] documented as of this encounter Visit Diagnoses Not on filedocumented in this encounter Care Teams Vector Control Assistant Relationship Specialty Start Date End Date Deion Bhat MD [address] [place] [address] PCP - General INTERNAL MEDICINE 10/30/20 documented as of this encounter
--- OUTSIDE RECORDS SUMMARY | 2024-10-30 18:59 | XMS_ITS | Encounter Summary ---
Author Organization [facility] Address [facility] [place] [address] [place] [address] Care Team Providers Care Forestry Laborer Name Role Phone Deion Bhat MD Primary Care Provider [phone] Encounter Details Date Type Department Care Team (Latest Contact Info) Description 10/31/2020 Travel Social History Tobacco Use Types Packs/Day Years Used Date Smoking Tobacco: Never Smokeless Tobacco: Never Comments:patient doesnt smok e Alcohol Use Standard Drinks/Week Comments Not Currently 0 (1 standard drink = 0.6 oz pur e alcohol) Comments Unknown Sex and Gender Information Value Date Recorded Sex Assigned at Not on file Legal Sex Female 3:48 PM SALES FORECAST ANALYST Gender Identity Not on file Sexual Orientation Not on file COVID-19 Exposure Response Date Recorded In the last month, have you been in contact with someone who was confirmed or suspected to have Coronavirus / COVID-19? No / Unsure 10/31/2020 2:46 PM SALES FORECAST ANALYST documented as of this encounter Plan of Treatment Upcoming Encounters Date Type Department Care Team (Late Contact Info) Description 08/10/2025 10:00 AM CDT Office Visit [facility] [place] [address] Zofia Sanford MD [address] [place] [address] documented as of this encounter Visit Diagnoses Not on filedocumented in this encounter Care Teams Forestry Laborer Relationship Specialty Start Date End Date Deion Bhat MD [address] [place] [address] PCP - General INTERNAL MEDICINE 10/30/20 documented as of this encounter
--- OUTSIDE RECORDS SUMMARY | 2024-10-30 18:59 | XMS_ITS | Encounter Summary ---
Author Organization [facility] Address [facility] [place] [address] [place] [address] Care Team Providers Care Asic Verification Engineer Name Role Phone Deion Bhat MD Primary Care Provider [phone] Reason for Visit * Reason Comments MRI (SCAN) Encounter Details Date Type Department Care Team (Latest Contact Info) Description 10/09/2020 Scan HEALTH INFO [facility] Scanned, Documents MRI (SCAN) Social History Tobacco Use Types Packs/Day Years Used Date Smoking Tobacco: Never Assessed Comments Unknown Sex and Gender Information Value Date Recorded Sex Assigned at Not on file Legal Sex Female 3:48 PM BOLT SAWYER Gender Identity Not on file Sexual Orientation Not on file COVID-19 Exposure Response Date Recorded In the last month, have you been in contact with someone who was confirmed or suspected to have Coronavirus / COVID-19? No / Unsure 10/31/2020 2:46 PM BOLT SAWYER documented as of this encounter Plan of Treatment Upcoming Encounters Date Type Department Care Team ( Contact Info) Description 08/10/2025 10:00 AM CDT Office Visit [facility] [place] [address] Zofia Sanford MD [address] [place], [place] [phone] documented as of this encounter Procedures Procedure Name Priority Date/Time Associated Diagnosis Comments MRI GENERIC 10/09/2020 documented in this encounter Results * MRI GENERIC (10/09/2020) Anatomical Region Laterality Modality Other 10/09/2020 Narrative 10/09/2020 Ordered by an unspecified provider. us Documents Scanned SCANNING Final Result documented in this encounter Visit Diagnoses Not on filedocumented in this encounter Care Teams Asic Verification Engineer Relationship Specialty Start Date End Date Deion Bhat MD [address] [place] [address] PCP - General INTERNAL MEDICINE 10/30/20 documented as of this encounter
--- OUTSIDE RECORDS SUMMARY | 2024-10-30 18:59 | XMS_ITS | Encounter Summary ---
Author Organization [facility] Address [facility] [place] [address] [place] [address] Care Team Providers Care Broadcast Chief Engineer Name Role Phone Deion Bhat MD Primary Care Provider [phone] Pretty Gomez APRN CYBER FORENSIC SPECIALIST-C Unavailable [phone] Reason for Visit * Reason Comments ECG (SCAN) Encounter Details Date Type Department Care Team (Late Contact Info) Description 10/27/2021 Scan [facility] [address] [place] [address] Scanned, Documents ECG (SCAN) Social History Tobacco Use Types Packs/Day Years Used Date Smoking Tobacco: Never Smokeless Tobacco: Never Comments:patient doesnt smok e Alcohol Use Standard Drinks/Week Comments Not Currently 0 (1 standard drink = 0.6 oz pur e alcohol) Comments Unknown Sex and Gender Information Value Date Recorded Sex Assigned at Not on file Legal Sex Female 3:48 PM KNIT GOODS WASHER Gender Identity Not on file Sexual Orientation Not on file COVID-19 Exposure Response Date Recorded In the last month, have you been in contact with someone who was confirmed or suspected to have Coronavirus / COVID-19? No / Unsure 11/14/2021 2:00 PM KNIT GOODS WASHER documented as of this encounter Plan of Treatment Upcoming Encounters Date Type Department Care Team (Late Contact Info) Description 08/10/2025 10:00 AM CDT Office Visit [facility] [place] [phone] Zofia Sanford MD [address] [place] [address] documented as of this encounter Procedures Procedure Name Priority Date/Time Associated Diagnosis Comments ECG GENERIC (SCAN ORDER) Routine 10/27/2021 documented in this encounter Results * ECG (10/27/2021) us Documents Scanned SCANNING Final Result [facility] ON[facility] documented in this encounter Visit Diagnoses Not on filedocumented in this encounter Care Teams Broadcast Chief Engineer Relationship Specialty Start Date End Date Deion Bhat MD [address] [place] [phone] PCP - General INTERNAL MEDICINE 10/30/20 Pretty Gomez APRN, CYBER FORENSIC SPECIALIST-C [address] [facility] [address] [place] [address] NURSE PRACTITIONER 10/30/21 02/09/24 documented as of this encounter
--- OUTSIDE RECORDS SUMMARY | 2024-10-30 18:59 | XMS_ITS | Encounter Summary ---
Author Organization [facility] Address [facility]6 [facility] [place] [address] [place] [address] Care Team Providers Care Brake Operator Name Role Phone Deion Bhat MD Primary Care Provider [phone] Pretty Gomez APRN, HAM FACER-C Unavailable Reason for Visit * Reason Onset Date Comments Consult 10/30/2021 Encounter Details Date Type Department Care Team ([facility] Contact Info) Description 10/30/2021 Telephone [facility] [address] [place] [address] Pretty Gomez APRN, HAM FACER-C [address] [facility] [address] [place] [address] Consult Social History Tobacco Use Types Packs/Day Years Used Date Smoking Tobacco: Never Smokeless Tobacco: Never Comments:patient doesnt smok e Alcohol Use Standard Drinks/Week Comments Not Currently 0 (1 standard drink = 0.6 oz pur e alcohol) Comments Unknown Sex and Gender Information Value Date Recorded Sex Assigned at Not on file Legal Sex Female 3:48 PM PORTFOLIO ACCOUNTANT Gender Identity Not on file Sexual Orientation Not on file documented as of this encounter Progress Notes * Susan Patel - 10/30/2021 9:40 AM CST Received call from Sia with Dr. Bhat's office to schedule a new pt consult for an abn ekg and preop assessment prior to carpal tunnel surgery. appt scheduled. See below. REFERRAL/PCP: Dr. Bhat INS: [facility]/[employer] Medicare APPT PROV/DATE/TIME: 11/04/21 @ 2:30, RIVAS Suresh TESTING NEEDED/SCHEDULED: no STAFF MSG SENT: na COVID+TEST/EXPOSURE IN LAST 14 DAYS: no RECORDS NEEDED: will be faxed to [phone] [facility] OFFERED: LETTER SENT: yes CARE TEAM: updated FOLIO ACCOUNTANT documented in this encounter Plan of Treatment Upcoming Encounters Date Type Department Care Team ([facility] st Contact Info) Description 08/10/2025 10:00 AM CDT Office Visit [facility] [place] [phone] Zofia Sanford MD [address] [place] [address] documented as of this encounter Visit Diagnoses Not on filedocumented in this encounter Care Teams Brake Operator Relationship Specialty Start Date End Date Deion Bhat MD [address] [place] [phone] PCP - General INTERNAL MEDICINE 10/30/20 Pretty Gomez APRN, HAM FACER-C [address] [facility] [address] [address] NURSE PRACTITIONER 10/30/21 02/09/24 documented as of this encounter
--- OUTSIDE RECORDS SUMMARY | 2024-10-30 18:59 | XMS_ITS | Encounter Summary ---
Author Organization [facility] Address [facility] [place] [address] [place] [address] Care Team Providers Care Junior Php Developer Name Role Phone Deion Bhat MD Primary Care Provider Pretty Gomez APRN, CARAMEL CANDY MAKER HELPER-C Unavailable Encounter Details Date Type Department Care Team (Latest Contact Info) Description 11/10/2021 Travel Social History Tobacco Use Types Packs/Day Years Used Date Smoking Tobacco: Every Day Smokeless Tobacco: Never Comments:patient doesnt smok e Alcohol Use Standard Drinks/Week Comments Not Currently 0 (1 standard drink = 0.6 oz pur e alcohol) Comments Unknown Sex and Gender Information Value Date Recorded Sex Assigned at Not on file Legal Sex Female 3:48 PM SECURITY OFFICER SUPERVISOR Gender Identity Not on file Sexual Orientation Not on file COVID-19 Exposure Response Date Recorded In the last month, have you been in contact with someone who was confirmed or suspected to have Coronavirus / COVID-19? No / Unsure 11/10/2021 9:55 AM SECURITY OFFICER SUPERVISOR documented as of this encounter Plan of Treatment Upcoming Encounters Date Type Department Care Team (Late st Contact Info) Description 08/10/2025 10:00 AM CDT Office Visit [facility] [place] [address] Zofia Sanford MD [address] [place] [address] documented as of this encounter Visit Diagnoses Not on filedocumented in this encounter Care Teams Junior Php Developer Relationship Specialty Start Date End Date Deion Bhat MD [address] [place] [address] PCP - General INTERNAL MEDICINE 10/30/20 Pretty Gomez, CECILE, CARAMEL CANDY MAKER HELPER-C [address] [facility] [address] [place] [phone] NURSE PRACTITIONER 10/30/21 02/09/24 documented as of this encounter
--- OUTSIDE RECORDS SUMMARY | 2024-10-30 18:59 | XMS_ITS | Encounter Summary ---
Author Organization [facility] Address [facility]6 [facility] [place] [place] [address] [place] [address] Care Team Providers Care Detail Technician Name Role Phone Deion Bhat MD Primary Care Provider [phone] Reason for Visit * Reason Comments CT (SCAN) Encounter Details Date Type Department Care Team (Latest Contact Info) Description 10/14/2020 Scan [facility] Scanned, Documents CT (SCAN) Social History Tobacco Use Types Packs/Day Years Used Date Smoking Tobacco: Never Assessed Comments Unknown Sex and Gender Information Value Date Recorded Sex Assigned at Not on file Legal Sex Female 3:48 PM AUTO DEALERSHIP PORTER Gender Identity Not on file Sexual Orientation Not on file COVID-19 Exposure Response Date Recorded In the last month, have you been in contact with someone who was confirmed or suspected to have Coronavirus / COVID-19? No / Unsure 10/31/2020 2:46 PM AUTO DEALERSHIP PORTER documented as of this encounter Plan of Treatment Upcoming Encounters Date Type Department Care Team ( Contact Info) Description 08/10/2025 10:00 AM CDT Office Visit [facility] [place] [address] Zofia Sanford MD [address] [place], [place] [phone] documented as of this encounter Procedures Procedure Name Priority Date/Time Associated Diagnosis Comments CT GENERIC 10/14/2020 documented in this encounter Results * CT GENERIC (10/14/2020) Anatomical Region Laterality Modality Other 10/14/2020 Narrative 10/14/2020 Ordered by an unspecified provider. us Documents Scanned SCANNING Final Result documented in this encounter Visit Diagnoses Not on filedocumented in this encounter Care Teams Detail Technician Relationship Specialty Start Date End Date Deion Bhat MD [address] [place] [address] PCP - General INTERNAL MEDICINE 10/30/20 documented as of this encounter
== END 2024-10-24 08:01 | disposition home or self-care (01) ==
LOC: CHSIMG 08:01
PROVIDERS: PCP Internal Medicine; Visit Provider Internal Medicine
DX: Z12.31 Encounter for screening mammogram for malignant neoplasm of breast (principal)
CPT/HCPCS: 77063; 77067

== ENCOUNTER 2024-11-02 11:40 | Outpatient (CLI) | payer MEDICARE, SELFPAY ==
--- NOTE | ~2024-11-02 | DEXA_ITS ---
Bone Density Report Name: TEN BARRIOS Age: 69 Sex: Female Ethnicity: White Date of : 1955 Indication: osteopenia; monitoring treatment; prior fracture; cancer; hysterectomy; Referring Provider: Deion Bhat Study: Bone densitometry was performed. Exam Date: November 02, 2024 Accession number: [id number] Bone Density: Region BMD T-score Z-score Classification AP Spine(L1-L4) 0.904 -1.3 0.9 Osteopenia Femoral Neck (Left) 0.681 -1.5 0.3 Osteopenia Total Hip (Left) 0.801 -1.2 0.4 Osteopenia Femoral Neck (Right) 0.588 -2.4 -0.5 Osteopenia Total Hip (Right) 0.766 -1.4 0.1 Osteopenia Femoral Neck Mean 0.634 -1.9 -0.1 Osteopenia Total Hip Mean 0.784 -1.3 0.2 Osteopenia World Health Organization criteria for BMD impression classify patients as: Normal (T-score at or above -1.0), Osteopenia (T-score between -1.0 and -2.5), or Osteoporosis (T-score at or below -2.5). 10-year Fracture Risk: FRAX not reported because: Treated for osteoporosis Previous Exams: Region Exam Age BMD T-score BMD Change BMD Change Date g/cm2 vs Baseline vs Previous AP Spine (L1-L4) 11/02/2024 69 0.904 -1.3 0.049 (5.7%)* -0.010 (-1.1%) 09/01/2023 68 0.914 -1.2 0.059 (6.9%)# 0.059 (6.9%)# 09/30/2020 65 0.856 -1.7 Total Hip(Left) 11/02/2024 69 0.801 -1.2 -0.004 (-0.6%) -0.023 (-2.8%) 09/01/2023 68 0.825 -1.0 0.019 (2.3%)# 0.019 (2.3%)# 09/30/2020 65 0.806 -1.1 Total Hip(Right) 11/02/2024 69 0.766 -1.4 -0.015 (-2.0%) 0.004 (0.6%)# 09/01/2023 68 0.762 -1.5 -0.020 (-2.5%) -0.020 (-2.5%) 09/30/2020 65 0.782 -1.3 *Denotes significance at 95% confidence level, LSC for AP Spine = 0.022 g/cm2, LSC for Total Hip = 0.027 g/cm2 # Denotes dissimilar scan types or analysis methods Clinical Information Provided by Patient: Has had a low trauma fracture Is being treated for osteoporosis Has used the following medications: Vitamin D Has the following medical conditions: Cancer, Hysterectomy Patient maximum height was 63 Menopause Age: 29 No regular weight bearing exercise Drinks caffeinated beverages Onset of menses at age 15 Number of children 3 Impression: The patient has low bone mass, based on the Right Femoral Neck T-score. The patient has risk factors, including: previous fracture. No significant bone loss was observed. Discussion: PATIENT UNDER TREATMENT WITH NO SIGNIFICANT BMD LOSS SINCE LAST EXAM. In an untreated patient, BMD typically declines with age. A lack of decline or gain is usually a sign that treatment is efficacious and fracture risk is reduced. It is important to ask patients whether they are taking their medications and to encourage continued and appropriate compliance with their osteoporosis therapies to reduce fracture risk. It is also important to review their risk factors and encourage appropriate calcium and vitamin D intakes, exercise, fall prevention and other lifestyle measures. Follow-Up: Consider a repeat BMD and Vertebral Fracture Assessment (VFA) exam in 2 years or sooner if medically necessary, to reassess this patient's status. Reported by: PEBBLES on 11/02/2024 12:01:00 PM. Reviewed, dictated and finalized at location A.
--- NOTE | ~2024-11-02 | CT_ITS ---
EXAMINATION:CT lung screening DATE: 11/02/2024 12:14 INDICATION: Personal history of nicotine dependence. Current smoker with 52 pack year history. TECHNIQUE: Computed tomography (CT) of the chest was performed without intravenous contrast. Automate d exposure control and iterative reconstruction technique were employed. The dose-length product (DLP ) was 107.49 mGy-cm. COMPARISON: Chest CT 09/01/2023, 09/30/20 FINDINGS: There is mild emphysema. There is an 8 mm nodule in right middle lobe abutting the minor fi ssure, stable from 09/30/20. There is mild atelectasis bilaterally. No pleural effusion. The heart si ze is normal. There are coronary artery calcifications. No pericardial effusion. There are changes of cholecystectomy. There are calcifications in the pancreas, consistent with chronic pancreatitis. The re is a screw in coracoid process of left scapula. There is severe thoracic spondylosis. IMPRESSION: 1. Lung-RADS category 2: Benign appearance or behavior. Continue annual screening with noncontrast lo w-dose chest CT in 12 months. Reviewed, dictated and finalized at location A. ER ENGRAVER IMPRESSION: 1. Lung-RADS category 2: Benign appearance or behavior. Continue annual screeni ng with noncontrast low-dose chest CT in 12 months.
== END 2024-11-02 11:41 | disposition home or self-care (01) ==
LOC: CHSIMG 11:41
PROVIDERS: PCP Internal Medicine; Visit Provider Internal Medicine
DX: M81.0 Age-related osteoporosis without current pathological fracture (principal); Z12.2 Encounter for screening for malignant neoplasm of respiratory organs; Z87.891 Personal history of nicotine dependence; M85.89 Other specified disorders of bone density and structure, multiple sites
CPT/HCPCS: 71271; 77080

== ENCOUNTER 2024-11-16 08:40 | Outpatient (CLI) | payer MEDICARE, SELFPAY ==
[2024-11-16 09:00] VITALS: BP 179/93; PULSE 68; RESP 18; TEMP 36.1; O2SAT 68; BMI 27.1
--- OUTSIDE RECORDS SUMMARY | 2024-11-16 09:05 | XMS_ITS | Data Portability ---
Author Organization [facility], Main Office Address [address] [place] [address] Care Team Providers Care Concrete Floater Name Role Phone KALYAN OSUNA Primary Care Provider CHRISTI PARADA Primary Care Provider Assessment No assessment recorded. Plan of Treatment Reminders Order Date Submit Date Provider Last Modified By Organization Details Last Modified Time Details Appointments None record ed. Lab None record ed. Referral None record ed. Procedures None record ed. Surgeries None record ed. Imaging None record ed. Medication Orders None record ed. Patient TargetsNo targets recorded. Patient InstructionsNo instructions recorded. Reason for Referral None Reported. Results Created Date Observation Date Name Description Value Unit Range Abnormal Flag Note LastModifiedBy Organization Detail LastModifiedTime 10/19/1910/16/2024 MRI, neck, w/o contr ast No observ ation record ed. [email or web address] [facility] (Radiology) [address], [place], [address], 10/24/2024 08:33:03 Result Notes None recorded. Problems Name Problem SNOMED Code Status Onset Date Resolution Date Notes Provider Name and Address Organization Details Recorded Time Mass of left parotid gland 3597471242263654 3 Active 2024 Iraida Rodriguez RN null, [facility] 15:05:57 Problem Notes None recorded. Procedures Surgical History Date Name Laterality Status Provider Name and Address Organization Details Recorded Time 10/18/18 91 hysterectomy completed JATINDER Samayoa [facility] 10/24/2024 14:59:24 Remove tonsils and adenoids [facility] 10/24/2024 14:59:13 Shoulder joint surgery completed Iraida Gvillo, RN [facility] 10/24/2024 14:59:43 Imaging Results Imaging Date Name Status LastModified by Organiz ation Details LastModified Time 10/16/2024 MRI, neck, w/o contrast completed [email or web address] [facility] (Radiology) [address], [place], [address], 10/24/2024 08:33:03 Procedure Notes None recorded. Medical Equipment None Reported. Allergies Allergen ID Allergen Name Allergen Category Reaction Reaction Severity Criticality Documentation Date Start Date Code Code System Note Provider Name and Address Organization Details Recorded Time 16111 Iodinated contrast media (substanc e) medicatio n Not available Not available Not available 10/24/2024 63751 2003 SNOMED JATINDER Samayoa, [facility] 15:00:43 47298 Aleve medicatio n Not available Not available Not available 10/26/2024 83254 1 RxNorm THOUG HT SHE WAS HAVIN G A HEART ATTAC JATINDER Guerra, [facility] 14:55:13 57708 shellfish derived food,medi cation Not available Not available Not available 10/26/2024 60008 UNJATINDER Guerra, [facility] 14:55:22 Medications Name Sig Start Date Stop Date Status Note LastModified by Organization Details LastModified Time methocarba mol 500 mg tablet TAKE 1 TABLET BY MOUTH TWICE A DAY NEEDED active Not Available Not Available No t Available clindamyci n HCl 300 mg capsule TAKE 1 CAPSULE BY MOUTH EVERY 8 HOURS active Not Available Not Available No t Available metoprolol succinate ER 50 mg tablet,ext ended release 24 hr Take 1 tablet every day by oral route. active Not Available Not Available No t Available ondansetro n HCl 4 mg tablet Take 2 tablets twice a day by oral route. active Not Available Not Available No t Available metronidaz ole 500 mg tablet TAKE 1 TABLET BY MOUTH EVERY 8 HOURS active Not Available Not Available No t Available aspirin 81 mg tablet,del ayed release Take 1 tablet every day by oral route. active Not Available Not Available No t Available alprazolam 0.5 mg tablet TAKE 1 TABLET (0.5 MG) BY ORAL ROUTE 1 TIME 30 TO 60 MINUTES BEFORE MRI active Not Available Not Available No t Available amlodipine 10 mg tablet Take 1 tablet every day by oral route. active Not Available Not Available No t Available pantoprazo le 40 mg tablet,del ayed release Take 1 tablet every day by oral route. active Not Available Not Available No t Available prednisone 50 mg tablet TAKE 1 TABLET (50 MG) BY ORAL ROUTE AT 13 HOURS, 7 HOURS, AND 1 HOUR BEFORE CONTRAST MEDIA INJECTION active Not Available Not Available No t Available pravastati n 20 mg tablet Take 1 tablet every day by oral route. active Not Available Not Available No t Available hydrochlor othiazide 25 mg tablet Take 1 tablet every day by oral route. active Not Available Not Available No t Available gabapentin 100 mg capsule Take 1 capsule 3 times a day by oral route. active Not Available Not Available No t Available ergocalcif sterling (vitamin D2) 1,250 mcg (50,000 unit) capsule Take by oral route. active Not Available Not Available No t Available albuterol sulfate HFA 90 mcg/actuat ion aerosol inhaler INHALE 2 PUFFS (180 MCG) BY INHALATIO N ROUTE EVERY 6 HOURS. USE SPACER active Not Available Not Available No t Available lisinopril 40 mg tablet Take 1 tablet every day by oral route. active Not Available Not Available No t Available cefdinir 300 mg capsule TAKE 1 CAPSULE BY MOUTH EVERY 12 HOURS active Not Available Not Available No t Available fluticason e propionate 50 mcg/actuat ion nasal spray,susp ension Dracut 1 spray every day by intranasa l route. active Not Available Not Available No t Available amoxicilli n 875 mg-potassi um clavulanat e 125 mg tablet TAKE 1 TABLET BY MOUTH EVERY 12 HOURS active Not Available Not Available No t Available bupropion HCl XL 300 mg 24 hr tablet, extended release Take 1 tablet every day by oral route. active Not Available Not Available No t Available BD Ultra-Fine Short Pen Needle 31 gauge x 5/16 USE TO INJECT INSULIN 5 TIMES A DAY E11.65 active Not Available Not Available No t Available Lantus Solostar U-100 Insulin 100 unit/mL (3 mL) subcutaneo us pen Inject by subcutane ous route. active Not Available Not Available No t Available Humalog KwikPen (U-100) Insulin 100 unit/mL subcutaneo us Inject by subcutane ous route. active Not Available Not Available No t Available ibuprofen 200 mg-diphenh ydramine HCl 25 mg capsule Take by oral route. active take 1 hour before contrast media injection Not Available Not Available Not Available zoledronic acid 5 mg/100 mL in mannitol and water intravenou s piggybck Inject by intraveno us route. active Not Available Not Available No t Available umeclidini um 62.5 mcg/actuat ion blister powder for inhalation Inhale 1 puff every day by inhalatio n route. active Not Available Not Available No t Available albuterol sulfate 90 mcg/actuat ion breath activated powder inhaler Inhale 2 puffs every 4 hours by inhalatio n route. active Not Available Not Available No t Available Trulicity 4.5 mg/0.5 mL subcutaneo us pen injector INJECT 4.5MG SUBCUTANE OUSLY ONCE WEEKLY active Not Available Not Available No t Available Ozempic 2 mg/dose (8 mg/3 mL) subcutaneo us pen injector Inject by subcutane ous route. active Not Available Not Available No t Available Vitals Date Recorded Body weight Body mass index (BMI) Body height Body temperature Provider Name and Address Organization Details Last Updated DateTime 10/26/2024 52986.47 g 28.6 kg/m2 158.75 cm 97.7 [degF] Iraida Rodriguez RN [facility] 10/26/2024 14:59:30 Social History Question Answer Notes LastModified by Organizat ion Details LastModified Time Tobacco Smoking Status Former Smoker LAST CIGARETTE WAS 10/17/25 Iraida Rodriguez RN null, [facility] 10/26/2024 14:57:07 What Is Your Level Of Alcohol Consumption? None [email or web address] Information not available 10/26/2024 Sex: Unknown Functional Status None recorded. Mental Status None recorded. Family History Nothing Reported Notes:NO ENT Medical History Condition Response DIABETES, TYPE Y COPD Y HYPERTENSION Y Gynecological HistoryNo gynecological history recorded. Obstetrics History GPAL:G 0 P 0 0 0 0 Past Encounters Encounter ID Performer Location Encounter Start Date Encounter Closed Date Diagnosis/Indication Diagnosis SNOMED-CT Code Diagnosis ICD10 Code Diagnosis Note [id number] Bill Lindsay MD [facility] Jamie Looney [address] [place] [address] 10/26/2024 14:31:15 10/31/2024 13:33:16 Mass of left parotid gland [id number] R22.1 Health Concerns Section Related Observation LastModified by Organization Detai ls LastModified Time None Recorded Concern Status LastModified by Organization Details LastModified Time None Recorded Advance Directives Directive None Recorded Payers Encounter Date Sequence Insurance Name Policy Number Policy Chopra Covered Member ID Chopra Member ID Guarantor Name 10/26/2024 1 [facility] (MEDICARE REPLACEMENT/A DVANTAGE - HMO) [id number] Rosi Esqueda [id number] Rosi Esqueda Notes Date Note Type Note Provider Name and Address Organization Details Recorded Time 10/26/2024 text/html This patient developed a left parotid mass 1 month ago. It is mildly painful but she has otherwise no symptoms Bill Lindsay MD [address] [place] [address], [facility] [address], [place], [address], [place] [facility] 10/26/2024 15:11:03 OBGyn Episode No OBEpisode recorded.
--- OUTSIDE RECORDS SUMMARY | 2024-11-16 09:05 | XMS_ITS | Clinical Summary ---
Author Organization [facility] Address [facility] [place] [address] [place] [address] Care Team Providers Care Captain'S Assistant Name Role Phone Deion Bhat MD Primary Care Provider [phone] Mateusz Gonzalez MD Unavailable Allergies Active Allergy [...] Care Team Description 10/24/2024 Cy Message Enc [facility] [address] [place] [address] Cy [facility] Provider Results 10/16/2024 6:45 AM PERSONAL FINANCIAL REPRESENTATIVE - 10/16/2024 11:59 PM [facility] Hospital Encounter [facility] [address] [facility] [place] [address] Christi Parada NP Discharge Disposition: Home or Self Care (Routine Discharge) 10/16/2024 Travel 10/13/2024 3:08 PM PERSONAL FINANCIAL REPRESENTATIVE - 10/13/2024 11:59 PM PERSONAL FINANCIAL REPRESENTATIVE Hospital Encounter [facility] [address] [place] [address] Mateusz Gonzalez MD Discharge Disposition: Home or Self Care (Routine Discharge) 10/13/2024 Travel 09/28/2024 Telephone [facility] [address] [place] [address] Mateusz Gonzalez MD Results from Last 3 Months Family History Medical [...] on file Legal Sex Female 3:48 PM PERSONAL FINANCIAL REPRESENTATIVE Gender Identity Not on file Sexual Orientation [...] AM CDT Office [facility] [place] [address] Mateusz Gonzalez MD [address] [place], [place] [id number] Health Maintenance Due Date Last Done Comments [...] Lipid Panel 01/31/2023 01/31/2022, 07/14/2021 COVID-19 Vaccine (2023-2 5 season) 2024 08/15/2021, 01/31/2021, 01/03/2021 Influenza Adult (#1) 2024 07/16/2021, 07/18/2020 Meningococcal B Vaccine Aged Out No l onger eligible based on patient's age to complete this topic Meningococcal Vaccine Aged Out No everett fortunato eligible based on patient's age to complete this topic RSV Immunizations Under 20 Months Aged Out No longer eligible b ased on patient's age to complete this topic Medical Devices Implanted Type Area Fruit Bar Maker Device Identifier Shelf Expiration Date Model / Serial / Lot Cv Synergy Xd Piyush Mid Rca Stent- 2 Implanted:Qty: 1 on 12/15/2021 by Morgan Coley MD Stent Coronary RCA [employer] 06/30/2023 [id number] / / [id number] Tecnis Simplicity Implanted:Qty: 1 on 12/02/2022 by Alison Pickens MD at [facility] Left: Eye LIT & LIT [id number] 07/20/2024 DCB00 / [id number] / Tecnis Lens Implanted:Qty: 1 on 03/03/2023 by Alison Pickens MD at [facility] Right: Eye 01/02/2026 DCB00 / [id number] / Procedures Procedure Name Priority Date/Time Associated Diagnosis Comments MRI SOFT TISSUE NECK WWO CON Routine 10/16/2024 8:05 AM PERSONAL FINANCIAL REPRESENTATIVE Mass of left parotid gland USE ECHOCARDIOGRAM Routine 10/13/2024 3: 46 PM PERSONAL FINANCIAL REPRESENTATIVE Heart palpitations Shortness of breath EVENT RECORDER (ECG) UP TO 30 DAYS COMPLETE Routine 09/19/2024 1:33 PM PERSONAL FINANCIAL REPRESENTATIVE Heart palpitations LIPID PANEL Routine 01/31/2022 Coronary artery calcification seen on CT scan Mixed hyperlipidemia HEMOGLOBIN, GLYCOSYLATED Routine 01/31/2022 from Last 3 Months or Most Recently Relevant to Health Maintenance Results * MRI SOFT TISSUE NECK WWO CON (10/16/2024 8:05 AM PERSONAL FINANCIAL REPRESENTATIVE) Anatomical Region Laterality Modality Neck Magnetic Resonan ce 10/17/2024 10:2 9 AM PERSONAL FINANCIAL REPRESENTATIVE Impressions 10/17/2024 10:39 AM PERSONAL FINANCIAL REPRESENTATIVE IMPRESSION: 1. Approximately 2.7 x 2.3 x [...] 10/17/2024 10:29 AM Narrative 10/17/2024 10:39 AM PERSONAL FINANCIAL REPRESENTATIVE [address] [place] [address] DATE: 10/16/2024 7:33 AM INDICATION: Left parotid [...] Procedure Note Trung Daigle MD - 10/17/[address] [place] [address] DATE: 10/16/2024 7:33 AM INDICATION: Left parotid [...] By: Trung Daigle MD, 10/17/2024 10:29 AM us Christi Parada NP MRI Final Result * USE ECHOCARDIOGRAM (10/13/2024 3:46 PM PERSONAL FINANCIAL REPRESENTATIVE) Anatomical Region Laterality Modality Cardiac Ultrasound 10/13/2024 3:21 PM PERSONAL FINANCIAL REPRESENTATIVE Narrative 10/14/2024 6:00 PM PERSONAL FINANCIAL REPRESENTATIVE ?Echocardiography Report Pat.Name: ??Rosi Esqueda ?Pat.ID: ?[id number] ? St.Date: ?? 10/13/2024 ? Refer.MD: ??Outreach, [facility] Exam Time: 3:21:00 PM ?Study Type:OUTREACH ? Height: ?62 in ? Weight: ?150 lb ? BSA: ? 1.69 m2 ?Age: ??1955,69Y ? Sex: ? F ? Sonogrphr: Sf ? Pat. Stat.:Outpatient ? Reason for Study:Palpitations, Shortness of breath Procedures: Study performed at [place], [place] and interpreted by [facility]. 2D, M-mode, Doppler, Color Flow [...] - 10/14/2024 Echocardiography Report Pat.Name: Rosi Esqueda [facility].ID: [id number] .Date: 10/13/2024 Refer.MD: Eric, [facility] Exam Time: 3:21:00 PM Study Type:OUTREACH Height: 62 in Weight: 150 lb BSA: 1.69 m2 Age: 5 1955,69Y Sex: F Sonogrphr: Sf Pat. Stat.:Outpatient Reason for Study:Palpitations, Shortness of breath Procedures: Study performed at [facility] [place], [place] and interpreted by [facility]. 2D, M-mode, Doppler, Color Flow [...] Signature> 10/14/2024 06:00 PM Mateusz Gonzalez M.D. us Mateusz Gonzalez MD ECHO Final Result * CLINIC - OUTPATIENT EVENT RECORDER (ECG) UP TO 30 DAYS COMPLETE (Holter) (09/19/2024 1:33 PM PERSONAL FINANCIAL REPRESENTATIVE) [facility] - 09/19/2024 1:33 PM PERSONAL FINANCIAL REPRESENTATIVE Baseline Rhythm * The baseline rhythm was [...] Signed MATEUSZ GONZALEZ MD, MS, FACC, RVPI [facility] [place], [place] us Mateusz Gonzalez MD CV VASCULAR ORDERABLES Final Res ult [facility] * HEMOGLOBIN, GLYCOSYLATED (01/31/2022) HGB A1C 8.1 <5.7 % 01/31/2022 us Deion Bhat MD LABORATORY Final Result * LIPID PANEL (01/31/2022) CHOLESTEROL 127 0 - 200 HDL 39 40 - 60 TRIGLYCERIDES 173 0 - 150 LDL (CALCULATED) 53 <130 01/31/2022 us Colby Bhardwaj MD LABORATORY Final Resul t from Last 3 Months or Most Recently Relevant to Health Maintenance Insurance [facility] MEDICAID Advance Directives * Full Code (Latest Code Status on File) Date Activated Date Inactivated Comments 12/15/2021 4:46 PM 12/15/2021 7:33 PM Care Teams Captain'S Assistant Relationship Specialty Start Date End Date Deion Bhat MD [address] [place] [phone] PCP - General INTERNAL MEDICINE 10/30/20 Mateusz Gonzalez MD [address] [place] [address] Consulting Physician CARDIOVASCULAR DISEASE 02/10/24
--- OUTSIDE RECORDS SUMMARY | 2024-11-16 09:05 | XMS_ITS | Encounter Summary ---
Author Organization [facility] Address [facility] [place] [address] [place] [address] Care Team Providers Care Sandfill Operator Surface Name Role Phone Deion Bhat MD Primary Care Provider [phone] Zofia [place] MD Unavailable Encounter Details Date Type Department Care Team (Late st Contact Info) Description 10/24/2024 [email or web address] Message Enc [facility] [address] [place] [address] [facility] Provider Results Social History Tobacco Use Types Packs/Day Years Used Date Smoking Tobacco: Every Day Cigarettes 1 50 Smokeless Tobacco: Never Alcohol Use Standard Drinks/Week Comments Not Currently 0 (1 standard drink = 0.6 oz pur e alcohol) Comments Unknown Sex and Gender Information Value Date Recorded Sex Assigned at Not on file Legal Sex Female 3:48 PM CRACKING UNIT OPERATOR Gender Identity Not on file Sexual Orientation Not on file documented as of this encounter Plan of Treatment Upcoming Encounters Date Type Department Care Team (Late Contact Info) Description 08/10/2025 10:00 AM CDT Office Visit [facility] [place] [address] Zofia Sanford MD [address] [place] [address] documented as of this encounter Visit Diagnoses Not on filedocumented in this encounter Care Teams Sandfill Operator Surface Relationship Specialty Start Date End Date Deion Bhat MD [address] [place] [phone] PCP - General INTERNAL MEDICINE 10/30/20 Zofia Sanford MD [address] [place] [address] Consulting Physician CARDIOVASCULAR DISEASE 02/10/24 documented as of this encounter
--- OUTSIDE RECORDS SUMMARY | 2024-11-16 09:05 | XMS_ITS | Encounter Summary ---
Author Organization [facility] Address [facility] [place] [address] [place] [address] Care Team Providers Care Lead Sales Consultant Name Role Phone Deion Bhat MD Primary Care Provider [phone] Pretty Gomez APRN WASTE COLLECTOR-C Unavailable Zofia Sanford MD Unavailable Encounter Details Date Type Department Care Team (Late st Contact Info) Description 02/02/2022 Abstract [facility] [address] [place] [address] Colby Bhardwaj MD Social History Tobacco Use Types Packs/Day Years Used Date Smoking Tobacco: Every Day Smokeless Tobacco: Never Comments:patient doesnt smok e Alcohol Use Standard Drinks/Week Comments Not Currently 0 (1 standard drink = 0.6 oz pur e alcohol) Comments Unknown Sex and Gender Information Value Date Recorded Sex Assigned at Not on file Legal Sex Female 3:48 PM CHILD CARE SUPERVISOR Gender Identity Not on file Sexual Orientation Not on file documented as of this encounter Plan of Treatment Upcoming Encounters Date Type Department Care Team (Late Contact Info) Description 08/10/2025 10:00 AM CDT Office Visit [facility] [place] [address] Zofia Sanford MD [address] [place] [address] documented as of this encounter Procedures Procedure Name Priority Date/Time Associated Diagnosis Comments CMP (ABSTRACTED LAB) Routine 01/31/2022 HEMOGLOBIN, GLYCOSYLATED Routine 01/31/2022 documented in this encounter Results * HEMOGLOBIN, GLYCOSYLATED (01/31/2022) HGB A1C 8.1 <5.7 % 01/31/2022 Result [facility] Deion Bhat MD LABORATORY Final Result * [...] S/P/B 0.4 0.00 - 1.00 01/31/2022 Result [facility] Deion Bhat MD LAB-OUTSIDE/ABSTRACTED Final Result documented in this encounter Visit Diagnoses Not on filedocumented in this encounter Care Teams Lead Sales Consultant Relationship Specialty Start Date End Date Deion Bhat MD [address] [place] [address] PCP - General INTERNAL MEDICINE 10/30/20 Pretty Gomez, CECILE, WASTE COLLECTOR-C [address] [place] [address] [address] [place] [address] NURSE PRACTITIONER 10/30/21 02/09/24 Zofia Sanford MD [address] [place] [address] Consulting Physician CARDIOVASCULAR DISEASE 02/10/24 documented as of this encounter
--- OUTSIDE RECORDS SUMMARY | 2024-11-16 09:05 | XMS_ITS | Encounter Summary ---
Author Organization [facility] Address [facility] [place] [address] [place] [address] Care Team Providers Care Stemhole Borer Name Role Phone Deion Bhat MD Primary Care Provider Pretty Gomez APRN SENIOR FINANCIAL REPORTING ACCOUNTANT-C Unavailable Zofia Sanford MD Unavailable Encounter Details Date Type Department Care Team (Late st Contact Info) Description 12/18/2021 Abstract [facility] [address] [place] [address] Colby Bhardwaj MD Social History Tobacco Use Types Packs/Day Years Used Date Smoking Tobacco: Every Day Smokeless Tobacco: Never Comments:patient doesnt smok e Alcohol Use Standard Drinks/Week Comments Not Currently 0 (1 standard drink = 0.6 oz pur e alcohol) Comments Unknown Sex and Gender Information Value Date Recorded Sex Assigned at Not on file Legal Sex Female 3:48 PM INDEPENDENT CROP CONSULTANT Gender Identity Not on file Sexual Orientation Not on file COVID-19 Exposure Response Date Recorded In the last 10 days, have yo u been in contact with someone who was confirmed or suspected to have Coronavirus/COVID-19? No / Unsure 12/15/2021 11:43 AM INDEPENDENT CROP CONSULTANT documented as of this encounter Plan of Treatment Upcoming Encounters Date Type Department Care Team (Late st Contact Info) Description 08/10/2025 10:00 AM CDT Office Visit [facility] [place] [address] Zofia Sanford MD [address] [place] [address] documented as of this encounter Visit Diagnoses Not on filedocumented in this encounter Care Teams Stemhole Borer Relationship Specialty Start Date End Date Deion Bhat MD [address] [place] [phone] PCP - General INTERNAL MEDICINE 10/30/20 Pretty Gomez, MUSHROOM PACKER, SENIOR FINANCIAL REPORTING ACCOUNTANT-C [address] [facility] [address] [place] [address] NURSE PRACTITIONER 10/30/21 02/09/24 Zofia Sanford MD [address] [place], [place] [address] Consulting Physician CARDIOVASCULAR DISEASE 02/10/24 documented as of this encounter
[2024-11-16] MEDS: ZOLEDRONIC ACID 5 MG/100 ML 100 ML 400 MG IVPB (09:27)
== END 2024-11-16 08:41 | disposition home or self-care (01) ==
LOC: CHSTREATRM 08:46
PROVIDERS: PCP Internal Medicine; Visit Provider Internal Medicine
DX: M81.0 Age-related osteoporosis without current pathological fracture (principal)
CPT/HCPCS: 96365; J3489

== ENCOUNTER 2024-11-24 12:21 | Outpatient (CLI) | payer MEDICARE, SELFPAY ==
--- NOTE | ~2024-11-24 | US_ITS ---
EXAMINATION: US FNA w image guidance DATE: 11/24/2024 13:26 INDICATION: Left parotid mass. TECHNIQUE: The procedure and its benefits and risks were discussed with the patient. Risks specifically discusse d included bleeding. The patient verbalized understanding of the risks and agreed to proceed. The nec k was prepped and draped in the usual sterile manner. 1% lidocaine was used for local anesthesia. 6 passes were made with a 25G needle into the lesion under ultrasound guidance. There were no immedia te complications. FINDINGS: Grayscale ultrasound images demonstrate needles advanced into a 2.1 cm cystic mass in left parotid gl and for biopsy. IMPRESSION: 1. Ultrasound-guided fine needle aspiration of a left parotid mass. Reviewed, dictated and finalized at location A. THESIA ATTENDING
--- OUTSIDE RECORDS SUMMARY | 2024-11-24 12:27 | XMS_ITS | Encounter Summary ---
Author Organization [facility] Address [address] [place] [address] Care Team Providers Care Signs Sales Representative Name Role Phone Deion Bhat MD Primary Care Provider Pretty Gomez APRN, ENGINEER CHIEF-C Unavailable [phone] Zofia Sanofrd MD Unavailable Encounter Details Date Type Department Care Team (Late Contact Info) Description 02/02/2022 Abstract [facility] [address] [place] [address] Colby Bhardwaj MD Social History Tobacco Use Types Packs/Day Years Used Date Smoking Tobacco: Every Day Smokeless Tobacco: Never Comments:patient doesnt smok e Alcohol Use Standard Drinks/Week Comments Not Currently 0 (1 standard drink = 0.6 oz pur e alcohol) Comments Unknown Sex and Gender Information Value Date Recorded Sex Assigned at Not on file Legal Sex Female 3:48 PM WAITER/WAITRESS CLUB Gender Identity Not on file Sexual Orientation Not on file documented as of this encounter Plan of Treatment Upcoming Encounters Date Type Department Care Team (Late Contact Info) Description 08/10/2025 10:00 AM CDT Office Visit [facility] [place] [address] Zofia Sanford MD [address] [place] [address] documented as of this encounter Procedures Procedure Name Priority Date/Time Associated Diagnosis Comments CMP (ABSTRACTED LAB) Routine 01/31/2022 HEMOGLOBIN, GLYCOSYLATED Routine 01/31/2022 documented in this encounter Results * HEMOGLOBIN, GLYCOSYLATED (01/31/2022) HGB A1C 8.1 <5.7 % 01/31/2022 Deion Bhat MD LABORATORY Final Result * [...] TOTAL S/P/B 0.4 0.00 - 1.00 01/31/2022 Deion Bhat MD LAB-OUTSIDE/ABSTRACTED Final Result documented in this encounter Visit Diagnoses Not on filedocumented in this encounter Care Teams Signs Sales Representative Relationship Specialty Start Date End Date Deion Bhat MD [address] [place] [address] PCP - General INTERNAL MEDICINE 10/30/20 Pretty Gomez APRN, ENGINEER CHIEF-C [address] [place] [address] [address] NURSE PRACTITIONER 10/30/21 02/09/24 Zofia Sanford MD [address] [place] [address] Consulting Physician CARDIOVASCULAR DISEASE 02/10/24 documented as of this encounter
--- OUTSIDE RECORDS SUMMARY | 2024-11-24 12:27 | XMS_ITS | Encounter Summary ---
Author Organization [facility] Address [address] [place] [address] Care Team Providers Care Wire Spring Relay Adjuster Name Role Phone Deion Bhat MD Primary Care Provider [phone] Zofia Sanford MD Unavailable Encounter Details Date Type Department Care Team (Late Contact Info) Description 10/24/2024 [employer] [facility] [address] [place] [address] [facility] Provider Results Social History Tobacco Use Types Packs/Day Years Used Date Smoking Tobacco: Every Day Cigarettes 1 50 Smokeless Tobacco: Never Alcohol Use Standard Drinks/Week Comments Not Currently 0 (1 standard drink = 0.6 oz pur e alcohol) Comments Unknown Sex and Gender Information Value Date Recorded Sex Assigned at Not on file Legal Sex Female 3:48 PM SILK FINISHER Gender Identity Not on file Sexual Orientation Not on file documented as of this encounter Plan of Treatment Upcoming Encounters Date Type Department Care Team (Late Contact Info) Description 08/10/2025 10:00 AM CDT Office Visit [facility] [place] [address] Zofia Sanford MD [address] [place], [place] [address] documented as of this encounter Visit Diagnoses Not on filedocumented in this encounter Care Teams Wire Spring Relay Adjuster Relationship Specialty Start Date End Date Deion Bhat MD [address] [place] [address] PCP - General INTERNAL MEDICINE 10/30/20 Zofia Sanford MD [address] [place] [address] Consulting Physician CARDIOVASCULAR DISEASE 02/10/24 documented as of this encounter
--- OUTSIDE RECORDS SUMMARY | 2024-11-24 12:27 | XMS_ITS | Encounter Summary ---
Author Organization [facility] Address [address] [place] [address] Care Team Providers Care Sales Vice President Name Role Phone Deion Bhat MD Primary Care Provider Pretty Gomez APRN, WRITER-C Unavailable Zofia Sanford MD Unavailable Encounter Details Date Type Department Care Team (Late Contact Info) Description 12/18/2021 Abstract [facility] [address] [place] [address] Colby Bhardwaj MD Social History Tobacco Use Types Packs/Day Years Used Date Smoking Tobacco: Every Day Smokeless Tobacco: Never Comments:patient doesnt smok e Alcohol Use Standard Drinks/Week Comments Not Currently 0 (1 standard drink = 0.6 oz pur e alcohol) Comments Unknown Sex and Gender Information Value Date Recorded Sex Assigned at Not on file Legal Sex Female 3:48 PM CASE REVIEWER Gender Identity Not on file Sexual Orientation Not on file COVID-19 Exposure Response Date Recorded In the last 10 days, have yo u been in contact with someone who was confirmed or suspected to have Coronavirus/COVID-19? No / Unsure 12/15/2021 11:43 AM CASE REVIEWER documented as of this encounter Plan of Treatment Upcoming Encounters Date Type Department Care Team (Late st Contact Info) Description 08/10/2025 10:00 AM CDT Office Visit [facility] [place] [address] Zofia Sanford MD [address] [place], [place] [address] documented as of this encounter Visit Diagnoses Not on filedocumented in this encounter Care Teams Sales Vice President Relationship Specialty Start Date End Date Deion Bhat MD [address] [place] [phone] PCP - General INTERNAL MEDICINE 10/30/20 Pretty Gomez APRN, WRITER-C [address] [facility] [address] [place] [address] NURSE PRACTITIONER 10/30/21 02/09/24 Zofia Sanford MD [address] [place], [place] [address] Consulting Physician CARDIOVASCULAR DISEASE 02/10/24 documented as of this encounter
--- OUTSIDE RECORDS SUMMARY | 2024-11-24 12:27 | XMS_ITS | Clinical Summary ---
Author Organization [facility] Address [address] [place] [address] Care Team Providers Care Neon Technician Name Role Phone Deion Bhat MD Primary Care Provider [phone] Mateusz Gonzalez MD Unavailable Allergies Active Allergy [...] Date Type Department Care Team Description 10/24/2024 [employer] Message Enc [facility] [address] [place] [address] [facility] Provider Results 10/16/2024 6:45 AM CONCRETE STONE FABRICATING SUPERVISOR - 10/16/2024 11:59 PM [facility] Hospital Encounter [facility] [address] [place] [address] Christi Parada NP Discharge Disposition: Home or Self Care (Routine Discharge) 10/16/2024 Travel 10/13/2024 3:08 PM CONCRETE STONE FABRICATING SUPERVISOR - 10/13/2024 11:59 PM CONCRETE STONE FABRICATING SUPERVISOR Hospital Encounter [facility] [address] [place] [address] Mateusz Gonzalez MD Discharge Disposition: Home or Self Care (Routine Discharge) 10/13/2024 Travel 09/28/2024 Telephone [facility] [address] [place] [address] Mateusz Gonzalez MD Results from Last 3 [...] on file Legal Sex Female 3:48 PM CONCRETE STONE FABRICATING SUPERVISOR Gender Identity Not on file Sexual Orientation Not on file Last Filed Vital Signs Vital Sign Reading Time Taken Comments Blood Pressure 129/76 07/28/2024 3:41 PM CDT Pulse 74 07/28/2024 3:41 PM CDT Temperature 36.2 C (97.2 F) 03/03/2023 9:12 AM CDT Respiratory Rate 14 07/28/2024 3:41 PM CDT [...] AM CDT Office Visit [facility] [place] [address] Mateusz Gonzalez MD [address] [place], [place] [id number] Health Maintenance Due Date Last Done Comments [...] this topic Medical Devices Implanted Type Area Lens Edger Device Identifier Shelf Expiration Date Model / Serial / Lot Cv Synergy Xd Piyush Mid Rca Stent- 2 Implanted:Qty: 1 on 12/15/2021 by Morgan Coley MD Stent Coronary RCA Kosmix JUAN 06/30/2023 [id number] / / [id number] Tecnis Simplicity Implanted:Qty: 1 on 12/02/2022 by Alison Pickens MD at [facility] Left: Eye LIT & LIT [id number] 07/20/2024 DCB00 / [id number] / Tecnis Lens Implanted:Qty: 1 on 03/03/2023 by Alison Pickens MD at [facility] Right: Eye 01/02/2026 DCB00 / [id number] / Procedures Procedure Name Priority Date/Time Associated Diagnosis Comments MRI SOFT TISSUE NECK WWO CON Routine 10/16/2024 8:05 AM CONCRETE STONE FABRICATING SUPERVISOR Mass of left parotid gland USE ECHOCARDIOGRAM Routine 10/13/2024 3: 46 PM CONCRETE STONE FABRICATING SUPERVISOR Heart palpitations Shortness of breath EVENT RECORDER (ECG) UP TO 30 DAYS COMPLETE Routine 09/19/2024 1:33 PM CONCRETE STONE FABRICATING SUPERVISOR Heart palpitations LIPID PANEL Routine 01/31/2022 Coronary artery calcification seen on CT scan Mixed hyperlipidemia HEMOGLOBIN, GLYCOSYLATED Routine 01/31/2022 from Last 3 Months or Most Recently Relevant to Health Maintenance Results * MRI SOFT TISSUE NECK WWO CON (10/16/2024 8:05 AM CONCRETE STONE FABRICATING SUPERVISOR) Anatomical Region Laterality Modality Neck Magnetic Resonan ce 10/17/2024 10:2 9 AM CONCRETE STONE FABRICATING SUPERVISOR Impressions 10/17/2024 10:39 AM CONCRETE STONE FABRICATING SUPERVISOR IMPRESSION: 1. Approximately 2.7 x 2.3 x 1.8 cm well-circumscribed, partially cystic, left parotid mass, as detailed above. Imaging appearance is nonspecific and could reflect both benign and malignant parotid neoplasms as well as parotid declan metastasis (reported history of skin cancer). Definitive diagnosis will likely require tissue sampling. Ordered By: CHRISTI L PARADA Interpreted By: Trung Daigle MD, 10/17/2024 10:29 AM Narrative 10/17/2024 10:39 AM CONCRETE STONE FABRICATING SUPERVISOR [address] [place] [address] DATE: 10/16/2024 7:33 AM INDICATION: Left parotid [...] Procedure Note Trung Daigle MD - 10/17/[address] [place] [address] DATE: 10/16/2024 7:33 AM INDICATION: Left parotid [...] MD, 10/17/2024 10:29 AM us Christi Parada CORK CUTTER MRI Final Result * USE ECHOCARDIOGRAM (10/13/2024 3:46 PM CONCRETE STONE FABRICATING SUPERVISOR) Anatomical Region Laterality Modality Cardiac Ultrasound 10/13/2024 3:21 PM CONCRETE STONE FABRICATING SUPERVISOR Narrative 10/14/2024 6:00 PM CONCRETE STONE FABRICATING SUPERVISOR Echocardiography Report Pat.Name: Rosi Esqueda Pat.ID: [id number] .Date: 10/13/2024 Refer.MD: Woodrow, [facility] Exam Time: 3:21:00 PM Study Type:WOODROW Height: 62 in Weight: 150 lb BSA: 1.69 m2 Age: 5 1955,69Y Sex: F Sonogrphr: Terry Pat. Stat.:Outpatient Reason for Study:Palpitations, Shortness of breath Procedures: Study performed at [place], [place] and interpreted by [facility]. 2D, M-mode, Doppler, Color Flow [...] 10/14/2024 Echocardiography Report Pat.Name: Rosi Esqueda Pat.ID: [id number] .Date: 10/13/2024 Refer.MD: Woodrow, [facility] Exam Time: 3:21:00 PM Study Type:OUTREACH Height: 62 in Weight: 150 lb BSA: 1.69 m2 Age: 5 1955,69Y Sex: F Sonogrphr: Sf Pat. Stat.:Outpatient Reason for Study:Palpitations, Shortness of breath Procedures: Study performed at [place], [place] and interpreted by [facility]. 2D, M-mode, Doppler, Color Flow [...] 30 DAYS COMPLETE (Holter) (09/19/2024 1:33 PM CONCRETE STONE FABRICATING SUPERVISOR) [facility] - 09/19/2024 1:33 PM CONCRETE STONE FABRICATING SUPERVISOR Baseline Rhythm * The baseline rhythm was [...] Signed MATEUSZ GONZALEZ MD, MS, FACC, RVPI [place], [place] Mateusz Gonzalez MD CV VASCULAR ORDERABLES Final [...] Most Recently Relevant to Health Maintenance Insurance [facility] MEDICAID Advance Directives * Full Code (Latest Code Status on File) Date Activated Date Inactivated Comments 12/15/2021 4:46 PM 12/15/2021 7:33 PM Care Teams Neon Technician Relationship Specialty Start Date End Date Deion Bhat MD [address] [place] [phone] PCP - General INTERNAL MEDICINE 10/30/20 Mateusz Gonzalez MD [address] [place] [address] Consulting Physician CARDIOVASCULAR DISEASE 02/10/24
== END 2024-11-24 12:22 | disposition home or self-care (01) ==
PROVIDERS: PCP Internal Medicine; Visit Provider Otolaryngology
DX: R22.1 Localized swelling, mass and lump, neck (principal)
CPT/HCPCS: 10005; 88108; 88173; 88305

== ENCOUNTER 2024-12-30 08:31 | Outpatient (CLI) | payer MEDICARE, SELFPAY ==
--- OUTSIDE RECORDS SUMMARY | 2024-12-30 08:35 | XMS_ITS | Clinical Summary ---
Author Organization [facility] Address [address] [place] [address] Care Team Providers Care Nursing Services Manager Name Role Phone Deion Bhat MD Primary Care Provider [phone] Zofia Sanford MD Unavailable Allergies Active Allergy Reactions Criticality [...] Date Type Department Care Team Description 10/24/2024 [employer] Message Enc [facility] [address] [place] [address] [facility] Provider Results 10/16/2024 6:45 AM MEDICARE INSURANCE SPECIALIST - 10/16/2024 11:59 PM [facility] Hospital Encounter [facility] [address] [place] [address] Chrsiti Parada NP Discharge Disposition: Home or Self Care (Routine Discharge) 10/16/2024 Travel 10/13/2024 3:08 PM MEDICARE INSURANCE SPECIALIST - 10/13/2024 11:59 PM MEDICARE INSURANCE SPECIALIST Hospital Encounter [facility] [address] [place] [address] Zofia Sanford MD Discharge Disposition: Home or Self Care (Routine Discharge) 10/13/2024 Travel from Last 3 Months Family History Medical [...] on file Legal Sex Female 3:48 PM MEDICARE INSURANCE SPECIALIST Gender Identity Not on file Sexual [...] Description 08/10/2025 10:00 AM CDT Office Visit [facility] [place] [address] Zofia Sanford MD [address] [place] [address] Health Maintenance Due Date Last Done Comments [...] this topic Medical Devices Implanted Type Area Finish Specialist Device Identifier Shelf Expiration Date Model / Serial / Lot Cv Synergy Xd Piyush Mid Rca Stent- 2 Implanted:Qty: 1 on 12/15/2021 by Morgan Coley MD Stent Coronary RCA [employer] 06/30/2023 [id number] / / [id number] Tecnis Simplicity Implanted:Qty: 1 on 12/02/2022 by Alison Pickens MD at [facility] Left: Eye LIT & LIT [id number] 07/20/2024 DCB00 / [id number] / Tecnis Lens Implanted:Qty: 1 on 03/03/2023 by Alison Pickens MD at [facility] Right: Eye 01/02/2026 DCB00 / [id number] / Procedures Procedure Name Priority Date/Time Associated Diagnosis Comments MRI SOFT TISSUE NECK WWO CON Routine 10/16/2024 8:05 AM MEDICARE INSURANCE SPECIALIST Mass of left parotid gland USE ECHOCARDIOGRAM Routine 10/13/2024 3: 46 PM MEDICARE INSURANCE SPECIALIST Heart palpitations Shortness of breath LIPID PANEL Routine 01/31/2022 Coronary artery calcification seen on CT scan Mixed hyperlipidemia HEMOGLOBIN, GLYCOSYLATED Routine 01/31/2022 from Last 3 Months or Most Recently Relevant to Health Maintenance Results * MRI SOFT TISSUE NECK WWO CON (10/16/2024 8:05 AM MEDICARE INSURANCE SPECIALIST) Anatomical Region Laterality Modality Neck Magnetic Resonan ce 10/17/2024 10:2 9 AM MEDICARE INSURANCE SPECIALIST Impressions 10/17/2024 10:39 AM MEDICARE INSURANCE SPECIALIST IMPRESSION: 1. Approximately 2.7 x 2.3 x [...] 10/17/2024 10:29 AM Narrative 10/17/2024 10:39 AM MEDICARE INSURANCE SPECIALIST [address] [place] [address] DATE: 10/16/2024 7:33 AM INDICATION: Left parotid [...] Procedure Note Trung Daigle MD - 10/17/[address] [place] [address] DATE: 10/16/2024 7:33 AM INDICATION: Left parotid [...] MD, 10/17/2024 10:29 AM us Christi Parada ELECTRICAL HARDWARE ENGINEER MRI Final Result * USE ECHOCARDIOGRAM (10/13/2024 3:46 PM MEDICARE INSURANCE SPECIALIST) Anatomical Region Laterality Modality Cardiac Ultrasound 10/13/2024 3:21 PM MEDICARE INSURANCE SPECIALIST Narrative 10/14/2024 6:00 PM MEDICARE INSURANCE SPECIALIST Echocardiography Report Pat.Name: Rosi Esqueda Pat.ID: [id number] .Date: 10/13/2024 Refer.MD: Woodrow, [facility] Exam Time: 3:21:00 PM Study Type:WOODROW Height: 62 in Weight: 150 lb BSA: 1.69 m2 Age: 5 1955,69Y Sex: F Sonogrphr: Sf Pat. Stat.:Outpatient Reason for Study:Palpitations, Shortness of breath Procedures: Study performed at [place], [place] and interpreted by [facility]. 2D, M-mode, Doppler, Color Flow [...] 10/14/2024 Echocardiography Report Pat.Name: Rosi Esqueda Pat.ID: [id number] .Date: 10/13/2024 Refer.MD: Woodrow, [facility] Exam Time: 3:21:00 PM Study Type:WOODROW Height: 62 in Weight: 150 lb BSA: 1.69 m2 Age: 5 1955,69Y Sex: F Sonogrphr: Sf Pat. Stat.:Outpatient Reason for Study:Palpitations, Shortness of breath Procedures: Study performed at [place], [place] and interpreted by [facility]. 2D, M-mode, Doppler, Color Flow [...] M.D. Zofia Sanford MD ECHO Final Result * HEMOGLOBIN, GLYCOSYLATED (01/31/2022) HGB A1C 8.1 <5.7 % 01/31/2022 Deion Bhat MD LABORATORY Final Result * LIPID PANEL (01/31/2022) CHOLESTEROL 127 0 - 200 HDL 39 40 - 60 TRIGLYCERIDES 173 0 - 150 LDL (CALCULATED) 53 <130 01/31/2022 Colby Bhardwaj MD LABORATORY Final Resul t from Last 3 Months or Most Recently Relevant to Health Maintenance Insurance [facility] MEDICAID Advance Directives * Full Code (Latest Code Status on File) Date Activated Date Inactivated Comments 12/15/2021 4:46 PM 12/15/2021 7:33 PM Care Teams Nursing Services Manager Relationship Specialty Start Date End Date Deion Bhat MD [address] [place] [address] PCP - General INTERNAL MEDICINE 10/30/20 Zofia Sanford MD [address] [place] [address] Consulting Physician CARDIOVASCULAR DISEASE 02/10/24
--- OUTSIDE RECORDS SUMMARY | 2024-12-30 08:35 | XMS_ITS | Encounter Summary ---
Author Organization [facility] Address [address] [place] [address] Care Team Providers Care Incident Commander Name Role Phone Deion Bhat MD Primary Care Provider Pretty Gomez APRN, LEAD TEACHER-C Unavailable Zofia Sanford MD Unavailable Encounter Details Date Type Department Care Team (Late Contact Info) Description 12/18/2021 [facility] [address] [place] [phone] Colby Bhardwaj MD Social History Tobacco Use Types Packs/Day Years Used Date Smoking Tobacco: Every Day Smokeless Tobacco: Never Comments:patient doesnt smok e Alcohol Use Standard Drinks/Week Comments Not Currently 0 (1 standard drink = 0.6 oz pur e alcohol) Comments Unknown Sex and Gender Information Value Date Recorded Sex Assigned at Not on file Legal Sex Female 3:48 PM ELECTRIC HOIST OPERATOR Gender Identity Not on file Sexual Orientation Not on file COVID-19 Exposure Response Date Recorded In the last 10 days, have yo u been in contact with someone who was confirmed or suspected to have Coronavirus/COVID-19? No / Unsure 12/15/2021 11:43 AM ELECTRIC HOIST OPERATOR documented as of this encounter Plan of Treatment Upcoming Encounters Date Type Department Care Team (Late st Contact Info) Description 08/10/2025 10:00 AM CDT Office Visit [facility] [place] [phone] Zofia Sanford MD [address] [place], [place] [address] documented as of this encounter Visit Diagnoses Not on filedocumented in this encounter Care Teams Incident Commander Relationship Specialty Start Date End Date Deion Bhat MD [address] [place] [phone] PCP - General INTERNAL MEDICINE 10/30/20 Pretty Gomez APRN, LEAD TEACHER-C [address] [facility] [address] [place] [address] NURSE PRACTITIONER 10/30/21 02/09/24 Zofia Sanford MD [address] [place], [place] [phone] Consulting Physician CARDIOVASCULAR DISEASE 02/10/24 documented as of this encounter
--- OUTSIDE RECORDS SUMMARY | 2024-12-30 08:35 | XMS_ITS | Data Portability ---
Author Organization [place] [facility] Main Office Address [address] [place] [address] Care Team Providers Care Referral Rn Name Role Phone KALYAN OSUNA Primary Care Provider [phone] CHRISTI PARADA Primary Care Provider Assessment No assessment recorded. Plan of Treatment Reminders Order Date Submit Date Provider Last Modified By Organization Details Last Modified Time Details Appointments Procedure 15 2024 09:15A Logan Lindsay MD Not available Not available Not available Post-Op 15 2024 09:45A Logan Lindsay MD Not available Not available Not available Follow Up 2024 09:30A Logan Lindsay MD Not available Not available Not available Lab None recorded. Referral None recorded. Procedures None recorded. Surgeries None recorded. Imaging None recorded. Medication Orders None recorded. Patient TargetsNo targets recorded. Patient Instructions Encounter Date Encounter Id Patient Instructions Last Modified By Organization Details Last Modified Time 12/28/2024 [id number] this patient rayray l undergo [facility] with [facility] Not [facility] 12/28/2024 11:17:29 Reason for Referral None Reported. Results Created Date Observation Date Name Description Value Unit Range Abnormal Flag Note LastModifiedBy Organization Detail LastModifiedTime 10/19/1910/16/2024 MRI, neck, w/o contr ast No observ ation record ed. [address] (Radiology) [address], [place], [address], 10/24/2024 08:33:03 11/27/19 25 11/24/2024 fine needl e aspir ation , ultra sound guide d, neck mass (PROC ) No observ ation record ed. [email or web address] [address], [place], [address], 11/27/2024 09:18:08 Result Notes None recorded. Problems Name Problem SNOMED Code Status Onset Date Resolution Date Notes Provider Name and Address Organization Details Recorded Time Mass of left parotid gland 0289109313588388 3 Active 2024 JATINDER Samayoa [facility] 15:05:57 Problem Notes None recorded. Procedures Surgical History Date Name Laterality Status Provider Name and Address Organization Details Recorded Time 10/18/18 91 hysterectomy completed JATINDER Samayoa [facility] [employer] 10/24/2024 14:59:24 Remove tonsils and adenoids completed JATINDER Samayoa [facility] 10/24/2024 14:59:13 Shoulder joint surgery completed Iraida Rodriguez RN [facility] [employer] 10/24/2024 14:59:43 Imaging Results Imaging Date Name Status LastModified by Organiz ation Details LastModified Time 10/16/2024 MRI, neck, w/o contrast completed [address] (Radiology) [address], [place], [address], 10/24/2024 08:33:03 11/24/2024 fine needle aspiration, ultrasound guided, neck mass (PROC) completed [address], [address], 11/27/2024 09:18:08 Procedure Notes None recorded. Medical Equipment None Reported. Allergies Allergen ID Allergen Name Allergen Category Reaction Reaction Severity Criticality Documentation Date Start Date Code Code System Note Provider Name and Address Organization Details Recorded Time 70283 Iodinated contrast media (substanc e) medicatio n Not available Not available Not available 10/24/2024 59425 2003 SNOMED JATINDER Samayoa [facility] [employer] 15:00:43 97252 Aleve medicatio n Not available Not available Not available 10/26/2024 87597 1 RxNorm THOUG HT SHE WAS HAVIN G A HEART ATTAC K JATINDER Samayoa [facility] 5 14:55:13 12354 shellfish derived food,medi cation Not available Not available Not available 10/26/2024 10064 UNK Iraida Rodriguez RN null, [facility] 5 14:55:22 Medications Name Sig Start Date Stop Date Status Note LastModified by Organization Details LastModified Time methocarb sukh 500 mg tablet TAKE 1 TABLET BY MOUTH TWICE A DAY NEEDED active Not Available Not Available No t Available clindamyc in HCl 300 mg capsule TAKE 1 CAPSULE BY MOUTH EVERY 8 HOURS 12/28 completed Not Available Not Available Not Available metoprolo l succinate ER 50 mg tablet,ex tended release 24 hr Take 1 tablet every day by oral route. active Not Available Not Available No t Available ondansetr on HCl 4 mg tablet Take 2 tablets twice a day by oral route. active Not Available Not Available No t Available metronida zole 500 mg tablet TAKE 1 TABLET BY MOUTH EVERY 8 HOURS active Not Available Not Available No t Available aspirin 81 mg tablet,de layed release Take 1 tablet every day by oral route. active Not Available Not Available No t Available alprazola m 0.5 mg tablet TAKE 1 TABLET (0.5 MG) BY ORAL ROUTE 1 TIME 30 TO 60 MINUTES BEFORE MRI active Not Available Not Available No t Available amlodipin e 10 mg tablet Take 1 tablet every day by oral route. active Not Available Not Available No t Available pantopraz ole 40 mg tablet,de layed release Take 1 tablet every day by oral route. active Not Available Not Available No t Available prednison e 50 mg tablet TAKE 1 TABLET (50 MG) BY ORAL ROUTE AT 13 HOURS, 7 HOURS, AND 1 HOUR BEFORE CONTRAST MEDIA INJECTIO N active Not Available Not Available No t Available pravastat in 20 mg tablet Take 1 tablet every day by oral route. active Not Available Not Available No t Available hydrochlo rothiazid e 25 mg tablet Take 1 tablet every day by oral route. active Not Available Not Available No t Available gabapenti n 100 mg capsule Take 1 capsule 3 times a day by oral route. active Not Available Not Available No t Available ergocalci ferol (vitamin D2) 1,250 mcg (50,000 unit) capsule TAKE 1 CAPSULE BY MOUTH ONE TIME PER WEEK active Not Available Not Available No t Available albuterol sulfate HFA 90 mcg/actua tion aerosol inhaler INHALE 2 PUFFS (180 MCG) BY INHALATI ON ROUTE EVERY 6 HOURS. USE SPACER active Not Available Not Available No t Available lisinopri l 40 mg tablet Take 1 tablet every day by oral route. active Not Available Not Available No t Available cefdinir 300 mg capsule TAKE 1 CAPSULE BY MOUTH EVERY 12 HOURS 12/28 completed Not Available Not Available Not Available fluticaso ne propionat e 50 mcg/actua tion nasal spray,malik pension [place] 1 spray every day by intranas al route. active Not Available Not Available No t Available amoxicill in 875 mg-potass ium clavulana te 125 mg tablet TAKE 1 TABLET BY MOUTH EVERY 12 HOURS 12/28 completed Not Available Not Available Not Available bupropion HCl XL 300 mg 24 hr tablet, extended release Take 1 tablet every day by oral route. active Not Available Not Available No t Available BD Ultra-Fin e Short Pen Needle 31 gauge x 5/16 USE TO INJECT INSULIN 5 TIMES A DAY E11.65 active Not Available Not Available No t Available Lantus Solostar U-100 Insulin 100 unit/mL (3 mL) subcutane ous pen Inject by subcutan eous route. active Not Available Not Available No t Available Humalog KwikPen (U-100) Insulin 100 unit/mL subcutane ous Inject by subcutan eous route. active Not Available Not Available No t Available ibuprofen 200 mg-diphen hydramine HCl 25 mg capsule Take by oral route. active take 1 hour before contrast media injectio n Not Available Not Available Not Available zoledroni c acid 5 mg/100 mL in mannitol and water intraveno us piggybck Inject by intraven ous route. active Not Available Not Available No t Available umeclidin ium 62.5 mcg/actua tion blister powder for inhalatio n Inhale 1 puff every day by inhalati on route. active Not Available Not Available No t Available albuterol sulfate 90 mcg/actua tion breath activated powder inhaler Inhale 2 puffs every 4 hours by inhalati on route. active Not Available Not Available No t Available Trulicity 4.5 mg/0.5 mL subcutane ous pen injector INJECT 4.5MG SUBCUTAN EOUSLY ONCE WEEKLY active Not Available Not Available No t Available Ozempic 2 mg/dose (8 mg/3 mL) subcutane ous pen injector INJECT 2 MG BY SUBCUTAN EOUS ROUTE ONCE WEEKLY ON THE SAME DAY OF EACH WEEK active Not Available Not Available No t Available Vitals Date Recorded Body weight Body mass index (BMI) Body height Body temperature Provider Name and Address Organization Details Last Updated DateTime 10/26/2024 92542.47 g 28.6 kg/m2 158.75 cm 97.7 [degF] Iraida Rodriguez RN [facility] 10/26/2024 14:59:30 Date Recorded Body height Body mass index (BMI) Body weight Body temperature Provider Name and Address Organization Details Last Updated DateTime 12/28/2024 158.75 cm 27.7 kg/m2 52082.22 g 97.6 [degF] Iraida Rodriguez RN [facility] 12/28/2024 11:14:11 Social History Question Answer Notes LastModified by Organizat ion Details LastModified Time Tobacco Smoking Status Former Smoker LAST CIGARETTE WAS 10/17/25 Iraida Rodriguez RN null, [facility] 10/26/2024 14:57:07 What Is Your Level Of [...] SNOMED-CT Code Diagnosis ICD10 Code Diagnosis Note [id number] Bill Lindsay MD [facility] [place] [address] [place] [address] 10/26/2024 14:31:15 10/31/2024 13:33:16 Mass of left parotid gland [id number] 8181136 R22.1 [id number] Bill Lindsay MD [facility] [place] [address] [place] [address] 12/28/2024 11:02:00 12/28/2024 11:17:48 Mass of left parotid gland 0908364460 4305992 R22.1 Health Concerns Section Related Observation LastModified by Organization Detai ls LastModified Time None Recorded Concern Status LastModified by Organization Details LastModified Time None Recorded Advance Directives Directive None Recorded Payers Encounter Date Sequence Insurance Name Policy Number Policy Chopra Covered Member ID Chopra Member ID Guarantor Name 10/26/2024 1 [facility] (MEDICARE REPLACEMENT/A DVANTAGE - HMO) [id number] Rosi Esqueda [id number] Rosi Esqueda 12/28/2024 1 [facility] (MEDICARE REPLACEMENT/A DVANTAGE - HMO) [id number] Rosi Esqueda [id number] Rosi Esqueda Notes Date Note Type Note Provider Name and Address Organization Details Recorded Time 10/26/2024 text/html This patient developed a left parotid mass 1 month ago. It is mildly painful but she has otherwise no symptoms Bill Lindsay MD [address], [facility] [address], [place], [address], [employer] 10/26/2024 15:11:03 12/28/2024 text/html This patient has a left tail of parotid lesion. Multiple needle biopsies were attempted with no cytologic results. The patient reports that it is growing. Bill Lindsay MD [address], [address], [place], [address], [employer] 12/28/2024 11:17:47 OBGyn Episode No OBEpisode recorded.
--- OUTSIDE RECORDS SUMMARY | 2024-12-30 08:35 | XMS_ITS | Encounter Summary ---
Author Organization [facility] Address [address] [place] [address] Care Team Providers Care Acid Painter Name Role Phone Deion Bhat MD Primary Care Provider [phone] Zofia Sanford MD Unavailable Encounter Details Date Type Department Care Team (Late Contact Info) Description 10/24/2024 app2you Message [facility] [address] [place] [address] [facility] Provider Results Social History Tobacco Use Types Packs/Day Years Used Date Smoking Tobacco: Every Day Cigarettes 1 50 Smokeless Tobacco: Never Alcohol Use Standard Drinks/Week Comments Not Currently 0 (1 standard drink = 0.6 oz pur e alcohol) Comments Unknown Sex and Gender Information Value Date Recorded Sex Assigned at Not on file Legal Sex Female 3:48 PM PATCH SANDER Gender Identity Not on file Sexual Orientation Not on file documented as of this encounter Plan of Treatment Upcoming Encounters Date Type Department Care Team (Late Contact Info) Description 08/10/2025 10:00 AM CDT Office Visit [facility] [place] [address] Zofia Sanford MD [address] [place], [place] [address] documented as of this encounter Visit Diagnoses Not on filedocumented in this encounter Care Teams Acid Painter Relationship Specialty Start Date End Date Deion Bhat MD [address] [place] [address] PCP - General INTERNAL MEDICINE 10/30/20 Zofia Sanford MD [address] [place] [address] Consulting Physician CARDIOVASCULAR DISEASE 02/10/24 documented as of this encounter
--- OUTSIDE RECORDS SUMMARY | 2024-12-30 08:35 | XMS_ITS | Encounter Summary ---
Author Organization [facility] Address [address] [place] [address] Care Team Providers Care Brand Inspector Name Role Phone Deion Bhat MD Primary Care Provider Pretty Gomez APRN, HOUSE CALLS NURSE-C Unavailable Zofia Sanford MD Unavailable Encounter Details Date Type Department Care Team (Late Contact Info) Description 02/02/2022 Abstract [facility] [address] [place] [address] Colby Bhardwaj MD Social History Tobacco Use Types Packs/Day Years Used Date Smoking Tobacco: Every Day Smokeless Tobacco: Never Comments:patient doesnt smok e Alcohol Use Standard Drinks/Week Comments Not Currently 0 (1 standard drink = 0.6 oz pur e alcohol) Comments Unknown Sex and Gender Information Value Date Recorded Sex Assigned at Not on file Legal Sex Female 3:48 PM SAP BASIS Gender Identity Not on file Sexual Orientation Not on file documented as of this encounter Plan of Treatment Upcoming Encounters Date Type Department Care Team (Late Contact Info) Description 08/10/2025 10:00 AM CDT Office Visit [facility] [place] [address] Zofia Sanford MD [address] [place] [address] documented as of this encounter Procedures Procedure Name Priority Date/Time Associated Diagnosis Comments CMP (ABSTRACTED LAB) Routine 01/31/2022 HEMOGLOBIN, GLYCOSYLATED Routine 01/31/2022 documented in this encounter Results * HEMOGLOBIN, GLYCOSYLATED (01/31/2022) HGB A1C 8.1 <5.7 % 01/31/2022 Dieon Bhat MD LABORATORY Final Result * (ABNORMAL) [...] on filedocumented in this encounter Care Teams Brand Inspector Relationship Specialty Start Date End Date Deion Bhat MD [address] [place] [address] PCP - General INTERNAL MEDICINE 10/30/20 Pretty Gomez APRN, HOUSE CALLS NURSE-C [address] [place] [address] [address] NURSE PRACTITIONER 10/30/21 02/09/24 Zofia Sanford MD [address] [place] [address] Consulting Physician CARDIOVASCULAR DISEASE 02/10/24 documented as of this encounter
[2024-12-30 09:30] LABS: Alanine Aminotransferase 15 U/L (14-59); Albumin Level 3.8 g/dL (3.4-5.0); Alkaline Phosphatase 64 U/L (46-116); Anion Gap 9 mmol/L (4-12); Aspartate Amino Transferase < 10 U/L (15-37); Bilirubin,Total 0.4 mg/dL (0.00-1.00); Blood Urea Nitrogen 16 mg/dL (7-18); Calcium 9.1 mg/dL (8.5-10.1); Carbon Dioxide 27 mmol/L (21-32); Chloride 105 mmol/L (98-108); Cholesterol 172 mg/dL (0-200); Creatine Kinase 60 U/L (26-192); Estimated Glomerular Filt Rate 60; Glucose 90 mg/dL (70-99); HDL Direct 53 mg/dL (40-60); LDL Cholesterol Calculated 93 mg/dL (<130); Osmolality Calculated 293 mOsm/kg (285-295); Potassium 4.4 mmol/L (3.5-5.1); Sodium 141 mmol/L (136-145); Total Protein 7.1 g/dL (6.4-8.2); Triglycerides 131 mg/dL (0-150)
[2024-12-30 09:32] LABS: Hemoglobin A1C 5.5 % (<5.7)
== END 2024-12-30 08:32 | disposition home or self-care (01) ==
LOC: CHSLAB 08:32
PROVIDERS: PCP Internal Medicine; Visit Provider Internal Medicine
DX: E11.65 Type 2 diabetes mellitus with hyperglycemia (principal); I10 Essential (primary) hypertension; E78.2 Mixed hyperlipidemia
CPT/HCPCS: 36415; 80053; 80061; 82550; 83036

== ENCOUNTER 2025-01-01 08:59 | Outpatient (CLI) | payer MEDICARE, SELFPAY ==
--- OUTSIDE RECORDS SUMMARY | 2025-01-01 09:42 | XMS_ITS | Encounter Summary ---
Author Organization [facility] Address [address] [place] [address] Care Team Providers Care Health And Wellness Sales Consultant Name Role Phone Deion Bhat MD Primary Care Provider Pretty Gomez APRN, HEADING MAKER-C Unavailable Zofia Sanford MD Unavailable Encounter Details Date Type Department Care Team (Late Contact Info) Description 12/18/2021 Abstract [facility] [address] [place] [address] Colby Bhardwaj MD Social History Tobacco Use Types Packs/Day Years Used Date Smoking Tobacco: Every Day Smokeless Tobacco: Never Comments:patient doesnt smok e Alcohol Use Standard Drinks/Week Comments Not Currently 0 (1 standard drink = 0.6 oz pur e alcohol) Comments Unknown Sex and Gender Information Value Date Recorded Sex Assigned at Not on file Legal Sex Female 3:48 PM SHIRT BANDER Gender Identity Not on file Sexual Orientation Not on file COVID-19 Exposure Response Date Recorded In the last 10 days, have yo u been in contact with someone who was confirmed or suspected to have Coronavirus/COVID-19? No / Unsure 12/15/2021 11:43 AM SHIRT BANDER documented as of this encounter Plan of Treatment Upcoming Encounters Date Type Department Care Team (Late st Contact Info) Description 08/10/2025 10:00 AM CDT Office Visit [facility] [place] [address] Zofia Sanford MD [address] [place], [place] [address] documented as of this encounter Visit Diagnoses Not on filedocumented in this encounter Care Teams Health And Wellness Sales Consultant Relationship Specialty Start Date End Date Deion Bhat MD [address] [place] [address] PCP - General INTERNAL MEDICINE 10/30/20 Pretty Gomez APRN, HEADING MAKER-C [address] [facility] [address] [place] [address] NURSE PRACTITIONER 10/30/21 02/09/24 Zofia Sanford MD [address] [place], [place] [address] Consulting Physician CARDIOVASCULAR DISEASE 02/10/24 documented as of this encounter
--- OUTSIDE RECORDS SUMMARY | 2025-01-01 09:42 | XMS_ITS | Encounter Summary ---
Author Organization [facility] Address [address] [place] [address] Care Team Providers Care Medical Insurance Claims Specialist Name Role Phone Deion Bhat MD Primary Care Provider [phone] Zofia Sanford MD Unavailable Encounter Details Date Type Department Care Team (Late Contact Info) Description 10/24/2024 [place] Message Enc [facility] [address] [place] [address] [facility] Provider Results Social History Tobacco Use Types Packs/Day Years Used Date Smoking Tobacco: Every Day Cigarettes 1 50 Smokeless Tobacco: Never Alcohol Use Standard Drinks/Week Comments Not Currently 0 (1 standard drink = 0.6 oz pur e alcohol) Comments Unknown Sex and Gender Information Value Date Recorded Sex Assigned at Not on file Legal Sex Female 3:48 PM CORPORATE OFFICER Gender Identity Not on file Sexual Orientation Not on file documented as of this encounter Plan of Treatment Upcoming Encounters Date Type Department Care Team (Late Contact Info) Description 08/10/2025 10:00 AM CDT Office Visit [facility] [place] [phone] Zofia Sanford MD [address] [place], [place] [address] documented as of this encounter Visit Diagnoses Not on filedocumented in this encounter Care Teams Medical Insurance Claims Specialist Relationship Specialty Start Date End Date Deion Bhat MD [address] [place] [address] PCP - General INTERNAL MEDICINE 10/30/20 Zofia Sanford MD [address] [place] [address] Consulting Physician CARDIOVASCULAR DISEASE 02/10/24 documented as of this encounter
--- OUTSIDE RECORDS SUMMARY | 2025-01-01 09:42 | XMS_ITS | Data Portability ---
Author Organization [place] [facility] Main Office Address [address] [place] [address] Care Team Providers Care Inspector And Unloader Name Role Phone KALYAN OSUNA Primary Care [...] By Organization Details Last Modified Time 12/28/2024 [id number] this patient rayray l undergo left parotidectomy with facial nerve [facility] Not available 12/28/2024 11:17:29 Reason for Referral None Reported. Results Created Date Observation Date Name Description Value Unit Range Abnormal Flag Note LastModifiedBy Organization Detail LastModifiedTime 10/19/1910/16/2024 MRI, neck, w/o contr ast No observ ation record ed. [address] (Radiology) [address], [place], [address], 10/24/2024 08:33:03 11/27/19 25 11/24/2024 fine needl e aspir ation , ultra sound guide d, neck mass (PROC ) No observ ation record ed. [email or web address] [address], [place], [address], 11/27/2024 09:18:08 Result Notes None recorded. Problems Name Problem SNOMED Code Status Onset Date Resolution Date Notes Provider Name and Address Organization Details Recorded Time Mass of left parotid gland 4968021688364934 3 Active 2024 JATINDER Samayoa [facility] 15:05:57 Problem Notes None recorded. Procedures Surgical History Date Name Laterality Status Provider Name and Address Organization Details Recorded Time 10/18/18 91 hysterectomy completed JATINDER Samayoa [facility] 10/24/2024 14:59:24 Remove tonsils and adenoids completed JATINDER Samayoa [facility] [employer] [facility] 10/24/2024 14:59:13 Shoulder joint surgery completed Iraida Rodriguez RN [facility] [facility] 10/24/2024 14:59:43 Imaging Results Imaging Date Name Status LastModified by Organiz ation Details LastModified Time 10/16/2024 MRI, neck, w/o contrast completed [address] (Radiology) [address], [place], [address], 10/24/2024 08:33:03 11/24/2024 fine needle aspiration, ultrasound guided, neck mass (PROC) completed [address], [address], 11/27/2024 09:18:08 Procedure Notes None recorded. Medical Equipment None Reported. Allergies Allergen ID Allergen Name Allergen Category Reaction Reaction Severity Criticality Documentation Date Start Date Code Code System Note Provider Name and Address Organization Details Recorded Time 04354 Iodinated contrast media (substanc e) medicatio n Not available Not available Not available 10/24/2024 03394 2003 SNOMED JATINDER Samayoa [facility] [employer] [facility] 15:00:43 65119 Aleve medicatio n Not available Not available Not available 10/26/2024 60128 1 RxNorm THOUG HT SHE WAS HAVIN G A HEART ATTAC K JATINDER Samayoa [facility] 5 14:55:13 50808 shellfish derived food,medi cation Not available Not available Not available 10/26/2024 45342 UNK Iraida Rodriguez RN null, [facility] 5 14:55:22 Medications Name Sig Start [...] e 50 mcg/actua tion nasal spray,malik pension [place] 1 spray every day by intranas al [...] Address Organization Details Last Updated DateTime 10/26/2024 60761.47 g 28.6 kg/m2 158.75 cm 97.7 [degF] Iraida Rodriguez RN [facility] 10/26/2024 14:59:30 Date Recorded Body height Body mass index (BMI) Body weight Body temperature Provider Name and Address Organization Details Last Updated DateTime 12/28/2024 158.75 cm 27.7 kg/m2 72789.22 g 97.6 [degF] Iraida Rodriguez RN [facility] 12/28/2024 11:14:11 Social History Question Answer Notes LastModified by Organizat ion Details LastModified Time Tobacco Smoking Status Former Smoker LAST CIGARETTE WAS 10/17/25 Iraida Rodriguez RN null, [facility] 10/26/2024 14:57:07 What Is Your Level Of [...] SNOMED-CT Code Diagnosis ICD10 Code Diagnosis Note [id number] Bill Lindsay MD [facility] [place] [address] [place] [address] 10/26/2024 14:31:15 10/31/2024 13:33:16 Mass of left parotid gland 4488778864 3473108 R22.1 [id number] Bill Lindsay MD [facility] [place] [address] [place] [address] 12/28/2024 11:02:00 12/28/2024 11:17:48 Mass of left parotid gland 5559898210 4198229 R22.1 Health Concerns Section Related Observation LastModified by Organization Detai ls LastModified Time None Recorded Concern Status LastModified by Organization Details LastModified Time None Recorded Advance Directives Directive None Recorded Payers Encounter Date Sequence Insurance Name Policy Number Policy Chopra Covered Member ID Chopra Member ID Guarantor Name 10/26/2024 1 [facility] (MEDICARE REPLACEMENT/A DVANTAGE - HMO) [id number] Rosi Esqueda [id number] Rosi Esqueda 12/28/2024 1 [facility] (MEDICARE REPLACEMENT/A DVANTAGE - HMO) [id number] Rosi Esqueda [id number] Rosi Esqueda Notes Date Note Type Note Provider Name and Address Organization Details Recorded Time 10/26/2024 text/html This patient developed a left parotid mass 1 month ago. It is mildly painful but she has otherwise no symptoms Bill Lindsay MD [address], [facility] [address], [place], [address], [employer] 10/26/2024 15:11:03 12/28/2024 text/html This patient has a left tail of parotid lesion. Multiple needle biopsies were attempted with no cytologic results. The patient reports that it is growing. Bill Lindsay MD [address], [address], [place], [address], [employer] 12/28/2024 11:17:47 OBGyn Episode No OBEpisode recorded.
--- OUTSIDE RECORDS SUMMARY | 2025-01-01 09:42 | XMS_ITS | Clinical Summary ---
Author Organization [facility] Address [address] [place] [address] Care Team Providers Care Mash Processing Operator Name Role Phone Deion Bhat MD Primary Care Provider [phone] Zofia Sanford MD Unavailable Allergies Active Allergy [...] Date Type Department Care Team Description 10/24/2024 [email or web address] Message Enc [facility] [address] [place] [address] [facility] Provider Results 10/16/2024 6:45 AM PACKER INSPECTOR - 10/16/2024 11:59 PM [facility] Hospital Encounter [facility] [address] [place] [address] Christi Parada NP Discharge Disposition: Home or Self Care (Routine Discharge) 10/16/2024 Travel 10/13/2024 3:08 PM PACKER INSPECTOR - 10/13/2024 11:59 PM PACKER INSPECTOR Hospital Encounter [facility] [address] [place] [address] Zofia Sanford MD Discharge Disposition: Home or [...] on file Legal Sex Female 3:48 PM PACKER INSPECTOR Gender Identity Not on file Sexual Orientation [...] Description 08/10/2025 10:00 AM CDT Office Visit [facility] [place] [address] Zofia Sanford MD [address] [place] [address] Health Maintenance Due Date Last Done Comments [...] this topic Medical Devices Implanted Type Area Textile Machine Maintenance Mechanic Device Identifier Shelf Expiration Date Model / Serial / Lot Cv Synergy Xd Piyush Mid Rca Stent- 2 Implanted:Qty: 1 on 12/15/2021 by Morgan Coley MD Stent Coronary RCA [employer] 06/30/2023 [id number] / / [id number] Tecnis Simplicity Implanted:Qty: 1 on 12/02/2022 by Alison Pickens MD at [facility] Left: Eye LIT & LIT [id number] 07/20/2024 DCB00 / [id number] / Tecnis Lens Implanted:Qty: 1 on 03/03/2023 by Alison Pickens MD at [facility] Right: Eye 01/02/2026 DCB00 / [id number] / Procedures Procedure Name Priority Date/Time Associated Diagnosis Comments MRI SOFT TISSUE NECK WWO CON Routine 10/16/2024 8:05 AM PACKER INSPECTOR Mass of left parotid gland USE ECHOCARDIOGRAM Routine 10/13/2024 3: 46 PM PACKER INSPECTOR Heart palpitations Shortness of breath LIPID PANEL Routine 01/31/2022 Coronary artery calcification seen on CT scan Mixed hyperlipidemia HEMOGLOBIN, GLYCOSYLATED Routine 01/31/2022 from Last 3 Months or Most Recently Relevant to Health Maintenance Results * MRI SOFT TISSUE NECK WWO CON (10/16/2024 8:05 AM PACKER INSPECTOR) Anatomical Region Laterality Modality Neck Magnetic Resonan ce 10/17/2024 10:2 9 AM PACKER INSPECTOR Impressions 10/17/2024 10:39 AM PACKER INSPECTOR IMPRESSION: 1. Approximately 2.7 x 2.3 x [...] 10/17/2024 10:29 AM Narrative 10/17/2024 10:39 AM PACKER INSPECTOR [address] [place] [address] DATE: 10/16/2024 7:33 AM INDICATION: Left parotid [...] Procedure Note Trung Daigle MD - 10/17/[address] [place] [address] DATE: 10/16/2024 7:33 AM INDICATION: Left parotid [...] MD, 10/17/2024 10:29 AM us Christi Parada [employer] MRI Final Result * USE ECHOCARDIOGRAM (10/13/2024 3:46 PM PACKER INSPECTOR) Anatomical Region Laterality Modality Cardiac Ultrasound 10/13/2024 3:21 PM PACKER INSPECTOR Narrative 10/14/2024 6:00 PM PACKER INSPECTOR Echocardiography Report Pat.Name: Rosi Esqueda Pat.ID: [id number] .Date: 10/13/2024 Refer.MD: Woodrow, [facility] Exam Time: 3:21:00 PM Study Type:WOODROW Height: 62 in Weight: 150 lb BSA: 1.69 m2 Age: 5 1955,69Y Sex: F Sonogrphr: Sf Pat. Stat.:Outpatient Reason for Study:Palpitations, Shortness of breath Procedures: Study performed at [place], [place] and interpreted by [facility]. 2D, M-mode, Doppler, Color Flow [...] 10/14/2024 Echocardiography Report Pat.Name: Rosi Esqueda Pat.ID: [id number] .Date: 10/13/2024 Refer.MD: Woodrow, [facility] Exam Time: 3:21:00 PM Study Type:WOODROW Height: 62 in Weight: 150 lb BSA: 1.69 m2 Age: 5 1955,69Y Sex: F Sonogrphr: Sf Pat. Stat.:Outpatient Reason for Study:Palpitations, Shortness of breath Procedures: Study performed at [place], [place] and interpreted by [facility]. 2D, M-mode, Doppler, Color Flow [...] Most Recently Relevant to Health Maintenance Insurance [facility] MEDICAID Advance Directives * Full Code (Latest Code Status on File) Date Activated Date Inactivated Comments 12/15/2021 4:46 PM 12/15/2021 7:33 PM Care Teams Mash Processing Operator Relationship Specialty Start Date End Date Deion Bhat MD [address] [place] [address] PCP - General INTERNAL MEDICINE 10/30/20 Zofia Sanford MD [address] [place] [address] Consulting Physician CARDIOVASCULAR DISEASE 02/10/24
--- OUTSIDE RECORDS SUMMARY | 2025-01-01 09:42 | XMS_ITS | Encounter Summary ---
Author Organization [facility] Address [address] [place] [address] Care Team Providers Care Preventive Medicine Officer Name Role Phone Deion Bhat MD Primary Care Provider [phone] Pretty Gomez APRN, CORPORATE QUALITY ENGINEER-C Unavailable Zofia Sanford MD Unavailable Encounter Details Date Type Department Care Team (Late Contact Info) Description 02/02/2022 Abstract [facility] [address] [place] [id number] Colby Bhardwaj MD Social History Tobacco Use Types Packs/Day Years Used Date Smoking Tobacco: Every Day Smokeless Tobacco: Never Comments:patient doesnt smok e Alcohol Use Standard Drinks/Week Comments Not Currently 0 (1 standard drink = 0.6 oz pur e alcohol) Comments Unknown Sex and Gender Information Value Date Recorded Sex Assigned at Not on file Legal Sex Female 3:48 PM FILM INSPECTOR Gender Identity Not on file Sexual Orientation Not on file documented as of this encounter Plan of Treatment Upcoming Encounters Date Type Department Care Team (Late Contact Info) Description 08/10/2025 10:00 AM CDT Office Visit [facility] [place] [address] Zofia Sanford MD [address] [place] [address] documented as of this encounter Procedures Procedure [...] on filedocumented in this encounter Care Teams Preventive Medicine Officer Relationship Specialty Start Date End Date Deion Bhat MD [address] [place] [address] PCP - General INTERNAL MEDICINE 10/30/20 Pretty Gomez APRN, CORPORATE QUALITY ENGINEER-C [address] [place] [address] [phone] NURSE PRACTITIONER 10/30/21 02/09/24 Zofia Sanford MD [address] [place] [address] Consulting Physician CARDIOVASCULAR DISEASE 02/10/24 documented as of this encounter
[2025-01-01 09:48] LABS: Add Urine Microscopic? YES; Appearance Urine Clear (Clear); Bilirubin Urine Negative (Negative); Blood Urine Negative (Negative); Color Urine Light Yellow (Yellow); Glucose Urine UA Negative (Negative); Ketones Urine Negative (Negative); Leukocyte Esterase Ur Trace (Negative); Nitrate Urine Negative (Negative); Protein Urine Negative (Negative); Specific Grav Ur <= 1.005 (1.010-1.020); Urobilinogen Urine 0.2 mg/dL (0.2-1.0); pH Urine 5.5 (5.0-8.0)
[2025-01-01 10:03] LABS: Creatinine Urine 35.58 mg/dL (40-278); MALB Creatinine Ratio 36.5 mg/g (0-30); Microalbumin Urine Random < 13.0 mg/L
[2025-01-01 10:26] LABS: Bacteria Urine Trace /hpf; RBC Urine 0-2 /hpf (0-2); Squamous Epithelial Cell Urine Few /hpf (Few); WBC Urine 0-3 /hpf (0-3)
== END 2025-01-01 09:00 | disposition home or self-care (01) ==
LOC: CHSLAB 09:01
PROVIDERS: PCP Internal Medicine; Visit Provider Internal Medicine
DX: E11.65 Type 2 diabetes mellitus with hyperglycemia (principal); I10 Essential (primary) hypertension; E78.2 Mixed hyperlipidemia
CPT/HCPCS: 81001; 82043

== ENCOUNTER 2025-07-16 07:06 | Outpatient (CLI) | payer MEDICARE, MEDICAID, SELFPAY ==
[2025-07-16 07:40] LABS: Hematocrit 42.9 % (35.0-42.0); Hemoglobin 14.3 g/dL (11.7-13.8); Mean Corpuscular HGB Conc 33.3 g/dL (32-36); Mean Corpuscular Hemoglobin 30.4 pg (27.0-31.0); Mean Corpuscular Volume 91.1 fL (78.0-102.0); Platelet Count Result 230 K/mm3 (150-420); Red Blood Count 4.71 M/mm3 (4.20-5.40); White Blood Count 7.7 K/mm3 (4.8-10.8)
[2025-07-16 07:43] LABS: Add Urine Microscopic? YES; Appearance Urine Clear (Clear); Glucose Urine UA Negative (Negative); Leukocyte Esterase Ur Trace LEU/UL (Negative); Nitrate Urine Negative (Negative); Specific Grav Ur 1.025 (1.010-1.020)
[2025-07-16 08:00] LABS: Alanine Aminotransferase 11 U/L (6-35); Albumin Level 4.2 g/dL (3.5-5.1); Alkaline Phosphatase 54 U/L (38-126); Anion Gap 9 mmol/L (4-12); Aspartate Amino Transferase 22 U/L (14-36); Bilirubin,Total 0.5 mg/dL (0.2-1.3); Blood Urea Nitrogen 14 mg/dL (7-17); Calcium 9.6 mg/dL (8.4-10.2); Carbon Dioxide 26 mmol/L (22-30); Chloride 104 mmol/L (98-107); Cholesterol 154 mg/dL (0-200); Creatine Kinase 52 U/L (30-135); Estimated Glomerular Filt Rate > 60; Glucose 88 mg/dL (65-110); HDL Direct 47 mg/dL; MALB Creatinine Ratio 11.3 mg/g (0-30); Osmolality Calculated 287 mOsm/kg (285-295); Potassium 4.4 mmol/L (3.4-5.0); Sodium 139 mmol/L (137-145); Total Protein 7.7 g/dL (6.3-8.2); Triglycerides 209 mg/dL (<150)
[2025-07-16 08:05] LABS: Hemoglobin A1C 5.5 % (<5.7)
[2025-07-16 08:30] LABS: Thyroid Stimulating Hormone 1.890 uIU/mL (0.465-4.680)
[2025-07-16 09:16] LABS: Vitamin B12 330.0 pg/mL (239-931)
[2025-07-16 10:01] LABS: Free T3 3.45 pg/mL (2.18-3.98)
[2025-07-16 12:47] LABS: Free T4 Free Thyroxine 1.18 ng/dL (0.78-2.19)
== END 2025-07-16 07:07 | disposition home or self-care (01) ==
PROVIDERS: PCP Internal Medicine; Visit Provider Internal Medicine
DX: M81.0 Age-related osteoporosis without current pathological fracture (principal); I10 Essential (primary) hypertension; K86.1 Other chronic pancreatitis; E78.1 Pure hyperglyceridemia; E71.40 Disorder of carnitine metabolism, unspecified; G62.9 Polyneuropathy, unspecified
CPT/HCPCS: 36415; 80053; 80061; 81001; 82043; 82550; 82607; 83036; 84439; 84443; 84481; 85027

== ENCOUNTER 2025-09-24 05:54 | Day surgery (SDC) | payer MEDICARE, MEDICAID, SELFPAY ==
[2025-09-24 06:20] VITALS: BP 115/73; PULSE 71; RESP 16; TEMP 37.7; O2SAT 100
[2025-09-24] MEDS: LACTATED RINGERS 1,000 ML 150 ML IV CONT (06:31)
--- NOTE | 2025-09-24 07:17 | WPDANESEPPF ---
Anes - Initial Pre Proc Eval Procedure: Operation Date: 09/24/25 07:30 Proposed Procedures p Screening Colonoscopy - Colin Gan DO Date/Time: 09/24/25 07:17 Surgeon: Colin Gan DO Pre Op Diagnosis: Neoplasm Screening Patient Data Age: 70 Gender: F Height: 1.57 m Weight: 64.35 kg Last Vital Signs Temp 99.9 F H 09/24/25 06:20 Pulse 71 09/24/25 06:20 Resp 16 09/24/25 06:20 BP 115/73 09/24/25 06:20 Pulse Ox 100 09/24/25 06:20 O2 Del Method Room Air 09/24/25 06:20 Allergies Allergy/AdvReac Type Severity Reaction Status Date / Time naproxen (From Aleve) Allergy Severe Dyspnea / Verified 09/24/25 06:18 SOB shellfish derived Allergy Severe Anaphylactic Verified 09/24/25 06:18 Shock iodine Allergy Intermediate Blister Verified 09/24/25 06:18 Home Medications ?Medication ?Instructions ?Recorded ?Confirmed ?Type amlodipine 10 mg tablet 10 mg PO DAILY 04/15/21 09/24/25 History aspirin 81 mg tablet,delayed 81 mg PO DAILY 04/15/21 09/24/25 History release bupropion HCl 300 mg 24 hr tablet, 300 mg PO QAM 04/15/21 09/24/25 History extended release ergocalciferol (vitamin D2) 1,250 1,250 mcg PO WEEKLY 04/15/21 09/24/25 History mcg (50,000 unit) capsule (Vitamin D2) hydrochlorothiazide 25 mg tablet 25 mg PO DAILY 04/15/21 09/24/25 History lisinopril 40 mg tablet 40 mg PO DAILY 04/15/21 09/24/25 History pravastatin 20 mg tablet 20 mg PO HS 05/06/22 09/24/25 History semaglutide 0.25 mg or 0.5 mg (2 0.5 mg subcut WEEKLY DIABETIC 05/14/23 09/24/25 History mg/3 mL) subcutaneous pen injector (Ozempic) cyanocobalamin (vitamin B-12) 1,000 mcg PO DAILY 09/11/25 09/24/25 History 1,000 mcg tablet (Vitamin B-12) pantoprazole 40 mg tablet,delayed 40 mg PO DAILY 09/11/25 09/24/25 History release trazodone 100 mg tablet 100 mg PO HS 09/11/25 09/24/25 History Patient hx anesthesia problems: post op nausea/vomiting Family hx anesthesia problems: none Results Review: All pre-operative results and documents have been reviewed as part of the pre-operative evaluation. [facility] Past Medical History Medical History (Updated 05/19/23 @ 12:41 by Michael Warren DO) PONV (postoperative nausea and vomiting) CAD (coronary artery disease) Gastroesophageal reflux disease Fibroid Endometriosis Diabetes type 2, controlled Osteoarthritis Hypertension Surgical History Surgical History Hx laparoscopic cholecystectomy 05/13/22 Trigger finger Trigger finger surgery 12/09. History of hysterectomy Family History Family History Mother Hypertension Social History Social History Smoking packs per day: 0.5 Smoking cigarettes per day: 10.0 Years smoked: 55 Smoking pack-years: 27.50 Smoking status: Current every day smoker Tobacco type: cigarettes Additional smoking assessment comments: WAS SMOKING 2 PACKS A DAY IN THE PROCESS OF QUITTING CURRENTLY Substance use: never Substance use type: does not use Living arrangements: alone Spiritual care concerns: No Anes - Eval Final PreProcedure Day of Procedure 09/24/25 07:17 Heart: regular rate and rhythm Lungs: clear to auscultation Airway: Mallampati scale class II Neurological: alert and oriented Last oral intake: >/= 8 hours ASA classification: III Anesthetic plan: proceed Anesthesia type and monitoring: general Results Review: All pre-operative results and documents have been reviewed as part of the pre-operative evaluation. Informed Consent: The patient's anesthetic plan and its attendant risks and benefits were discussed with the patient/family/POA. Questions were solicited and answers provided to the satisfaction of the patient/family/POA.
--- NOTE | 2025-09-24 07:24 | WPDANESPN ---
Anes - Prog Note Post-Op Date/Time: 09/24/25 07:24 Vital Signs: Last Vital Signs Temp 99.9 F H 09/24/25 06:20 Pulse 71 09/24/25 06:20 Resp 16 09/24/25 06:20 BP 115/73 09/24/25 06:20 Pulse Ox 100 09/24/25 06:20 O2 Del Method Room Air 09/24/25 06:20 Pain Score (VAS): no Patient Feedback: Patient satisfied with anesthetic care.
--- NOTE | 2025-09-24 07:32 | PM.IMHP2 ---
H&P: HPI History of Present Illness Date/Time: 09/24/25 07:32 Chief Complaint: History of colon polyps Narrative: this is a 70-year-old woman who presents for colonoscopy. Her last colonoscopy was 5 years ago had multiple polyps were removed. He denies any hematochezia or melena. She has a family history of colon cancer in an uncle but no first-degree family members. Review of Systems Review of Systems: All systems reviewed & are unremarkable except as noted in HPI and below Constitutional: Constitutional: Denies chills, Denies fever(s), Denies headache(s) and Denies weight loss Eyes: Eyes: Denies change in vision ENT: Denies dizziness, Denies headache(s), Denies neck mass and Denies throat swelling Cardiovascular: Cardiovascular: Denies chest pain, Denies lightheadedness and Denies dyspnea Respiratory: Respiratory: Denies cough, Denies dyspnea and Denies wheezing Gastrointestinal: Gastrointestinal: Denies abdominal pain, Denies change in bowel habits, Denies nausea and Denies vomiting Genitourinary: Genitourinary: Denies hematuria and Denies dysuria Musculoskeletal: Musculoskeletal: Reports as per HPI Integumentary/Breasts: Skin/Breast: Reports as per HPI Neurologic: Denies dizziness and Denies headache(s) Allergic/Immunologic: Allergic/Immunologic: Denies throat swelling and Denies wheezing [facility]LY [facility] Past Medical History Medical History (Updated 05/19/23 @ 12:41 by Michael Warren DO) PONV (postoperative nausea and vomiting) CAD (coronary artery disease) Gastroesophageal reflux disease Fibroid Endometriosis Diabetes type 2, controlled Osteoarthritis Hypertension Surgical History Surgical History Hx laparoscopic cholecystectomy 05/13/22 Trigger finger Trigger finger surgery 12/09. History of hysterectomy Family History Family History Mother Hypertension Social History Social History Smoking packs per day: 0.5 Smoking cigarettes per day: 10.0 Years smoked: 55 Smoking pack-years: 27.50 Smoking status: Current every day smoker Tobacco type: cigarettes Additional smoking assessment comments: WAS SMOKING 2 PACKS A DAY IN THE PROCESS OF QUITTING CURRENTLY Substance use: never Substance use type: does not use Living arrangements: alone Spiritual care concerns: No Meds Home Medications and Allergies Home Medications ?Medication ?Instructions ?Recorded ?Confirmed ?Type amlodipine 10 mg tablet 10 mg PO DAILY 04/15/21 09/24/25 History aspirin 81 mg tablet,delayed 81 mg PO DAILY 04/15/21 09/24/25 History release bupropion HCl 300 mg 24 hr tablet, 300 mg PO QAM 04/15/21 09/24/25 History extended release ergocalciferol (vitamin D2) 1,250 1,250 mcg PO WEEKLY 04/15/21 09/24/25 History mcg (50,000 unit) capsule (Vitamin D2) hydrochlorothiazide 25 mg tablet 25 mg PO DAILY 04/15/21 09/24/25 History lisinopril 40 mg tablet 40 mg PO DAILY 04/15/21 09/24/25 History pravastatin 20 mg tablet 20 mg PO HS 05/06/22 09/24/25 History semaglutide 0.25 mg or 0.5 mg (2 0.5 mg subcut WEEKLY DIABETIC 05/14/23 09/24/25 History mg/3 mL) subcutaneous pen injector (Ozempic) cyanocobalamin (vitamin B-12) 1,000 mcg PO DAILY 09/11/25 09/24/25 History 1,000 mcg tablet (Vitamin B-12) pantoprazole 40 mg tablet,delayed 40 mg PO DAILY 09/11/25 09/24/25 History release trazodone 100 mg tablet 100 mg PO HS 09/11/25 09/24/25 History Allergies Allergy/AdvReac Type Severity Reaction Status Date / Time naproxen (From Aleve) Allergy Severe Dyspnea / Verified 09/24/25 06:18 SOB shellfish derived Allergy Severe Anaphylactic Verified 09/24/25 06:18 Shock iodine Allergy Intermediate Blister Verified 09/24/25 06:18 Vital Signs Vital Signs - 24 hr 09/24/25 06:20 Temperature 99.9 F H Pulse Rate 71 Respiratory Rate 16 Blood Pressure 115/73 Pulse Oximetry 100 Oxygen Delivery Room Air Exam Const: General: no acute distress and alert Orientation/consciousness: patient oriented x3 HENMT: Head: normocephalic and atraumatic Ears: hearing grossly normal bilaterally Face/Nose/Sinus: Normal nares present Mouth: Yes Normal oral and palatal mucosa present Eyes: Periorbital: periorbital findings normal Sclera: sclerae normal EOM: EOMs intact bilaterally Neck: Neck: normal visual inspection, no lymphadenopathy and trachea midline Chest: Chest palpation & inspection: normal inspection of the chest Resp: Effort & Inspection: normal respiratory effort Auscultation: clear to auscultation bilaterally Cardio: Jugular venous distension: no JVD Rate: regular rate Rhythm: regular rhythm Heart sounds: S1 normal heart sound present and S2 normal heart sound present Peripheral pulses: Peripheral pulses 2+ throughout GI: Inspection: normal to inspection GI Palp: Yes Soft to palpation, No Tenderness to palpation present (GI), No Guarding due to palpation present (GI) and No Rebound tenderness present Percussion: Yes normal to percussion Auscultation: normal bowel sounds : General: Yes no CVA tenderness Back/Spine/Pelvis: Back: no CVA tenderness Neuro: General: patient oriented x3, no focal motor deficits and CN's II-XI intact bilaterally Cognition (Neuro): normal cognition Speech: normal speech Motor exam (neuro): 5/5 motor strength present throughout Extrem: General: capillary refill normal and no clubbing, cyanosis or edema Assessment and Plan Assessment and plan (1) History of colon polyps: Code(s): Z86.010 - Personal history of colon polyps Status: Acute Assessment and Plan: I have recommended colonoscopy. I have discussed the procedure, risks, benefits, and alternatives. Questions were answered. Patient is agreeable to proceed.
[2025-09-24 07:58] VITALS: BP 78/53; PULSE 64; RESP 15; O2SAT 100
[2025-09-24 08:08] VITALS: BP 93/61; PULSE 68; RESP 16; O2SAT 100
[2025-09-24 08:18] VITALS: BP 108/64; PULSE 67; RESP 16; O2SAT 100
== END 2025-09-24 08:27 | disposition home or self-care (01) ==
PROVIDERS: PCP Internal Medicine; Visit Provider Surgery
PROC: 0DJD8ZZ Inspection of Lower Intestinal Tract, Via Natural or Artificial Opening Endoscopic (ICD-10-PCS; CPT 45378; principal; 2025-09-24 07:30)
DX: Z12.11 Encounter for screening for malignant neoplasm of colon (principal); D12.3 Benign neoplasm of transverse colon
CPT/HCPCS: 45380

== ENCOUNTER 2025-09-25 09:16 | Outpatient (NON) | payer MEDICARE, MEDICAID, SELFPAY ==
--- NOTE | 2025-09-24 08:00 | S_PTH ---
PATIENT: Rosi Esqueda LOC: ANAB #:[id number] AGE/SX: 70/F ROOM: RE09/25/[address]: Colin Gan DO : 1955 BED: DIS: 09/25/2025 SPEC #: [id number] RECD: 09/25/25 10:14 STATUS: ANN RERosalba #: [id number] EZEKIEL: 09/24/25 08:[address]: Colin Gan DEPT: [facility] Surgical RECD BY: Nataly Gill MLT, ([facility]) ENTERED: 09/25/25 10:14 SP TYPE: Surgical OTHR DR: Deion Bhat MD Tissues: A - Polyp Procedures: Hematoxylin and Eosin Stain Gross and Microscopic Level 4
== END 2025-09-25 09:17 | disposition home or self-care (01) ==
LOC: ANHLAB 09:17
PROVIDERS: PCP Internal Medicine; Visit Provider Surgery
DX: D12.3 Benign neoplasm of transverse colon (principal); Z86.0100 Personal history of colon polyps, unspecified
CPT/HCPCS: 88305